=== PATIENT | male | born 1965 | race Caucasian/White ===

== ENCOUNTER → 2020-10-17 10:32 | Outpatient (BNVA) | payer MEDICARE, MEDICAID, SELFPAY | PROVIDERS: PCP Nurse Practitioner Family; Visit Provider Nurse Practitioner Family | DX: Z01.810 Encounter for preprocedural cardiovascular examination (principal); I45.10 Unspecified right bundle-branch block; G47.33 Obstructive sleep apnea (adult) (pediatric); E66.01 Morbid (severe) obesity due to excess calories; M48.061 Spinal stenosis, lumbar region without neurogenic claudication; Z86.79 Personal history of other diseases of the circulatory system; Z86.711 Personal history of pulmonary embolism; Z86.718 Personal history of other venous thrombosis and embolism; Z79.01 Long term (current) use of anticoagulants | CPT/HCPCS: 93005; 99212 ==

== ENCOUNTER → 2020-10-30 10:05 | Outpatient (BNVA) | payer MEDICARE, MEDICAID, SELFPAY | PROVIDERS: Visit Provider Urology | DX: E29.1 Testicular hypofunction (principal); N52.01 Erectile dysfunction due to arterial insufficiency; C61 Malignant neoplasm of prostate | CPT/HCPCS: Q3014 ==

== ENCOUNTER 2021-01-11 12:54 | Outpatient (REF) | payer MEDICARE, MEDICAID, SELFPAY ==
--- NOTE | ~2021-01-11 | US_ITS ---
EXAMINATION: US VENOUS ULTRASOUND WITH DOPPLER LOWER EXTREMITY, LEFT CLINICAL INFORMATION: Left lower extremity edema. Assess for occult DVT. COMPARISON: Bilateral leg venous ultrasound with Doppler 05/29/2019. TECHNIQUE: Ultrasound of the deep veins is performed from the hip to the calf with compression sonography and color and pulse Doppler assessment. Spectral analysis with color-flow imaging is performed. FINDINGS: There is noncompressibility and absent color flow involving the femoral vein at the thigh from just above the popliteal vein at the knee to just proximal to the common femoral vein at the hip. Findings are consistent with deep venous thrombosis. The common femoral vein, greater saphenous vein, popliteal vein, and posterior tibial vein show normal compressibility and color flow and augmentation of flow. The left peroneal veins are not seen with certainty which may be technical or related to the swelling. There is no visible DVT in this area although this cannot be completely excluded. Results are called and discussed with Dr. Liang at 1359 hours. US/US venous duplex LE IMPRESSION: Positive for deep venous thrombosis proximal, mid, and distal left femoral vein, from just above the popliteal vein to just below the common femoral vein.
== END 2021-01-11 12:55 | disposition home or self-care (01) ==
LOC: HO.HMGCX 12:54
PROVIDERS: PCP Nurse Practitioner Family; Visit Provider Hospitalist
DX: R60.0 Localized edema (principal)
CPT/HCPCS: 93971

== ENCOUNTER 2021-01-11 15:15 | Emergency (ER) | payer MEDICARE, MEDICAID, SELFPAY ==
[2021-01-11 15:19] VITALS: BP 145/92; PULSE 110; RESP 20; TEMP 37; O2SAT 96; BMI 45.9
[2021-01-11 16:42] LABS: MANUAL DIFF FLAG NO
--- NOTE | 2021-01-11 16:49 | ED_ITS ---
HPI - Extremity Problem General Chief complaint: Recheck/Abnormal Lab/Rx Stated complaint: ?DVT Time Seen by Provider: 01/11/21 16:04 Source: patient Mode of arrival: ambulatory Limitations: no limitations History of Present Illness HPI Narrative: 55-year-old male with a past medical history of atrial fibrillation currently on Eliquis, prostate cancer, right bundle-branch block, GERD, constipation, elevated alkaline phosphate, morbid obesity, anemia, asthma, and HARITHA presenting to the ED after being seen by Dr. Liang for left lower extremity wound/swelling with water blisters was placed on antibiotics and Lasix and had an outpatient ultrasound which revealed a DVT today which revealed DVT proximal mid and distal left femoral vein just above the popliteal vein therefore was sent here for further evaluation treatment. Patient did stop his Eliquis for only 1 day for upcoming stimulant placement by Dr. Mesa. Although was taking his Eliquis as prescribed prior to that. Denies any dizziness, headaches, changes in vision, jaw pain, nausea/vomiting, chest pain, shortness of breath, dyspnea on exertion, orthopnea, palpitations, any symptoms or any other symptom complaints or concerns at this time. MD Complaint: extremity pain and extremity swelling Onset (ago): day(s) (Few days worse today) Pain Consistency: constant Location: left Quality: aching Radiation: none Relieving factors: nothing Exacerbating factors: nothing Associated symptoms: denies other symptoms Related Data Home Medications Medication Instructions Recorded Confirmed finasteride 5 mg tablet 5 mg PO DAILY 09/25/20 01/11/21 diltiazem HCl 120 mg 120 mg PO BID 10/17/20 01/11/21 capsule,extended release 12 hr Previous Rx's Medication Instructions Recorded apixaban 5 mg tablet 5 mg PO BID 90 Days #180 tab 10/17/20 tadalafil 5 mg tablet 5 mg PO DAILY 90 Days #90 tab 10/30/20 pramipexole 0.25 mg tablet 0.25 mg PO BEDTIME #30 tab 11/09/20 gabapentin 800 mg tablet 800 mg PO TID 30 Days #90 tab 12/26/20 aripiprazole 5 mg tablet 5 mg PO DAILY #30 tab 01/07/21 tizanidine 4 mg tablet 4 mg PO BID PRN #60 tab 01/07/21 doxycycline hyclate 100 mg tablet 100 mg PO BID #14 tab 01/11/21 enoxaparin [Lovenox] 150 mg SUBCUT Q12H #10 ml 01/11/21 furosemide 20 mg tablet 20 mg PO DAILY #30 tab 01/11/21 Allergies Allergy/AdvReac Type Severity Reaction Status Date / Time Sulfa (Sulfonamide Allergy Mild RASH, hives Verified 01/11/21 09:19 Antibiotics) [SULFA (SULFONAMIDE ANTIBIOTICS)] Review of Systems Review of Systems: Constitutional : No Fever, No Chills, No Night Sweats, No Fatigue, No Malaise ENT/Mouth : No Hearing loss, No Ear Pain, No Nasal Congestion, No Sinus Pain, No Hoarseness, No sore throat, No Rhinorrhea, No Swallowing Difficulty Eyes: No Eye Pain, No Swelling, No Redness, No Foreign Body, No Discharge, No Vision Changes Cardiovascular : No Chest Pain, No SOB, No Dyspnea on Exertion, No Orthopnea, No Edema, No Palpitations Respiratory : No Cough, No Sputum, No Wheezing, No Smoke Exposure, No Dyspnea Gastrointestinal : No Nausea, No Vomiting, No Diarrhea, No Constipation, No abdominal Pain, No Hematochezia, No Melena Genitourinary : no irregular bleeding, No Dysuria, No Urinary Frequency, No Hematuria, No Urinary Incontinence, No Urgency, No Flank Pain, No Urinary Flow Changes, No Hesitancy Musculoskeletal : + Joint swelling, No joint pain, No Myalgias Skin : + Skin Lesions, No rash Neuro : No Weakness, No Numbness, No Paresthesias, No Loss of Consciousness, No Dizziness, No Headache Psych : No Anxiety/Panic, No Depression, No SI/HI/AH/VH, No Social Issues, Heme/Lymph: No Bruising, No Bleeding,No Lymphadenopathy Endocrine : No Polyuria, No Polydipsia, No Temperature Intolerance Yes all other systems are reviewed and are negative [facility] Past Medical History Attestation statement: The following information was validated with the patient. Medical History Anemia Arthritis Asthma Atrial fibrillation Carpal tunnel syndrome Constipation Depression Elevated alkaline phosphatase level Erectile dysfunction GERD (gastroesophageal reflux disease) Lumbar spinal stenosis Morbid obesity HARITHA (obstructive sleep apnea) Prostate CA RBBB Stenosis of cervical spine Surgical History H/O cardiac radiofrequency ablation (~04/2017) No pertinent past surgical history Family History Family History Father No problems noted. Mother No problems noted. Social History Social History Alcohol intake: never Smoking Status: Former smoker Advance Directives: No Advance Directives Information Provided: Yes Physical Exam Vital Signs: Vital Signs: Last Vital Signs Temp 98.6 F 01/11/21 15:19 Pulse 110 H 01/11/21 15:19 Resp 20 01/11/21 15:19 BP 145/92 H 01/11/21 15:19 Pulse Ox 96 01/11/21 15:19 Body Mass Index 45.9 vital signs have been reviewed as normal and appeared to be correct. Blood pressure normal. Heart rate normal. Respiration rate normal. Temperature normal. Oxygen saturation normal. Appearance: Alert. Oriented X3. No acute distress. Head: Normal external exam. Normocephalic. Atraumatic. Eyes: PERRLA. EOMI. Conjunctiva and sclera normal. Eyelids normal. ENT: Pharynx normal. Uvula midline. Moist mucous membranes. No trismus noted. No drooling noted. No muffled voice noted. Neck: Normal inspection. Neck supple. FROM. No adenopathy. Thyroid Normal. Trachea midline. No meningeal signs. No neck mass noted. CVS: Normal heart rate and rhythm. Heart sound normal. No murmurs noted. Pulses normal throughout. Respiratory: No respiratory distress. Painless inspiration. Breath sounds normal. No wheezes/rales/rhonchi noted. Chest nontender. No accessory muscle usage noted or decreased air movement noted. Back: Full range of motion noted. Skin: Skin warm and dry. Normal skin color. Normal skin turgor. No rashes/lesions/lacerations noted. Extremities: Patient with wound noted to left lower extremity with mild surrounding erythema with a water blister noted above. No fluctuance noted. Patient has bilateral pitting edema. Does have good distal pedal pulses. No streaking noted. See below for imaging. Extremities exhibit normal range of motion. Extremities nontender. Neuro: Oriented X 3. No motor deficit. No sensory deficit. Reflexes normal. Course Course Course Narrative: 55-year-old male with a past medical history of atrial fibrillation currently on Eliquis, prostate cancer, right bundle-branch block, GERD, constipation, elevated alkaline phosphate, morbid obesity, anemia, asthma, and HARITHA presenting to the ED after being seen by Dr. Liang for left lower extremity wound/swelling with water blisters was placed on antibiotics and Lasix and had an outpatient ultrasound which revealed a DVT today which revealed DVT proximal mid and distal left femoral vein just above the popliteal vein therefore was sent here for further evaluation treatment. - I consulted with Dr. Palacios who recommended getting basic blood work and if the patient's kidney function was within normal limits patient can be placed on p.o. Lovenox and can follow-up as an outpatient basis. - labs all within normal limits therefore will place on Lovenox and instruct patient to continue taking the antibiotics he was placed on for cellulitis/wound and to return if any new or worsening symptoms to follow up with primary care provider. Patient understands agrees the plan. MDM - Extremity (Nontraumatic) Medical Records Attestation: I reviewed the patient's medical records. Lab Data Attestation: I reviewed the patient's lab results. Result diagrams: 01/11/21 16:29 01/11/21 16:29 Labs: Lab Results 01/11/21 01/11/21 01/11/21 Range/Units 16:29 16:29 16:29 WBC 8.6 (4.8-10.8) X10*3/uL RBC 5.25 (4.60-5.80) X10*6/uL Hgb 14.2 (14.0-18.0) g/dl Hct 45.8 (42-52) % MCV 87.2 (80-98) fL MCH 27.0 (27.0-33.0) pg MCHC 31.0 (31.0-36.0) g/dl RDW 13.7 (11.0-16.0) % Plt Count 226 (160-400) X10*3/uL MPV 11.0 (9.4-12.4) fL Immature Gran % (Auto) 0.7 H (0.0-0.4) % Neut % (Auto) 73.4 H (45-73) % Lymph % (Auto) 13.8 L (20-40) % Ware % (Auto) 9.5 (2-11) % Eos % (Auto) 2.1 (0-4) % Baso % (Auto) 0.5 (0-2) % Lymph # (Auto) 1.2 (1.2-4.9) X10*3/uL Ware # (Auto) 0.8 (0.1-1.2) X10*3/uL Eos # (Auto) 0.2 (0.0-0.4) X10*3/uL Baso # (Auto) 0.0 (0.0-0.2) X10*3/uL Abs Immat Gran (auto) 0.06 H (0.00-0.03) X10*3/uL Absolute Neuts (auto) 6.3 (2.0-8.3) X10*3/uL Absolute Nucleated RBC 0.000 (0.0-0.012) X10*3/uL Nucleated RBC % (auto) 0.0 (0.0-0.2) /100WBC PT 12.3 (10.8-13.0) SEC INR 1.0 (0.9-1.1) APTT 36.1 (24.1-38.0) SEC Hold Blue Top SEE NOTE Sodium 143 (135-145) mmol/L Potassium 4.1 (3.3-5.1) mmol/L Chloride 107 (96-108) mmol/L Carbon Dioxide 30 H (22-29) mmol/L Anion Gap 10 L (12-20) BUN 17 H (9-16) mg/dL Creatinine 1.11 (0.5-1.4) mg/dL Estim Creat Clear Calc 126.3 Estimated GFR > 60 Random Glucose 99 (60-115) mg/dL Calcium 8.2 L (8.4-10.2) mg/dL Magnesium 2.1 (1.6-2.6) mg/dL Total Bilirubin 0.3 (0.0-1.0) mg/dL Direct Bilirubin 0.2 (0.0-0.5) mg/dL AST 20 (5-37) U/L ALT 18 (0-40) U/L Alkaline Phosphatase 130 H (39-117) U/L Total Protein 7.0 (6.5-8.0) g/dL Albumin 3.6 (3.5-5.0) g/dL COVID-19 (MARIANA) (Negative) COVID-19 Clin Com 01/11/21 Range/Units 16:29 WBC (4.8-10.8) X10*3/uL RBC (4.60-5.80) X10*6/uL Hgb (14.0-18.0) g/dl Hct (42-52) % MCV (80-98) fL MCH (27.0-33.0) pg MCHC (31.0-36.0) g/dl RDW (11.0-16.0) % Plt Count (160-400) X10*3/uL MPV (9.4-12.4) fL Immature Gran % (Auto) (0.0-0.4) % Neut % (Auto) (45-73) % Lymph % (Auto) (20-40) % Ware % (Auto) (2-11) % Eos % (Auto) (0-4) % Baso % (Auto) (0-2) % Lymph # (Auto) (1.2-4.9) X10*3/uL Ware # (Auto) (0.1-1.2) X10*3/uL Eos # (Auto) (0.0-0.4) X10*3/uL Baso # (Auto) (0.0-0.2) X10*3/uL Abs Immat Gran (auto) (0.00-0.03) X10*3/uL Absolute Neuts (auto) (2.0-8.3) X10*3/uL Absolute Nucleated RBC (0.0-0.012) X10*3/uL Nucleated RBC % (auto) (0.0-0.2) /100WBC PT (10.8-13.0) SEC INR (0.9-1.1) APTT (24.1-38.0) SEC Hold Blue Top Sodium (135-145) mmol/L Potassium (3.3-5.1) mmol/L Chloride (96-108) mmol/L Carbon Dioxide (22-29) mmol/L Anion Gap (12-20) BUN (9-16) mg/dL Creatinine (0.5-1.4) mg/dL Estim Creat Clear Calc Estimated GFR Random Glucose (60-115) mg/dL Calcium (8.4-10.2) mg/dL Magnesium (1.6-2.6) mg/dL Total Bilirubin (0.0-1.0) mg/dL Direct Bilirubin (0.0-0.5) mg/dL AST (5-37) U/L ALT (0-40) U/L Alkaline Phosphatase (39-117) U/L Total Protein (6.5-8.0) g/dL Albumin (3.5-5.0) g/dL COVID-19 (MARIANA) Negative (Negative) COVID-19 Clin Com See Note Imaging Data Left lower extremity edema: Attestation: I personally reviewed and interpreted this imaging study as follows: Radiologist's impression: FINDINGS: There is noncompressibility and absent color flow involving the femoral vein at the thigh from just above the popliteal vein at the knee to just proximal to the common femoral vein at the hip. Findings are consistent with deep venous thrombosis. The common femoral vein, greater saphenous vein, popliteal vein, and posterior tibial vein show normal compressibility and color flow and augmentation of flow. The left peroneal veins are not seen with certainty which may be technical or related to the swelling. There is no visible DVT in this area although this cannot be completely excluded. Results are called and discussed with Dr. Liang at 1359 hours. US/US venous duplex LE LT IMPRESSION: Positive for deep venous thrombosis proximal, mid, and distal left femoral vein, from just above the popliteal vein to just below the common femoral vein. Discharge Plan Discharge Clinical Impression: Deep vein thrombosis (DVT) of femoral vein, Cellulitis of left leg Patient Disposition: Home, Self-Care Instructions: Cellulitis (ED), Deep Vein Thrombosis (ED) Additional Instructions: Please discontinue the Eliquis as you feel treatment. Start the Lovenox we gave you your 1st dose today. You should take the Lovenox twice a day by injection. Follow-up with your primary care provider. Continue taking the antibiotics as previously prescribed. Continue taking all your previously prescribed medicatio ns as previously prescribed. Return if any new or worsening symptoms especially worsening swelling/redness or streaking up the leg along with chest pain or shortness of breath. Prescriptions: New enoxaparin [Lovenox] 150 mg/mL syringe 150 mg subcut Q12H Qty: 10 RF: 0 No Action pramipexole 0.25 mg tablet 0.25 mg PO BEDTIME Qty: 30 RF: 3 gabapentin 800 mg tablet 800 mg PO TID 30 Days Qty: 90 RF: 2 tizanidine 4 mg tablet 4 mg PO BID PRN (Reason: for muscle spasm) Qty: 60 RF: 2 aripiprazole 5 mg tablet 5 mg PO DAILY Qty: 30 RF: 2 finasteride 5 mg tablet 5 mg PO DAILY RF: 0 doxycycline hyclate 100 mg tablet 100 mg PO BID Qty: 14 RF: 0 furosemide [Lasix] 20 mg tablet 20 mg PO DAILY Qty: 30 RF: 0 tadalafil 5 mg tablet 5 mg PO DAILY 90 Days Qty: 90 RF: 0 diltiazem HCl 120 mg capsule,extended release 12 hr 120 mg PO BID RF: 0 apixaban 5 mg tablet 5 mg PO BID 90 Days Qty: 180 RF: 3 Referrals: Livia Palacios MD [Physician] - 2 days Prosper Ellis FNP-JENNIFER [Primary Care Provider] - 2 days Ezekiel Liang DO [Physician] - 2 days Print Language: Bengali
[2021-01-11 16:51] LABS: Basophils Percent Auto 0.5 % (0-2); Eosinophils Absolute Auto 0.2 X10*3/uL (0.0-0.4); Eosinophils Percent Auto 2.1 % (0-4); Hematocrit 45.8 % (42-52); Hemoglobin 14.2 g/dl (14.0-18.0); Imm Gran Abs Auto 0.06 X10*3/uL (0.00-0.03); Imm Gran Pct Auto 0.7 % (0.0-0.4); Lymphocytes Absolute Auto 1.2 X10*3/uL (1.2-4.9); Lymphocytes Percent Auto 13.8 % (20-40); Mean Corpuscular Volume 87.2 fL (80-98); Monocytes Absolute Auto 0.8 X10*3/uL (0.1-1.2); Monocytes Percent Auto 9.5 % (2-11); Neutrophils Absolute Auto 6.3 X10*3/uL (2.0-8.3); Neutrophils Percent Auto 73.4 % (45-73); Platelet Count 226 X10*3/uL (160-400); Red Blood Count 5.25 X10*6/uL (4.60-5.80); Red Cell Distribution Width 13.7 % (11.0-16.0); White Blood Count 8.6 X10*3/uL (4.8-10.8)
[2021-01-11 16:56] LABS: Prothrombin Time 12.3 SEC (10.8-13.0)
[2021-01-11 16:59] LABS: Partial Thromboplastin Time 36.1 SEC (24.1-38.0)
[2021-01-11 17:01] LABS: COVID-19 Test Negative (Negative); IDNOW Serial# 9DD0AD1C
[2021-01-11 17:08] LABS: Alanine Aminotransferase 18 U/L (0-40); Albumin Level 3.6 g/dL (3.5-5.0); Alkaline Phosphatase 130 U/L (39-117); Anion Gap 10 (12-20); Aspartate Amino Transferase 20 U/L (5-37); Bilirubin Direct 0.2 mg/dL (0.0-0.5); Bilirubin Total 0.3 mg/dL (0.0-1.0); Blood Urea Nitrogen 17 mg/dL (9-16); Calcium 8.2 mg/dL (8.4-10.2); Carbon Dioxide 30 mmol/L (22-29); Chloride 107 mmol/L (96-108); Creatinine Clr Calc Pharmacy 126.3; Estimated Glomerular Filt Rate > 60; Glucose Random 99 mg/dL (60-115); Magnesium 2.1 mg/dL (1.6-2.6); Potassium 4.1 mmol/L (3.3-5.1); Sodium 143 mmol/L (135-145)
[2021-01-11 18:02] VITALS: BP 104/51; PULSE 80; RESP 18; TEMP 37; O2SAT 96
--- NOTE | 2021-01-11 18:22 | PC.NURSE ---
pharmacy called for second time for lovenox dose
[2021-01-11] MEDS: Enoxaparin Sodium 150 MG/ML SYRINGE SUBCUT (18:36)
== END 2021-01-11 18:51 | disposition home or self-care (01) ==
PROVIDERS: Physician Assistant Medical; Emergency Provider Emergency Medicine Emergency Medical Services; PCP Nurse Practitioner Family
DX: I82.412 Acute embolism and thrombosis of left femoral vein (principal); L03.116 Cellulitis of left lower limb; S81.802A Unspecified open wound, left lower leg, initial encounter; X58.XXXA Exposure to other specified factors, initial encounter; I48.91 Unspecified atrial fibrillation; I45.10 Unspecified right bundle-branch block; Z20.822 Contact with and (suspected) exposure to COVID-19; Y93.9 Activity, unspecified; Y92.9 Unspecified place or not applicable; Y99.9 Unspecified external cause status; Z79.01 Long term (current) use of anticoagulants; Z85.46 Personal history of malignant neoplasm of prostate
CPT/HCPCS: 36415; 80048; 80076; 83735; 85025; 85610; 85730; 87635; 96372; 99284; J1650

== ENCOUNTER → 2021-01-30 08:53 | Outpatient (BNV) | payer MEDICARE, OTHER, MEDICAID, SELFPAY | PROVIDERS: PCP Nurse Practitioner Family; Visit Provider Internal Medicine | DX: I82.402 Acute embolism and thrombosis of unspecified deep veins of left lower extremity (principal) | CPT/HCPCS: 99204; 99214; G2211 ==

== ENCOUNTER → 2021-05-13 08:15 | Outpatient (BNVA) | payer OTHER, MEDICAID, SELFPAY | PROVIDERS: PCP Nurse Practitioner Family; Visit Provider Internal Medicine | DX: I82.401 Acute embolism and thrombosis of unspecified deep veins of right lower extremity (principal); Z51.81 Encounter for therapeutic drug level monitoring; Z79.01 Long term (current) use of anticoagulants | CPT/HCPCS: 85610; 99201; 99202 ==

== ENCOUNTER → 2021-05-21 09:01 | Outpatient (BNVA) | payer OTHER, MEDICAID, SELFPAY | PROVIDERS: PCP Nurse Practitioner Family; Visit Provider Internal Medicine | DX: I82.401 Acute embolism and thrombosis of unspecified deep veins of right lower extremity (principal); Z51.81 Encounter for therapeutic drug level monitoring; Z79.01 Long term (current) use of anticoagulants | CPT/HCPCS: 85610; 99211 ==

== ENCOUNTER 2021-05-24 08:41 | Outpatient (REF) | payer OTHER, MEDICAID, SELFPAY ==
[2021-05-24 09:37] LABS: Prothrombin Time 71.2 SEC (10.8-13.0)
[2021-05-24 09:47] LABS: INTERNATIONAL NORM RATIO 5.9 (0.9-1.1)
== END 2021-05-24 08:42 | disposition home or self-care (01) ==
LOC: HO.LAB 08:41
PROVIDERS: PCP Nurse Practitioner Family; Visit Provider Internal Medicine
DX: I48.91 Unspecified atrial fibrillation (principal); Z51.81 Encounter for therapeutic drug level monitoring; Z79.01 Long term (current) use of anticoagulants
CPT/HCPCS: 36415; 85610; 99212

== ENCOUNTER → 2021-05-28 08:10 | Outpatient (BNVA) | payer OTHER, MEDICAID, SELFPAY | PROVIDERS: PCP Nurse Practitioner Family; Visit Provider Internal Medicine | DX: I82.401 Acute embolism and thrombosis of unspecified deep veins of right lower extremity (principal); Z51.81 Encounter for therapeutic drug level monitoring; Z79.01 Long term (current) use of anticoagulants | CPT/HCPCS: 85610; 99211 ==

== ENCOUNTER → 2021-07-19 08:29 | Outpatient (BNVA) | payer OTHER, MEDICAID, SELFPAY | PROVIDERS: PCP Nurse Practitioner Family; Visit Provider Internal Medicine | DX: I82.401 Acute embolism and thrombosis of unspecified deep veins of right lower extremity (principal); Z51.81 Encounter for therapeutic drug level monitoring; Z79.01 Long term (current) use of anticoagulants | CPT/HCPCS: 85610; 99211 ==

== ENCOUNTER → 2021-07-26 10:14 | Outpatient (BNVA) | payer OTHER, MEDICAID, SELFPAY | PROVIDERS: PCP Nurse Practitioner Family; Visit Provider Internal Medicine | DX: I82.401 Acute embolism and thrombosis of unspecified deep veins of right lower extremity (principal); Z51.81 Encounter for therapeutic drug level monitoring; Z79.01 Long term (current) use of anticoagulants | CPT/HCPCS: 85610; 99211 ==

== ENCOUNTER 2021-08-16 09:00 | Outpatient (RCR) | payer OTHER, MEDICAID, SELFPAY ==
--- NOTE | 2021-08-08 10:47 | MHC.PT.EP ---
[facility] [place] Office [place] Office [place] Office [address] [place] [address] [phone] F: [phone] F: [phone] F: [phone] F: [phone] Physical Therapy Plan of Care Date of Evaluation: Date of Surgery: Diagnosis: bilateral knee instability Assessment: Patient is a 56 year old R handed male who presents with s/s consistent with bilateral LE instability. He does not work but desires to be able to attend more family activities and be out in the community more. He is fairly sedentary at this time. Patient past medical history includes several back surgeries and blood clots. Currently on blood thinners. Current impairments include pain, ROM, strength, safety, independence, activity tolerance and functional mobility. Functional limitations include decreased ability to walk, stand, transfer, negotiate stairs, and perform weight bearing activities.. Patient is motivated with good rehab potential. Skilled PT will address impairments and functional limitations in order to achieve goals. Frequency and Duration: The patient will be seen 2x/week for 4 weeks Short Term Goals: I with HEP - 2 weeks Able to tolerate 10 min of stepper with no rest breaks - 2 weeks L LE strength 4-/5 grossly - 2 weeks Social Service Technician Goals: LEFS 34/80 - 4 weeks LE strength 4/5 grossly - 4 weeks Able to walk > 5 minutes with cane or walker - 4 weeks Treatment Plan: Modalities to reduce pain, spasms and effusion. Manual therapy to restore motion and function. Therapeutic exercise to improve strength and flexibility. Neuromuscular re-education for posture and balance. Therapeutic activities to return to functional activities of daily living. Electronically signed by: Dhruv Leach, PT Please sign and return to therapist. Thank you for your referral.
--- NOTE | 2021-12-20 08:10 | MHC.PT.DC ---
[facility] [place] Office [place] Office [place] Office [address] [place] [address] [phone] F: [phone] F: [phone] F: [phone] F: [phone] Physical Therapy Discharge Report Diagnosis: bilateral knee instability Date of Surgery: Date of Evaluation: 08/08/21 Date of Discharge: 09/12/21 Treatments to Date: 2 Cancellations to Date: 0 No Shows to Date: 0 Discharge Status: Patient Elected to Stop Discharge Summary: 08/16/21: pt continues to re-iterate and focus on limitations. requires encouragement and re-direction at times. progressing with activity and strength as tolerated ---after this appointment he did not follow up with future appointments. Patient is a 56 year old R handed male who presents with s/s consistent with bilateral LE instability. He does not work but desires to be able to attend more family activities and be out in the community more. He is fairly sedentary at this time. Patient past medical history includes several back surgeries and blood clots. Currently on blood thinners. Current impairments include pain, ROM, strength, safety, independence, activity tolerance and functional mobility. Functional limitations include decreased ability to walk, stand, transfer, negotiate stairs, and perform weight bearing activities.. Patient is motivated with good rehab potential. Skilled PT will address impairments and functional limitations in order to achieve goals. Electronically signed by: Dhruv Leach, PT Please sign and return to therapist. Thank you for your referral.
== END 2021-09-12 08:00 | disposition home or self-care (01) ==
LOC: HO.PTCHIC 09:00
PROVIDERS: PCP Nurse Practitioner Family; Visit Provider Nurse Practitioner Family
DX: M25.361 Other instability, right knee (principal); M25.362 Other instability, left knee
CPT/HCPCS: 97110; 97162; 97163

== ENCOUNTER 2021-12-17 10:34 | Outpatient (REF) | payer OTHER, MEDICAID, SELFPAY ==
[2021-12-17 11:24] LABS: COVID-19 Test Negative (Negative)
== END 2021-12-17 10:35 | disposition home or self-care (01) ==
LOC: HO.LAB 10:34
PROVIDERS: Visit Provider Internal Medicine
DX: Z20.822 Contact with and (suspected) exposure to COVID-19 (principal)
CPT/HCPCS: 87635; C9803

== ENCOUNTER → 2021-12-18 10:34 | Outpatient (BNVA) | payer OTHER, MEDICAID, SELFPAY | PROVIDERS: PCP Nurse Practitioner Family; Visit Provider Internal Medicine | DX: I82.402 Acute embolism and thrombosis of unspecified deep veins of left lower extremity (principal); Z51.81 Encounter for therapeutic drug level monitoring; Z79.01 Long term (current) use of anticoagulants | CPT/HCPCS: 85610; 99211 ==

== ENCOUNTER → 2021-12-31 09:05 | Outpatient (BNVA) | payer OTHER, MEDICAID, SELFPAY | PROVIDERS: PCP Nurse Practitioner Family; Visit Provider Internal Medicine | DX: I82.402 Acute embolism and thrombosis of unspecified deep veins of left lower extremity (principal); Z51.81 Encounter for therapeutic drug level monitoring; Z79.01 Long term (current) use of anticoagulants | CPT/HCPCS: 85610; 99211 ==

== ENCOUNTER → 2022-01-03 09:25 | Outpatient (BNVA) | payer OTHER, MEDICAID, SELFPAY | PROVIDERS: PCP Nurse Practitioner Family; Visit Provider Nurse Practitioner Family ==

== ENCOUNTER → 2022-01-14 10:32 | Outpatient (BNVA) | payer OTHER, MEDICAID, SELFPAY | PROVIDERS: PCP Nurse Practitioner Family; Visit Provider Internal Medicine | DX: I82.402 Acute embolism and thrombosis of unspecified deep veins of left lower extremity (principal); Z51.81 Encounter for therapeutic drug level monitoring; Z79.01 Long term (current) use of anticoagulants | CPT/HCPCS: 85610; 99211 ==

== ENCOUNTER → 2022-01-28 15:14 | Outpatient (BNVA) | payer OTHER, MEDICAID, SELFPAY | PROVIDERS: PCP Nurse Practitioner Family; Visit Provider Internal Medicine | DX: I82.402 Acute embolism and thrombosis of unspecified deep veins of left lower extremity (principal); Z51.81 Encounter for therapeutic drug level monitoring; Z79.01 Long term (current) use of anticoagulants | CPT/HCPCS: 85610; 99211 ==

== ENCOUNTER 2022-02-10 15:02 | Outpatient (REF) | payer OTHER, MEDICAID, SELFPAY ==
[2022-02-10 16:51] LABS: Hematocrit 46.9 % (42.0-52.0); Hemoglobin 14.8 g/dl (14.0-18.0); Mean Corpuscular HGB Conc 31.6 g/dl (31.0-36.0); Mean Corpuscular Hemoglobin 27.8 pg (27.0-33.0); Mean Corpuscular Volume 88.2 fL (80.0-98.0); Mean Platelet Volume 11.5 fL (9.4-12.4); Platelet Count 241 X10*3/uL (160-400); Red Blood Count 5.32 X10*6/uL (4.60-5.80); Red Cell Distribution Width 13.7 % (11.0-16.0); White Blood Count 8.8 X10*3/uL (4.8-10.8)
[2022-02-10 17:20] LABS: Alanine Aminotransferase 21 U/L (0-40); Albumin Level 3.8 g/dL (3.5-5.0); Alkaline Phosphatase 110 U/L (39-117); Anion Gap 13 (12-20); Aspartate Amino Transferase 21 U/L (5-37); Bilirubin Total 0.3 mg/dL (0.0-1.0); Blood Urea Nitrogen 19 mg/dL (9-16); Calcium 8.4 mg/dL (8.4-10.2); Carbon Dioxide 27 mmol/L (22-29); Chloride 105 mmol/L (96-108); Estimated Glomerular Filt Rate > 60; Glucose Random 84 mg/dL (60-115); Sodium 141 mmol/L (135-145); Total Protein 7.6 g/dL (6.5-8.0)
== END 2022-02-10 15:03 | disposition home or self-care (01) ==
LOC: HO.HMGCLDS 15:02
PROVIDERS: Visit Provider Internal Medicine
DX: I82.409 Acute embolism and thrombosis of unspecified deep veins of unspecified lower extremity (principal)
CPT/HCPCS: 36415; 80053; 85027

== ENCOUNTER → 2022-02-25 13:55 | Outpatient (BNVA) | payer OTHER, MEDICAID, SELFPAY | PROVIDERS: PCP Nurse Practitioner Family; Visit Provider Internal Medicine | DX: I82.402 Acute embolism and thrombosis of unspecified deep veins of left lower extremity (principal); Z51.81 Encounter for therapeutic drug level monitoring; Z79.01 Long term (current) use of anticoagulants | CPT/HCPCS: 85610; 99211 ==

== ENCOUNTER 2022-07-03 10:24 | Outpatient (REF) | payer OTHER, MEDICAID, SELFPAY ==
--- NOTE | ~2022-07-03 | US_ITS ---
EXAMINATION: US VENOUS ULTRASOUND WITH DOPPLER LOWER EXTREMITY, LEFT CLINICAL INFORMATION: Leg swelling. Patient on warfarin therapy for DVT. COMPARISON: 01/11/2021 TECHNIQUE: Ultrasound of the deep veins is performed from the hip to the calf with compression sonography and color and pulse Doppler assessment. Spectral analysis with color-flow imaging is performed. FINDINGS: The common femoral vein is compressible and exhibits a normal phasic waveform; this suggests that the iliac veins are widely patent above. The visualized greater saphenous vein and saphenofemoral junction are normal. The visualized profunda femoris vein is patent. The prior ultrasound exam showed occlusive thrombus of the femoral vein. This current examination also shows extensive occlusive thrombosis of the femoral vein of the proximal, mid and distal thigh. There is chronic appearing, partially recanalized thrombus of the popliteal vein. Within the calf, the visualized posterior tibial and peroneal veins are grossly patent. No Ingram's cyst. US/US venous duplex LE LT IMPRESSION: No evidence of improvement compared to prior ultrasound of 01/11/2021. Again noted is extensive thrombosis of the femoral vein of the proximal, mid and lower thigh. Also, there appears to be some chronic recanalized thrombus in the popliteal vein. No overt acute thrombosis superimposed on the chronic severe disease.
== END 2022-07-03 10:25 | disposition home or self-care (01) ==
LOC: HO.US 10:24
PROVIDERS: PCP Nurse Practitioner Family; Visit Provider Internal Medicine
DX: R60.0 Localized edema (principal); I82.402 Acute embolism and thrombosis of unspecified deep veins of left lower extremity
CPT/HCPCS: 93971

== ENCOUNTER → 2022-09-30 13:00 | Outpatient (BNVA) | payer OTHER, MEDICAID, SELFPAY | PROVIDERS: PCP Nurse Practitioner Family; Visit Provider Orthopaedic Surgery | DX: M65.332 Trigger finger, left middle finger (principal); M65.342 Trigger finger, left ring finger; I48.91 Unspecified atrial fibrillation; Z79.01 Long term (current) use of anticoagulants | CPT/HCPCS: 20550; J1100 ==

== ENCOUNTER → 2022-10-29 09:23 | Outpatient (BNVA) | payer OTHER, MEDICAID, SELFPAY | PROVIDERS: PCP Nurse Practitioner Family; Referring Provider Nurse Practitioner Family; Visit Provider Internal Medicine Cardiovascular Disease | DX: I48.0 Paroxysmal atrial fibrillation (principal) | CPT/HCPCS: 93005 ==

== ENCOUNTER → 2022-11-03 10:13 | Outpatient (REF) | payer OTHER, MEDICAID, SELFPAY ==
--- NOTE | 2022-11-03 10:16 | HM_ITS ---
* Total monitoring time 30 days. Wear compliance 63%. * Indication-paroxysmal atrial fibrillation * Underlying rhythm is sinus. Baseline rate 70/Min. * Occasional supraventricular/ventricular ectopy but minimal burden. * No sustained arrhythmias. * Several symptoms mentioned in diary including chest pressure, tightness, dizziness at different times but no clear correlation with rhythm. MTDD
[2022-11-03 10:53] LABS: MANUAL DIFF FLAG NO
[2022-11-03 12:10] LABS: Basophils Absolute Auto 0.1 X10*3/uL (0.0-0.2); Basophils Percent Auto 0.6 % (0-2); Eosinophils Absolute Auto 0.2 X10*3/uL (0.0-0.4); Eosinophils Percent Auto 2.1 % (0-4); Hematocrit 48.3 % (42.0-52.0); Hemoglobin 15.3 g/dl (14.0-18.0); Imm Gran Abs Auto 0.08 X10*3/uL (0.00-0.03); Lymphocytes Absolute Auto 1.4 X10*3/uL (1.2-4.9); Lymphocytes Percent Auto 17.3 % (20-40); Mean Corpuscular HGB Conc 31.7 g/dl (31.0-36.0); Mean Corpuscular Hemoglobin 28.2 pg (27.0-33.0); Mean Platelet Volume 11.9 fL (9.4-12.4); Monocytes Absolute Auto 0.7 X10*3/uL (0.1-1.2); Neutrophils Absolute Auto 5.7 x10*3/uL (2.0-8.3); Platelet Count 221 X10*3/uL (160-400); Red Blood Count 5.43 X10*6/uL (4.60-5.80); Red Cell Distribution Width 13.7 % (11.0-16.0); White Blood Count 8.1 X10*3/uL (4.8-10.8)
[2022-11-03 12:14] LABS: Prothrombin Time 11.4 SEC (10.0-13.1)
[2022-11-03 13:03] LABS: Alanine Aminotransferase 24 U/L (0-40); Albumin Level 3.7 g/dL (3.5-5.0); Alkaline Phosphatase 111 U/L (39-117); Anion Gap 8 (12-20); Aspartate Amino Transferase 21 U/L (5-37); Bilirubin Total 0.6 mg/dL (0.0-1.0); Blood Urea Nitrogen 21 mg/dL (9-16); Calcium 8.6 mg/dL (8.4-10.2); Carbon Dioxide 29 mmol/L (22-29); Chloride 108 mmol/L (96-108); Cholesterol 119 mg/dL; Estimated Glomerular Filt Rate > 60; Glucose Fasting 100 mg/dL (60-99); HDL Cholesterol 29 mg/dL; LDL Cholesterol Calculated 64 mg/dl; Potassium 4.4 mmol/L (3.3-5.1); Prostate Specific Antigen Scr 0.36 ng/mL (<0.05-4.0); Sodium 141 mmol/L (135-145); Total Protein 6.9 g/dL (6.5-8.0); Triglycerides 131 mg/dL
== END ==
LOC: HO.CARD 10:13
PROVIDERS: PCP Nurse Practitioner Family; Visit Provider Internal Medicine Cardiovascular Disease
DX: Z12.5 Encounter for screening for malignant neoplasm of prostate (principal); I48.0 Paroxysmal atrial fibrillation; F41.8 Other specified anxiety disorders; Z92.29 Personal history of other drug therapy
CPT/HCPCS: 36415; 80053; 80061; 84153; 84443; 85025; 85610; 93270

== ENCOUNTER → 2022-11-25 12:10 | Outpatient (BNVA) | payer OTHER, MEDICAID, SELFPAY | PROVIDERS: PCP Nurse Practitioner Family; Visit Provider Orthopaedic Surgery | DX: I48.0 Paroxysmal atrial fibrillation (principal) ==

== ENCOUNTER → 2022-12-03 08:04 | Outpatient (REF) | payer MEDICARE, MEDICAID, SELFPAY ==
--- NOTE | 2022-12-03 08:08 | CA_ITS ---
Transthoracic Echocardiogram Patient (Last, First, Middle): Serafin Beckett, Gender: Male Date of : 1965 Age: 57 Procedure Date: 12/03/2022 Procedure Type: Transthoracic Echocardiogram Location: OP Height: 190.5 cm Weight: 165.56 kg BSA: 2.83 m2 Heart Rate: bpm BP: 130 / 78 mmHg Cheese Cutter: TO/VH Referring MD: Ramana Moseley MD Symptoms: I48.0 - Paroxysmal atrial fibrillation Study Quality: Technically Difficult/Contrast ECG Rhythm: Sinus Conclusions: - The left ventricular systolic function is normal. The calculated ejection fraction is 56% by biplane method. - No obvious valvular pathology seen on this study. Findings Procedure Information Contrast agent, definity, is being given per protocol without apparent complications. Left Ventricle Normal left ventricular cavity size. There is normal left ventricular wall thickness. The left ventricular systolic function is normal. The calculated ejection fraction is 56% by biplane method. There is no evidence of regional wall motion abnormalities. Diastolic function is normal for age. Right Ventricle The right ventricle was not well visualized. Atria Both atria are normal in size. Aortic Valve There is a normal trileaflet aortic valve. There is no aortic valve stenosis. There is no aortic valve regurgitation. Mitral Valve The mitral valve appears normal. There is no mitral valve regurgitation. There is no mitral valve stenosis. Pulmonic Valve The pulmonic valve is likely normal. Tricuspid Valve There is trace tricuspid valve regurgitation. There is no evidence of pulmonary hypertension. Great Vessels The aortic annulus, sinuses of valsalva, and asc aorta are normal in size. Venous The inferior vena cava is normal in size and collapses greater than 50% with inspiration. Pericardium/Pleural There is no evidence of pericardial effusion. Prior Study Comparison No change compared to prior study dated: 07/06/2019. Recommendations, Care & Conclusions No obvious valvular pathology seen on this study. Measurements 2D Linear Measurements IVSd: 0.99 0.6-0.9/0.6-1.0 cm LVIDd: 5.69 3.9-5.3/4.2-5.9 cm LVIDd Index: 2.01 2.4-3.2/2.2-3.1 cm/m2 LVIDs: 4.14 2.0-3.6 cm LVPWd: 0.91 0.7-1.1 cm LA Diam: 4.10 2.7-3.8/3.0-4.0 cm LAIDs Index: 1.45 1.5-2.3 cm/m2 LV Mass: 262.43 67-162/88-224 g LV Mass Index: 92.73 43-95/49-115 g/m2 LVOT Diam: 2.20 3.0+(-)1.3 cm 2D Systolic Function EF 4C: 58.80 >55% EF 2C: 56.50 >55% EF BiP: 55.60 >55% Mitral Valve MV VTI: 0.29 MV Pk Erik: 1.13 MV Mn Erik: 0.63 MV Pk Grad: 5.00 MV Mn Grad: 2.00 MV Pk E: 1.09 MV PK A: 0.52 MV Decel Time: 154.00 E/A: 2.10 E'Lateral: 6.74 E'Medial: 5.98 E/E' Med: 18.20 E/E' Lat: 16.20 PHT: 45.00 MVA PHT: 4.89 MVA Continuity: 3.25 Decel Marion: 7.07 Aortic Valve AoV Pk Erik: 1.56 AoV Mn Erik: 1.09 AoV VTI: 0.34 AoV Pk Grad: 10.00 Aov Mn Grad: 5.00 LORENA Cont.VTI: 2.74 LVOT LVOT Pk Erik: 1.04 LVOT Mn Erik: 0.70 LVOT VTI: 0.25 LVOT Pk Grad: 4.00 LVOT Mn Grad: 2.00 LVOT Diam: 2.20 LVOT Area: 3.80 Diastolic Function MV Pk E: 1.09 MV Pk A: 0.52 E/A: 2.10 E'Medial: 5.98 E/E' Med: 18.20 E' Laterial: 6.74 E/E' Lat: 16.20 Tricuspid Valve TR Pk Erik: 2.66 TR Pk Grad: 28.00 RA Press: 3.00 RVSP: 31.00 Great Vessels Aorta Sinus of Valsalva: 3.41 2.0-3.5 cm Ao Asc: 3.30 2.1-3.4 cm Updated in Other Vendor System with Status of Final Mark Li MD electronically signed on 12/05/2022 1:59:14 PM with status of Final
== END ==
LOC: HO.CARD 08:04
PROVIDERS: PCP Nurse Practitioner Family; Visit Provider Internal Medicine Cardiovascular Disease
DX: I48.0 Paroxysmal atrial fibrillation (principal)
CPT/HCPCS: 93306; Q9957

== ENCOUNTER 2023-01-01 09:52 | Day surgery (SDC) | payer MEDICARE, MEDICAID, SELFPAY ==
[2023-01-01 10:06] VITALS: BMI 45.6
--- NOTE | 2023-01-01 10:44 | P.OP_ITS ---
Operative Note Operative Note Date of Service: 01/01/23 Narrative: Operative Note Preop diagnosis: 1. left ring finger Trigger finger Postop diagnosis: 1. left ring finger Trigger finger Procedure: 1. left ring finger A1 kyara release Surgeon: Corrine Younger MD Anesthesia: local block using 1% lidocaine with epinephrine Findings: No locking or catching after A1 kyara release EBL: Less than 5 mL Tourniquet time: None Specimens: None Complications: None Disposition: Brought to recovery room in stable condition Plan: Follow-up for 10-14 days for wound check and suture removal Indications: The patient is 57 years old, with a left ring finger trigger finger that has been unresponsive to nonoperative management. The risks and benefits of operative treatment including but not limited to risk of damage to blood vessels, nerves, tendons, infection, persistent pain, persistent symptoms, recurrence or possible need for additional surgery were discussed with the patient and the patient wishes to proceed with surgery. Procedure: Once consent was obtained a local block was performed in the preop area using a combination of 1% lidocaine with epinephrine. The patient was then brought back to the operating suite and placed on the operative table in supine position. The left upper extremity was prepped and draped in a standard surgical fashion. Once assured that we had a good block, a 1.5 cm oblique incision was made center ed over the A1 kyara of the left ring finger . The incision was made through the skin to the subcutaneous tissues using a #15 blade. Careful dissection was made down to the level of the A1 kyara using tenotomy scissors, with care being taken to protect the nearby neurovascular structures. A longitudinal incision was made in the A1 kyara 1st using a #15 blade, then using tenotomy scissors un gal direct visualization. The A1 kyara was noted to be thickened. Following our A1 ykara release, we no longer saw any locking or catching of the digit with flexion and extension. Once satisfied with our A1 kyara release the wound was copiously irrigated with normal saline and hemostasis was obtained with a brief period of local pressure. The skin edges were reapproximated with some 5.0 nylon suture material and a sterile dressing was applied. The patient appears to have tolerated the procedure well and with no complications. All digits were well vascularized at the conclusion of the case.
--- NOTE | 2023-01-01 10:44 | MHC.SHP ---
Pre-Procedural Eval Section A Date of Service: 01/01/23 The patient is an INPATIENT: No Changes since office visit: No Cold of Flu in the past 2 weeks, No New Medical Problems, No Changes in Medication and No Patient answered all questions The History & Physical has been completed within 30 days and I have reviewed it.: Yes Section B Chief Complaint: Trigger finger, left ring finger Allergies: Allergies Allergy/AdvReac Type Severity Reaction Status Date / Time Sulfa (Sulfonamide Allergy Mild RASH, hives Verified 10/07/22 09:17 Antibiotics) [SULFA (SULFONAMIDE ANTIBIOTICS)] Plan I have reviewed the history and physical and performed a pertinent physical examination on my patient. No changes have occurred unless specified. Time Spent With Patient Time: Total time managing care of this patient today ____ minutes.
[2023-01-01 11:35] VITALS: BP 112/57; PULSE 61; RESP 18; O2SAT 96
== END 2023-01-01 11:42 | disposition home or self-care (01) ==
PROVIDERS: PCP Nurse Practitioner Family; Visit Provider Orthopaedic Surgery
PROC: (CPT 26055; principal; 2023-01-01 12:40)
DX: M65.342 Trigger finger, left ring finger (principal)
CPT/HCPCS: 26055; J0171

== ENCOUNTER → 2023-01-14 14:31 | Outpatient (BNVA) | payer MEDICARE, MEDICAID, SELFPAY | PROVIDERS: PCP Nurse Practitioner Family; Visit Provider Physician Assistant | DX: Z13.89 Encounter for screening for other disorder (principal) ==

== ENCOUNTER → 2023-03-26 10:01 | Outpatient (BNVA) | payer MEDICARE, MEDICAID, SELFPAY | PROVIDERS: PCP Nurse Practitioner Family; Visit Provider Surgery Vascular Surgery | DX: I83.12 Varicose veins of left lower extremity with inflammation (principal) | CPT/HCPCS: 99202 ==

== ENCOUNTER 2023-04-06 08:07 | Outpatient (REF) | payer OTHER, MEDICAID, SELFPAY ==
--- NOTE | ~2023-04-06 | US_ITS ---
EXAMINATION: US LOWER EXTREMITY VENOUS (REFLUX EXAM), BILATERAL CLINICAL INDICATION: Left lower extremity venous duplex on 07/03/2022 COMPARISON: None. TECHNIQUE: Color flow triplex imaging and compression Doppler was performed to evaluate both the deep and the superficial systems bilaterally. To evaluate the superficial system, the examination was performed in the upright position. Color-flow Doppler ultrasound and compression ultrasound were utilized. In addition, maneuvers were utilized to demonstrate reflux. FINDINGS: 1. DEEP VENOUS ULTRASOUND OF THE RIGHT LOWER EXTREMITY: Common Femoral Vein: Compressible, normal respiratory variation and augmented flow. Femoral Vein: Compressible, normal color flow and augmentation. Popliteal Vein: Compressible, normal augmentation. Deep Reflux: There is no evidence of reflux in the deep system in either the common femoral vein or the popliteal vein. There is no evidence of a Ingram's cyst. 2. SUPERFICIAL ULTRASOUND WITH DOPPLER OF RIGHT LOWER EXTREMITY: GREAT SAPHENOUS VEIN: Saphenofemoral Junction: 1.3 cm; Reflux: 0 ms Proximal Thigh: 0.6 cm; Reflux: 0 ms Mid Thigh: 0.8 cm; Reflux: 0 ms Above Knee: 0.6 cm; Reflux: 0 ms At Knee: 0.7 cm; Reflux: 0 ms Below Knee: 0.6 cm; Reflux: 0 ms Mid Calf: 0.5 cm; Reflux: 0 ms Ankle: 0.5 cm; Reflux: 0 ms DUPLICATED MEDIAL GREAT SAPHENOUS VEIN: Diameter: None Imaged Reflux: NA DUPLICATED LATERAL GREAT SAPHENOUS VEIN: Proximal: 0.5 cm; Reflux: 0 ms Distal: 0.4 cm; Reflux: 0 ms SMALL SAPHENOUS VEIN: Proximal: 0.4 cm; Reflux: 0 ms Distal: 0.4 cm; Reflux: 0 ms VEIN OF GIACOMINI: None Imaged. PERFORATORS: Location: Thigh and calf Size: 0.3-0.4 cm Reflux: NA VARICOSITIES: Location: Distal calf Size: 0.3 cm Reflux: 1628ms 3. DEEP VENOUS ULTRASOUND OF THE LEFT LOWER EXTREMITY: Common Femoral Vein: Compressible, normal respiratory variation and augmented flow. Femoral Vein: Compressible, normal color flow and augmentation. Popliteal Vein: Compressible, normal augmentation. Deep Reflux: There is no evidence of reflux in the deep system in either the common femoral vein or the popliteal vein. There is no evidence of a Ingram's cyst. 4. SUPERFICIAL ULTRASOUND WITH DOPPLER OF LEFT LOWER EXTREMITY: GREAT SAPHENOUS VEIN: Saphenofemoral Junction: 1.1 cm; Reflux: 0 ms Proximal Thigh: 1.1 cm; Reflux: 0 ms Mid Thigh: 0.9 cm; Reflux: 0 ms Above Knee: 0.7 cm; Reflux: 0 ms At Knee: 0.6 cm; Reflux: 0 ms Below Knee: 0.5 cm; Reflux: 0 ms Mid Calf: 0.7 cm; Reflux: 0 ms Ankle: 0.3 cm; Reflux: 0 ms DUPLICATED MEDIAL GREAT SAPHENOUS VEIN: Diameter: None Imaged Reflux: NA DUPLICATED LATERAL GREAT SAPHENOUS VEIN: Proximal: 0.5 cm; Reflux: 0 ms Distal: 0.6 cm; Reflux: 0 ms SMALL SAPHENOUS VEIN: Proximal: 0.4 cm; Reflux: 0 ms Distal: 0.4 cm; Reflux: 0 ms VEIN OF GIACOMINI: None Imaged. PERFORATORS: Location: Calf and thigh Size: 0.2 to 0.6 cm Reflux: Reflux within the proximal calf service department manager at 2340 ms VARICOSITIES: Location: Multiple calf varicosities Size: 0.3-0.9 Reflux: 1796-2404ms US/US venous duplex LE BI IMPRESSION: 1. No evidence of DVT. 2. No venous reflux in the great saphenous veins or small saphenous veins bilaterally. 3. Bilateral refluxing varicosities.
== END 2023-04-06 08:08 | disposition home or self-care (01) ==
LOC: HO.US 08:07
PROVIDERS: PCP Nurse Practitioner Family; Visit Provider Surgery Vascular Surgery
DX: I83.12 Varicose veins of left lower extremity with inflammation (principal)
CPT/HCPCS: 93970

== ENCOUNTER → 2023-04-07 08:48 | Outpatient (BNVA) | payer OTHER, MEDICAID, SELFPAY | PROVIDERS: PCP Nurse Practitioner Family; Visit Provider Nurse Practitioner Family | DX: G47.33 Obstructive sleep apnea (adult) (pediatric) (principal); G25.81 Restless legs syndrome; E66.01 Morbid (severe) obesity due to excess calories; Z99.89 Dependence on other enabling machines and devices; Z68.42 Body mass index [BMI] 45.0-49.9, adult | CPT/HCPCS: 99212 ==

== ENCOUNTER → 2023-05-14 09:02 | Outpatient (BNVA) | payer OTHER, MEDICAID, SELFPAY | PROVIDERS: PCP Nurse Practitioner Family; Visit Provider Surgery Vascular Surgery | DX: I83.12 Varicose veins of left lower extremity with inflammation (principal) | CPT/HCPCS: 99212 ==

== ENCOUNTER → 2023-06-01 10:53 | Outpatient (BNVA) | payer OTHER, MEDICAID, SELFPAY | PROVIDERS: PCP Nurse Practitioner Family; Visit Provider Surgery Vascular Surgery | DX: I83.12 Varicose veins of left lower extremity with inflammation (principal) | CPT/HCPCS: 37765 ==

== ENCOUNTER 2023-06-16 11:07 | Outpatient (AMB) | payer OTHER, MEDICAID, SELFPAY ==
[2023-06-16 11:05] VITALS: BMI 48.4
--- NOTE | 2023-06-16 11:05 | MHC.OFFVIS ---
Intake Vital Signs 06/16/23 11:05 Height 6 ft 3 in Weight 387 lb BMI 48.4 Intake Visit Reasons: 2 week follow up Left Micro 06/01/23 Intake Note: 2 week follow up Left LE Micro 06/01/23. 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 Has had no interval issues. He reports a significant improvement in swelling and discomfort. He is now for follow-up. [facility] Medical History Anemia Arthritis Asthma Atrial fibrillation Carpal tunnel syndrome Constipation Depression Elevated alkaline phosphatase level Erectile dysfunction GERD (gastroesophageal reflux disease) Lumbar spinal stenosis Morbid obesity HARITHA (obstructive sleep apnea) Prostate CA RBBB Stenosis of cervical spine Surgical History H/O cardiac radiofrequency ablation (~04/2017) History of back surgery Hx of neck surgery No pertinent past surgical history Family History Father Heart attack DVT (deep venous thrombosis) Mother Diabetes COPD (chronic obstructive pulmonary disease) Social History Household Members: Spouse and Family Housing: House Alcohol intake: never Patient Tobacco Use Status: Former Tobacco user Quit Date: 1979 Tobacco use type: Cigarette e-Cigarette/Vaping Use: Never Used Second Hand Smoke Exposure: No service: No 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al status: retired 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 Cognitive needs: No Hearing needs: No Vision needs: No Review of Systems Const All systems reviewed & are unremarkable except as noted in HPI and below Reports no additional complaints ENT Reports Normal hearing present Card Denies chest pain, Denies chest pain at rest, Denies chest pain with activity and Denies pedal edema Resp Denies cough GI Denies abdominal pain Musc Denies abnormal gait, Denies muscle cramps and Denies radiating pain into limb Skin/Breast Denies skin ulcer and Denies wounds Neuro Reports Normal hearing present and Denies abnormal gait Psych Reports no additional complaints Physical Exam Vital Signs: BMI result Body Mass Index 48.4 Const General: cooperative, healthy appearing and comfortable Orientation/consciousness: oriented to person, oriented to place and oriented to time HEENT Head: Yes normal to inspection Neck Neck: Yes normal visual inspection Carotids: no bruits Chest Chest palpation & inspection: normal inspection of the chest Resp Effort & Inspection: normal respiratory effort and able to speak in complete sentences Auscultation: clear to auscultation bilaterally, no crackles, no rales, no rhonchi and no wheezes Cardio Rate: regular rate Rhythm: regular rhythm Heart sounds: S1 normal heart sound present and S2 normal heart sound present Bruits: no carotid bruits Peripheral pulses: Peripheral pulses 2+ throughout GI Inspection: Yes normal to inspection Skin Wounds: no wounds Hair: normal Neuro General: oriented to person, oriented to place and oriented to time Cranial nerves: Yes CN's II-XII intact bilaterally and Yes Normal hearing present Cognition (Neuro): normal cognition Motor exam (neuro): 5/5 motor strength present throughout Extrem Other: venous exam: +2 edema, left leg incisions well healed General: No clubbing, No cyanosis and Yes edema Psych Appearance: grossly normal Mental Status: mental status grossly normal Speech and movement: Normal speech and movement present Assessment & Plan Assessment & Plan (1) Varicose veins of left lower extremity with inflammation: Comment: 06/01/2023 - left leg microphlebectomy Code(s): I83.12 - Varicose veins of left lower extremity with inflammation Plan: The patient has done extremely well with all venous treatments. Patient's may often experience postprocedure phlebitic episodes and I have discussed with the patient use of warm compresses and NSAIDS if tolerated for pain discomfort. In addition, I have discussed continued conservative measures including use of compression, leg elevation, and exercise. The patient was also given an information sheet regarding appropriate use of compression stockings and future purchases. Thank you for allowing us to care for your patient with venous disease. Coding Level of Care Code Est Pt Level 3 (50132) Diagnoses Varicose veins of left lower extremity with inflammation I83.12
== END 2023-06-16 11:27 | disposition home or self-care (01) ==
PROVIDERS: PCP Nurse Practitioner Family; Visit Provider Surgery Vascular Surgery
DX: I83.12 Varicose veins of left lower extremity with inflammation (principal)
CPT/HCPCS: 99213

== ENCOUNTER → 2023-06-16 11:07 | Outpatient (BNVA) | payer OTHER, MEDICAID, SELFPAY | PROVIDERS: PCP Nurse Practitioner Family; Visit Provider Surgery Vascular Surgery | DX: I83.12 Varicose veins of left lower extremity with inflammation (principal) | CPT/HCPCS: 99212 ==

== ENCOUNTER 2023-06-23 06:33 | Outpatient (REF) | payer OTHER, MEDICAID, SELFPAY ==
[2023-06-23 11:12] LABS: MANUAL DIFF FLAG NO
[2023-06-23 11:58] LABS: Basophils Percent Auto 0.5 % (0-2); Eosinophils Absolute Auto 0.2 X10*3/uL (0.0-0.4); Hematocrit 45.4 % (42.0-52.0); Hemoglobin 14.1 g/dl (14.0-18.0); Imm Gran Abs Auto 0.09 X10*3/uL (0.00-0.03); Imm Gran Pct Auto 1.1 % (0.0-0.4); Lymphocytes Absolute Auto 1.9 X10*3/uL (1.2-4.9); Lymphocytes Percent Auto 24.5 % (20-40); Mean Corpuscular HGB Conc 31.1 g/dl (31.0-36.0); Mean Corpuscular Hemoglobin 28.9 pg (27.0-33.0); Mean Platelet Volume 12.1 fL (9.4-12.4); Monocytes Absolute Auto 0.9 X10*3/uL (0.1-1.2); Neutrophils Absolute Auto 4.8 x10*3/uL (2.0-8.3); Neutrophils Percent Auto 59.9 % (45-73); Platelet Count 205 X10*3/uL (160-400); Red Blood Count 4.88 X10*6/uL (4.60-5.80); Red Cell Distribution Width 13.7 % (11.0-16.0); White Blood Count 7.9 X10*3/uL (4.8-10.8)
[2023-06-23 13:00] LABS: Alanine Aminotransferase 23 U/L (0-40); Albumin Level 3.3 g/dL (3.5-5.0); Alkaline Phosphatase 106 U/L (39-117); Anion Gap 9 (12-20); Aspartate Amino Transferase 19 U/L (5-37); Bilirubin Total 0.5 mg/dL (0.0-1.0); Blood Urea Nitrogen 17 mg/dL (9-16); Calcium 8.4 mg/dL (8.4-10.2); Carbon Dioxide 27 mmol/L (22-29); Chloride 108 mmol/L (96-108); Cholesterol 129 mg/dL; Estimated Glomerular Filt Rate > 60; Glucose Fasting 124 mg/dL (60-99); HDL Cholesterol 31 mg/dL; LDL Cholesterol Calculated 72 mg/dl; Potassium 3.9 mmol/L (3.3-5.1); Sodium 140 mmol/L (135-145); Total Protein 6.8 g/dL (6.5-8.0); Triglycerides 130 mg/dL
[2023-06-23 13:01] LABS: TSH reflex Free T4 3.33 uIU/mL (0.32-4.0)
[2023-06-23 13:15] LABS: Prostate Specific Antigen Scr 0.24 ng/mL (<0.05-4.0)
== END 2023-06-23 06:34 | disposition home or self-care (01) ==
LOC: HO.HMGCLDS 06:33
PROVIDERS: PCP Nurse Practitioner Family; Visit Provider Nurse Practitioner Family
DX: F41.8 Other specified anxiety disorders (principal); Z20.2 Contact with and (suspected) exposure to infections with a predominantly sexual mode of transmission; Z12.5 Encounter for screening for malignant neoplasm of prostate; E78.5 Hyperlipidemia, unspecified
CPT/HCPCS: 36415; 80053; 80061; 84153; 84443; 85025

== ENCOUNTER 2023-06-30 07:19 | Outpatient (REF) | payer OTHER, MEDICAID, SELFPAY ==
[2023-06-30 13:56] LABS: Appearance Urine Clear; Color Urine Yellow; Glucose Urine UA Negative (Negative); Leukocyte Esterase Urine Negative (Negative); Nitrite Urine Negative (Negative); PH 5.5 (5.0-9.0); Specific Gravity - Urine 1.025 (1.005-1.025); Urine Blood Negative (Negative); Urine Ketones Negative (Negative); Urine Protein Negative (Neg-Trace)
== END 2023-06-30 07:20 | disposition home or self-care (01) ==
LOC: HO.HMGCLNP 07:19
PROVIDERS: PCP Nurse Practitioner Family; Visit Provider Nurse Practitioner Family
DX: F41.8 Other specified anxiety disorders (principal); Z12.5 Encounter for screening for malignant neoplasm of prostate
CPT/HCPCS: 81003

== ENCOUNTER 2023-08-11 13:03 | Outpatient (AMB) | payer OTHER, MEDICAID, SELFPAY ==
--- NOTE | 2023-08-11 13:34 | A.OFFPC_ITS ---
Vital Signs 08/11/23 13:35 Height 6 ft 3 in Weight 388 lb 6 oz BMI 48.5 BP 128/80 Blood Pressure Location Lt brachial Position Sitting Pulse 67 Pulse Source Pulse Oximeter Pulse Oximetry (%) 97 Oxygen Delivery Method Room Air Intake Visit Reasons: 4 month follow up Allergies Sulfa (Sulfonamide Antibiotics) [SULFA (SULFONAMIDE ANTIBIOTICS)] Allergy (Mild, Verified 08/11/23 13:38) RASH, hives Medication List - Last Reconciled 08/11/23 by SD [place] albuterol sulfate 90 mcg/actuation (Ventolin HFA) 1 inh inhalation QID PRN Alcohol Pads (alcohol swabs) 1 pad topically; NS aripiprazole mg PO FreeStyle Lancets (lancets) TID testing NS FreeStyle Lite Meter (blood-glucose meter) TID testing NS FreeStyle Lite Strips (blood sugar diagnostic) TID testing NS gabapentin 800 mg PO TID 90 days gabapentin 800 mg PO TID levocetirizine (Xyzal) 5 mg PO DAILY magnesium oxide 400 mg PO DAILY 30 days metoprolol succinate ER (Toprol XL) 100 mg PO DAILY pramipexole 0.25 mg PO BID 30 days [Rollator walker with seat daily use] tizanidine 4 mg PO BID PRN walker with wheels warfarin 7.5 mg See Protocol PO DAILY Tobacco use date assessed: 08/11/23 Dental Screening Dental Screen Date: 08/11/23 Did you have a dental visit in the last 12 months?: No Did you have a dental problem in the last 6 months where you did not have access to dental care?: No Was dental information given to patient?: No HPI 4 month follow up HPI0 Details Depression/bipolar disorder: Pt is seeing a psychiatrist. He reports doing well. Denies any SI and HI. Pt's last fasting blood sugar was elevated. Will order labs including A1C. Denies polyuria, polydipsia, and neuropathy. Pt follows up with vascular, ortho, neurology/sleep medicine, cardiology, and rheumatology. [facility] Medical History HARITHA (obstructive sleep apnea) Carpal tunnel syndrome Morbid obesity Prostate CA Constipation Elevated alkaline phosphatase level Stenosis of cervical spine Anemia Depression RBBB Erectile dysfunction Lumbar spinal stenosis Atrial fibrillation GERD (gastroesophageal reflux disease) Asthma Arthritis Surgical History Hx of neck surgery History of back surgery H/O cardiac radiofrequency ablation (~04/2017) No pertinent past surgical history Family History Father Heart attack DVT (deep venous thrombosis) Mother Diabetes COPD (chronic obstructive pulmonary disease) Social History Household Members: Spouse and Family Housing: House Alcohol intake: never Patient Tobacco Use Status: Former Tobacco user Quit Date: 1979 Tobacco use type: Cigarette e-Cigarette/Vaping Use: Never Used Second Hand Smoke Exposure: No service: No 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al status: retired 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 Jacobo Lewis, Clarissa Whitaker, Arcenio Del Valle and colleagues, with an educational gregorio from [employer]. Review of Systems Const Reports as per HPI Physical exam (Primary Care) Vital Signs: Last Vital Signs Pulse 67 08/11/23 13:35 BP 128/80 08/11/23 13:35 Pulse Ox 97 08/11/23 13:35 Oxygen Delivery Method Room Air 08/11/23 13:35 BMI result Body Mass Index 48.5 Tobacco/Smoking Status: Tobacco use Status Tobacco use date assessed 08/11/23 08/11/23 13:42 Patient Tobacco Use Status Former Tobacco user 08/11/23 13:42 Tobacco use type Cigarette 08/11/23 13:42 e-Cigarette/Vaping Use Never Used 08/11/23 13:42 Thrive Assessment: Date of Thrive Assessment Date Thrive assessed 08/19/22 08/11/23 13:42 Const General: cooperative Nutritional Appearance: obese morbidly obese Orientation/consciousness: patient oriented x3 Limitations: ambulation with cane Resp Effort & Inspection: normal respiratory effort Auscultation: clear to auscultation bilaterally Cardio Rate: regular rate Rhythm: regular rhythm Heart sounds: S1 normal heart sound present and S2 normal heart sound present Neuro General: patient oriented x3 Extrem Other: +1 edema to bilat feet Psych Appearance: grossly normal Mental Status: mental status grossly normal Speech and movement: Normal speech and movement present Affect: normal affect Attitude: cooperative Thought process: Normal thought process present Thought content: Normal thought content present Insight: Good insight present (Psych) Judgement: Good judgement present (Psych) Assessment and Plan Assessment & Plan (1) Depression: Code(s): F32.9 - Major depressive disorder, single episode, unspecified Plan: Continue seeing psych (2) Bipolar 1 disorder: Code(s): F31.9 - Bipolar disorder, unspecified Plan: Continue seeing psych (3) Morbid obesity: Code(s): E66.01 - Morbid (severe) obesity due to excess calories Plan: Labs ordered (4) Screening PSA (prostate specific antigen): Code(s): Z12.5 - Encounter for screening for malignant neoplasm of prostate Plan: PSA ordered Plan The patient agreed to the use of a medical office receptionist for this encounter. Scribed for DAVID Corrales-BC by Saba Davis medical office receptionist, on 08/11/2023 at 13:45 EST. Orders: Orders Comprehensive [place]. Panel Fast Today E66.01 - Morbid (severe) obesity due to excess calories TSH reflex Free T4 Today E66.01 - Morbid (severe) obesity due to excess calories Hemoglobin A1c Today E66.01 - Morbid (severe) obesity due to excess calories, R73.03 - Prediabetes Complete Blood Count Auto Diff Today E66.01 - Morbid (severe) obesity due to excess calories UA CC w/rflx Micro + Cult Today E66.01 - Morbid (severe) obesity due to excess calories Lipid Panel Today E66.01 - Morbid (severe) obesity due to excess calories Prostate Specific Antigen Scr Today Z12.5 - Encounter for screening for malignant neoplasm of prostate Coding Level of Care Code Est Pt Level 3 (72959) Diagnoses Depression F32.9 Bipolar 1 disorder F31.9 Morbid obesity E66.01 Screening PSA (prostate specific antigen) Z12.5
[2023-08-11 13:35] VITALS: BP 128/80; PULSE 67; O2SAT 97; BMI 48.5
== END 2023-08-11 14:03 | disposition home or self-care (01) ==
PROVIDERS: Visit Provider Nurse Practitioner Family
DX: F31.9 Bipolar disorder, unspecified (principal); E66.01 Morbid (severe) obesity due to excess calories; Z12.5 Encounter for screening for malignant neoplasm of prostate; Z68.42 Body mass index [BMI] 45.0-49.9, adult
CPT/HCPCS: 99213

== ENCOUNTER 2023-08-19 08:07 | Outpatient (REF) | payer OTHER, SELFPAY ==
[2023-08-19 11:58] LABS: MANUAL DIFF FLAG NO
[2023-08-19 12:03] LABS: Basophils Percent Auto 0.6 % (0-2); Eosinophils Absolute Auto 0.2 X10*3/uL (0.0-0.4); Eosinophils Percent Auto 2.7 % (0-4); Hematocrit 47.2 % (42.0-52.0); Hemoglobin 14.8 g/dl (14.0-18.0); Imm Gran Abs Auto 0.07 X10*3/uL (0.00-0.03); Lymphocytes Absolute Auto 1.7 X10*3/uL (1.2-4.9); Lymphocytes Percent Auto 23.7 % (20-40); Mean Corpuscular HGB Conc 31.4 g/dl (31.0-36.0); Mean Corpuscular Hemoglobin 28.4 pg (27.0-33.0); Mean Corpuscular Volume 90.6 fL (80.0-98.0); Mean Platelet Volume 11.4 fL (9.4-12.4); Monocytes Absolute Auto 0.8 X10*3/uL (0.1-1.2); Monocytes Percent Auto 11.2 % (2-11); Neutrophils Absolute Auto 4.2 x10*3/uL (2.0-8.3); Neutrophils Percent Auto 60.8 % (45-73); Platelet Count 201 X10*3/uL (160-400); Red Blood Count 5.21 X10*6/uL (4.60-5.80); Red Cell Distribution Width 13.4 % (11.0-16.0)
[2023-08-19 12:23] LABS: Estimated Average Glucose 126 mg/dL
[2023-08-19 12:37] LABS: Alanine Aminotransferase 25 U/L (0-40); Albumin Level 3.5 g/dL (3.5-5.0); Alkaline Phosphatase 128 U/L (39-117); Anion Gap 10 (12-20); Aspartate Amino Transferase 23 U/L (5-37); Bilirubin Total 0.6 mg/dL (0.0-1.0); Blood Urea Nitrogen 16 mg/dL (9-16); Calcium 8.8 mg/dL (8.4-10.2); Carbon Dioxide 30 mmol/L (22-29); Chloride 106 mmol/L (96-108); Cholesterol 125 mg/dL (<200); Estimated Glomerular Filt Rate > 60; Glucose Fasting 120 mg/dL (60-99); HDL Cholesterol 35 mg/dL (>40); LDL Cholesterol Calculated 67 mg/dL (<100); Potassium 4.3 mmol/L (3.3-5.1); Sodium 142 mmol/L (135-145); Total Protein 7.1 g/dL (6.5-8.0); Triglycerides 116 mg/dL (<150)
[2023-08-19 12:39] LABS: Prostate Specific Antigen Scr 0.31 ng/mL (<0.05-4.0)
[2023-08-19 12:45] LABS: TSH reflex Free T4 3.56 uIU/mL (0.32-4.0)
== END 2023-08-19 08:08 | disposition home or self-care (01) ==
LOC: HO.HMGCLDS 08:07
PROVIDERS: PCP Nurse Practitioner Family; Visit Provider Nurse Practitioner Family
DX: Z12.5 Encounter for screening for malignant neoplasm of prostate (principal); E66.01 Morbid (severe) obesity due to excess calories; R73.03 Prediabetes
CPT/HCPCS: 36415; 80053; 80061; 83036; 84153; 84443; 85025

== ENCOUNTER 2023-08-21 07:20 | Outpatient (REF) | payer OTHER, SELFPAY ==
[2023-08-21 11:28] LABS: Appearance Urine Clear; Color Urine Yellow; Glucose Urine UA Negative (Negative); Leukocyte Esterase Urine Small (1+) (Negative); Nitrite Urine Negative (Negative); Specific Gravity - Urine 1.025 (1.005-1.025); UMIC TRIGGER UACC YES; Urine Blood Negative (Negative); Urine Ketones Negative (Negative); Urine Protein Negative (Neg-Trace)
[2023-08-21 11:45] LABS: Bacteria Urine 3+ (None Seen); Hyaline Casts Urine 0-2 /LPF (0-2); RBC Urine 0-2 /HPF (0-2); UACC Culture Trigger YES; WBC Urine 21-50 /HPF (0-5)
== END 2023-08-21 07:21 | disposition home or self-care (01) ==
LOC: HO.HMGCLNP 07:20
PROVIDERS: PCP Nurse Practitioner Family; Visit Provider Nurse Practitioner Family
DX: E66.01 Morbid (severe) obesity due to excess calories (principal); R82.90 Unspecified abnormal findings in urine
CPT/HCPCS: 81001; 87086

== ENCOUNTER 2023-09-04 09:19 | Outpatient (AMB) | payer OTHER, MEDICAID, SELFPAY ==
--- NOTE | 2023-09-04 10:11 | MHC.OFFVIS ---
Intake Vital Signs 09/04/23 10:16 Height 6 ft 3 in Weight 388 lb BMI 48.5 BP 112/70 Blood Pressure Location Rt brachial Position Sitting Pulse 74 Pulse Source Pulse Oximeter Pulse Oximetry (%) 94 Oxygen Delivery Method Room Air Intake Visit Reasons: New patient hands get very painful Intake Note: New patient presenting today for hand pain. 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 He reports his hands hurts mainly in the morning and later in the evening explaining that they feel stiff and it is hard to make a fist. He denies swelling, redness and warmth to his joints. He uses tylenol and volatern gel for other joint discomfort such as knee pain. Patient denies morning stiffness lasting more than 20 mins. He denies muscle pain; denies Raynaud's phenomenon, butterfly rash on face or other rashes; denies photosensitivity - getting sick or developing a rash from being out in the sun; denies blood or froth in urine; patient denies hx of SOB, chest pain. Patient denies hx of Carditis or Pleuritis. Patient denies any history of DVT/PE. Denies fevers, excessive fatigue, unexplained weight-loss or weight-gain, Denies: thinning hair or hair loss; Denies: dry, itchy eyes, red burning eyes needing steroids to treat; dry mouth, mouth sores or ulcers; nose bleed other than through dry heat during the winter months; denies ringing in the ear, Denies abdominal pain, blood or mucous in stool; nausea, vomitting and diarrhea, difficulty swallowing, heartburn. Malignancy: Endorses prostate cancer hx. Colonoscopy : Y PFS Medical History (Updated 09/04/23 @ 10:16 by LEESA Johnson) Vitamin D deficiency Joint pain in both hands HARITHA (obstructive sleep apnea) Carpal tunnel syndrome Morbid obesity Prostate CA Constipation Elevated alkaline phosphatase level Stenosis of cervical spine Anemia Depression RBBB Erectile dysfunction Lumbar spinal stenosis Atrial fibrillation GERD (gastroesophageal reflux disease) Asthma Arthritis Surgical History (Updated 09/04/23 @ 10:22 by AFIA Marie) History of surgery Hx of neck surgery History of back surgery H/O cardiac radiofrequency ablation (~04/2017) No pertinent past surgical history Family History (Updated 09/04/23 @ 10:14 by AFIA Marie) Father Heart attack DVT (deep venous thrombosis) Mother Diabetes COPD (chronic obstructive pulmonary disease) Social History Household Members: Spouse and Family Housing: House Alcohol intake: never Patient Tobacco Use Status: Former Tobacco user Quit Date: 1979 Tobacco use type: Cigarette e-Cigarette/Vaping Use: Never Used Second Hand Smoke Exposure: No service: No 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al status: retired 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 Endo Details: T2DM Ra/Lymph Details: Vascular surgeries to left leg Physical Exam Vital Signs: Last Vital Signs Pulse 74 09/04/23 10:16 BP 112/70 09/04/23 10:16 Pulse Ox 94 09/04/23 10:16 Oxygen Delivery Method Room Air 09/04/23 10:16 BMI result Body Mass Index 48.5 Const General: cooperative, healthy appearing and comfortable Orientation/consciousness: oriented to person, oriented to place and oriented to time HEENT Head: Yes normal to inspection Neck Neck: Yes normal visual inspection Carotids: no bruits Chest Chest palpation & inspection: normal inspection of the chest Resp Effort & Inspection: normal respiratory effort and able to speak in complete sentences Auscultation: clear to auscultation bilaterally, no crackles, no rales, no rhonchi and no wheezes Cardio Rate: regular rate Rhythm: regular rhythm Heart sounds: S1 normal heart sound present and S2 normal heart sound present Bruits: no carotid bruits GI Inspection: Yes normal to inspection and Yes obesity Skin Other: BLE skin discoloration reddish-brown; dry scaly cracking - characteristic of venous stasis dermatitis General skin exam: dry skin Wounds: no wounds Hair: normal Neuro General: oriented to person, oriented to place and oriented to time Cranial nerves: Yes CN's II-XII intact bilaterally Cognition (Neuro): normal cognition Motor exam (neuro): 5/5 motor strength present throughout Extrem Other: Walks with a cane; unsteady gait. mild tenderness across right PIPs, mild tenderness passive ROM right ulnar deviation. Small [place] nodes to bilateral DIPs BLE:+2 edema; skin discoloration reddish-brown; dry scaly cracking - characteristics of venous stasis dermatitis Limited ROM to right arm-unable to reach hand to middle of back; normal pain ROM to left arm, right leg; Mild discomfort with rotation on left hip. Psych Appearance: grossly normal Mental Status: mental status grossly normal Speech and movement: Normal speech and movement present Results Reviewed Results Reviewed: Laboratory Tests 08/19/23 08:15 Immature Gran % (Auto) 1.0 H [place] % (Auto) 11.2 H Abs Immat Gran (auto) 0.07 H Carbon Dioxide 30 H Anion Gap 10 L Fasting Glucose 120 H Alkaline Phosphatase 128 H HDL Cholesterol 35 L Assessment & Plan Assessment & Plan (1) Joint pain in both hands: Code(s): M25.541 - Pain in joints of right hand; M25.542 - Pain in joints of left hand Plan 58 yo male here for evaluation of Joint pain to the hands. After initial review of labs, history and PE, I suspect patient has OA of the hands. On PE, there is osteophytes to DIP joints, mild tenderness to the right PIP joints with palpation and to ulnar side/wrist abduction with passive ROM. Given that this is on the right hand, I suspect this is due to him gripping the cane and bearing more weight on that hand. Discussed this with patient and he agrees. At this time I do not suspect that there is an autoimmune or inflammatory component to this. However, will order labs and hand xrays for further evaluation. Patient can continue to use Tylenol as needed and apply voltaren gel. Encouraged hand exercises with a stress ball to strengthen interoseous muscles. Follow-up PRN. Will call patient if any adverse results of labs and Xray Orders: Orders LUIS Reflex Titer and Pattern Today M25.541 - Pain in joints of right hand, M25.542 - Pain in joints of left hand Anti Extractable Nuclear Ag Today M25.541 - Pain in joints of right hand, M25.542 - Pain in joints of left hand Anti DNA DS Antibody Today M25.541 - Pain in joints of right hand, M25.542 - Pain in joints of left hand C Reactive Protein Today M25.541 - Pain in joints of right hand, M25.542 - Pain in joints of left hand Creatine Kinase Total Today M25.541 - Pain in joints of right hand, M25.542 - Pain in joints of left hand Uric Acid Today M25.541 - Pain in joints of right hand, M25.542 - Pain in joints of left hand Vitamin D 25-OH (D2 and D3) Today E55.9 - Vitamin D deficiency, unspecified Hepatitis A,B,C Profile Today Z11.59 - Encounter for screening for other viral diseases T Spot TB Today Z11.59 - Encounter for screening for other viral diseases Immunoglobulins,IgG IgA IgM Today M25.541 - Pain in joints of right hand, M25.542 - Pain in joints of left hand XR hand LT min 3V Today M25.541 - Pain in joints of right hand, M25.542 - Pain in joints of left hand XR hand RT min 3V Today M25.541 - Pain in joints of right hand, M25.542 - Pain in joints of left hand Erythrocyte Sedimentation Rate Today M25.541 - Pain in joints of right hand, M25.542 - Pain in joints of left hand Protein Electrophoresis, Serum Today M25.541 - Pain in joints of right hand, M25.542 - Pain in joints of left hand Folate Today M25.541 - Pain in joints of right hand, M25.542 - Pain in joints of left hand Coding Level of Care Code Est Pt Level 4 (09262) Diagnoses Joint pain in both hands M25.541; M25.542
[2023-09-04 10:16] VITALS: BP 112/70; PULSE 74; O2SAT 94; BMI 48.5
== END 2023-09-04 10:47 | disposition home or self-care (01) ==
PROVIDERS: PCP Nurse Practitioner Family; Visit Provider Student in an Organized Health Care Education/Training Program
DX: M25.541 Pain in joints of right hand (principal); M25.542 Pain in joints of left hand
CPT/HCPCS: 99214

== ENCOUNTER → 2023-09-04 09:19 | Outpatient (BNVA) | payer OTHER, MEDICAID, SELFPAY | PROVIDERS: PCP Nurse Practitioner Family; Visit Provider Student in an Organized Health Care Education/Training Program ==

== ENCOUNTER 2023-10-28 12:39 | Outpatient (AMB) | payer OTHER, MEDICAID, SELFPAY ==
--- NOTE | 2023-10-28 13:15 | MHC.OFFVIS ---
Intake Vital Signs 10/28/23 13:20 Height 6 ft 3 in Weight 390 lb 4 oz BMI 48.8 BP 118/72 Blood Pressure Location Lt brachial Position Sitting Respiration 17 Pulse 64 Pulse Source Pulse Oximeter Pulse Oximetry (%) 96 Oxygen Delivery Method Room Air Intake Visit Reasons: 6 mnts f/u for Sleep-Confirmed Intake Note: Pt presents for 6 month follow up sleep disturbance. Supplier Manager Required: No Allergies Sulfa (Sulfonamide Antibiotics) [SULFA (SULFONAMIDE ANTIBIOTICS)] Allergy (Mild, Verified 10/28/23 13:23) RASH, hives HPI HPI Comments History of Present Illness Details 57-yr-old male presents for follow-up visit for HARITHA and RLS. Pt reports that he had new SD card for CPAP. His home care company is [employer]. Pt states he is sleeping better with CPAP and has more daytime energy. He reports the Magnesium 400 mg, pramipexole 0.25mg q 8:30pm helps the RLS some, but he is still twitchy while sleeping. Usual bedtime is 10pm. takes gabapentin 800 mg TID CPAP compliance report (09/30/23-10/29/23) reveals CPAP- 11 cmH2O; overall usage of 100% with usage hours 7 hrs, and the residual AHI was 0.3/hr. [facility] Medical History (Updated 10/07/23 @ 11:30 by Prosper Ellis [facility]) Retinal hemorrhage Vitamin D deficiency Joint pain in both hands HARITHA (obstructive sleep apnea) Carpal tunnel syndrome Morbid obesity Prostate CA Constipation Elevated alkaline phosphatase level Stenosis of cervical spine Anemia Depression RBBB Erectile dysfunction Lumbar spinal stenosis Atrial fibrillation GERD (gastroesophageal reflux disease) Asthma Arthritis Surgical History History of surgery Hx of neck surgery History of back surgery H/O cardiac radiofrequency ablation (~04/2017) No pertinent past surgical history Family History Father Heart attack DVT (deep venous thrombosis) Mother Diabetes COPD (chronic obstructive pulmonary disease) Social History Household Members: Spouse and Family Housing: House Alcohol intake: never Patient Tobacco Use Status: Former Tobacco user Quit Date: 1979 Tobacco use type: Cigarette e-Cigarette/Vaping Use: Never Used Second Hand Smoke Exposure: No service: No 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al status: retired 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 Code(s): G47.33 - Obstructive sleep apnea (adult) (pediatric) (2) Restless leg syndrome: Comment: PSG (2018)- PLMS Code(s): G25.81 - Restless legs syndrome Plan Continue CPAP 11 cmH2O nightly > 4 hours, as pt is having good clinical effect and good reduction in residual AHI from use. Clean CPAP machine and supplies routinely. Change CPAP supplies routinely. Pt to contact us or respiratory company with any questions or concerns. Continue Pramipexole to 0.25mg q 8:30pm and qHS. Will check ferritin level for RLS Orders: Orders Ferritin 10/28/23 G25.81 - Restless legs syndrome Coding Level of Care Code Est Pt Level 3 (53024) Diagnoses HARITHA (obstructive sleep apnea) G47.33 Restless leg syndrome G25.81
[2023-10-28 13:20] VITALS: BP 118/72; PULSE 64; RESP 17; O2SAT 96; BMI 48.8
== END 2023-10-28 13:50 | disposition home or self-care (01) ==
PROVIDERS: PCP Nurse Practitioner Family; Visit Provider Nurse Practitioner Family
DX: G47.33 Obstructive sleep apnea (adult) (pediatric) (principal); G25.81 Restless legs syndrome
CPT/HCPCS: 99213

== ENCOUNTER → 2023-10-28 12:39 | Outpatient (BNVA) | payer OTHER, MEDICAID, SELFPAY | PROVIDERS: PCP Nurse Practitioner Family; Visit Provider Nurse Practitioner Family ==

== ENCOUNTER 2023-11-03 08:19 | Outpatient (AMB) | payer OTHER, MEDICAID, SELFPAY ==
[2023-11-03 08:25] VITALS: BP 120/74; PULSE 68; BMI 48.2
--- NOTE | 2023-11-03 08:25 | MHC.OFFVIS ---
Intake Vital Signs 11/03/23 08:25 Height 6 ft 3 in Weight 385 lb 12.943 oz BMI 48.2 BP 120/74 Blood Pressure Location Lt brachial Position Sitting Pulse 68 Intake Visit Reasons: 1 year f/u Intake Note: 1 year follow-up with ekg c/o having fluttering sometimes nervous it could be afib Forensic Artist Required: No Commercial Housekeeper: Commercial Housekeeper Present Accompanied by: Son Allergies Sulfa (Sulfonamide Antibiotics) [SULFA (SULFONAMIDE ANTIBIOTICS)] Allergy (Mild, Verified 10/28/23 13:23) RASH, hives Medication List - Last Reconciled 11/03/23 by Ramana Moseley MD albuterol sulfate 90 mcg/actuation (Ventolin HFA) 1 inh inhalation QID PRN Alcohol Pads (alcohol swabs) 1 pad topically; NS aripiprazole mg PO FreeStyle Lancets (lancets) TID testing NS FreeStyle Lite Meter (blood-glucose meter) TID testing NS FreeStyle Lite Strips (blood sugar diagnostic) TID testing NS gabapentin 800 mg PO TID levocetirizine (Xyzal) 5 mg PO DAILY magnesium oxide 400 mg PO DAILY 90 days metoprolol succinate ER 100 mg PO DAILY pramipexole 0.25 mg PO BID 30 days [Rollator walker with seat daily use] tizanidine 4 mg PO BID PRN walker with wheels warfarin 7.5 mg See Protocol PO DAILY HPI HPI Comments History of Present Illness Details Serafin comes for follow-up, accompanied by his lane attendant. Patient has not had any prolonged irregular heartbeat or palpitations. He said occasionally very sporadically does feel skipped heartbeats and strong heartbeat. He has not had any exertional chest pain or shortness of breath. No lightheadedness, syncope. His main concern is currently that despite being on omeprazole he continues to have heartburn. He has not seen a GI physician for the same. Denies any heart failure symptoms. [facility] Medical History Retinal hemorrhage Vitamin D deficiency Joint pain in both hands HARITHA (obstructive sleep apnea) Carpal tunnel syndrome Morbid obesity Prostate CA Constipation Elevated alkaline phosphatase level Stenosis of cervical spine Anemia Depression RBBB Erectile dysfunction Lumbar spinal stenosis Atrial fibrillation GERD (gastroesophageal reflux disease) Asthma Arthritis Surgical History History of surgery Hx of neck surgery History of back surgery H/O cardiac radiofrequency ablation (~04/2017) No pertinent past surgical history Family History Father Heart attack DVT (deep venous thrombosis) Mother Diabetes COPD (chronic obstructive pulmonary disease) Social History Household Members: Spouse and Family Housing: House Alcohol intake: never Patient Tobacco Use Status: Former Tobacco user Quit Date: 1979 Tobacco use type: Cigarette e-Cigarette/Vaping Use: Never Used Second Hand Smoke Exposure: No service: No 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al status: retired 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 Cognitive needs: No Hearing needs: No Vision needs: No Review of Systems Const Denies chills, Denies fatigue, Denies fever(s), Denies frequent falls, Denies weakness, Denies weight gain and Denies weight loss ENT Denies dizziness Card Denies chest pain, Denies leg edema, Denies lightheadedness, Denies palpitations, Denies dyspnea, Denies dyspnea on exertion, Denies orthopnea and Denies other (loss of consciousness) Resp Denies cough, Denies dyspnea and Denies dyspnea on exertion GI Denies hematochezia and Denies change in stool character Musc Denies abnormal gait, Denies muscle weakness, Denies numbness, Denies radiating pain into limb and Denies tingling Neuro Denies abnormal gait, Denies dizziness, Denies frequent falls, Denies numbness, Denies tingling and Denies weakness Endo Denies fatigue and Denies palpitations Physical Exam Vital Signs: Last Vital Signs Pulse 68 11/03/23 08:25 BP 120/74 11/03/23 08:25 BMI result Body Mass Index 48.2 Const General: cooperative, comfortable (at rest, facial grimaces with walking) and no acute distress Orientation/consciousness: patient oriented x3 HEENT Head: Yes normal to inspection Neck Neck: Yes normal visual inspection and Yes no JVD Carotids: normal carotid upstroke Resp Effort & Inspection: normal respiratory effort Auscultation: clear to auscultation bilaterally, no crackles, no rales, no rhonchi and no wheezes Cardio Rate: regular rate Rhythm: regular rhythm Heart sounds: S1 normal heart sound present, S2 normal heart sound present, no gallops, no murmurs and no rubs GI Other: obese, rounded, nontender Skin General skin exam: no rashes or lesions noted Neuro General: patient oriented x3 Extrem Other: soft, nonpitting ankle edema General: Yes normal to inspection and No calf tenderness Office Procedures EKG Details: EKG shows normal sinus rhythm with right bundle-branch block, unchanged from before [id number], Complete Assessment & Plan Assessment & Plan (1) Paroxysmal atrial fibrillation: Code(s): I48.0 - Paroxysmal atrial fibrillation Plan: Patient with prior history of paroxysmal atrial fibrillation status post ablation in the past. Has remained stable. He has palpitations related to most likely ectopic beat suggest PACs or PVCs. Currently no recurrent atrial fibrillation symptoms. Continue metoprolol therapy. I do not see metoprolol as contributing to his acid reflux disorder but likely. Will refer him to GI physician for the same. Continue participate in weight loss program risk factor modification including controlling blood pressure which is well optimized. Continue CPAP therapy. He is currently on warfarin therapy due to hypercoagulable state and continue the same with target INR between 2 and 3 being followed by [facility]. (2) RBBB: Code(s): I45.10 - Unspecified right bundle-branch block Plan: Chronic right bundle-branch block without any symptoms. No interventions required per se for the same. Will continue monitor clinically. Will follow up in the clinic in 1 year's time, sooner p.r.n.. Thank you for allowing me to partake in his care Coding Level of Care Code Est Pt Level 4 (90134) Diagnoses Paroxysmal atrial fibrillation I48.0 RBBB I45.10 CPT Codes EKG - CPT: 05627-[id number], Complete ([id number])
== END 2023-11-03 09:25 | disposition home or self-care (01) ==
PROVIDERS: PCP Nurse Practitioner Family; Visit Provider Internal Medicine Cardiovascular Disease
DX: I48.0 Paroxysmal atrial fibrillation (principal); I45.10 Unspecified right bundle-branch block
CPT/HCPCS: 93010; 99214

== ENCOUNTER → 2023-11-03 08:19 | Outpatient (BNVA) | payer OTHER, MEDICAID, SELFPAY | PROVIDERS: PCP Nurse Practitioner Family; Visit Provider Internal Medicine Cardiovascular Disease | DX: I48.0 Paroxysmal atrial fibrillation (principal); I45.10 Unspecified right bundle-branch block | CPT/HCPCS: 93005 ==

== ENCOUNTER 2023-11-09 08:45 | Outpatient (REF) | payer OTHER, MEDICAID, SELFPAY ==
[2023-11-09 12:26] LABS: Ferritin 128 ng/mL (20-250)
== END 2023-11-09 08:46 | disposition home or self-care (01) ==
LOC: HO.HMGCLDS 08:45
PROVIDERS: PCP Nurse Practitioner Family; Visit Provider Nurse Practitioner Family
DX: G25.81 Restless legs syndrome (principal)
CPT/HCPCS: 36415; 82728

== ENCOUNTER 2023-12-16 10:31 | Outpatient (AMB) | payer OTHER, MEDICAID, SELFPAY ==
--- NOTE | 2023-12-16 10:49 | MHC.OFFVIS ---
Intake Vital Signs 12/16/23 10:58 Height 6 ft 3 in Weight 390 lb 3.491 oz BMI 48.8 BP 130/80 Blood Pressure Location Lt brachial Position Sitting Intake Visit Reasons: Constipation Intake Note: Patient is seen in office for evaluation and treatment of constipation. Pt c/o: admits to constipation for the past 15 yrs after been paralyzed and multiple back surgeries, is taking Magnesium with some relief, had a colonoscopy done 2 yrs ago Line Technician Required: No Accompanied by: Self / Same As Patient Allergies Sulfa (Sulfonamide Antibiotics) [SULFA (SULFONAMIDE ANTIBIOTICS)] Allergy (Mild, Verified 12/16/23 10:56) RASH, hives Medication List - Last Reconciled 12/16/23 by Cristal Mcknight PA-C albuterol sulfate 90 mcg/actuation (Ventolin HFA) 1 inh inhalation QID PRN Alcohol Pads (alcohol swabs) 1 pad topically; NS aripiprazole mg PO FreeStyle Lancets (lancets) TID testing NS FreeStyle Lite Meter (blood-glucose meter) TID testing NS FreeStyle Lite Strips (blood sugar diagnostic) TID testing NS gabapentin 800 mg PO TID levocetirizine (Xyzal) 5 mg PO DAILY magnesium oxide 400 mg PO DAILY 90 days metoprolol succinate ER 100 mg PO DAILY pramipexole 0.25 mg PO BID 30 days [Rollator walker with seat daily use] tizanidine 4 mg PO BID PRN walker with wheels warfarin 7.5 mg See Protocol PO DAILY HPI HPI Comments History of Present Illness Details A 58 y/o male with years of constipation- currently taking 1 colace daily -no other regimen He does not eat high fiber-admits to junk food eating- due to stress- Does not get much activity uses a roller walker at home Does not have abdominal pain and rectal bleeding. He does abdominal bloating he has not had any fever or chills Appetite is very good-too good He says he takes a lot of medications He had a colonoscopy [address] Landa He has no nausea, vomiting, abdominal pain, hematemesis, hematochezia fever or chills [facility] Medical History Retinal hemorrhage Vitamin D deficiency Joint pain in both hands HARITHA (obstructive sleep apnea) Carpal tunnel syndrome Morbid obesity Prostate CA Constipation Elevated alkaline phosphatase level Stenosis of cervical spine Anemia Depression RBBB Erectile dysfunction Lumbar spinal stenosis Atrial fibrillation GERD (gastroesophageal reflux disease) Asthma Arthritis Surgical History History of surgery Hx of neck surgery History of back surgery H/O cardiac radiofrequency ablation (~04/2017) No pertinent past surgical history Family History Father Heart attack DVT (deep venous thrombosis) Mother Diabetes COPD (chronic obstructive pulmonary disease) Social History Household Members: Spouse and Family Housing: House Alcohol intake: never Patient Tobacco Use Status: Former Tobacco user Quit Date: 1979 Tobacco use type: Cigarette e-Cigarette/Vaping Use: Never Used Second Hand Smoke Exposure: No service: No 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al status: retired 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 Cognitive needs: No Hearing needs: No Vision needs: No Review of Systems Const All systems reviewed & are unremarkable except as noted in HPI and below Card Denies chest pain, Reports irregular heart rhythm (rare occ.) and Denies dyspnea Resp Denies dyspnea GI Denies hematochezia and Reports constipation Physical Exam Vital Signs: Last Vital Signs BP 130/80 12/16/23 10:58 BMI result Body Mass Index 48.8 Const General: cooperative, comfortable and no acute distress Orientation/consciousness: patient oriented x3 Limitations: ambulation with cane Eyes Sclerae: sclerae normal Resp Effort & Inspection: normal respiratory effort and able to speak in complete sentences Auscultation: clear to auscultation bilaterally, no rales, no rhonchi and no wheezes Cardio Rate: regular rate Rhythm: regular rhythm Heart sounds: S1 normal heart sound present and S2 normal heart sound present GI Palpation (GI): Soft to palpation and nontender Auscultation: normal bowel sounds Skin Other: Facial skin dryness scaly General skin exam: atrophy, dry skin and erythema Neuro General: patient oriented x3 Psych Mental Status: mental status grossly normal Speech and movement: Clear speech present Affect: normal affect Attitude: cooperative Thought process: Normal thought process present Thought content: Normal thought content present Insight: Good insight present (Psych) Judgement: Good judgement present (Psych) Assessment & Plan Assessment & Plan (1) Chronic constipation: Comment: [place], sedentary, Needs fiber, bowel regimen Code(s): K59.09 - Other constipation Plan: Consistent bowel regimen High-fiber diet (2) Current use of anticoagulant therapy: Comment: No rectal bleeding Code(s): Z79.01 - director long term care (current) use of anticoagulants Plan: Continue usual medication (3) GERD (gastroesophageal reflux disease): Comment: Well controlled Code(s): K21.9 - Gastro-esophageal reflux disease without esophagitis Plan: Continue to avoid culprits Medications: New bisacodyl (Dulcolax (bisacodyl)) 10 mg NM DAILY PRN 20 ea 0RF constipation polyethylene glycol 3350 (Miralax) 17 grams PO DAILY 510 grams 6RF docusate sodium (Colace) 200 mg (2 x 100 mg) PO BEDTIME 60 caps 5RF calcium polycarbophil (Fiber Laxative (calcium polycarbophil)) 1,250 mg (2 x 625 mg) PO DAILY 30 days 60 tabs 5RF Patient Instructions: 58-year-old male chronic constipation likely diet, medications, sedentary lifestyle plays a role All discussed dietary changes-maintain high-fiber diet literature given reviewed Consistent bowel regimen Colace 200 mg as well as MiraLax q.h.s. Fiber supplements, however he may use suppository if he does not have adequate BM Maintain good hydration Encouraged to call with questions or concerns We have seen back in 8 weeks for progress Coding Level of Care Code New Pt Level 3 (41870) Diagnoses Chronic constipation K59.09 Current use of anticoagulant therapy Z79.01 GERD (gastroesophageal reflux disease) K21.9 Time Spent (min) 30
[2023-12-16 10:58] VITALS: BP 130/80; BMI 48.8
== END 2023-12-16 11:44 | disposition home or self-care (01) ==
PROVIDERS: PCP Nurse Practitioner Family; Visit Provider Physician Assistant
DX: K59.09 Other constipation (principal); Z79.01 Long term (current) use of anticoagulants; K21.9 Gastro-esophageal reflux disease without esophagitis
CPT/HCPCS: 99203

== ENCOUNTER → 2023-12-16 10:31 | Outpatient (BNVA) | payer OTHER, MEDICAID, SELFPAY | PROVIDERS: PCP Nurse Practitioner Family; Visit Provider Physician Assistant ==

== ENCOUNTER 2024-02-02 09:45 | Outpatient (AMB) | payer OTHER, MEDICAID, SELFPAY ==
--- NOTE | 2024-02-02 09:52 | A.OFFPC_ITS ---
Vital Signs 02/02/24 09:53 Height 6 ft 3 in Weight 388 lb 8 oz BMI 48.6 BP 140/72 H Blood Pressure Location Rt brachial Position Sitting Pulse 73 Pulse Source Pulse Oximeter Pulse Oximetry (%) 97 Oxygen Delivery Method Room Air Intake Visit Reasons: Follow up BP1 Intake Note: Pt is here to follow up for his Bipolar 1 Allergies Sulfa (Sulfonamide Antibiotics) [SULFA (SULFONAMIDE ANTIBIOTICS)] Allergy (Mild, Verified 02/02/24 12:04) RASH, hives Medication List - Last Reconciled 02/02/24 by Prosper Ellis, [facility]- albuterol sulfate 90 mcg/actuation (Ventolin HFA) 1 inh inhalation QID PRN Alcohol Pads (alcohol swabs) 1 pad topically; NS aripiprazole mg PO bisacodyl (Dulcolax (bisacodyl)) 10 mg MT DAILY PRN calcium polycarbophil (Fiber Laxative (calcium polycarbophil)) 1,250 mg (2 x 625 mg) PO DAILY 30 days docusate sodium (Colace) 200 mg (2 x 100 mg) PO BEDTIME FreeStyle Lancets (lancets) TID testing NS FreeStyle Lite Meter (blood-glucose meter) TID testing NS FreeStyle Lite Strips (blood sugar diagnostic) TID testing NS gabapentin 800 mg PO TID levocetirizine (Xyzal) 5 mg PO DAILY losartan 25 mg PO DAILY magnesium oxide 400 mg PO DAILY 90 days metoprolol succinate ER 100 mg PO DAILY polyethylene glycol 3350 (Miralax) 17 grams PO DAILY pramipexole 0.25 mg PO BID 30 days [Rollator walker with seat daily use] tizanidine 4 mg PO BID PRN walker with wheels warfarin 7.5 mg See Protocol PO DAILY Tobacco use date assessed: 02/02/24 Dental Screening Dental Screen Date: 02/02/24 Did you have a dental visit in the last 12 months?: No Did you have a dental problem in the last 6 months where you did not have access to dental care?: No Was dental information given to patient?: No HPI Follow up BP1 HPI Details Pt c/o lower back pain. He reports severe radiculopathy of his lower extremities. He is using a walker due to weakness of his lower extremities. Pt has had 7 surgeries on his lower back. Pt is unable to have an MRI due to hardware. Will order CT. Denies any signs of cauda equina. HTN: Blood pressure is managed with metoprolol 100mg. BP is elevated today. Will start losartan 25mg. Pt does not monitor his blood pressure at home. Denies chest pain, shortness of breath, headache, dizziness, and blurred vision. Pt will have labs drawn approximately 2 weeks after starting losartan. [facility] Medical History Retinal hemorrhage Vitamin D deficiency Joint pain in both hands HARITHA (obstructive sleep apnea) Carpal tunnel syndrome Morbid obesity Prostate CA Constipation Elevated alkaline phosphatase level Stenosis of cervical spine Anemia Depression RBBB Erectile dysfunction Lumbar spinal stenosis Atrial fibrillation GERD (gastroesophageal reflux disease) Asthma Arthritis Surgical History History of surgery Hx of neck surgery History of back surgery H/O cardiac radiofrequency ablation (~04/2017) No pertinent past surgical history Family History Father Heart attack DVT (deep venous thrombosis) Mother Diabetes COPD (chronic obstructive pulmonary disease) Social History Household Members: Spouse and Family Housing: House Alcohol intake: never Patient Tobacco Use Status: Former Tobacco user Quit Date: 1979 Tobacco use type: Cigarette e-Cigarette/Vaping Use: Never Used Second Hand Smoke Exposure: No service: No 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al status: retired 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 How often do you have a drink containing alcohol?: Never 2. How many drinks containing alcohol do you have on a typical day when you are drinking?: 1 or 2 3. How often do you have six or more drinks on one occasion?: Never Total Score: 0 CLAU-7 AMB Questionnaire CLAU-7 Date CLAU - 7 assessed: 08/19/22 Feeling nervous, anxious, or on edge: 3 = Nearly every day Not being able to stop or control worryin = More than half the days Worrying too much about different things: 2 = More than half the days Trouble relaxin = Nearly every day Being so restless that it is hard to sit still: 3 = Nearly every day Becoming easily annoyed or irritable: 3 = Nearly every day Feeling afraid as if something awful might happen: 2 = More than half the days Total CLAU-7 score (0-4 normal; 5-9 mild; 10-14 moderate; 15-21 severe): 18 Source: Developed by Drs. Jacobo Lewis, Clarissa Whitaker, Arcenio Del Valle and colleagues, with an educational gregorio from [employer] Review of Systems Const Reports as per HPI Physical exam (Primary Care) Vital Signs: Last Vital Signs Pulse 73 02/02/24 09:53 BP 140/72 H 02/02/24 09:53 Pulse Ox 97 02/02/24 09:53 Oxygen Delivery Method Room Air 02/02/24 09:53 BMI result Body Mass Index 48.6 Tobacco/Smoking Status: Tobacco use Status Tobacco use date assessed 02/02/24 02/02/24 10:01 Patient Tobacco Use Status Former Tobacco user 02/02/24 09:56 Tobacco use type Cigarette 02/02/24 09:56 e-Cigarette/Vaping Use Never Used 02/02/24 09:56 Thrive Assessment: Date of Thrive Assessment Date Thrive assessed 08/19/22 02/02/24 09:56 Const General: cooperative Nutritional Appearance: obese morbidly obese Orientation/consciousness: patient oriented x3 Resp Effort & Inspection: normal respiratory effort Auscultation: clear to auscultation bilaterally Cardio Rate: regular rate Rhythm: abnormal rhythm irregularly irregular Back/Spine/Pelvis Other: unable to perform lower back exam due to pain Neuro General: patient oriented x3 Psych Appearance: grossly normal Mental Status: mental status grossly normal Speech and movement: Normal speech and movement present Affect: normal affect Attitude: cooperative Thought process: Normal thought process present Thought content: Normal thought content present Insight: Good insight present (Psych) Judgement: Good judgement present (Psych) Assessment and Plan Assessment & Plan (1) Lumbar spinal stenosis: Code(s): M48.061 - Spinal stenosis, lumbar region without neurogenic claudication Plan: ct scan (2) HTN (hypertension): Code(s): I10 - Essential (primary) hypertension Plan: added losartan recommended use of cuff at home, writing down values. Plan The patient agreed to the use of a medical office supervisor for this encounter. Scribed for DAVID Corrales-JENNIFER by Saba Davis medical office supervisor, on 02/02/2024 at 10:15 EST. Orders: Orders Complete Blood Count Auto Diff Today I10 - Essential (primary) hypertension Comprehensive [place]. Panel Fast Today I10 - Essential (primary) hypertension TSH reflex Free T4 Today I10 - Essential (primary) hypertension Lipid Panel Today I10 - Essential (primary) hypertension CT lumbar spine wo IV con Today M48.061 - Spinal stenosis, lumbar region without neurogenic claudication UA CC w/rflx Micro + Cult Today I10 - Essential (primary) hypertension Medications: New losartan 25 mg PO DAILY 90 tabs 0RF Coding Level of Care Code Est Pt Level 3 (45878) Diagnoses Lumbar spinal stenosis M48.061 HTN (hypertension) I10
[2024-02-02 09:53] VITALS: BP 140/72; PULSE 73; O2SAT 97; BMI 48.6
== END 2024-02-02 11:16 | disposition home or self-care (01) ==
PROVIDERS: PCP Nurse Practitioner Family; Visit Provider Nurse Practitioner Family
DX: M48.061 Spinal stenosis, lumbar region without neurogenic claudication (principal); I10 Essential (primary) hypertension
CPT/HCPCS: 99213

== ENCOUNTER 2024-02-11 08:53 | Outpatient (AMB) | payer OTHER, MEDICAID, SELFPAY ==
--- NOTE | 2024-02-11 08:56 | AM.OFFVISNUR ---
Intake Intake Visit Reasons: ekg ? afib Allergies Sulfa (Sulfonamide Antibiotics) [SULFA (SULFONAMIDE ANTIBIOTICS)] Allergy (Mild, Verified 02/02/24 12:04) RASH, hives Nursing Note PT had EKG for AFIB indications PT feels fine PT EKG results were left on Dr Moseley's Desk for reviewing Office Procedures EKG [id number], Complete Coding CPT Codes EKG - CPT: [id number], Complete ([id number])
== END 2024-02-11 09:19 | disposition home or self-care (01) ==
PROVIDERS: PCP Nurse Practitioner Family; Visit Provider Internal Medicine Cardiovascular Disease
DX: I48.91 Unspecified atrial fibrillation (principal); R00.0 Tachycardia, unspecified; I45.10 Unspecified right bundle-branch block
CPT/HCPCS: 93010

== ENCOUNTER → 2024-02-11 08:53 | Outpatient (BNVA) | payer OTHER, MEDICAID, SELFPAY | PROVIDERS: PCP Nurse Practitioner Family; Visit Provider Internal Medicine Cardiovascular Disease | DX: R94.31 Abnormal electrocardiogram [ECG] [EKG] (principal) | CPT/HCPCS: 93005 ==

== ENCOUNTER 2024-02-13 14:28 | Emergency (ER) | payer OTHER, MEDICAID, SELFPAY ==
--- NOTE | ~2024-02-13 | XR_ITS ---
EXAMINATION: XR CHEST CLINICAL INFORMATION: Reason for Exam palpitations COMPARISON: Chest radiograph 08/24/2019 TECHNIQUE: 2 views of the chest FINDINGS: Lines and tubes: Anterior cervical fusion hardware. Clear lungs. No pleural effusion. No pneumothorax. Unchanged cardiomediastinal silhouette. XR/XR chest 2V IMPRESSION: * Clear lungs.
--- NOTE | 2024-02-13 14:29 | ECG_ITS ---
Test Reason : AFIB Blood Pressure : / mmHG Vent. Rate : 109 BPM Atrial Rate : 109 BPM P-R Int : 142 ms QRS Dur : 134 ms QT Int : 368 ms P-R-T Axes : 045 050 -06 degrees QTc Int : 495 ms Sinus tachycardia Right bundle branch block T wave abnormality, consider inferior ischemia Abnormal ECG When compared with ECG of 15-NOV-2019 11:46, T wave inversion now evident in Anterior leads Referred By: Generic ED Physician Electronically Signed By:PIETRO PARDO MD
[2024-02-13 14:42] VITALS: BP 169/87; PULSE 111; RESP 20; TEMP 37.2; O2SAT 97; BMI 48.6
--- NOTE | 2024-02-13 14:43 | ED.GENADULT ---
HPI - General Adult General Chief complaint: Arrhythmia/Palpitations Stated complaint: afib Time Seen by Provider: 02/13/24 16:38 Source: patient Mode of arrival: ambulatory Limitations: no limitations History of Present Illness HPI narrative: Patient history of paroxysmal AFib hypertension increased stress lately just prior to arrival noticed heart was beating fast lasted only for few seconds checked his blood pressure was 173/68 on arrival blood pressure was 169/87 heart rate 111 sinus tachycardia no headache no chest patient does have chronic neck pain not taking any pain medication also complaining of pain with history of spinal stenosis and surgery Related Data Home Medications Medication Instructions Recorded Confirmed tizanidine 4 mg tablet 4 mg PO BID PRN for muscle spasm 10/29/22 02/02/24 aripiprazole 15 mg tablet mg PO 08/11/23 02/02/24 Previous Rx's Medication Instructions Recorded levocetirizine 5 mg tablet (Xyzal) 5 mg PO DAILY #30 tabs 08/26/21 warfarin 5 mg tablet 7.5 mg PO DAILY #100 tabs 10/22/22 albuterol sulfate 90 mcg/actuation 1 inh inhalation QID PRN shortness 02/23/23 aerosol inhaler (Ventolin HFA) of breath or wheezing #8.5 grams walker #1 ea 04/01/23 Rollator walker with seat #1 ea 05/25/23 Alcohol Pads (alcohol swabs) See Rx Instructions topical 06/29/23 .COMPLEX #100 ea FreeStyle Lancets 28 gauge #100 ea 06/29/23 (lancets) FreeStyle Lite Meter #1 ea 06/29/23 (blood-glucose meter) FreeStyle Lite Strips (blood sugar #100 ea 06/29/23 diagnostic) magnesium oxide 400 mg (241.3 mg 400 mg PO DAILY 90 days #90 tabs 11/02/23 magnesium) tablet metoprolol succinate 100 mg 100 mg PO DAILY #90 tabs 11/06/23 tablet,extended release 24 hr pramipexole 0.25 mg tablet 0.25 mg PO BID 30 days #60 tabs 11/10/23 gabapentin 800 mg tablet 800 mg PO TID #270 tabs 12/13/23 calcium polycarbophil 625 mg 1,250 mg (2 x 625 mg) PO DAILY 30 12/16/23 tablet (Fiber Laxative (calcium days #60 tabs polycarbophil)) docusate sodium 100 mg capsule 200 mg (2 x 100 mg) PO BEDTIME #60 12/16/23 (Colace) caps polyethylene glycol 3350 17 17 g PO DAILY #510 grams 12/16/23 gram/dose oral powder (Miralax) losartan 25 mg tablet 25 mg PO DAILY #90 tabs 02/02/24 oxycodone-acetaminophen 5 mg-325 1 tab PO Q6H PRN pain #20 tabs 02/13/24 mg tablet (Percocet) Allergies Allergy/AdvReac Type Severity Reaction Status Date / Time Sulfa (Sulfonamide Allergy Mild RASH, hives Verified 02/13/24 14:45 Antibiotics) [SULFA (SULFONAMIDE ANTIBIOTICS)] Review of Systems Review of Systems: Yes all other systems are reviewed and are negative [facility] Past Medical History Medical History Retinal hemorrhage Vitamin D deficiency Joint pain in both hands HARITHA (obstructive sleep apnea) Carpal tunnel syndrome Morbid obesity Prostate CA Constipation Elevated alkaline phosphatase level Stenosis of cervical spine Anemia Depression RBBB Erectile dysfunction Lumbar spinal stenosis Atrial fibrillation GERD (gastroesophageal reflux disease) Asthma Arthritis Surgical History History of surgery Hx of neck surgery History of back surgery H/O cardiac radiofrequency ablation (~04/2017) No pertinent past surgical history Family History Family History Father Heart attack DVT (deep venous thrombosis) Mother Diabetes COPD (chronic obstructive pulmonary disease) Social History Social History Household Members: Spouse and Family Housing: House Alcohol intake: never Patient Tobacco Use Status: Former Tobacco user Quit Date: 1979 Tobacco use type: Cigarette e-Cigarette/Vaping Use: Never Used Second Hand Smoke Exposure: No Advance Directives: No Advance Directives Information Provided: No service: No 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al status: retired 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 Oriented X3. No acute distress. Eyes: PERRLA, No Nystagmus ENT: Pharynx normal. Oral Mucosa moist Neck: Normal inspection. Neck supple. CVS: Normal heart rate and rhythm. Pulses normal. Respiratory: No respiratory distress. Equal air entry bilateral, no wheezing/rales/rhonchi Abdomen: Soft and nontender. Bowel sounds are present, no mass palpable, no CVA tenderness Skin: Skin warm and dry. Normal skin color. Normal skin turgor. Extremities: Chronic nonpitting lower extremity edema. No calf tenderness Neuro: Oriented X 3. No motor deficit. No sensory deficit.No cerebellar signs , cranial nerves II-XII intact Course Course Course Narrative: This is a rapid medical exam: Additional HPI, ROS, PE not included below will be deferred to primary provider. Patient is a 58-year-old male with history of afib on coumadin s/p unsuccessful ablation, RBBB, HTN, lumbar spinal stenosis, multiple neck and back surgeries, asthma, GERD, prostate CA, recurrent DVT presenting to the ED with complaint of palpitations for the past week. Also complains of midline posterior neck pain. Denies fall or other trauma. Plan: EKG, labs, CXR Medical Decision Making Differential Diagnosis Differential Diagnoses: The differential diagnosis associated with the presentation includes Paroxysmal AFib/tachycardic Lab Data MDM Lab Attestation statement: I reviewed the patient's lab results. 02/13/24 15:04 02/13/24 15:04 Labs: Lab Results 02/13/24 Range/Units 15:04 WBC 9.0 (4.8-10.8) X10*3/uL RBC 5.29 (4.60-5.80) X10*6/uL Hgb 15.0 (14.0-18.0) g/dl Hct 46.5 (42.0-52.0) % MCV 87.9 (80.0-98.0) fL MCH 28.4 (27.0-33.0) pg MCHC 32.3 (31.0-36.0) g/dl RDW 13.3 (11.0-16.0) % Plt Count 201 (160-400) X10*3/uL MPV 10.6 (9.4-12.4) fL Immature Gran % (Auto) 0.7 H (0.0-0.4) % Neut % (Auto) 77.7 H (45-73) % Lymph % (Auto) 11.6 L (20-40) % [place] % (Auto) 7.9 (2-11) % Eos % (Auto) 1.7 (0-4) % Baso % (Auto) 0.4 (0-2) % Lymph # (Auto) 1.1 L (1.2-4.9) X10*3/uL [place] # (Auto) 0.7 (0.1-1.2) X10*3/uL Eos # (Auto) 0.2 (0.0-0.4) X10*3/uL Baso # (Auto) 0.0 (0.0-0.2) X10*3/uL Abs Immat Gran (auto) 0.06 H (0.00-0.03) X10*3/uL Absolute Neuts (auto) 7.0 (2.0-8.3) x10*3/uL Absolute Nucleated RBC 0.000 (0.0-0.012) X10*3/uL Nucleated RBC % (auto) 0.0 (0.0-0.2) /100WBC PT 11.3 (11.1-13.3) SEC INR 0.9 (0.9-1.1) APTT 34.0 (26.0-36.8) SEC Sodium 142 (135-145) mmol/L Potassium 4.0 (3.3-5.1) mmol/L Chloride 110 H (96-108) mmol/L Carbon Dioxide 25 (22-29) mmol/L Anion Gap 11 L (12-20) BUN 18 H (9-16) mg/dL Creatinine 1.19 (0.5-1.4) mg/dL Estim Creat Clear Calc 117.4 Estimated GFR > 60 Random Glucose 156 H (60-115) mg/dL Calcium 9.2 (8.4-10.2) mg/dL Total Bilirubin 0.4 (0.0-1.0) mg/dL AST 21 (5-37) U/L ALT 24 (0-40) U/L Alkaline Phosphatase 132 H (39-117) U/L Troponin I High Sens < 2.7 (<3.5-35.0) ng/L Total Protein 7.4 (6.5-8.0) g/dL Albumin 3.5 (3.5-5.0) g/dL Independent Interpretation I performed an independent interpretation of an: EKG Interpretation: Sinus tachycardia heart rate 109 beats per minute right bundle-branch block no acute ST T wave changes no acute ischemia Discharge Plan Discharge Clinical Impression: Paroxysmal atrial fibrillation, Chronic neck pain Patient Disposition: Home, Self-Care Instructions: A-fib (Atrial Fibrillation) (ED), Neck Pain (ED) Additional Instructions: Continue medication as prescribed for pain Follow with biomed tech Report to the ER if persistent palpitation/dizziness/syncope Prescriptions: New oxycodone-acetaminophen [Percocet] 5-325 mg tablet 1 tab PO Q6H PRN (Reason: pain) Qty: 20 0RF Rx Instructions: Partial Fill upon patient request. No Action warfarin 5 mg Tablet 7.5 mg PO DAILY Qty: 100 3RF Protocol: Dose Management Condition: Thursday (Week One) Dose/Route: 7.5 mg Instruction: 1.5 x 5 mg tablets Condition: Thursday Dose/Route: 7.5 mg Instruction: 1.5 x 5 mg tablets Condition: Thursday Dose/Route: 10 mg Instruction: 2 x 5 mg tablets Condition: Thursday Dose/Route: 7.5 mg Instruction: 1.5 x 5 mg tablets Condition: Dose/Route: 7.5 mg Instruction: 1.5 x 5 mg tablets Condition: Thursday Dose/Route: 7.5 mg Instruction: 1.5 x 5 mg tablets Condition: Thursday Dose/Route: 7.5 mg Instruction: 1.5 x 5 mg tablets Condition: Thursday (Week Two) Dose/Route: 7.5 mg Instruction: 1.5 x 5 mg tablets Condition: Thursday Dose/Route: 7.5 mg Instruction: 1.5 x 5 mg tablets Condition: Thursday Dose/Route: 7.5 mg Instruction: 1.5 x 5 mg tablets Condition: Thursday Dose/Route: 7.5 mg Instruction: 1.5 x 5 mg tablets Condition: Dose/Route: 7.5 mg Instruction: 1.5 x 5 mg tablets Condition: Thursday Dose/Route: 7.5 mg Instruction: 1.5 x 5 mg tablets Condition: Thursday Dose/Route: 7.5 mg Instruction: 1.5 x 5 mg tablets Protocol Text: Adjustment Start Date: Thursday02/25/22 INR Value: 1.8 INR Date: 02/25/22 Additional Instructions: AVOID GREENS X 3 DAYS // EAT ORANGE OR REDS TO HELP RAISE albuterol sulfate [Ventolin HFA] 90 mcg/actuation HFA aerosol inhaler 1 inh inhalation QID PRN (Reason: shortness of breath or wheezing) Qty: 8.5 2RF (DME) Rollator walker with seat See Rx Instructions .Route .MEDSUPPLY Qty: 1 0RF Rx Instructions: daily use alcohol swabs [Alcohol Pads] Pads, Medicated See Rx Instructions topical .COMPLEX Qty: 100 0RF Rx Instructions: 1 pad topically; (DME) lancets [FreeStyle Lancets] 28 gauge misc See Rx Instructions .Route Qty: 100 0RF Rx Instructions: TID testing (DME) blood-glucose meter [FreeStyle Lite Meter] Kit See Rx Instructions .Route Qty: 1 0RF Rx Instructions: TID testing (DME) FreeStyle Lite Strips Strip See Rx Instructions .Route Qty: 100 0RF Rx Instructions: TID testing magnesium oxide 400 mg (241.3 mg magnesium) tablet 400 mg PO DAILY 90 Days Qty: 90 1RF metoprolol succinate 100 mg tablet extended release 24 hr 100 mg PO DAILY Qty: 90 3RF pramipexole 0.25 mg tablet 0.25 mg PO BID 30 Days Qty: 60 5RF Rx Instructions: at 8:30pm and 10pm gabapentin 800 mg tablet 800 mg PO TID Qty: 270 0RF levocetirizine [Xyzal] 5 mg tablet 5 mg PO DAILY Qty: 30 0RF (DME) walker Misc See Rx Instructions .ROUTE .MEDSUPPLY Qty: 1 0RF Rx Instructions: with wheels aripiprazole 15 mg tablet PO losartan 25 mg tablet 25 mg PO DAILY Qty: 90 0RF tizanidine 4 mg tablet 4 mg PO BID PRN (Reason: for muscle spasm) docusate sodium [Colace] 100 mg capsule 200 mg PO BEDTIME Qty: 60 5RF polyethylene glycol 3350 [Miralax] 17 gram/dose powder 17 g PO DAILY Qty: 510 6RF calcium polycarbophil [Fiber Laxative (ca polycarbo)] 625 mg tablet 1,250 mg PO DAILY 30 Days Qty: 60 5RF
[2024-02-13 15:09] LABS: MANUAL DIFF FLAG NO
[2024-02-13 15:11] LABS: Basophils Percent Auto 0.4 % (0-2); Eosinophils Absolute Auto 0.2 X10*3/uL (0.0-0.4); Eosinophils Percent Auto 1.7 % (0-4); Hematocrit 46.5 % (42.0-52.0); Imm Gran Abs Auto 0.06 X10*3/uL (0.00-0.03); Imm Gran Pct Auto 0.7 % (0.0-0.4); Lymphocytes Absolute Auto 1.1 X10*3/uL (1.2-4.9); Lymphocytes Percent Auto 11.6 % (20-40); Mean Corpuscular HGB Conc 32.3 g/dl (31.0-36.0); Mean Corpuscular Hemoglobin 28.4 pg (27.0-33.0); Mean Corpuscular Volume 87.9 fL (80.0-98.0); Mean Platelet Volume 10.6 fL (9.4-12.4); Monocytes Absolute Auto 0.7 X10*3/uL (0.1-1.2); Monocytes Percent Auto 7.9 % (2-11); Neutrophils Percent Auto 77.7 % (45-73); Platelet Count 201 X10*3/uL (160-400); Red Blood Count 5.29 X10*6/uL (4.60-5.80); Red Cell Distribution Width 13.3 % (11.0-16.0)
[2024-02-13 15:17] LABS: INTERNATIONAL NORM RATIO 0.9 (0.9-1.1); Prothrombin Time 11.3 SEC (11.1-13.3)
[2024-02-13 15:25] LABS: Alanine Aminotransferase 24 U/L (0-40); Albumin Level 3.5 g/dL (3.5-5.0); Alkaline Phosphatase 132 U/L (39-117); Anion Gap 11 (12-20); Aspartate Amino Transferase 21 U/L (5-37); Bilirubin Total 0.4 mg/dL (0.0-1.0); Blood Urea Nitrogen 18 mg/dL (9-16); Calcium 9.2 mg/dL (8.4-10.2); Carbon Dioxide 25 mmol/L (22-29); Chloride 110 mmol/L (96-108); Creatinine Clr Calc Pharmacy 117.4; Estimated Glomerular Filt Rate > 60; Glucose Random 156 mg/dL (60-115); Sodium 142 mmol/L (135-145); Total Protein 7.4 g/dL (6.5-8.0)
[2024-02-13 15:33] LABS: Troponin-I High Sensitivity < 2.7 ng/L (<3.5-35.0)
[2024-02-13 18:00] VITALS: BP 130/74; PULSE 91; RESP 16; TEMP 36.8; O2SAT 96
[2024-02-13] MEDS: oxyCODONE HCl Immed Release 5 MG TABLET PO (18:03)
[2024-02-13 18:07] VITALS: BP 130/74; PULSE 88; RESP 16; TEMP 36.9; O2SAT 98
== END 2024-02-13 18:11 | disposition home or self-care (01) ==
PROVIDERS: Registered Nurse Emergency; Emergency Provider Internal Medicine; PCP Nurse Practitioner Family
DX: I48.0 Paroxysmal atrial fibrillation (principal); M54.2 Cervicalgia; R00.2 Palpitations; I10 Essential (primary) hypertension; Z79.01 Long term (current) use of anticoagulants
CPT/HCPCS: 36415; 71046; 80053; 84484; 85025; 85610; 85730; 93005; 99283; 99284

== ENCOUNTER → 2024-02-13 14:29 | Outpatient (BNV) | payer OTHER, MEDICAID, SELFPAY | PROVIDERS: Emergency Provider Internal Medicine; PCP Nurse Practitioner Family; Visit Provider Internal Medicine Cardiovascular Disease | DX: I48.91 Unspecified atrial fibrillation (principal) | CPT/HCPCS: 93010 ==

== ENCOUNTER 2024-03-01 07:59 | Outpatient (AMB) | payer OTHER, MEDICAID, SELFPAY ==
--- NOTE | 2024-03-01 08:16 | MHC.OFFVIS ---
Intake Vital Signs 03/01/24 08:25 Height 6 ft 3 in Weight 378 lb BMI 47.2 BP 128/66 Blood Pressure Location Lt brachial Position Sitting Pulse 79 Intake Visit Reasons: 8 Weeks Follow up Intake Note: Patient follow up constipation Patient cc: constipation and acid reflex. Denies any other GI issues. 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 Accompanied by: Self / Same As Patient Allergies Sulfa (Sulfonamide Antibiotics) [SULFA (SULFONAMIDE ANTIBIOTICS)] Allergy (Mild, Verified 03/01/24 08:15) RASH, hives Medication List - Last Reconciled 03/01/24 by Cristal Mcknight PA-C albuterol sulfate 90 mcg/actuation (Ventolin HFA) 1 inh inhalation QID PRN Alcohol Pads (alcohol swabs) 1 pad topically; NS aripiprazole mg PO calcium polycarbophil (Fiber Laxative (calcium polycarbophil)) 1,250 mg (2 x 625 mg) PO DAILY 30 days docusate sodium (Colace) 200 mg (2 x 100 mg) PO BEDTIME FreeStyle Lancets (lancets) TID testing NS FreeStyle Lite Meter (blood-glucose meter) TID testing NS FreeStyle Lite Strips (blood sugar diagnostic) TID testing NS gabapentin 800 mg PO TID levocetirizine (Xyzal) 5 mg PO DAILY losartan 25 mg PO DAILY magnesium oxide 400 mg PO DAILY 90 days metoprolol succinate ER 100 mg PO DAILY polyethylene glycol 3350 (Miralax) 17 grams PO DAILY pramipexole 0.25 mg PO BID 30 days [Rollator walker with seat daily use] tizanidine 4 mg PO BID PRN walker with wheels warfarin 7.5 mg See Protocol PO DAILY HPI HPI Comments History of Present Illness Details A 58 y/o obese male f/u with chronic constipation - taking colace hs-- never received miralxax or fiber from pharmacy He has bowel movement once or twice a week He is sedentary-uses a rolling walker Admits he does not even leave the house except for appointment He is here with his son-also says they [id number] they do all the shopping by [employer] Omeprazole 20 QD for reflux-fairly good response No nausea, vomiting abdominal pain, hematemesis, hematochezia fever or chills [facility] Medical History Retinal hemorrhage Vitamin D deficiency Joint pain in both hands HARITHA (obstructive sleep apnea) Carpal tunnel syndrome Morbid obesity Prostate CA Constipation Elevated alkaline phosphatase level Stenosis of cervical spine Anemia Depression RBBB Erectile dysfunction Lumbar spinal stenosis Atrial fibrillation GERD (gastroesophageal reflux disease) Asthma Arthritis Surgical History History of surgery Hx of neck surgery History of back surgery H/O cardiac radiofrequency ablation (~04/2017) No pertinent past surgical history Family History Father Heart attack DVT (deep venous thrombosis) Mother Diabetes COPD (chronic obstructive pulmonary disease) Social History Household Members: Spouse and Family Housing: House Alcohol intake: never Patient Tobacco Use Status: Former Tobacco user Quit Date: 1979 Tobacco use type: Cigarette e-Cigarette/Vaping Use: Never Used Second Hand Smoke Exposure: No service: No 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al status: retired 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 Cognitive needs: No Hearing needs: No Vision needs: No Review of Systems Card Denies chest pain and Denies dyspnea Resp Denies dyspnea GI Denies abdominal pain, Denies hematochezia, Reports constipation and Reports heartburn Musc Reports abnormal gait and Reports back pain Neuro Reports abnormal gait Psych Reports depression, Denies homicidal ideation and Denies suicidal ideation Physical Exam Vital Signs: Last Vital Signs Pulse 79 03/01/24 08:25 BP 128/66 03/01/24 08:25 BMI result Body Mass Index 47.2 Const General: cooperative, comfortable and no acute distress Nutritional Appearance: obese Orientation/consciousness: patient oriented x3 Limitations: ambulation with walker Eyes Sclerae: sclerae normal Resp Other: Distant lung sounds Effort & Inspection: normal respiratory effort and able to speak in complete sentences Auscultation: no rales, no rhonchi and no wheezes Cardio Rate: regular rate Rhythm: regular rhythm Heart sounds: S1 normal heart sound present and S2 normal heart sound present GI Inspection: Yes Abdominal panniculus present Palpation (GI): Soft to palpation and nontender Auscultation: normal bowel sounds Neuro General: patient oriented x3 Psych Speech and movement: Clear speech present Affect: Labile affect present Attitude: cooperative Thought process: Normal thought process present Thought content: Normal thought content present Assessment & Plan Assessment & Plan (1) Constipation: Code(s): K59.00 - Constipation, unspecified Plan: Consistent bowel regimen reinforced (2) GERD (gastroesophageal reflux disease): Comment: Well controlled Code(s): K21.9 - Gastro-esophageal reflux disease without esophagitis Plan: Reflux precautions Continue PPI Remain upright 2-3 hours after eating especially evening Plan Consistent bowel regimen Medications: New sennosides (senna) 8.6 mg PO DAILY 30 days PRN 30 caps 1RF constipation polyethylene glycol 3350 (Miralax) 17 grams PO DAILY 510 grams 6RF Patient Instructions: Consistent bowel Will add senna, as well continue with Colace and re entered for MiraLax Maintain a high-fiber diet, literature given discussed menu choices Stay well hydrated Reflux precautions Avoid culprits Remain upright 2-3 hours after eating especially evening Continue PPI Encouraged to call with questions or concerns follow back in 8 weeks for progress He preferred office visit as to phone message Coding Level of Care Code Est Pt Level 3 (45213) Diagnoses Constipation K59.00 GERD (gastroesophageal reflux disease) K21.9 Time Spent (min) 30
[2024-03-01 08:25] VITALS: BP 128/66; PULSE 79; BMI 47.2
== END 2024-03-01 08:47 | disposition home or self-care (01) ==
PROVIDERS: PCP Nurse Practitioner Family; Visit Provider Physician Assistant
DX: K59.00 Constipation, unspecified (principal); K21.9 Gastro-esophageal reflux disease without esophagitis
CPT/HCPCS: 99213

== ENCOUNTER → 2024-03-01 07:59 | Outpatient (BNVA) | payer OTHER, MEDICAID, SELFPAY | PROVIDERS: PCP Nurse Practitioner Family; Visit Provider Physician Assistant ==

== ENCOUNTER 2024-03-15 11:01 | Outpatient (AMB) | payer OTHER, MEDICAID, SELFPAY ==
--- NOTE | 2024-03-15 11:15 | MHC.OFFVIS ---
Intake Vital Signs 03/15/24 11:16 Height 6 ft 3 in Weight 378 lb BMI 47.2 Intake Visit Reasons: Concern with circulation left leg Intake Note: follow up for history of Left LE micro 06/01/23 and states he still has Left LE swelling and redness near the incisions. Pt states it is painful w/ or w/o touch. Pt states that this started over a month ago. Pt states his pretibial area gets very discolored, wears compression daily, still has swelling. Accompanied by: Son Allergies Sulfa (Sulfonamide Antibiotics) [SULFA (SULFONAMIDE ANTIBIOTICS)] Allergy (Mild, Verified 03/15/24 11:21) RASH, hives HPI Concern with circulation left leg HPI Details Very pleasant 58-year-old gentleman well known to me for prior treatment of venous disease. He would actually seen us nearly a year ago and at that time had undergone left leg microphlebectomy. He did report that his leg did improve for period of time and has become swollen again. Has pain and discomfort of that left lower extremity. It has swollen to the point where he actually had an ulcer 1 point and has gone on to heal. He notes the discomfort more on the pretibial and lateral surfaces. He now presents to us for follow-up. [facility] Medical History Retinal hemorrhage Vitamin D deficiency Joint pain in both hands HARITHA (obstructive sleep apnea) Carpal tunnel syndrome Morbid obesity Prostate CA Constipation Elevated alkaline phosphatase level Stenosis of cervical spine Anemia Depression RBBB Erectile dysfunction Lumbar spinal stenosis Atrial fibrillation GERD (gastroesophageal reflux disease) Asthma Arthritis Surgical History History of surgery Hx of neck surgery History of back surgery H/O cardiac radiofrequency ablation (~04/2017) No pertinent past surgical history Family History Father Heart attack DVT (deep venous thrombosis) Mother Diabetes COPD (chronic obstructive pulmonary disease) Social History Household Members: Spouse and Family Housing: House Alcohol intake: never Patient Tobacco Use Status: Former Tobacco user Quit Date: 1979 Tobacco use type: Cigarette e-Cigarette/Vaping Use: Never Used Second Hand Smoke Exposure: No service: No 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al status: retired 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 Cognitive needs: No Hearing needs: No Vision needs: No Review of Systems Const Reports as per HPI ENT Reports no additional complaints Card Denies chest pain, Denies chest pain at rest and Denies chest pain with activity Resp Denies chest congestion and Denies cough GI Reports no additional complaints Musc Details: pain over varicosities, aching of lower extremities, swelling, cramping, heaviness and tiredness, itching Denies abnormal gait Skin/Breast Reports pruritus and Denies wounds Neuro Reports no additional complaints and Denies abnormal gait Psych Denies no additional complaints Physical Exam Vital Signs: BMI result Body Mass Index 47.2 Const General: cooperative, healthy appearing and comfortable Orientation/consciousness: oriented to person, oriented to place and oriented to time Neck Carotids: no bruits Chest Chest palpation & inspection: normal inspection of the chest and normal palpation of entire chest wall Resp Effort & Inspection: normal respiratory effort and able to speak in complete sentences Cardio Rate: regular rate Heart sounds: S1 normal heart sound present and S2 normal heart sound present Peripheral pulses: Peripheral pulses 2+ throughout GI Inspection: Yes normal to inspection Skin Other: +2 edema, CEAP Classification C5 - healed ulcer Ep - Etiology Primary As - superficial veins P - reflux General skin exam: dry skin Neuro General: oriented to person, oriented to place and oriented to time Extrem Right lower extremity: full ROM, normal capillary refill and edema Left lower extremity: full ROM, normal capillary refill and edema Psych Mental Status: mental status grossly normal Assessment & Plan Assessment & Plan (1) Varicose veins of left lower extremity with inflammation: Comment: 06/01/2023 - left leg microphlebectomy Code(s): I83.12 - Varicose veins of left lower extremity with inflammation Plan: In short patient has recurrent left lower extremity venous disease. He does have swelling and it actually had gone on to ulceration which is now healed. I have taken the liberty of ordering repeat venous insufficiency testing. We did discuss routine conservative measures including compression, elevation, exercise. He will follow up with us after testing. Thank you for allowing us to assist in his care. If there are any questions or concerns please do not hesitate to contact us. (2) Lymphedema: Code(s): I89.0 - Lymphedema, not elsewhere classified Plan: Should venous testing prove to be negative will treat for lymphedema. Orders: Orders US venous duplex LE LT 1 Week I83.12 - Varicose veins of left lower extremity with inflammation Coding Level of Care Code Est Pt Level 4 (47249) Diagnoses Varicose veins of left lower extremity with inflammation I83.12 Lymphedema I89.0
[2024-03-15 11:16] VITALS: BMI 47.2
== END 2024-03-15 11:45 | disposition home or self-care (01) ==
PROVIDERS: PCP Nurse Practitioner Family; Visit Provider Surgery Vascular Surgery
DX: I83.12 Varicose veins of left lower extremity with inflammation (principal); I89.0 Lymphedema, not elsewhere classified
CPT/HCPCS: 99213

== ENCOUNTER → 2024-03-15 11:01 | Outpatient (BNVA) | payer OTHER, MEDICAID, SELFPAY | PROVIDERS: PCP Nurse Practitioner Family; Visit Provider Surgery Vascular Surgery ==

== ENCOUNTER 2024-03-16 09:01 | Outpatient (REF) | payer OTHER, MEDICAID, SELFPAY ==
--- NOTE | ~2024-03-16 | CT_ITS ---
EXAMINATION: CT LUMBAR SPINE WITHOUT CONTRAST CLINICAL INFORMATION: Back pain, spinal stenosis COMPARISON: None available TECHNIQUE: A multidetector CT acquisition of the lumbar spine is obtained without contrast. This CT examination was performed using dose optimization techniques as appropriate, variously including the following: *Automated exposure control *Adjustment of mA and/or kV according to patient size (this includes techniques or standardized protocols for targeted exams where dose is matched to indication/reason for exam; i.e. extremities or head) *Use of iterative reconstruction technique DLP: 1858 mGy-cm FINDINGS: The normal lumbar lordosis is preserved. Trace retrolisthesis of L1-L2 and L2-L3. Lumbar vertebral body heights are maintained. Multilevel degenerative endplate changes are noted. Prominent anterior osteophytes at L3 and L4. Vacuum disc phenomenon at L4-L5 and L5-S1. Please note that canal patency is not well assessed on this examination due to inherent limitations of CT without intrathecal contrast. Within these limitations, multilevel degenerative changes with level by level detail are as follows: T12-L1: Left subarticular disc protrusion/osteophyte formation with mild indentation of the left thecal sac. Facet arthropathy. The central canal is otherwise patent. Left neural foramen is patent. Mild to moderate narrowing of the right neural foramen. L1-L2: Disc bulge and osteophytic ridging with facet arthropathy. Mild narrowing of the thecal sac. Mild narrowing of the neural foramen. L2-L3: Disc bulge and osteophytic ridging. Advanced facet arthropathy with ligamentum flavum redundancy. Likely severe spinal canal stenosis. There is severe bilateral neural foraminal stenosis with exiting nerve root impingement secondary to advanced facet arthropathy. L3-L4: Disc bulge and osteophytic ridging with severe facet arthropathy. There is hyperdensity along the midline dorsal thecal sac which is indeterminate and may be postoperative. Finding appears unchanged compared to 2019. Severe spinal canal stenosis with probable mass effect on the cauda equina nerve roots. Severe left greater than right neural foraminal stenosis with exiting nerve root impingement. L4-L5: Disc bulge and osteophytic ridging with severe facet arthropathy. Prior posterior decompression. The thecal sac is suboptimally assessed, but there is likely at least persistent mild to moderate canal stenosis. Severe left neural foraminal stenosis with exiting nerve root impingement. Moderate to severe right neural foraminal stenosis with impingement of the exiting nerve root. L5-S1: Posterior decompression. Disc bulge and osteophytic ridging indents the ventral thecal sac and narrows the lateral recesses. The central canal is otherwise patent. Severe bilateral neural foraminal stenosis with exiting nerve root compression. Limited intra-abdominal evaluation is within normal limits. CT/CT lumbar spine wo IV con IMPRESSION: There is severe spinal canal stenosis at L3-L4 with probable mass effect on the cauda equina nerve roots that is suboptimally evaluated. Hyperdensity along the dorsal aspect of the thecal sac at L3-L4 is indeterminate but remains stable compared to 2019. Severe spinal canal stenosis at L2-L3. Multilevel severe bilateral neural foraminal stenosis with exiting nerve root compression as described above.
== END 2024-03-16 09:02 | disposition home or self-care (01) ==
LOC: HO.CT 09:01
PROVIDERS: PCP Nurse Practitioner Family; Visit Provider Nurse Practitioner Family
DX: M48.061 Spinal stenosis, lumbar region without neurogenic claudication (principal)
CPT/HCPCS: 72132

== ENCOUNTER 2024-03-25 08:01 | Outpatient (AMB) | payer OTHER, MEDICAID, SELFPAY ==
--- NOTE | 2024-03-25 08:02 | AM.OFFWIN_ITS ---
Intake Vital Signs 03/25/24 08:03 Height 6 ft 3 in Weight 390 lb BMI 48.7 BP 130/82 Blood Pressure Location Rt brachial Position Sitting Pulse 85 Pulse Source Pulse Oximeter Temp 98.0 F Temp Source Oral Pulse Oximetry (%) 97 Oxygen Delivery Method Room Air Intake Visit Reasons: EP LT leg pain and redness Intake Note: Pt presents to the office today for left leg pain and redness. Pt states this started a few days ago. He states his leg has been giving out. Patient Tobacco Use Status: Former Tobacco user Quit Date: 1979 Allergies Sulfa (Sulfonamide Antibiotics) [SULFA (SULFONAMIDE ANTIBIOTICS)] Allergy (Mild, Verified 03/25/24 08:05) RASH, hives HPI HPI Comments History of Present Illness Details 58 y/o male patient who presents to walk in clinic with c/o Left leg pain. H/o Varicose veins left lower leg with inflammation. He is currently being managed by Vascular. Pt here today requesting Hydrocodone for pain relief. Reports nothing else works for him. [facility] Medical History Retinal hemorrhage Vitamin D deficiency Joint pain in both hands HARITHA (obstructive sleep apnea) Carpal tunnel syndrome Morbid obesity Prostate CA Constipation Elevated alkaline phosphatase level Stenosis of cervical spine Anemia Depression RBBB Erectile dysfunction Lumbar spinal stenosis Atrial fibrillation GERD (gastroesophageal reflux disease) Asthma Arthritis Surgical History History of surgery Hx of neck surgery History of back surgery H/O cardiac radiofrequency ablation (~04/2017) No pertinent past surgical history Family History Father Heart attack DVT (deep venous thrombosis) Mother Diabetes COPD (chronic obstructive pulmonary disease) Social History Household Members: Spouse and Family Housing: House Alcohol intake: never Patient Tobacco Use Status: Former Tobacco user Quit Date: 1979 Tobacco use type: Cigarette e-Cigarette/Vaping Use: Never Used Second Hand Smoke Exposure: No service: No 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al status: retired 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 Cognitive needs: No Hearing needs: No Vision needs: No Review of Systems Const All systems reviewed & are unremarkable except as noted in HPI and below Physical Exam Vital Signs: Last Vital Signs Temp 98.0 F 03/25/24 08:03 Pulse 85 03/25/24 08:03 BP 130/82 03/25/24 08:03 Pulse Ox 97 03/25/24 08:03 Oxygen Delivery Method Room Air 03/25/24 08:03 BMI result Body Mass Index 48.7 Const General: no acute distress; No comfortable Nutritional Appearance: obese morbidly obese Orientation/consciousness: patient oriented x3 Neuro General: patient oriented x3 and gait normal (walks with a walker) Extrem Right lower extremity: lower leg Details: erythema, tenderness and pitting edema Left lower extremity: lower leg Details: erythema, tenderness and pitting edema Psych Speech and movement: Normal speech and movement present Assessment & Plan Assessment & Plan (1) Lower leg pain: Code(s): M79.669 - Pain in unspecified lower leg Qualifiers: Laterality: left Qualified Code(s): M79.662 - Pain in left lower leg Plan: - Advised Pt that I will not be prescribing Narcotics in [facility] clinic. He may contact his PCP or if pain is severe to go to ED - Continue f/u with Vascular services as scheduled. Coding Level of Care Code Est Pt Level 3 (00358) Diagnoses Pain of left lower leg M79.662 Laterality: left Time Spent (min) 15
[2024-03-25 08:03] VITALS: BP 130/82; PULSE 85; TEMP 36.7; O2SAT 97; BMI 48.7
== END 2024-03-25 08:25 | disposition home or self-care (01) ==
PROVIDERS: PCP Nurse Practitioner Family; Visit Provider Nurse Practitioner Family
DX: M79.662 Pain in left lower leg (principal)
CPT/HCPCS: 99213

== ENCOUNTER 2024-03-31 10:23 | Outpatient (REF) | payer OTHER, MEDICAID, SELFPAY ==
--- NOTE | ~2024-03-31 | US_ITS ---
EXAMINATION: US LOWER EXTREMITY (REFLUX EXAM), LEFT CLINICAL INDICATION: Left lower extremity varicose veins, pain and inflammation COMPARISON: None. TECHNIQUE: Color flow triplex imaging and compression Doppler was performed to evaluate both the deep and the superficial systems of the left lower extremity. To evaluate the superficial system, the examination was performed in the upright position. Color-flow Doppler ultrasound and compression ultrasound were utilized. In addition, maneuvers were utilized to demonstrate reflux. FINDINGS: 1. DEEP VENOUS DOPPLER ULTRASOUND: Common Femoral Vein: Compressible, normal respiratory variation and augmented flow. Femoral Vein: Not visualized. Popliteal Vein: Compressible, normal augmentation. Deep Reflux: Deep venous reflux seen in the popliteal vein measuring 2976 ms There is no evidence of a Ingram's cyst. 2. SUPERFICIAL VENOUS DOPPLER ULTRASOUND: GREAT SAPHENOUS VEIN: Saphenofemoral Junction: 1.1 cm; Reflux: 0 ms Proximal Thigh: 0.9 cm; Reflux: 0 ms Mid Thigh: 1.0 cm; Reflux: 0 ms Above Knee: 0.7 cm; Reflux: 0 ms At Knee: 0.8 cm; Reflux: 0 ms Below Knee: 0.4 cm; Reflux: 2104 ms Mid Calf: 0.6 cm; Reflux: 0 ms Ankle: 0.5 cm; Reflux: 0 ms DUPLICATED MEDIAL GREAT SAPHENOUS VEIN: Diameter: None imaged Reflux: NA DUPLICATED LATERAL GREAT SAPHENOUS VEIN: Diameter: None imaged Reflux: NA SMALL SAPHENOUS VEIN: Saphenopopliteal Junction: 0.3 cm; Reflux: 0 ms Proximal: 0.4 cm; Reflux: 0 ms Distal: 0.4 cm; Reflux: 0 ms VEIN OF GIACOMINI: Size: NA Reflux: NA PERFORATORS: Location: Mid calf Size: 0.4 to 0.6 cm Reflux: 2196 ms VARICOSITIES: Location: Proximal, mid and distal thigh. The proximal, mid and distal calf Size: Ranging from 0.3 to 0.9 cm Reflux: Ranging from 1116 ms to 2728 ms US/US venous duplex LE LT IMPRESSION: Diffusely dilated great saphenous vein with only one focal segmental area of reflux in the proximal calf. There are multiple branching varicose veins throughout the thigh and calf which are also dilated and demonstrate reflux as described above.
== END 2024-03-31 10:24 | disposition home or self-care (01) ==
LOC: HO.US 10:23
PROVIDERS: PCP Nurse Practitioner Family; Visit Provider Surgery Vascular Surgery
DX: I83.12 Varicose veins of left lower extremity with inflammation (principal)
CPT/HCPCS: 93971

== ENCOUNTER 2024-04-08 09:27 | Outpatient (AMB) | payer OTHER, MEDICAID, SELFPAY ==
--- NOTE | 2024-04-08 09:47 | HO.SPINEOV ---
Intake Visit Reasons: spinal stenosis, lumbar region Intake Note: Mr. Beckett is here today c/o Low back pain. Sales Associate Required: No Allergies Sulfa (Sulfonamide Antibiotics) [SULFA (SULFONAMIDE ANTIBIOTICS)] Allergy (Mild, Verified 04/08/24 09:47) RASH, hives Assessment & Plan Assessment & Plan (1) Spinal stenosis of lumbosacral region with radiculopathy: Code(s): M48.07 - Spinal stenosis, lumbosacral region; M54.17 - Radiculopathy, lumbosacral region Category: Medical Plan Dear Prosper Thank you for referring MR Beckett to our office today. He is a very nice 58-year-old gentleman who presents today for evaluation of low back pain going down to his left hamstring. He has a history of 6 previous back surgeries, the last 1 being in 2009 in [place] at [facility] where it sounds like he had some kind of cauda equina syndrome presentation and underwent an extensive lumbar decompression at that time. The patient was told that it took 7 hours and he spent 3 days in an ICU afterwards. He spent a month or so in the hospital afterwards as well. He did not recover fully from that surgery in the sense that he still had leg weakness and some numbness on his anterior thigh. He comes in today because since that time he has steadily continued to have progressively worsening back pain radiating down his left hamstring. It is aggravated with standing and walking. He has to use a walker now because of the feeling of discomfort and weakness in the leg. He reports that his bladder works okay with no incontinence. He does not have any pain down the right leg. He tried some physical therapy along the way at some point in the last few years but it only seemed to aggravate things. He has gained a significant amount of weight over that time as well. He is tried things like Tylenol, Motrin, tramadol, tizanidine without any relief. He tried acupuncture with no relief. He did cortisone injections in the past and never had any success so really has no interest in trying them again. He comes in today with a CT scan showing extensive degenerative changes. PMH: He is morbidly obese, he weighs 390 lb stands 6 ft 3 putting his BMI at 50. He has a history of an VT about 10 years ago that was from excessive caffeine intake. Tells me that he is followed here at [place] for the heart issues and gives routine examinations. He was diagnosed with prostate cancer and has undergone XRT with good success any tells me his PSA is down significantly. Previous history of an anterior cervical diskectomy and fusion at C2-3. History of asthma, restless legs, DVTs. He always gets DVTs when he has procedures. He used to take Coumadin but no longer takes it because he has had an ultrasound showing no clots. He is prediabetic, history of varicose veins, bipolar 1, conjunctivitis, cellulitis, GERD, constipation, sleep apnea, right bundle-branch block Social hx: He does not smoke, drink use any recreational drugs Medications: Albuterol, aripiprazole, calcium, Colace, gabapentin, Xyzal, losartan, magnesium, metoprolol, MiraLax, senna, tramadol, tizanidine. Allergies: Sulfa Physical exam: Morbidly obese, BMI 50, he has a lot of difficulty just lifting his legs in hip flexion but I am not sure if this is secondary to his pannus or just secondary to pain. Distal lower extremity strength is full. Reflexes absent. Imaging review: He has a lumbar CT done at [facility] showing extensive postsurgical changes from L3-S1. It looks like a central decompression. At L2-3 he has what looks like moderate to severe stenosis. At L3-4 there is calcifications in the central canal causing what looks like severe stenosis. He also has bilateral neural foraminal narrowing at L4 and L5. He has severe bony overgrowth of the facets of most of the lumbar spine. Within the limitations of CT I am not able to look any further or make any diagnostic interpretation of the nerve structures. Impression: 58-year-old male with a history of 6 previous back surgeries, the last 1 in 2009 at [facility] in [place], for what sounds like cauda equina type symptoms with diffuse leg weakness and possibly some bladder symptoms. At that time the surgery was 6-7 hours and he was in the ICU for 4 days afterwards and was in the hospital for month and a half. He is presenting today with back pain and pain going down his left leg which has become crippling and debilitating. He is tried medications and some physical therapy. There many challenges with his current situation that are going to make this difficult to treat. Not the least of which is that his BMI is 50 and he is almost 400 lb which is pushing the limits of what we can do with the operating table as he carries most of his weight in his abdomen. We will need an MRI just to be clear as to what the status of the nerve structures are. I will order a lumbar MRI with and without gadolinium. I would do this at an open MRI at his request. Thirdly, his CT is showing calcifications and overgrowth in the central canal and this represents a technical challenge at the time of surgery because it will likely give him high risk for durotomy and complications. This is on top of the fact that he has extensive scar tissue in there already from the previous operations. It sounds like that is what happened during his last surgery in 2009, so I would like to get the operative note so we can understand better what they complications that resulted in the surgery taking 6-7 hours and resulting in a month long hospital stay. Once we have the MRI and the records, I will review this all with Dr. Crowder and see if this is something we can treat or if this is best served with something like a spinal cord stimulator. Thank you for allowing us to care for your patient. The total time spent with this visit with this patient was 45 minutes reviewing history, physical exam, lumbar imaging review, and implementation of treatment plan or further diagnostic testing Yvon Crowder MD,PhD [facility] Orders: Orders MR lumbar spine wo/w con Today M48.07 - Spinal stenosis, lumbosacral region, M54.17 - Radiculopathy, lumbosacral region Coding Level of Care Code New Pt Level 4 (86164) Diagnoses Spinal stenosis of lumbosacral region with radiculopathy M48.07; M54.17
== END 2024-04-08 10:58 | disposition home or self-care (01) ==
PROVIDERS: PCP Nurse Practitioner Family; Referring Provider Nurse Practitioner Family; Visit Provider Physician Assistant
DX: M48.07 Spinal stenosis, lumbosacral region (principal); M54.17 Radiculopathy, lumbosacral region
CPT/HCPCS: 99204

== ENCOUNTER → 2024-04-08 09:27 | Outpatient (BNVA) | payer OTHER, MEDICAID, SELFPAY | PROVIDERS: PCP Nurse Practitioner Family; Visit Provider Physician Assistant ==

== ENCOUNTER 2024-05-03 09:59 | Outpatient (AMB) | payer OTHER, MEDICAID, SELFPAY ==
--- NOTE | 2024-05-03 10:28 | A.OFFVIS_ITS ---
Vital Signs 05/03/24 10:32 Height 6 ft 3 in Intake Visit Reasons: Results of the ultrasound and check the left leg Intake Note: Patient presents for follow up US performed on 03/31/24. Patient states his left leg is swollen but that it is the usual for him. Accompanied by: Self / Same As Patient Allergies Sulfa (Sulfonamide Antibiotics) [SULFA (SULFONAMIDE ANTIBIOTICS)] Allergy (Mild, Verified 05/06/24 09:36) RASH, hives HPI HPI Results of the ultrasound and check the left leg: Details: Pleasant 58-year-old gentleman with significant swelling of the lower extremities presents for follow-up with venous insufficiency testing. Has used compression with minimal relief. He now presents for follow-up. [facility] Medical History Retinal hemorrhage Vitamin D deficiency Joint pain in both hands HARITHA (obstructive sleep apnea) Carpal tunnel syndrome Morbid obesity Prostate CA Constipation Elevated alkaline phosphatase level Stenosis of cervical spine Anemia Depression RBBB Erectile dysfunction Lumbar spinal stenosis Atrial fibrillation GERD (gastroesophageal reflux disease) Asthma Arthritis Surgical History History of surgery Hx of neck surgery History of back surgery H/O cardiac radiofrequency ablation (~04/2017) No pertinent past surgical history Family History Father Heart attack DVT (deep venous thrombosis) Mother Diabetes COPD (chronic obstructive pulmonary disease) Social History Household Members: Spouse and Family Housing: House Alcohol intake: never Patient Tobacco Use Status: Former Tobacco user Tobacco use type: Cigarette e-Cigarette/Vaping Use: Never Used Second Hand Smoke Exposure: No service: No 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al status: retired 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 Cognitive needs: No Hearing needs: No Vision needs: No Review of Systems Const Reports as per HPI ENT Reports no additional complaints Card Denies chest pain, Denies chest pain at rest and Denies chest pain with activity Resp Denies chest congestion and Denies cough GI Reports no additional complaints Musc Details: pain over varicosities, aching of lower extremities, swelling, cramping, heaviness and tiredness, itching Denies abnormal gait Skin/Breast Reports pruritus and Denies wounds Neuro Reports no additional complaints and Denies abnormal gait Psych Denies no additional complaints Physical Exam Const General: cooperative, healthy appearing and comfortable Orientation/consciousness: oriented to person, oriented to place and oriented to time Neck Carotids: no bruits Chest Chest palpation & inspection: normal inspection of the chest and normal palpation of entire chest wall Resp Effort & Inspection: normal respiratory effort and able to speak in complete sentences Cardio Rate: regular rate Heart sounds: S1 normal heart sound present and S2 normal heart sound present Peripheral pulses: Peripheral pulses 2+ throughout GI Inspection: Yes normal to inspection Skin Other: +2 edema, left greater than right CEAP Classification C4 - skin color changes Ep - Etiology Primary As - superficial veins P - reflux General skin exam: dry skin Neuro General: oriented to person, oriented to place and oriented to time Extrem Other: Right in cm: Thigh 76.5 Knee 55 Calf 51.5 Ankle 39.2 Left in cm: Thigh 84 Knee 61 Calf 58 Ankle 36.5 Hip/waist 160 Right lower extremity: full ROM, normal capillary refill and edema Left lower extremity: full ROM, normal capillary refill and edema Psych Mental Status: mental status grossly normal Results Reviewed Results Reviewed: Brief summary of venous insufficiency testing is as follows: left great saphenous vein: Focally positive below-knee left small saphenous vein: negative left anterior vein: Present and positive Please note there is no evidence of any venous aneurysms or significant tortuosity Assessment & Plan Assessment & Plan (1) Varicose veins of left lower extremity with inflammation: Comment: 06/01/2023 - left leg microphlebectomy Code(s): I83.12 - Varicose veins of left lower extremity with inflammation Category: Medical Plan: This patient has varicose veins with inflammation. They continue to be a source of discomfort for the patient. The patient has tried conservative treatment with compression, leg elevation and exercise program for over 3 months time. They have been compliant with all treatment. This has provided minimal relief for the patient. I do not anticipate this course of treatment will alter the underlying etiology. The patient has been scheduled for lower extremity venous treatment inclusive of --- left anterior saphenous vein Cyanoacralate ablation. Risks, benefits, and complications of this procedure has been discussed in detail with the patient including but not limited to bleeding, infection, and the development of a DVT. The patient has demonstrated a clear understanding and has consented. We will schedule the patient as soon as possible. Thank you for allowing us to participate in this patient's care. If there are any questions or concerns please do not hesitate to contact us. (2) Lymphedema: Code(s): I89.0 - Lymphedema, not elsewhere classified Category: Medical Plan: We will treat his venous disease 1st. Subsequent to that he will require lymphedema pumps as he does have a significant edema. He will continue with conservative measures and follow-up after left anterior saphenous vein treatment. Thank you for allowing us to assist in his care Coding Level of Care Code Est Pt Level 4 (05201) Diagnoses Varicose veins of left lower extremity with inflammation I83.12 Lymphedema I89.0
== END 2024-05-03 11:10 | disposition home or self-care (01) ==
PROVIDERS: PCP Nurse Practitioner Family; Visit Provider Surgery Vascular Surgery
DX: I83.12 Varicose veins of left lower extremity with inflammation (principal); I89.0 Lymphedema, not elsewhere classified
CPT/HCPCS: 99214

== ENCOUNTER → 2024-05-03 09:59 | Outpatient (BNVA) | payer OTHER, MEDICAID, SELFPAY | PROVIDERS: PCP Nurse Practitioner Family; Visit Provider Surgery Vascular Surgery ==

== ENCOUNTER → 2024-05-06 08:48 | Outpatient (BNVA) | payer OTHER, MEDICAID, SELFPAY | PROVIDERS: PCP Nurse Practitioner Family; Visit Provider Physician Assistant Surgical ==

== ENCOUNTER 2024-05-24 12:01 | Outpatient (AMB) | payer OTHER, MEDICAID, SELFPAY ==
--- NOTE | 2024-05-24 12:33 | A.OFFVIS_ITS ---
Vital Signs 05/24/24 12:34 Height 6 ft 1 in Weight 377 lb BMI 49.7 Intake Visit Reasons: New Problem - Left 2nd digit trigger finger Intake Note: Serafin is a 58 year old hand dominant male who presents today for a new problem visit with complaints of Left 2nd digit stiffness. He reports that he has been unable to bend the finger for over a month now. The finger is painful all the time with no relief, numbness at the base of finger but intact sensation at the tip. 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 Hx of Left ring finger A1 kyara release 01/01/23. Allergies Sulfa (Sulfonamide Antibiotics) [SULFA (SULFONAMIDE ANTIBIOTICS)] Allergy (Mild, Verified 05/24/24 12:34) RASH, hives HPI HPI New Problem - Left 2nd digit trigger finger: Details: Serafin is a 58 year old right hand dominant Diabetic man who presents with complaints of left index finger stiffness. He complains of stiffness & pain in left index finger for ~1 month. He says for the last month he has not been able to bend his index finger. He says initially he was having painful locking of the index finger prior to his stiffness & inability to bend. He describes his pain as constant. 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 He reports numbness at the base of his index finger, but normal sensation to the tip of the finger. He denies any numbness in other digits. He has a Hx of a left ring finger trigger release, DOS: 01/01/23. He says this went well and he has no complaints of locking. He has a hx of Bipolar disorder, Afib, RLS, & recurrent DVT. 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 [facility] Medical History Retinal hemorrhage Vitamin D deficiency Joint pain in both hands HARITHA (obstructive sleep apnea) Carpal tunnel syndrome Morbid obesity Prostate CA Constipation Elevated alkaline phosphatase level Stenosis of cervical spine Anemia Depression RBBB Erectile dysfunction Lumbar spinal stenosis Atrial fibrillation GERD (gastroesophageal reflux disease) Asthma Arthritis Surgical History History of surgery Hx of neck surgery History of back surgery H/O cardiac radiofrequency ablation (~04/2017) No pertinent past surgical history Family History Father Heart attack DVT (deep venous thrombosis) Mother Diabetes COPD (chronic obstructive pulmonary disease) Social History Household Members: Spouse and Family Housing: House Alcohol intake: never Patient Tobacco Use Status: Former Tobacco user Tobacco use type: Cigarette e-Cigarette/Vaping Use: Never Used Second Hand Smoke Exposure: No service: No 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al status: retired 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 Cognitive needs: No Hearing needs: No Vision needs: No Review of Systems Const All systems reviewed & are unremarkable except as noted in HPI and below Physical Exam Vital Signs: BMI result Body Mass Index 49.7 Const General: cooperative, healthy appearing and no acute distress Orientation/consciousness: patient oriented x3 HEENT Head: Yes normocephalic and Yes atraumatic Eyes EOM: EOMs intact bilaterally Resp Effort & Inspection: normal respiratory effort and able to speak in complete sentences Cardio Jugular venous distension: no JVD Skin General skin exam: turgor normal Rashes: no rashes Neuro General: patient oriented x3 Extrem Other: Evaluation of Left Upper Extremity: The patient is alert, oriented, and in no acute distress Neuro: Median, Ulnar, Radial nerves motor and sensory intact and sensation is normal to the tips of all digits Vascular: Cap refill brisk ROM: He can bring his thumb, middle, ring, and small fingers closed to a fist and back into extension We worked on ROM exercises in clinic, and before leaving he was able to bring his index finger closed to a fist Visible locking of the index finger when he made a fist Tender over the a1 kyara of the index finger Skin: No lacerations or abrasions. General: No Ecchymosis. No Erythema or evidence of infection. Psych Appearance: grossly normal Affect: normal affect Attitude: cooperative Assessment & Plan Assessment & Plan (1) Trigger finger, left index finger: Code(s): M65.322 - Trigger finger, left index finger Category: Medical (2) Stiffness of finger joint of left hand: Code(s): M25.642 - Stiffness of left hand, not elsewhere classified Category: Medical (3) Paroxysmal atrial fibrillation: Code(s): I48.0 - Paroxysmal atrial fibrillation Category: Medical Plan Assessment & Plan: 1. Left index finger trigger finger 2. Left index finger stiffness I educated him about these conditions I discussed operative and non-operative treatment options The patient would like to proceed with surgery Prior to surgery he will work on ROM exercises at home to improve his ROM The risks and benefits of operative treatment were discussed with the patient and the patient wishes to proceed with surgery. These risks include, but are not limited to risk of damage to blood vessels, nerves, tendons, infection, recurrence, incomplete relief of preoperative symptoms, persistent pain, possible need for further surgery and the risks associated with regional blocks and anesthesia. The plan is to take the patient to the operating room sometime in the next few weeks for the following procedures: 1. Left index finger trigger release, under local All of the preoperative paperwork including the consent was reviewed today. All the patient's questions were answered. The patient understands that they will be contacted by our electric blanket packer soon to schedule this procedure. He would like to be placed on the cancellation list for a sooner procedure if possible He denies Diabetes, blood thinners, asthma, lung, kidney issues He has a Hx of Afib & DVT, he is not on blood thinners 2. Left ring finger trigger finger, S/P release DOS: 01/01/23 Doing well, resolved, no complaints Scribed for Corrine Younger MD by Jah Buck, medical leader, on 05/24/24 at 1:15 PM, EST. Coding Level of Care Code Est Pt Level 4 (30013) Diagnoses Trigger finger, left index finger M65.322 Stiffness of finger joint of left hand M25.642 Paroxysmal atrial fibrillation I48.0
[2024-05-24 12:34] VITALS: BMI 49.7
== END 2024-05-24 13:52 | disposition home or self-care (01) ==
PROVIDERS: PCP Nurse Practitioner Family; Visit Provider Orthopaedic Surgery
DX: M65.322 Trigger finger, left index finger (principal); M25.642 Stiffness of left hand, not elsewhere classified; I48.0 Paroxysmal atrial fibrillation
CPT/HCPCS: 99214

== ENCOUNTER → 2024-05-24 12:01 | Outpatient (BNVA) | payer OTHER, MEDICAID, SELFPAY | PROVIDERS: PCP Nurse Practitioner Family; Visit Provider Orthopaedic Surgery ==

== ENCOUNTER 2024-05-31 10:59 | Outpatient (AMB) | payer MEDICARE, MEDICAID, SELFPAY ==
--- NOTE | 2024-05-31 11:22 | A.OFFVIS_ITS ---
Intake Visit Reasons: Erectile Dys(Last Seen 2019) Intake Note: Patient is present for Erectile Dys Urology Medication:none Antibiotic Allergy:sulfa Blood Thinner:none Laser Engraver Required: No Allergies Sulfa (Sulfonamide Antibiotics) [SULFA (SULFONAMIDE ANTIBIOTICS)] Allergy (Mild, Verified 07/19/24 09:43) RASH, hives HPI Comments Details: Serafin is a pleasant male. He is a patient of Dr. Guerra. He is seen for the following urologic conditions - prostate cancer - low libido - erectile dysfunction Had been unable to follow-up in past year secondary to COVID Discussed recent results. Testosterone and PSA had been low He would like to go on testosterone replacement. Given prior prostate cancer would recommend trial of clomiphene to try and stimulate his own testosterone. Also discussed erections. These have been problem. Would like to try tadalafil daily. Prescription provided PSA - 08/22 0.3 Prostate cancer: PSA well controlled. Continues with finasteride. Testosterone low and libido low. Also with erectile dysfunction as above Prostate cancer was diagnosed Dr Haile 06/16. Diagnosis was reached by 06/16 , needle biopsy, for elevated PSA, PSA at diagnosis 12, size at TRUS 40-50 gm. The [place] grade is May 201803/11 cores positive RAL 3+4 40% RML 3+4 60% KIMO 4+3 20% BENNY 4+4 10%. TNM Classification of Malignant Tumours (TNM) T1c. The D'Martin (NCCN) risk category is 06/16 , High Risk (PSA > 20, Gl 8+, T3), group 4 [place] 4 + 4 Initial therapy included Primary treatment 09/16 External beam radiation with short term hormonal ablation - Dr John Cohen - completed 11/16, 07/14/18 GnRH 6m Recent labs included 02/15 PSA < 0.05 06/17 T 240 PSA < 0.05 - 10/28 PSA 0.07, T 260 Associated conditions erectile dysfunction Yes PFSH Medical History Retinal hemorrhage Vitamin D deficiency Joint pain in both hands HARITHA (obstructive sleep apnea) Carpal tunnel syndrome Morbid obesity Prostate CA Constipation Elevated alkaline phosphatase level Stenosis of cervical spine Anemia Depression RBBB Erectile dysfunction Lumbar spinal stenosis Atrial fibrillation GERD (gastroesophageal reflux disease) Asthma Arthritis Surgical History History of surgery Hx of neck surgery History of back surgery H/O cardiac radiofrequency ablation (~04/2017) Family History Father Heart attack DVT (deep venous thrombosis) Mother Diabetes COPD (chronic obstructive pulmonary disease) Social History Household Members: Spouse and Family Housing: House Alcohol intake: never Patient Tobacco Use Status: Former Tobacco user Tobacco use type: Cigarette e-Cigarette/Vaping Use: Never Used Second Hand Smoke Exposure: No service: No 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al status: retired 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 Cognitive needs: No Hearing needs: No Vision needs: No Review of Systems Const Denies chills and Denies fever(s) Card Reports no additional complaints and Denies syncope Resp Denies cough GI Denies abdominal pain and Denies heartburn Reports as per HPI and Denies change in libido Neuro Denies syncope Psych Denies change in libido Endo Denies change in libido Physical Exam Const General: cooperative, healthy appearing, comfortable and no acute distress Orientation/consciousness: patient oriented x3 HEENT Face and sinus: Yes normal facial exam Mouth: moist mucous membranes Neck Neck: Yes normal visual inspection, Yes full ROM and Yes trachea midline Chest Chest palpation & inspection: normal inspection of the chest Resp Effort & Inspection: normal respiratory effort, able to speak in complete sentences and no respiratory distress GI Inspection: Yes normal to inspection Back/Spine/Pelvis Cervical Spine: normal cervical lordosis Thoracic/Lumbar Spine: thoracic and lumbar spine normal to inspection Skin General skin exam: no rashes or lesions noted Neuro General: patient oriented x3, gait normal, tone normal and moves all extremities Extrem General: Yes normal to inspection and Yes capillary refill normal Assessment & Plan Assessment & Plan (1) Erectile dysfunction due to and not concurrent with radiation therapy: Code(s): N52.35 - Erectile dysfunction following radiation therapy Category: Medical Plan Trial daily with on demand medication Medications: New tadalafil On demand medication take 60 minutes before intended activity 20 mg PO ONCE PRN 30 tabs 0RF sexual activity 30 days N52.35 - Erectile dysfunction following radiation therapy tadalafil Daily 5 mg PO DAILY 90 tabs 0RF sexual activity 90 days N52.35 - Erectile dysfunction following radiation therapy Patient Instructions: Imaging studies, laboratory and physical exam results were discussed and reviewed in detail. No major barriers to patient understanding were identified. An opportunity to ask questions regarding the treatment plan was provided. All questions were answered. The patient expressed understanding and agreement with the above treatment plan. The patient is aware they should contact our office by phone for worsening of their current condition or the appearance of new urologic symptoms. Compliance is encouraged with any medications and followup testing that is ordered. It is a privilege to participate in the urologic care of your patient. If you have any questions or concerns regarding treatment for the above conditions, or other urologic issues, please do not hesitate to contact me. The office telephone contact is [phone]. This note is constructed using voice recognition software. While every effort has been made to ensure accuracy sheeter operator errors may have been included. Yours sincerely, Dr Raul Haile MD, [place] [facility] - Urology Providers of Expert, Compassionate Care for the Genitourinary System Coding Level of Care Code New Pt Level 4 (03419) Diagnoses Erectile dysfunction due to and not concurrent with radiation therapy N52.35
== END 2024-05-31 12:25 | disposition home or self-care (01) ==
LOC: HO.HUSH 10:59
PROVIDERS: PCP Nurse Practitioner Family; Visit Provider Urology
DX: N52.35 Erectile dysfunction following radiation therapy (principal)
CPT/HCPCS: 99204

== ENCOUNTER → 2024-05-31 10:59 | Outpatient (BNVA) | payer MEDICARE, MEDICAID, SELFPAY | PROVIDERS: PCP Nurse Practitioner Family; Visit Provider Urology | DX: C61 Malignant neoplasm of prostate (principal); N52.35 Erectile dysfunction following radiation therapy; R68.82 Decreased libido | CPT/HCPCS: 99202 ==

== ENCOUNTER 2024-07-01 07:59 | Outpatient (AMB) | payer MEDICARE, MEDICAID, SELFPAY ==
--- NOTE | 2024-07-01 08:00 | MHC.OFFVIS ---
Intake Visit Reasons: Left Venaseal Allergies Sulfa (Sulfonamide Antibiotics) [SULFA (SULFONAMIDE ANTIBIOTICS)] Allergy (Mild, Verified 07/01/24 08:01) RASH, hives PFSH Medical History Retinal hemorrhage Vitamin D deficiency Joint pain in both hands HARITHA (obstructive sleep apnea) Carpal tunnel syndrome Morbid obesity Prostate CA Constipation Elevated alkaline phosphatase level Stenosis of cervical spine Anemia Depression RBBB Erectile dysfunction Lumbar spinal stenosis Atrial fibrillation GERD (gastroesophageal reflux disease) Asthma Arthritis Surgical History History of surgery Hx of neck surgery History of back surgery H/O cardiac radiofrequency ablation (~04/2017) Family History Father Heart attack DVT (deep venous thrombosis) Mother Diabetes COPD (chronic obstructive pulmonary disease) Social History Household Members: Spouse and Family Housing: House Alcohol intake: never Patient Tobacco Use Status: Former Tobacco user Tobacco use type: Cigarette e-Cigarette/Vaping Use: Never Used Second Hand Smoke Exposure: No service: No 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al status: retired 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 The depth and diameter of the vein(s) to be treated was documented. The patient was placed supine on the procedure table and the leg was prepped and draped using sterile technique. Ultasound guidance was again used to localize the access site. 1% lidocaine was injected as a local anesthetic in the subcutaneous tissues at the target location in the GSV in the lower leg. Using ultrasound guidance, access was gained at this location with the 19 gauge thin walled access needle and followed by introduction of a short guidewire, location confirmed with ultrasound. A small, 3 mm incision was made at the access site to allow for introduction and placement of the 7 Fr x7cm introducer/dilator. The dilator and guidewire were removed. The 0.035 guidewire from the VenaSeal kit was then introduced and positioned at the saphenofemoral junction using ultrasound guidance. The 80 cm 7 Fr introducer sheath/dilator was positioned 5cm from the saphenofemoral junction. The guidewire and dilator were removed, and the remaining sheath was flushed with sterile saline, with the syringe remaining in place prior to the next steps. The cyanoacrylate adhesive was precisely primed into the 5 F delivery catheter and this catheter/syringe combination was attached within the dispenser gun. This assembly was introduced through the 7F sheath and positioned 5 cm caudal of the saphenofemoral junction under ultrasound guidance. The steps from the IFU were followed for dispensing amounts, locations and compression times, 2 aliquots proximally with 3 minutes of compression, and 1 aliquot every 3 cm distally with 30 sec of compression along the course of the vessel. Following the last injection and compression sequence, the catheter and introducer sheath were pulled out from the access site. Hemostasis was achieved with manual compression and an adhesive bandage was applied to the incision. Ultrasound confirmed complete coaptation and closure of the treated segments of the GSV, and the absence of any DVT at the saphenofemoral junction. Treatment time was approximately 6 minutes and the vein length treated was 30 cm. The drapes were removed and the patient cleaned and prepared for discharge. Post op ultrasound check is scheduled for 48-72 hours and the patient was given written post-op instructions. 23962 - Endoven Ther Chem Adhes 1st All charges added?: Procedure code (CPT) selection complete Assessment & Plan Assessment & Plan (1) Varicose veins of left lower extremity with inflammation: Comment: 06/01/2023 - left leg microphlebectomy 07/02/2024 - left great saphenous vein Cyanoacralate ablation Code(s): I83.12 - Varicose veins of left lower extremity with inflammation Category: Medical Plan: See op note Coding Level of Care Code Procedure Only Diagnoses Varicose veins of left lower extremity with inflammation I83.12 CPT Codes Details - Vascular 3: 46270 - Endoven Ther Chem Adhes 1st ([id number])
== END 2024-07-01 09:12 | disposition home or self-care (01) ==
PROVIDERS: PCP Nurse Practitioner Family; Visit Provider Surgery Vascular Surgery
DX: I83.12 Varicose veins of left lower extremity with inflammation (principal)
CPT/HCPCS: 36482

== ENCOUNTER → 2024-07-01 07:59 | Outpatient (BNVA) | payer MEDICARE, MEDICAID, SELFPAY | PROVIDERS: PCP Nurse Practitioner Family; Visit Provider Surgery Vascular Surgery | DX: I83.12 Varicose veins of left lower extremity with inflammation (principal) | CPT/HCPCS: 36482 ==

== ENCOUNTER 2024-07-04 12:59 | Outpatient (REF) | payer MEDICARE, MEDICAID, SELFPAY ==
--- NOTE | ~2024-07-04 | US_ITS ---
EXAMINATION: TRIPLEX SCANNING OF LEFT LOWER EXTREMITY; SUPERFICIAL ULTRASOUND WITH DOPPLER OF LEFT LOWER EXTREMITY CLINICAL INFORMATION: Status post VenaSeal ablation of the left great saphenous vein originally performed on 07/01/2024. COMPARISON: 04/06/2023. TECHNIQUE: Color flow triplex imaging and compression Doppler were performed as well as superficial ultrasound with Doppler. FINDINGS: TRIPLEX SCANNING OF LEFT LOWER EXTREMITY: Thrombus is present in the mid and proximal left femoral vein. Respiratory variation, normal compression and augmented flow are noted throughout the remainder of the lower extremity. The visualized common femoral vein, profunda femoral vein, popliteal vein and the calf veins show no evidence of deep venous thrombosis. It should be noted that on a study from 07/03/2022, DVT was present in the femoral vein however on the 04/06/2023 study, this appeared to have resolved although visualization was suboptimal. There is no evidence of Ingram's cyst. SUPERFICIAL ULTRASOUND WITH DOPPLER OF LEFT LOWER EXTREMITY: The left great saphenous vein is occluded from the access site to 2.2 cm before the saphenofemoral junction. There is no extension of thrombus into the deep system. US/US venous duplex LE LT IMPRESSION: 1. Deep venous thrombosis in the left femoral vein. It is possible that some of this may be chronic. 2. Excellent appearance status post ablation of the left great saphenous vein.
== END 2024-07-04 13:00 | disposition home or self-care (01) ==
LOC: HO.HMGCX 12:59
PROVIDERS: PCP Nurse Practitioner Family; Visit Provider Surgery Vascular Surgery
DX: M79.605 Pain in left leg (principal)
CPT/HCPCS: 93971

== ENCOUNTER 2024-07-19 09:38 | Outpatient (AMB) | payer MEDICARE, MEDICAID, SELFPAY ==
--- NOTE | 2024-07-19 09:39 | MHC.OFFVIS ---
Vital Signs 07/19/24 09:43 Height 6 ft 3 in Weight 384 lb BMI 48.0 BP 130/82 Blood Pressure Location Rt brachial Position Sitting Intake Visit Reasons: 2 week follow up post Left Venaseal Intake Note: Pt presents to the office today for a 2 week follow up post venaseal. Pt states his leg is in a lot of pain and states he feels a hard bump where the last procedure was done. Allergies Sulfa (Sulfonamide Antibiotics) [SULFA (SULFONAMIDE ANTIBIOTICS)] Allergy (Mild, Verified 07/19/24 09:43) RASH, hives HPI HPI 2 week follow up post Left Venaseal: Details: Very pleasant 59-year-old gentleman presents for follow-up regarding swollen lower extremities. Is status post left great saphenous vein ablation. Reports his leg is doing jet better in general. In addition has received lymphedema pumps yesterday. He is scheduled for a fitting for the lymphedema pumps tomorrow. In general appears to be doing relatively well. Of note postprocedure ultrasound was positive for DVT but it appears that it was more chronic in nature from his prior history of DVT. In addition he has seen Hematology-Oncology and has been transitioned over to Eliquis as well. Now presents for routine postprocedure follow-up [facility] Medical History Retinal hemorrhage Vitamin D deficiency Joint pain in both hands HARITHA (obstructive sleep apnea) Carpal tunnel syndrome Morbid obesity Prostate CA Constipation Elevated alkaline phosphatase level Stenosis of cervical spine Anemia Depression RBBB Erectile dysfunction Lumbar spinal stenosis Atrial fibrillation GERD (gastroesophageal reflux disease) Asthma Arthritis Surgical History History of surgery Hx of neck surgery History of back surgery H/O cardiac radiofrequency ablation (~04/2017) Family History Father Heart attack DVT (deep venous thrombosis) Mother Diabetes COPD (chronic obstructive pulmonary disease) Social History Household Members: Spouse and Family Housing: House Alcohol intake: never Patient Tobacco Use Status: Former Tobacco user Tobacco use type: Cigarette e-Cigarette/Vaping Use: Never Used Second Hand Smoke Exposure: No service: No 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al status: retired 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 Cognitive needs: No Hearing needs: No Vision needs: No Review of Systems Const All systems reviewed & are unremarkable except as noted in HPI and below Reports no additional complaints ENT Reports Normal hearing present Card Denies chest pain, Denies chest pain at rest, Denies chest pain with activity and Denies pedal edema Resp Denies cough GI Denies abdominal pain Musc Denies abnormal gait, Denies muscle cramps and Denies radiating pain into limb Skin/Breast Denies skin ulcer and Denies wounds Neuro Reports Normal hearing present and Denies abnormal gait Psych Reports no additional complaints Physical Exam Vital Signs: Last Vital Signs BP 130/82 07/19/24 09:43 BMI result Body Mass Index 48.0 Const General: cooperative, healthy appearing and comfortable Orientation/consciousness: oriented to person, oriented to place and oriented to time HEENT Head: Yes normal to inspection Neck Neck: Yes normal visual inspection Carotids: no bruits Chest Chest palpation & inspection: normal inspection of the chest Resp Effort & Inspection: normal respiratory effort and able to speak in complete sentences Auscultation: clear to auscultation bilaterally, no crackles, no rales, no rhonchi and no wheezes Cardio Rate: regular rate Rhythm: regular rhythm Heart sounds: S1 normal heart sound present and S2 normal heart sound present Bruits: no carotid bruits Peripheral pulses: Peripheral pulses 2+ throughout GI Inspection: Yes normal to inspection Skin Wounds: no wounds Hair: normal Neuro General: oriented to person, oriented to place and oriented to time Cranial nerves: Yes CN's II-XII intact bilaterally and Yes Normal hearing present Cognition (Neuro): normal cognition Motor exam (neuro): 5/5 motor strength present throughout Extrem Other: venous exam: No significant superficial varicosities or spider telangiectasias, minimal edema General: No clubbing, No cyanosis and No edema Psych Appearance: grossly normal Mental Status: mental status grossly normal Speech and movement: Normal speech and movement present Results Reviewed Results Reviewed: Postprocedure ultrasound was positive for DVT. Written report and images were reviewed. This does appear more chronic in nature. Assessment & Plan Assessment & Plan (1) Varicose veins of left lower extremity with inflammation: Comment: 06/01/2023 - left leg microphlebectomy 07/02/2024 - left great saphenous vein Cyanoacralate ablation Code(s): I83.12 - Varicose veins of left lower extremity with inflammation Category: Medical Plan: The patient has done extremely well with all venous treatments. Patient's may often experience postprocedure phlebitic episodes and I have discussed with the patient use of warm compresses and NSAIDS if tolerated for pain discomfort. In addition, I have discussed continued conservative measures including use of compression, leg elevation, and exercise. The patient was also given an information sheet regarding appropriate use of compression stockings and future purchases. Thank you for allowing us to care for your patient with venous disease. (2) Lymphedema: Code(s): I89.0 - Lymphedema, not elsewhere classified Category: Medical Plan: Scheduled to start use of lymphedema pumps tomorrow. We did discuss compliance and daily use to help reduce overall swelling of the legs. Should there be issues with this in the future happy to see him back. Thank you for allowing us to participate in his care (3) Morbid (severe) obesity due to excess calories: Code(s): E66.01 - Morbid (severe) obesity due to excess calories Category: Medical Plan I had a very orestes discussion with the gentleman about his overall weight. He has a BMI of 48. I discussed the importance of exercise and even losing a few lb will help his overall status and his legs. He did demonstrated a clear understanding of this and will try to exercise more. Once again we will see him on an as-needed basis. Thank you for allowing us to assist in his care. Coding Level of Care Code Est Pt Level 4 (66543) Diagnoses Varicose veins of left lower extremity with inflammation I83.12 Lymphedema I89.0 Morbid (severe) obesity due to excess calories E66.01
[2024-07-19 09:43] VITALS: BP 130/82; BMI 48.0
== END 2024-07-19 10:04 | disposition home or self-care (01) ==
PROVIDERS: PCP Nurse Practitioner Family; Visit Provider Surgery Vascular Surgery
DX: I83.12 Varicose veins of left lower extremity with inflammation (principal); I89.0 Lymphedema, not elsewhere classified; E66.01 Morbid (severe) obesity due to excess calories
CPT/HCPCS: 99214

== ENCOUNTER → 2024-07-19 09:38 | Outpatient (BNVA) | payer MEDICARE, MEDICAID, SELFPAY | PROVIDERS: PCP Nurse Practitioner Family; Visit Provider Surgery Vascular Surgery | DX: I83.12 Varicose veins of left lower extremity with inflammation (principal); I89.0 Lymphedema, not elsewhere classified; E66.01 Morbid (severe) obesity due to excess calories; Z68.42 Body mass index [BMI] 45.0-49.9, adult; Z86.718 Personal history of other venous thrombosis and embolism | CPT/HCPCS: 99212 ==

== ENCOUNTER 2024-07-28 08:17 | Day surgery (SDC) | payer MEDICARE, MEDICAID, SELFPAY ==
[2024-07-28 08:52] VITALS: BMI 47.0
[2024-07-28 09:02] VITALS: BP 132/78; PULSE 72; RESP 16; TEMP 36.3; O2SAT 95
--- NOTE | 2024-07-28 10:28 | MHC.SHP ---
Pre-Procedural Eval Section A - 24 Hr Update-Section A only Date of Service: 07/28/24 The patient is an INPATIENT: No Changes since office visit: No Cold of Flu in the past 2 weeks, No New Medical Problems, No Changes in Medication and No Patient answered all questions The patient has been examined within 24 hours of the surgical procedure. The History & Physical has been completed within 30 days and I have reviewed it.: Yes Section B - Complete if H&P > 30 days Chief Complaint: Trigger finger, left index finger Allergies: Allergies Allergy/AdvReac Type Severity Reaction Status Date / Time Sulfa (Sulfonamide Allergy Mild RASH, hives Verified 07/19/24 09:43 Antibiotics) [SULFA (SULFONAMIDE ANTIBIOTICS)] Exam Exam Comment: Left Index finger trigger finger Plan Diagnosis/Plan: Unchanged I have reviewed the history and physical and performed a pertinent physical examination on my patient. No changes have occurred unless specified. Time Spent With Patient Time: Total time managing care of this patient today ____ minutes.
--- NOTE | 2024-07-28 10:30 | P.OP_ITS ---
Operative Note Operative Note Date of Service: 07/28/24 Narrative: Operative Note Preop diagnosis: 1. Left index finger Trigger finger Postop diagnosis: 1. Left index finger Trigger finger Procedure: 1. Left index finger A1 kyara release Surgeon: Corrine Younger MD Air Conditioning Coil Assembler: Juventino PENNY Anesthesia: local block using 1% lidocaine with epinephrine Findings: No locking or catching after A1 kyara release EBL: Less than 5 mL Tourniquet time: None Specimens: None Complications: None Disposition: Brought to recovery room in stable condition Plan: Follow-up for 10-14 days for wound check and suture removal Indications: The patient is 59 years old, with a left index finger trigger finger that has been unresponsive to nonoperative management. The risks and benefits of operative treatment including but not limited to risk of damage to blood vessels, nerves, tendons, infection, persistent pain, persistent symptoms, recurrence or possible need for additional surgery were discussed with the patient and the patient wishes to proceed with surgery. Procedure: Once consent was obtained a local block was performed in the preop area using a combination of 1% lidocaine with epinephrine. The patient was then brought back to the operating suite and placed on the operative table in supine position. The left upper extremity was prepped and draped in a standard surgical fashion. Once assured that we had a good block, a 1.5 cm oblique incision was made centered over the A1 kyara of the left index finger . The incision was made through the skin to the subcutaneous tissues using a #15 blade. Careful dissection was made down to the level of the A1 kyara using tenotomy scissors, with care being taken to protect the nearby neurovascular structures. A longitudinal incision was made in the A1 kyara 1st using a #15 blade, then using tenotomy scissors under direct visualization. The A1 kyara was noted to be thickened. Following our A1 kyara release, we no longer saw any locking or catching of the digit with flexion and extension. Once satisfied with our A1 kyara release the wound was copiously irrigated with normal saline and hemostasis was obtained with a brief period of local pressure. The skin edges were reapproximated with some 5.0 nylon suture material and a sterile dressing was applied. The patient appears to have tolerated the procedure well and with no complications. All digits were well vascularized at the conclusion of the case.
[2024-07-28 11:24] VITALS: BP 127/69; PULSE 76; RESP 18; O2SAT 96
== END 2024-07-28 11:28 | disposition home or self-care (01) ==
PROVIDERS: PCP Nurse Practitioner Family; Visit Provider Orthopaedic Surgery
PROC: (CPT 26055; principal; 2024-07-28 10:10)
DX: M65.322 Trigger finger, left index finger (principal); M25.642 Stiffness of left hand, not elsewhere classified; R20.0 Anesthesia of skin; G47.33 Obstructive sleep apnea (adult) (pediatric); J45.909 Unspecified asthma, uncomplicated; I48.0 Paroxysmal atrial fibrillation; E66.01 Morbid (severe) obesity due to excess calories; Z68.42 Body mass index [BMI] 45.0-49.9, adult; Z79.01 Long term (current) use of anticoagulants; Z99.89 Dependence on other enabling machines and devices; Z88.2 Allergy status to sulfonamides; Z98.890 Other specified postprocedural states; Z87.891 Personal history of nicotine dependence
CPT/HCPCS: 26055; J0171

== ENCOUNTER → 2024-07-28 08:17 | Outpatient (BNV) | payer MEDICARE, MEDICAID, SELFPAY | PROVIDERS: PCP Nurse Practitioner Family; Visit Provider Orthopaedic Surgery | DX: M65.322 Trigger finger, left index finger (principal) | CPT/HCPCS: 26055 ==

== ENCOUNTER 2024-08-10 12:36 | Outpatient (AMB) | payer MEDICARE, MEDICAID, SELFPAY ==
--- NOTE | 2024-08-10 13:29 | A.OFFVIS_ITS ---
Intake Visit Reasons: PO LT IF trigger 07/28/24 AR Intake Note: Serafin is a 59 year old right hand dominant male who presents today post operatively s/p lerf index trigger finger release done 07/28/[address] Younger. Patient reports pain soreness around incision site. Denies numbness, tingling, or locking on finger. Patient reports he has been working on his range of motion but is unable to make a closed fist. Sutures removed in office today and steri strips applied. Allergies Sulfa (Sulfonamide Antibiotics) [SULFA (SULFONAMIDE ANTIBIOTICS)] Allergy (Mild, Verified 08/10/24 13:34) RASH, hives HPI HPI PO LT IF trigger 07/28/24 AR: Details: The patient is a 59-year-old man who is status post a left index finger trigger release with pa on 07/28/2024. Says he is doing well but he has still got some stiffness in his index finger. He has also got some tenderness over the incision site. [facility] Medical History Retinal hemorrhage Vitamin D deficiency Joint pain in both hands HARITHA (obstructive sleep apnea) Carpal tunnel syndrome Morbid obesity Prostate CA Constipation Elevated alkaline phosphatase level Stenosis of cervical spine Anemia Depression RBBB Erectile dysfunction Lumbar spinal stenosis Atrial fibrillation GERD (gastroesophageal reflux disease) Asthma Arthritis Surgical History History of surgery Hx of neck surgery History of back surgery H/O cardiac radiofrequency ablation (~04/2017) Family History Father Heart attack DVT (deep venous thrombosis) Mother Diabetes COPD (chronic obstructive pulmonary disease) Social History Household Members: Spouse and Family Housing: House Alcohol intake: never Patient Tobacco Use Status: Former Tobacco user Tobacco use type: Cigarette e-Cigarette/Vaping Use: Never Used Second Hand Smoke Exposure: No service: No 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al status: retired 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 His incision site is clean and dry. It does have some mild erythema and swelling that is perhaps just a little bit more than I would like. He had a small amount of purulence from 1 of the suture sites. He can flex his fingers towards a fist but can only get the index finger to about 2-3 cm from his palm. Can bring all of the digits into full extension. Sensation intact Cap refill brisk Assessment & Plan Assessment & Plan (1) Trigger finger, left index finger: Code(s): M65.322 - Trigger finger, left index finger Category: Medical (2) Stiffness of finger joint of left hand: Code(s): M25.642 - Stiffness of left hand, not elsewhere classified Category: Medical Plan Assessment & Plan: 1. Left index finger trigger finger 2. Left index finger stiffness He appears to be doing well postoperatively. I educated him about the postoperative course. I am a little concerned about the stitch abscess it looks like he has. I am therefore placing him on a 7 day course of Augmentin. He will follow up next week for a wound check with Juventino. I also encouraged him to work on range of motion and bring all of his fingers down to a fist and back into extension. He denies Diabetes, blood thinners, asthma, lung, kidney issues He has a Hx of Afib & DVT, he is not on blood thinners 2. Left ring finger trigger finger, S/P release DOS: 01/01/23 Doing well, resolved, no complaints Medications: New amoxicillin-pot clavulanate 875-125 mg 1 tab PO Q12H 14 tabs 0RF Coding Level of Care Code Global (33111) Diagnoses Trigger finger, left index finger M65.322 Stiffness of finger joint of left hand M25.642
== END 2024-08-10 13:47 | disposition home or self-care (01) ==
PROVIDERS: PCP Nurse Practitioner Family; Visit Provider Orthopaedic Surgery
DX: M65.322 Trigger finger, left index finger (principal); M25.642 Stiffness of left hand, not elsewhere classified
CPT/HCPCS: 99024

== ENCOUNTER → 2024-08-10 12:36 | Outpatient (BNVA) | payer MEDICARE, MEDICAID, SELFPAY | PROVIDERS: PCP Nurse Practitioner Family; Visit Provider Orthopaedic Surgery | DX: Z48.02 Encounter for removal of sutures (principal); M25.642 Stiffness of left hand, not elsewhere classified; Z98.890 Other specified postprocedural states | CPT/HCPCS: 99212 ==

== ENCOUNTER 2024-08-18 10:45 | Outpatient (AMB) | payer MEDICARE, MEDICAID, SELFPAY ==
--- NOTE | 2024-08-18 10:49 | A.OFFVIS_ITS ---
Intake Visit Reasons: PO- LT IF trigger 07/28/24 AR-one week follow up Intake Note: Serafin is a 59 year old male who presents today post operatively S/P left index finger trigger release DOS: 07/28/2024 w/ Dr Younger. Pt states his is a nurse and states she drained the fluid out of it and he states yellow discharge came out of it on Thursday but states there has been no more fluid coming out after that. Pt states he has minimal pain and denies any other concerns. Allergies Sulfa (Sulfonamide Antibiotics) [SULFA (SULFONAMIDE ANTIBIOTICS)] Allergy (Mild, Verified 08/18/24 10:50) RASH, hives HPI HPI PO- LT IF trigger 07/28/24 AR-one week follow up: Details: Patient is a 59-year-old male who presents for follow-up evaluation of left index finger trigger finger status post trigger release, DOS 07/28/[address] Younger. At last visit, the patient did have a small amount of purulence, as well as some erythema, so he was prescribed antibiotics. The patient reports t hat last week, his who is a nurse was able to get more purulence from the incision site, and since then he has had no complaints or concerns. Patient denies any drainage at this time, patient does report minimal tenderness to palpation about the incision site. Patient denies any numbness or tingling in the left upper extremity. No other acute complaints or concerns at this time. [facility] Medical History Retinal hemorrhage Vitamin D deficiency Joint pain in both hands HARITHA (obstructive sleep apnea) Carpal tunnel syndrome Morbid obesity Prostate CA Constipation Elevated alkaline phosphatase level Stenosis of cervical spine Anemia Depression RBBB Erectile dysfunction Lumbar spinal stenosis Atrial fibrillation GERD (gastroesophageal reflux disease) Asthma Arthritis Surgical History History of surgery Hx of neck surgery History of back surgery H/O cardiac radiofrequency ablation (~04/2017) Family History Father Heart attack DVT (deep venous thrombosis) Mother Diabetes COPD (chronic obstructive pulmonary disease) Social History Household Members: Spouse and Family Housing: House Alcohol intake: never Patient Tobacco Use Status: Former Tobacco user Tobacco use type: Cigarette e-Cigarette/Vaping Use: Never Used Second Hand Smoke Exposure: No service: No 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al status: retired 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 Neuro: Normal sensation of the tips of all digits of the left hand at this time Vascular: Cap refill brisk Pain: Very mild tenderness to palpation about the most proximal aspect of the incision site over the A1 kyara of the left index finger No other tenderness to palpation noted ROM: With encouragement, patient is able to get approximately 0.5 cm from a closed fist, but is unable to get to a full closed fist in the left index finger. Skin: No lacerations or abrasions. General: No ecchymosis, erythema, or evidence of infection. Psych: Appears grossly normal Affect normal Attitude cooperative Assessment & Plan Assessment & Plan (1) Stiffness of finger joint of left hand: Code(s): M25.642 - Stiffness of left hand, not elsewhere classified Category: Medical (2) Trigger finger, left index finger: Code(s): M65.322 - Trigger finger, left index finger Category: Medical Plan 1. Trigger finger, left index finger, status post trigger release DOS 07/28/2024 Patient appears to be recovering well postoperatively Patient is educated about the typical recovery course At this time, there is no evidence of any active infection about the surgery site over the A1 kyara of the left index finger Therefore, no continuation of antibiotics as necessary at this time Patient is referred to OT hand therapy to help with strengthening, and range of motion of the left hand, namely the index finger Patient is amenable to this plan Patient will follow-up as needed with any acute concerns Orders: Orders OT Evaluation and Treatment Today M25.642 - Stiffness of left hand, not elsewhere classified Coding Level of Care Code Global (43744) Diagnoses Stiffness of finger joint of left hand M25.642 Trigger finger, left index finger M65.322
== END 2024-08-18 11:18 | disposition home or self-care (01) ==
PROVIDERS: PCP Nurse Practitioner Family
DX: M25.642 Stiffness of left hand, not elsewhere classified (principal); M65.322 Trigger finger, left index finger
CPT/HCPCS: 99024

== ENCOUNTER → 2024-08-18 10:45 | Outpatient (BNVA) | payer MEDICARE, MEDICAID, SELFPAY | PROVIDERS: PCP Nurse Practitioner Family | DX: Z47.89 Encounter for other orthopedic aftercare (principal); M25.642 Stiffness of left hand, not elsewhere classified; M65.322 Trigger finger, left index finger; Z98.890 Other specified postprocedural states | CPT/HCPCS: 99212 ==

== ENCOUNTER 2024-08-31 07:47 | Outpatient (REF) | payer MEDICARE, MEDICAID, SELFPAY ==
[2024-08-31 09:59] LABS: MANUAL DIFF FLAG NO
[2024-08-31 10:08] LABS: Basophils Absolute Auto 0.1 X10*3/uL (0.0-0.2); Basophils Percent Auto 0.7 % (0-2); Eosinophils Absolute Auto 0.3 X10*3/uL (0.0-0.4); Eosinophils Percent Auto 4.3 % (0-4); Hematocrit 43.9 % (42.0-52.0); Hemoglobin 14.1 g/dl (14.0-18.0); Imm Gran Abs Auto 0.08 X10*3/uL (0.00-0.03); Lymphocytes Absolute Auto 1.1 X10*3/uL (1.2-4.9); Lymphocytes Percent Auto 14.5 % (20-40); Mean Corpuscular HGB Conc 32.1 g/dl (31.0-36.0); Mean Corpuscular Volume 87.3 fL (80.0-98.0); Mean Platelet Volume 11.4 fL (9.4-12.4); Monocytes Absolute Auto 0.8 X10*3/uL (0.1-1.2); Monocytes Percent Auto 10.1 % (2-11); Neutrophils Absolute Auto 5.3 x10*3/uL (2.0-8.3); Neutrophils Percent Auto 69.4 % (45-73); Platelet Count 223 X10*3/uL (160-400); Red Blood Count 5.03 X10*6/uL (4.60-5.80); Red Cell Distribution Width 14.1 % (11.0-16.0); White Blood Count 7.6 X10*3/uL (4.8-10.8)
[2024-08-31 10:45] LABS: Alanine Aminotransferase 17 U/L (0-40); Albumin Level 3.5 g/dL (3.5-5.0); Alkaline Phosphatase 119 U/L (39-117); Anion Gap 13 (12-20); Aspartate Amino Transferase 19 U/L (5-37); Bilirubin Total 0.5 mg/dL (0.0-1.0); Blood Urea Nitrogen 16 mg/dL (9-16); Calcium 8.8 mg/dL (8.4-10.2); Carbon Dioxide 27 mmol/L (22-29); Chloride 107 mmol/L (96-108); Cholesterol 114 mg/dL (<200); Estimated Glomerular Filt Rate > 60; Glucose Fasting 117 mg/dL (60-99); HDL Cholesterol 31 mg/dL (>40); LDL Cholesterol Calculated 63 mg/dL (<100); Potassium 3.7 mmol/L (3.3-5.1); Sodium 143 mmol/L (135-145); TSH reflex Free T4 1.71 uIU/mL (0.32-4.0); Total Protein 7.7 g/dL (6.5-8.0); Triglycerides 101 mg/dL (<150)
== END 2024-08-31 07:48 | disposition home or self-care (01) ==
LOC: HO.HMGCLDS 07:47
PROVIDERS: PCP Nurse Practitioner Family; Visit Provider Nurse Practitioner Family
DX: I10 Essential (primary) hypertension (principal)
CPT/HCPCS: 36415; 80053; 80061; 84443; 85025

== ENCOUNTER 2024-09-02 09:03 | Outpatient (AMB) | payer MEDICARE, MEDICAID, SELFPAY ==
--- NOTE | 2024-09-02 09:29 | A.OFFVIS_ITS ---
Intake Visit Reasons: 3M Follow Up-Med Review(Tadalafil) Intake Note: Patient is Present for Follow Up Med Review Urology Medication: Tadalafil Antibiotic Allergies:Sulfa antibiotics Blood Thinners: Apixaban(Eliquis) Recent PSA: 08/19/23 0.31 Recent Hemoglobin A1C: 08/19/23 6.0 Patient states he is here for his follow up and has no concerns for Dr, states that Tadalafil has been effective for him Urban Renewal Manager Required: No Accompanied by: Self / Same As Patient Allergies Sulfa (Sulfonamide Antibiotics) [SULFA (SULFONAMIDE ANTIBIOTICS)] Allergy (Mild, Verified 08/18/24 10:50) RASH, hives HPI Comments Details: Serafin is a pleasant male. He is a patient of Dr. Guerra. He is seen for the following urologic conditions - prostate cancer - low libido - erectile dysfunction Follow-up for trial of daily tadalafil Good response to medications. Able to obtain erection. Increase in well-being. Six-month follow-up PSA Had borderline low testosterone PSA - 08/22 0.3 Prostate cancer: PSA well controlled. Prostate cancer was diagnosed Dr Haile 06/16. Diagnosis was reached by 06/16 , needle biopsy, for elevated PSA, PSA at diagnosis 12, size at TRUS 40-50 gm. The Erin grade is May 201803/11 cores positive RAL 3+4 40% RML 3+4 60% KIMO 4+3 20% BENNY 4+4 10%. TNM Classification of Malignant Tumours (TNM) T1c. The D'Martin (NCCN) risk category is 06/16 , High Risk (PSA > 20, Gl 8+, T3), group 4 Erin 4 + 4 Initial therapy included Primary treatment 09/16 External beam radiation with short term hormonal ablation - Dr John Cohen - completed 11/16, 07/14/18 GnRH 6m Recent labs included 02/15 PSA < 0.05 06/17 T 240 PSA < 0.05 - 10/22 PSA 0.07, T 260 Associated conditions erectile dysfunction Yes PFSH Medical History Retinal hemorrhage Vitamin D deficiency Joint pain in both hands HARITHA (obstructive sleep apnea) Carpal tunnel syndrome Morbid obesity Prostate CA Constipation Elevated alkaline phosphatase level Stenosis of cervical spine Anemia Depression RBBB Erectile dysfunction Lumbar spinal stenosis Atrial fibrillation GERD (gastroesophageal reflux disease) Asthma Arthritis Surgical History History of surgery Hx of neck surgery History of back surgery H/O cardiac radiofrequency ablation (~04/2017) Family History Father Heart attack DVT (deep venous thrombosis) Mother Diabetes COPD (chronic obstructive pulmonary disease) Social History Household Members: Spouse and Family Housing: House Alcohol intake: never Patient Tobacco Use Status: Former Tobacco user Tobacco use type: Cigarette e-Cigarette/Vaping Use: Never Used Second Hand Smoke Exposure: No service: No 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al status: retired 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 Cognitive needs: No Hearing needs: No Vision needs: No Review of Systems Const Denies chills and Denies fever(s) Card Reports no additional complaints and Denies syncope Resp Denies cough GI Denies abdominal pain and Denies heartburn Reports as per HPI and Denies change in libido Neuro Denies syncope Psych Denies change in libido Endo Denies change in libido Physical Exam Const General: cooperative, healthy appearing, comfortable and no acute distress Orientation/consciousness: patient oriented x3 HEENT Face and sinus: Yes normal facial exam Mouth: moist mucous membranes Neck Neck: Yes normal visual inspection, Yes full ROM and Yes trachea midline Chest Chest palpation & inspection: normal inspection of the chest Resp Effort & Inspection: normal respiratory effort, able to speak in complete sentences and no respiratory distress GI Inspection: Yes normal to inspection Back/Spine/Pelvis Cervical Spine: normal cervical lordosis Thoracic/Lumbar Spine: thoracic and lumbar spine normal to inspection Skin General skin exam: no rashes or lesions noted Neuro General: patient oriented x3, gait normal, tone normal and moves all extremities Extrem General: Yes normal to inspection and Yes capillary refill normal Assessment & Plan Assessment & Plan (1) Erectile dysfunction due to and not concurrent with radiation therapy: Code(s): N52.35 - Erectile dysfunction following radiation therapy Category: Medical (2) Hypogonadism in male: Code(s): E29.1 - Testicular hypofunction Category: Medical (3) Prostate CA: Code(s): C61 - Malignant neoplasm of prostate Category: Medical Plan Six-month follow-up Orders: Orders Prostate Specific Antigen 6 Months C61 - Malignant neoplasm of prostate Patient Instructions: Imaging studies, laboratory and physical exam results were discussed and reviewed in detail. No major barriers to patient understanding were identified. An opportunity to ask questions regarding the treatment plan was provided. All questions were answered. The patient expressed understanding and agreement with the above treatment plan. The patient is aware they should contact our office by phone for worsening of their current condition or the appearance of new urologic symptoms. Compliance is encouraged with any medications and followup testing that is ordered. It is a privilege to participate in the urologic care of your patient. If you have any questions or concerns regarding treatment for the above conditions, or other urologic issues, please do not hesitate to contact me. The office telephone contact is [phone]. This note is constructed using voice recognition software. While every effort has been made to ensure accuracy mainstreaming facilitator errors may have been included. Yours sincerely, Dr Raul Haile MD, EN [facility] - Urology Providers of Expert, Compassionate Care for the Genitourinary System Coding Level of Care Code Est Pt Level 3 (05791) Diagnoses Erectile dysfunction due to and not concurrent with radiation therapy N52.35 Hypogonadism in male E29.1 Prostate CA C61
== END 2024-09-02 10:12 | disposition home or self-care (01) ==
PROVIDERS: PCP Nurse Practitioner Family; Visit Provider Urology
DX: N52.35 Erectile dysfunction following radiation therapy (principal); E29.1 Testicular hypofunction; C61 Malignant neoplasm of prostate
CPT/HCPCS: 99213

== ENCOUNTER → 2024-09-02 09:03 | Outpatient (BNVA) | payer MEDICARE, MEDICAID, SELFPAY | PROVIDERS: PCP Nurse Practitioner Family; Visit Provider Urology | DX: C61 Malignant neoplasm of prostate (principal); N52.35 Erectile dysfunction following radiation therapy; E29.1 Testicular hypofunction; Z79.899 Other long term (current) drug therapy | CPT/HCPCS: 99212 ==

== ENCOUNTER 2024-09-06 15:15 | Outpatient (AMB) | payer MEDICARE, MEDICAID, SELFPAY ==
[2024-09-06 15:19] VITALS: BP 126/74; PULSE 82; O2SAT 97; BMI 46.3
--- NOTE | 2024-09-06 15:19 | A.OFFVIS_ITS ---
Vital Signs 09/06/24 15:19 Height 6 ft 3 in Weight 370 lb 6.025 oz BMI 46.3 BP 126/74 Blood Pressure Location Lt brachial Position Sitting Pulse 82 Pulse Source Pulse Oximeter Pulse Oximetry (%) 97 Oxygen Delivery Method Room Air Intake Visit Reasons: OA/CM Intake Note: Patient today for follow up on bilateral joint pain in the hands and lab review, he was last seen on 09/04/[address] Ruffin. Allergies Sulfa (Sulfonamide Antibiotics) [SULFA (SULFONAMIDE ANTIBIOTICS)] Allergy (Mild, Verified 09/06/24 15:22) RASH, hives HPI Comments Details: Patient is a 59-year-old male with hypertension who presents for follow-up for polyarticular osteoarthritis. Interval History: Patient seen 09/04/[address] Ruffin. At that time he was being evaluated for joint pain in both hands. History and exam was consistent with osteoarthritis. Though he did have some evidence of 2nd MCP tenderness this was attributed to his frequent use of his cane and abnormal loading from that. Since then patient states that he has not been able to do physical therapy because of issues with his transport. Continues to endorse pain bilateral hands. Morning stiffness about 20 minutes worse at the end of the day. Continues to deny photosensitivity, dry eyes/dry mouth, new rashes, eye inflammation. [facility] Medical History (Updated 09/06/24 @ 15:46 by Nette Sawant MD) Polyarticular osteoarthritis Venous insufficiency Retinal hemorrhage Vitamin D deficiency Joint pain in both hands HARITHA (obstructive sleep apnea) Carpal tunnel syndrome Morbid obesity Prostate CA Constipation Elevated alkaline phosphatase level Stenosis of cervical spine Anemia Depression RBBB Erectile dysfunction Lumbar spinal stenosis Atrial fibrillation GERD (gastroesophageal reflux disease) Asthma Arthritis Surgical History History of surgery Hx of neck surgery History of back surgery H/O cardiac radiofrequency ablation (~04/2017) Family History Father Heart attack DVT (deep venous thrombosis) Mother Diabetes COPD (chronic obstructive pulmonary disease) Social History Household Members: Spouse and Family Housing: House Alcohol intake: never Patient Tobacco Use Status: Former Tobacco user Tobacco use type: Cigarette e-Cigarette/Vaping Use: Never Used Second Hand Smoke Exposure: No service: No 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al status: retired 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 Denies joint swelling, muscle weakness, bone pain All other systems reviewed and are unremarkable except noted above Physical Exam Vital Signs: Last Vital Signs Pulse 82 09/06/24 15:19 BP 126/74 09/06/24 15:19 Pulse Ox 97 09/06/24 15:19 Oxygen Delivery Method Room Air 09/06/24 15:19 BMI result Body Mass Index 46.3 Const Other: Physical Examination Patient well appearing and in no apparent painful distress. Morbidly obese Not able to rise from chair without support. Requires his cane. Constitutional: ?Mucous membranes pink and moist patient alert and cooperative HEENT: ?Conjunctiva and sclera clear. ?Pupils equal round and reactive to light. ?No lymphadenopathy. ?Normal dentition. Resp: ?Normal respiratory effort and able to speak in complete sentences. ?Clear to auscultation bilaterally. ?No crackles, rales, rhonchi, wheezes heard. Cards: ?Regular rate and rhythm. ?S1 and S2 heard no murmurs. ?Radial pulses intact bilaterally MSK: ?No deformity, swelling, abnormalities noted to bilateral hands. ?Able to move all joints with full range of motion, without limitation. Tenderness to palpation of the right 2nd MCP. Does note that he recently got injection for trigger finger. Otherwise no evidence of synovitis Results Reviewed Results Reviewed: Laboratory Tests 07/13/24 08/31/24 08/31/24 13:55 07:52 08:52 WBC 7.6 7.6 RBC 4.92 5.03 Hgb 14.0 14.1 Hct 42.8 43.9 Plt Count 223 223 Sodium 139 143 Assessment & Plan Assessment & Plan (1) Osteoarthritis of hands, bilateral: Code(s): M19.041 - Primary osteoarthritis, right hand; M19.042 - Primary osteoarthritis, left hand Qualifiers: Osteoarthritis type: primary Qualified Code(s): M19.041 - Primary osteoarthritis, right hand; M19.042 - Primary osteoarthritis, left hand Plan: Patient with primary osteoarthritis of hands. Low suspicion for autoimmune disease at this time. Recommended him follow-up to get his hand x-rays. He requests this to be done at the center in [place]. He will have that Center fax over the results. Recommended occupational therapy for his hands. He also requested an outside referral. Same was given. Discussed other lifestyle changes including weight loss and continued activity to help with his joints. Continue Tylenol as needed. Plan I spent 20 minutes reviewing the record and labs, seeing the patient, discussing the treatment plan and documenting in the medical record Orders: Orders XR hand RT 2V Today M15.9 - Polyosteoarthritis, unspecified, M25.642 - Stiffness of left hand, not elsewhere classified XR hand LT 2V Today M15.9 - Polyosteoarthritis, unspecified, M25.642 - Stiffness of left hand, not elsewhere classified OT Evaluation and Treatment Today M15.9 - Polyosteoarthritis, unspecified Coding Level of Care Code Est Pt Level 3 (13281) Diagnoses Primary osteoarthritis of both hands M19.041; M19.042 Osteoarthritis type: primary
== END 2024-09-06 16:06 | disposition home or self-care (01) ==
PROVIDERS: PCP Nurse Practitioner Family; Visit Provider Student in an Organized Health Care Education/Training Program
DX: M19.041 Primary osteoarthritis, right hand (principal); M19.042 Primary osteoarthritis, left hand
CPT/HCPCS: 99213

== ENCOUNTER → 2024-09-06 15:15 | Outpatient (BNVA) | payer MEDICARE, MEDICAID, SELFPAY | PROVIDERS: PCP Nurse Practitioner Family; Visit Provider Student in an Organized Health Care Education/Training Program | DX: M19.041 Primary osteoarthritis, right hand (principal); M19.042 Primary osteoarthritis, left hand | CPT/HCPCS: 99212 ==

== ENCOUNTER 2024-09-09 08:06 | Outpatient (AMB) | payer MEDICARE, MEDICAID, SELFPAY ==
--- NOTE | 2024-09-09 09:10 | A.OFFVIS_ITS ---
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 Allergies Sulfa (Sulfonamide Antibiotics) [SULFA (SULFONAMIDE ANTIBIOTICS)] Allergy (Mild, Verified 09/09/24 09:10) RASH, hives Medication List - Last Reconciled 09/09/24 by Alden Multani MD apixaban 5 mg PO Q12H aripiprazole (Abilify) 5 mg PO DAILY FreeStyle Lancets (lancets) TID testing NS FreeStyle Lite Meter (blood-glucose meter) TID testing NS FreeStyle Lite Strips (blood sugar diagnostic) TID testing NS gabapentin 800 mg PO TID losartan 25 mg PO DAILY omeprazole 20 mg PO DAILY pramipexole 0.25 mg PO BID 90 days [Rollator walker with seat daily use] tadalafil 5 mg PO DAILY 90 days tadalafil 20 mg PO ONCE PRN 30 days walker with wheels HPI 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: Details: Start time: 9.00am, End time: 9.42am ?I spent 37 minutes speaking with the patient on the phone plus an additional 5 minutes reviewing and updating records for a total of 42 minutes HPI Comments Details: Previous weight loss efforts: [facility] program Wakes up: 7am, Sleeps: 12am Breakfast: skips Lunch: skips Dinner: 6-8pm (potatoes, chicken, pork chops) Snacks: 2-3 times before dinner (chips, nuts, cookies), 10pm (same as before) Exercise: none Fluids: Coffee: 1 cup/day, tea: none, soda: regular Pepsi daily, juice: several cups per day, ETOH: none PFSH Medical History (Updated 09/06/24 @ 15:46 by Nette Sawant MD) Polyarticular osteoarthritis Venous insufficiency Retinal hemorrhage Vitamin D deficiency Joint pain in both hands HARITHA (obstructive sleep apnea) Carpal tunnel syndrome Morbid obesity Prostate CA Constipation Elevated alkaline phosphatase level Stenosis of cervical spine Anemia Depression RBBB Erectile dysfunction Lumbar spinal stenosis Atrial fibrillation GERD (gastroesophageal reflux disease) Asthma Arthritis Surgical History History of surgery Hx of neck surgery History of back surgery H/O cardiac radiofrequency ablation (~04/2017) Family History Father Heart attack DVT (deep venous thrombosis) Mother Diabetes COPD (chronic obstructive pulmonary disease) Social History Household Members: Spouse and Family Housing: House Alcohol intake: never Patient Tobacco Use Status: Former Tobacco user Tobacco use type: Cigarette e-Cigarette/Vaping Use: Never Used Second Hand Smoke Exposure: No service: No 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al status: retired 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 Cognitive needs: No Hearing needs: No Vision needs: No Telehealth Telehealth Telehealth Platform: Telephone Location of provider rendering services: practice address Location of patient: address on file Patient Identification confirmed using: Name, : Yes Telehealth method: voice only Patient verbally consented to treatment: Yes Patient verbally consented to billing insurance company: Yes Patient informed of any privacy concerns related to visit: Yes Minutes spent on Phone/Video with Pt.: 42 Assessment & Plan Assessment & Plan (1) Morbid obesity: Code(s): E66.01 - Morbid (severe) obesity due to excess calories Category: Medical Plan: 1.? Plan for lap sleeve gastrectomy. If diaphragmatic or ventral hernias are present at time of surgery, these will be repaired laparoscopically as well. Risks and complications include possible conversion to an open procedure, anastomotic leak, bleeding requiring transfusion, small bowel obstruction, , DVT and pulmonary embolism, cardiac, or pulmonary complications, as med spec complications such as anastomotic ulcer, insufficient weight loss and vitamin deficiencies. I emphasized the importance of close follow-up, adherence to instructions and good communication. 2. Nutritional counseling. Start with 2 CELEBRATE REBUILD protein (buy at [email or web address]) shakes (TWO scoops EACH in 8oz low fat unsweetened almond milk each) at 8am-10am and 11am-1pm, 1 protein bar (CELEBRATE protein bars, [email or web address] [facility]) at 2pm-4pm, dinner at 5pm (12 forks of protein and 12 forks of salad/vegetables) AND TWO more protein bars after dinner at 7pm-9pm and 10pm-12am. So you do 2 protein shakes, 3 protein bars and one meal per day. Meal to include lean meat (beef, fish, pork, turkey, chicken), or persian yogurt, or egg whites, or beans with a salad with olive oil and fruits (berries, pears, apples, kiwi). Avoid salt, breads, potatoes, rice, pasta, desserts. 3. Each shake would be drunk slowly, like coffee in a period of 2 hours. 4. Cut each bar in 4 pieces and eat each piece in 30min ?to make each bar last 2 hours. 5. I emphasized the importance of measuring accurately the food portion and measure it when serving the food in plate 6. The meal portions include 12 full-size forks of meat and 12 full-size forks of salad. You always eat the meat portion but you can replace up to 6 forks for salad/vegetables with rice, potatoes or pasta, or a fruit ?if you like. The less you do it the better weight loss will be. 7. One full-size fork is what it can be scooped on the fork without falling aside and not what can be bit with the fork. Use regular forks like those you find in a typical restaurant. 8.? Please send me weight measurements as soon as possible and then once a week. Always include your diet and exercise plan. 9. The best choice would be to purchase a stationary bike, elliptical or treadmill at home that can track calories. Let me know if you do so I can give you an exercise plan. 10. Goal is to lose at least 1.5-2lbs per week 11. Goal to lose 10% of your weight before surgery, which is about 37lbs. Ultimate weight goal: 340lbs before surgery 12. Please follow the diet plan exactly without any change. If you don't like something about the plan or you feel hungry you need to communicate with me so I can help you revise the plan. You should not change the plan yourself. 13. To be scheduled for EGD due to history of GERD. The possibility of biopsies was discussed. Patient needs to avoid use of NSAIDs and aspirin for 1 week prior to EGD. Risks of perforation and bleeding was discussed with the patient. This will be an outpatient procedure with IV sedation. Orders: Orders Hemoglobin A1c Today E66.01 - Morbid (severe) obesity due to excess calories, G47.33 - Obstructive sleep apnea (adult) (pediatric), I10 - Essential (primary) hypertension, I45.10 - Unspecified right bundle-branch block, K21.9 - Gastro- esophageal reflux disease without esophagitis, R73.03 - Prediabetes H Pylori Breath Test Today E66.01 - Morbid (severe) obesity due to excess calories, G47.33 - Obstructive sleep apnea (adult) (pediatric), I10 - Essential (primary) hypertension, I45.10 - Unspecified right bundle-branch block, K21.9 - Gastro-esophageal reflux disease without esophagitis, R73.03 - Prediabetes Complete Blood Count Auto Diff Today E66.01 - Morbid (severe) obesity due to excess calories, G47.33 - Obstructive sleep apnea (adult) (pediatric), I10 - Essential (primary) hypertension, I45.10 - Unspecified right bundle-branch block, K21.9 - Gastro-esophageal reflux disease without esophagitis, R73.03 - Prediabetes Lipid Panel Today E66.01 - Morbid (severe) obesity due to excess calories, G47.33 - Obstructive sleep apnea (adult) (pediatric), I10 - Essential (primary) hypertension, I45.10 - Unspecified right bundle-branch block, K21.9 - Gastro- esophageal reflux disease without esophagitis, R73.03 - Prediabetes IRON PROFILE Today E66.01 - Morbid (severe) obesity due to excess calories, G47.33 - Obstructive sleep apnea (adult) (pediatric), I10 - Essential (primary) hypertension, I45.10 - Unspecified right bundle-branch block, K21.9 - Gastro- esophageal reflux disease without esophagitis, R73.03 - Prediabetes Vitamin B12 and Folate Today E66.01 - Morbid (severe) obesity due to excess calories, G47.33 - Obstructive sleep apnea (adult) (pediatric), I10 - Essential (primary) hypertension, I45.10 - Unspecified right bundle-branch block, K21.9 - Gastro-esophageal reflux disease without esophagitis, R73.03 - Prediabetes Zinc Today E66.01 - Morbid (severe) obesity due to excess calories, G47.33 - Obstructive sleep apnea (adult) (pediatric), I10 - Essential (primary) hypertension, I45.10 - Unspecified right bundle-branch block, K21.9 - Gastro- esophageal reflux disease without esophagitis, R73.03 - Prediabetes C Reactive Protein Today E66.01 - Morbid (severe) obesity due to excess calories, G47.33 - Obstructive sleep apnea (adult) (pediatric), I10 - Essential (primary) hypertension, I45.10 - Unspecified right bundle-branch block, K21.9 - Gastro-esophageal reflux disease without esophagitis, R73.03 - Prediabetes TSH reflex Free T4 Today E66.01 - Morbid (severe) obesity due to excess calories, G47.33 - Obstructive sleep apnea (adult) (pediatric), I10 - Essential (primary) hypertension, I45.10 - Unspecified right bundle-branch block, K21.9 - Gastro-esophageal reflux disease without esophagitis, R73.03 - Prediabetes Vitamin D 25-OH Total Today E66.01 - Morbid (severe) obesity due to excess calories, G47.33 - Obstructive sleep apnea (adult) (pediatric), I10 - Essential (primary) hypertension, I45.10 - Unspecified right bundle-branch block, K21.9 - Gastro-esophageal reflux disease without esophagitis, R73.03 - Prediabetes US abdomen comp w elastography Today E66.01 - Morbid (severe) obesity due to excess calories, G47.33 - Obstructive sleep apnea (adult) (pediatric), I10 - Essential (primary) hypertension, I45.10 - Unspecified right bundle-branch block, K21.9 - Gastro-esophageal reflux disease without esophagitis, R73.03 - Prediabetes ECG 12 lead EKG Today E66.01 - Morbid (severe) obesity due to excess calories, G47.33 - Obstructive sleep apnea (adult) (pediatric), I10 - Essential (primary) hypertension, I45.10 - Unspecified right bundle-branch block, K21.9 - Gastro- esophageal reflux disease without esophagitis, R73.03 - Prediabetes FL upper GI w air Today E66.01 - Morbid (severe) obesity due to excess calories, G47.33 - Obstructive sleep apnea (adult) (pediatric), I10 - Essential (primary) hypertension, I45.10 - Unspecified right bundle-branch block, K21.9 - Gastro-esophageal reflux disease without esophagitis, R73.03 - Prediabetes Insulin Today E66.01 - Morbid (severe) obesity due to excess calories, G47.33 - Obstructive sleep apnea (adult) (pediatric), I10 - Essential (primary) hypertension, I45.10 - Unspecified right bundle-branch block, K21.9 - Gastro- esophageal reflux disease without esophagitis, R73.03 - Prediabetes Comprehensive Met. Panel Today E66.01 - Morbid (severe) obesity due to excess calories, G47.33 - Obstructive sleep apnea (adult) (pediatric), I10 - Essential (primary) hypertension, I45.10 - Unspecified right bundle-branch block, K21.9 - Gastro-esophageal reflux disease without esophagitis, R73.03 - Prediabetes Vitamin B1 Today E66.01 - Morbid (severe) obesity due to excess calories, G47.33 - Obstructive sleep apnea (adult) (pediatric), I10 - Essential (primary) hypertension, I45.10 - Unspecified right bundle-branch block, K21.9 - Gastro- esophageal reflux disease without esophagitis, R73.03 - Prediabetes Vitamin A Today E66.01 - Morbid (severe) obesity due to excess calories, G47.33 - Obstructive sleep apnea (adult) (pediatric), I10 - Essential (primary) hypertension, I45.10 - Unspecified right bundle-branch block, K21.9 - Gastro- esophageal reflux disease without esophagitis, R73.03 - Prediabetes Ferritin Today E66.01 - Morbid (severe) obesity due to excess calories, G47.33 - Obstructive sleep apnea (adult) (pediatric), I10 - Essential (primary) hypertension, I45.10 - Unspecified right bundle-branch block, K21.9 - Gastro- esophageal reflux disease without esophagitis, R73.03 - Prediabetes XR chest 2V Today E66.01 - Morbid (severe) obesity due to excess calories, G47.33 - Obstructive sleep apnea (adult) (pediatric), I10 - Essential (primary) hypertension, I45.10 - Unspecified right bundle-branch block, K21.9 - Gastro- esophageal reflux disease without esophagitis, R73.03 - Prediabetes Referrals Behavioral Health Referral E66.01 - Morbid (severe) obesity due to excess calories, G47.33 - Obstructive sleep apnea (adult) (pediatric), I10 - Essential (primary) hypertension, I45.10 - Unspecified right bundle-branch block, K21.9 - Gastro-esophageal reflux disease without esophagitis, R73.03 - Prediabetes Nutrition/Dietitian Referral E66.01 - Morbid (severe) obesity due to excess calories, G47.33 - Obstructive sleep apnea (adult) (pediatric), I10 - Essential (primary) hypertension, I45.10 - Unspecified right bundle-branch block, K21.9 - Gastro-esophageal reflux disease without esophagitis, R73.03 - Prediabetes
[2024-09-09 09:24] VITALS: BMI 47.1
== END 2024-09-09 09:43 | disposition home or self-care (01) ==
LOC: HO.HBS 08:06
PROVIDERS: PCP Nurse Practitioner Family; Visit Provider Surgery
DX: E66.813 Obesity, class 3 (principal); Z68.42 Body mass index [BMI] 45.0-49.9, adult
CPT/HCPCS: 99443

== ENCOUNTER → 2024-09-09 08:06 | Outpatient (BNVA) | payer MEDICARE, MEDICAID, SELFPAY | PROVIDERS: PCP Nurse Practitioner Family; Visit Provider Surgery ==

== ENCOUNTER 2024-09-15 08:33 | Outpatient (AMB) | payer MEDICARE, MEDICAID, SELFPAY ==
[2024-09-15 08:40] VITALS: BP 126/80; PULSE 76; O2SAT 98; BMI 33.5
--- NOTE | 2024-09-15 08:40 | MHC.PC.OV ---
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: No Accompanied by: Self / Same As Patient Allergies Sulfa (Sulfonamide Antibiotics) [SULFA (SULFONAMIDE ANTIBIOTICS)] Allergy (Mild, Verified 09/15/24 08:58) RASH, hives Medication List - Last Reconciled 09/15/24 by LEESA Winchester apixaban 5 mg PO Q12H aripiprazole (Abilify) 5 mg PO DAILY FreeStyle Lancets (lancets) TID testing NS FreeStyle Lite Meter (blood-glucose meter) TID testing NS FreeStyle Lite Strips (blood sugar diagnostic) TID testing NS gabapentin 800 mg PO TID losartan 25 mg PO DAILY omeprazole 20 mg PO DAILY pramipexole 0.25 mg PO BID 90 days [Rollator walker with seat daily use] tadalafil 5 mg PO DAILY 90 days tadalafil 20 mg PO ONCE PRN 30 days walker with wheels Tobacco use date assessed: 02/02/24 Dental Screening Dental Screen Date: 02/02/24 HPI PE HPI Details Pt is here for a PE. Will order labs. Pt has a cologuard kit at home. Due for PSA, pt follows up with urology. Denies dribbling with urination, weak stream, and frequent nocturia. Pt is pre diabetic. A1C in office today is 5.6. Denies polyuria and polydipsia, does report neuropathy. Pt denies any signs and symptoms of hypoglycemia and does know how to correct it. Pt will schedule his own eye exam. Pt also follows up with vascular, cardiology, and bariatrics. [facility] Medical History Polyarticular osteoarthritis Venous insufficiency Retinal hemorrhage Vitamin D deficiency Joint pain in both hands HARITHA (obstructive sleep apnea) Carpal tunnel syndrome Morbid obesity Prostate CA Constipation Elevated alkaline phosphatase level Stenosis of cervical spine Anemia Depression RBBB Erectile dysfunction Lumbar spinal stenosis Atrial fibrillation GERD (gastroesophageal reflux disease) Asthma Arthritis Surgical History History of surgery Hx of neck surgery History of back surgery H/O cardiac radiofrequency ablation (~04/2017) Family History Father Heart attack DVT (deep venous thrombosis) Mother Diabetes COPD (chronic obstructive pulmonary disease) Social History Household Members: Spouse and Family Housing: House Alcohol intake: never Patient Tobacco Use Status: Former Tobacco user Tobacco use type: Cigarette e-Cigarette/Vaping Use: Never Used Second Hand Smoke Exposure: No service: No 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al status: retired 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 1. Little interest or pleasure in doing things: more than half the days 2. Feeling down, depressed, or hopeless: more than half the days 3. Trouble falling or staying asleep, or sleeping too much: nearly every day 4. Feeling tired or having little energy: more than half the days 5. Poor appetite or overeating: nearly every day 6. Feeling bad about yourself - or that you are a failure or have let yourself or your family down: several days 7. Trouble concentrating on things, such as reading the newspaper or watching television: not at all 8. Moving or speaking so slowly that other people could have noticed. Or the opposite - being so fidgety or restless that you have been moving around a lot more than usual: not at all 9. Thoughts that you would be better off or of hurting yourself in some way: not at all Total score: 13 Depression Screening Interpretation: Positive (denies any si or hi) Depression Screening Follow-up: Existing condition and In treatment Depression Screening Done: Yes 29444 - PHQ-9 Billing: Yes Source: Developed by Drs. Jacobo Lewis, Clarissa Whitaker, Arcenio Del Valle and colleagues, with an educational gregorio from [employer]. Thrive Questionnaire Date Thrive assessed: 08/16/24 I am a: Patient What is your living situation today?: I have a steady place to live Within the past 12 months, did the food you bought not last and you didn't have the money to get more?: Sometimes True Within the past 12 months, did you worry whether your food would run out before you got money to buy more?: Sometimes True Do you have trouble paying for medicines?: No Do you have trouble getting transportation to medical appointments?: Yes Do you have trouble paying your heating and electricity bill?: Yes Do you have trouble taking care of your child, family member or friend?: No Do you have trouble with day-to-day activities such as bathing, preparing meals, shopping, managing finances, etc.?: Yes Are you currently unemployed and looking for a job?: No Are you interested in more education?: No Currently or been in a relationship where the following occur: No concerns reported THRIVE Score: 4 AUDIT C Alcohol Use Questionnaire (AUDIT-C) 1. How often do you have a drink containing alcohol?: Monthly or less 2. How many drinks containing alcohol do you have on a typical day when you are drinking?: 1 or 2 3. How often do you have six or more drinks on one occasion?: Never Total Score: 1 Score Reviewed/Action Taken: Yes CLAU-7 AMB Questionnaire CLAU-7 Date CLAU - 7 assessed: 09/15/24 Feeling nervous, anxious, or on edge: 3 = Nearly every day Not being able to stop or control worryin = More than half the days Worrying too much about different things: 2 = More than half the days Trouble relaxin = Nearly every day Being so restless that it is hard to sit still: 3 = Nearly every day Becoming easily annoyed or irritable: 3 = Nearly every day Feeling afraid as if something awful might happen: 2 = More than half the days Total CLAU-7 score (0-4 normal; 5-9 mild; 10-14 moderate; 15-21 severe): 18 Source: Developed by Drs. Jacobo Lewis, Clarissa Whitaker, Arcenio Del Valle and colleagues, with an educational gregorio from [employer]. CLAU-7 Assessment Billing CLAU-7 Assessment Tool: CLAU-7 Assessment 18753 (in treatment, denies and si or hi) Review of Systems Const Denies chills and Denies fever(s) Eyes Denies blurry vision ENT Denies vertigo, Denies dizziness and Denies sore throat Card Denies chest pain at rest, Denies chest pain with activity, Denies diaphoresis, Denies dyspnea and Denies dyspnea on exertion Resp Denies cough, Denies dyspnea, Denies dyspnea on exertion and Denies wheezing GI Denies abdominal pain, Denies melena, Denies hematochezia, Denies constipation, Denies diarrhea and Denies loose stools Denies hematuria Musc Denies numbness and Denies tingling Skin/Breast Denies lesions Neuro Denies vertigo, Denies dizziness, Denies numbness and Denies tingling Psych Denies anxiety, Denies depression, Denies homicidal ideation, Denies suicidal ideation and Denies other (substance abuse) Aller/Immun Denies wheezing Physical exam (Primary Care) Vital Signs: Last Vital Signs Pulse 76 09/15/24 08:40 BP 126/80 09/15/24 08:40 Pulse Ox 98 09/15/24 08:40 Oxygen Delivery Method Room Air 09/15/24 08:40 BMI result Body Mass Index 33.5 Tobacco/Smoking Status: Tobacco use Status Tobacco use date assessed 02/02/24 09/15/24 08:41 Patient Tobacco Use Status Former Tobacco user 09/15/24 08:41 Tobacco use type Cigarette 09/15/24 08:41 e-Cigarette/Vaping Use Never Used 09/15/24 08:41 PHQ-9: PHQ-9 Score PHQ-9: Total score 13 09/15/24 08:43 Depression Screening Interpretation: Positive (denies any si or hi) Depression Screening Follow-up: Existing condition and In treatment Thrive Assessment: Date of Thrive Assessment Date Thrive assessed 08/16/24 09/15/24 08:41 Currently or been in a relationship where the following occur: No concerns reported Const Other: using a cane General: cooperative Nutritional Appearance: obese morbidly obese Orientation/consciousness: patient oriented x3 Limitations: ambulation with cane HENMT Head: Yes normal to inspection, Yes normocephalic and Yes atraumatic Ears: TM's normal bilaterally Eyes General: appearance normal, both eyes and all related structures Alignment and Position: alignment normal and position normal Neck Neck: Yes normal visual inspection, Yes no lymphadenopathy and Yes supple Resp Effort & Inspection: normal respiratory effort Auscultation: clear to auscultation bilaterally Cardio Rate: regular rate Rhythm: regular rhythm Heart sounds: S1 normal heart sound present, S2 normal heart sound present and no murmurs GI Palpation (GI): Soft to palpation and nontender Auscultation: normal bowel sounds Male General Exam: Yes normal external exam Penis: normal penis Scrotum: scrotum normal, testes descended bilaterally and no inguinal hernias Testes: no testicular mass Skin Rashes: no rashes Neuro General: patient oriented x3, moves all extremities, no focal motor deficits and deep tendon reflexes 2+ bilaterally Romberg Test: Negative Extrem Other: bilat feet: no sensation with use of monofilament, very little sensation until proximal thighs, feet intact, right foot medial heel with extensive dry cracking/rough , left distal anterior rao with large healing scab, faint discoloration, dryness, varicose veins to medial proximal LLE, +1 edema to LLE Psych Appearance: grossly normal Mental Status: mental status grossly normal Speech and movement: Normal speech and movement present Affect: normal affect Attitude: cooperative Thought process: Normal thought process present Thought content: Normal thought content present Insight: Good insight present (Psych) Judgement: Good judgement present (Psych) Results AMB Hemoglobin A1c AMB Hemoglobin A1c 5.6 % Last Edit by Jeremy Gomez CMA on 09/15/24 08:55 Results Reviewed Results Reviewed: Laboratory Last Values Hgb A1c (Clinic) 5.6 % (4.0-6.0) 09/15/24 08:49 Coding Level of Care Code Est Pt Prev Care 40-64y(13797) Diagnoses Prediabetes R73.03 Encounter for routine adult physical exam with abnormal findings Z. Vitamin D deficiency E55.9 Additional Codes CLAU-7 Assessment Billing - CLAU-7 Assessment Tool: CLAU-7 Assessment 55190 ([id number]) Assessment & Plan Assessment & Plan (1) Prediabetes: Code(s): R73.03 - Prediabetes Category: Medical Plan: controlled currently (2) Encounter for routine adult physical exam with abnormal findings: Code(s): Z00.01 - Encounter for general adult medical examination with abnormal findings Category: Medical Plan: labs ordered (3) Vitamin D deficiency: Code(s): E55.9 - Vitamin D deficiency, unspecified Category: Medical Plan: lab Plan The patient agreed to the use of a diagnostic medical sonographer for this encounter. Scribed for [place] by Saba Davis diagnostic medical sonographer, on 09/15/2024 at 09:00 EST. Orders: Orders AMB Hemoglobin A1c Today Z13.9 - Encounter for screening, unspecified TSH reflex Free T4 Today R73.03 - Prediabetes, Z00.01 - Encounter for general adult medical examination with abnormal findings Microalbumin, Random (w Creat) Today R73.03 - Prediabetes, Z00.01 - Encounter for general adult medical examination with abnormal findings Complete Blood Count Auto Diff Today R73.03 - Prediabetes, Z00.01 - Encounter for general adult medical examination with abnormal findings Comprehensive [place]. Panel Fast Today R73.03 - Prediabetes, Z00.01 - Encounter for general adult medical examination with abnormal findings UA CC w/rflx Micro + Cult Today R73.03 - Prediabetes, Z00.01 - Encounter for general adult medical examination with abnormal findings Lipid Panel Today R73.03 - Prediabetes, Z00.01 - Encounter for general adult medical examination with abnormal findings Vitamin D 25-OH Total Today E55.9 - Vitamin D deficiency, unspecified
== END 2024-09-15 09:17 | disposition home or self-care (01) ==
PROVIDERS: PCP Nurse Practitioner Family; Visit Provider Nurse Practitioner Family
DX: R73.03 Prediabetes (principal); Z00.01 Encounter for general adult medical examination with abnormal findings; E55.9 Vitamin D deficiency, unspecified; Z13.9 Encounter for screening, unspecified

== ENCOUNTER → 2024-09-15 08:33 | Outpatient (BNVA) | payer MEDICARE, MEDICAID, SELFPAY | PROVIDERS: PCP Nurse Practitioner Family; Visit Provider Nurse Practitioner Family | DX: Z00.01 Encounter for general adult medical examination with abnormal findings (principal); R73.03 Prediabetes; E55.9 Vitamin D deficiency, unspecified | CPT/HCPCS: 83036; 96127; 99396 ==

== ENCOUNTER 2024-09-20 07:21 | Outpatient (REF) | payer MEDICARE, MEDICAID, SELFPAY ==
--- NOTE | ~2024-09-20 | XR_ITS ---
EXAMINATION: XR HAND RIGHT 3 VIEWS XR HAND LEFT 3 VIEWS CLINICAL INFORMATION: Poly osteoarthritis, unspecified M15.9. COMPARISON: XR Right hand 06/03/2018 XR Left hand 06/03/2018 TECHNIQUE: PA, lateral, and oblique views of the right hand. PA, lateral and oblique views of the left hand. FINDINGS: No displaced fracture. Alignment is anatomic. Mild joint space narrowing at the first CMC joint. No bony erosions or abnormal soft tissue calcifications. No focal radiographic soft tissue swelling. XR/XR hand RT 2V IMPRESSION: Mild osteoarthritis at the first CMC joints. Electronically signed by: Skip Ann MD 11/10/2024 02:11 PM [facility] [place]
--- NOTE | ~2024-09-20 | XR_ITS ---
EXAMINATION: XR HAND RIGHT 3 VIEWS XR HAND LEFT 3 VIEWS CLINICAL INFORMATION: Poly osteoarthritis, unspecified M15.9. COMPARISON: XR Right hand 06/03/2018 XR Left hand 06/03/2018 TECHNIQUE: PA, lateral, and oblique views of the right hand. PA, lateral and oblique views of the left hand. FINDINGS: No displaced fracture. Alignment is anatomic. Mild joint space narrowing at the first CMC joint. No bony erosions or abnormal soft tissue calcifications. No focal radiographic soft tissue swelling. XR/XR hand LT 2V IMPRESSION: Mild osteoarthritis at the first CMC joints. Electronically signed by: Skip Ann MD 11/10/2024 02:11 PM [facility] [place]
--- NOTE | 2024-09-20 07:26 | ECG_ITS ---
Test Reason : e66.01 Blood Pressure : / mmHG Vent. Rate : 080 BPM Atrial Rate : 080 BPM P-R Int : 134 ms QRS Dur : 136 ms QT Int : 410 ms P-R-T Axes : 076 047 009 degrees QTc Int : 472 ms Normal sinus rhythm Right bundle branch block Abnormal ECG When compared with ECG of 13-FEB-2024 14:32, T wave inversion no longer evident in Anterior leads Referred By: Alden Multani Electronically Signed By:Yifan Ho
[2024-09-20 07:49] LABS: MANUAL DIFF FLAG NO
[2024-09-20 08:25] LABS: Basophils Percent Auto 0.6 % (0-2); Eosinophils Absolute Auto 0.3 X10*3/uL (0.0-0.4); Eosinophils Percent Auto 4.7 % (0-4); Hematocrit 43.9 % (42.0-52.0); Hemoglobin 14.1 g/dl (14.0-18.0); Imm Gran Abs Auto 0.07 X10*3/uL (0.00-0.03); Lymphocytes Absolute Auto 1.3 X10*3/uL (1.2-4.9); Lymphocytes Percent Auto 18.9 % (20-40); Mean Corpuscular HGB Conc 32.1 g/dl (31.0-36.0); Mean Corpuscular Volume 87.3 fL (80.0-98.0); Mean Platelet Volume 10.9 fL (9.4-12.4); Monocytes Absolute Auto 0.7 X10*3/uL (0.1-1.2); Monocytes Percent Auto 10.4 % (2-11); Neutrophils Absolute Auto 4.4 x10*3/uL (2.0-8.3); Neutrophils Percent Auto 64.4 % (45-73); Platelet Count 209 X10*3/uL (160-400); Red Blood Count 5.03 X10*6/uL (4.60-5.80); Red Cell Distribution Width 14.1 % (11.0-16.0); White Blood Count 6.8 X10*3/uL (4.8-10.8)
[2024-09-20 08:42] LABS: Estimated Average Glucose 123 mg/dL; Hemoglobin A1C 136.0528 umol/L; Hemoglobin A1c % 5.9 % (<6.0); Total Hemoglobin (HGBA1C) 3344.8934 umol/L
[2024-09-20 09:16] LABS: Alanine Aminotransferase 22 U/L (0-40); Albumin Level 3.4 g/dL (3.5-5.0); Alkaline Phosphatase 114 U/L (39-117); Anion Gap 11 (12-20); Aspartate Amino Transferase 27 U/L (5-37); Bilirubin Total 0.4 mg/dL (0.0-1.0); Blood Urea Nitrogen 18 mg/dL (9-16); C Reactive Protein 1.29 mg/dL (< or = 0.50); Calcium 8.9 mg/dL (8.4-10.2); Carbon Dioxide 26 mmol/L (22-29); Chloride 108 mmol/L (96-108); Cholesterol 109 mg/dL (<200); Estimated Glomerular Filt Rate > 60; Glucose Fasting 116 mg/dL (60-99); Glucose Random 117 mg/dL (60-115); HDL Cholesterol 31 mg/dL (>40); Iron 58 mcg/dL (45-160); LDL Cholesterol Calculated 57 mg/dL (<100); Percent Iron Saturation 31 % (15-50); Potassium 3.8 mmol/L (3.3-5.1); Sodium 141 mmol/L (135-145); Total Iron Binding Capacity 186 mcg/dL (228-428); Total Protein 7.2 g/dL (6.5-8.0); Triglycerides 109 mg/dL (<150); Unsaturated Iron Binding 128 ug/dL
[2024-09-20 09:30] LABS: TSH reflex Free T4 1.75 uIU/mL (0.32-4.0); Vitamin D 25-OH Total 13.4 ng/mL (>30)
[2024-09-20 09:36] LABS: Folate 9.1 ng/mL (> or = 4.0); Vitamin B12 209 pg/mL (200-900)
[2024-09-20 09:50] LABS: Ferritin 130 ng/mL (20-250); Insulin 20 uU/mL (2-29)
[2024-09-23 18:54] LABS: Zinc 56 mcg/dL (60-130)
[2024-09-26 06:28] LABS: Vitamin B1 15 nmol/L (8-30)
[2024-09-28 04:57] LABS: Vitamin A 48 mcg/dL (38-98)
== END 2024-09-20 07:22 | disposition home or self-care (01) ==
LOC: HO.XRAY 07:21
PROVIDERS: PCP Nurse Practitioner Family; Visit Provider Surgery
DX: Z00.01 Encounter for general adult medical examination with abnormal findings (principal); E66.01 Morbid (severe) obesity due to excess calories; I45.10 Unspecified right bundle-branch block; G47.33 Obstructive sleep apnea (adult) (pediatric); K21.9 Gastro-esophageal reflux disease without esophagitis; R73.03 Prediabetes; I10 Essential (primary) hypertension; E55.9 Vitamin D deficiency, unspecified; M15.9 Polyosteoarthritis, unspecified; M25.642 Stiffness of left hand, not elsewhere classified
CPT/HCPCS: 36415; 71046; 73120; 80053; 80061; 82306; 82607; 82728; 82746; 83036; 83525; 83540; 84425; 84443; 84590; 84630; 85025; 86140; 93005

== ENCOUNTER → 2024-09-20 07:26 | Outpatient (BNV) | payer MEDICARE, MEDICAID, SELFPAY | PROVIDERS: PCP Nurse Practitioner Family; Visit Provider Internal Medicine Cardiovascular Disease | DX: I45.10 Unspecified right bundle-branch block (principal); R94.31 Abnormal electrocardiogram [ECG] [EKG] | CPT/HCPCS: 93010 ==

== ENCOUNTER → 2024-09-27 08:05 | Outpatient (BNVA) | payer MEDICARE, MEDICAID, SELFPAY | PROVIDERS: PCP Nurse Practitioner Family; Visit Provider Physician Assistant Surgical ==

== ENCOUNTER 2024-10-04 07:23 | Outpatient (REF) | payer MEDICARE, MEDICAID, SELFPAY | END 2024-10-04 07:24 | disposition home or self-care (01) | LOC: HO.US 07:23 | PROVIDERS: PCP Nurse Practitioner Family; Visit Provider Surgery | DX: E66.01 Morbid (severe) obesity due to excess calories (principal); I45.10 Unspecified right bundle-branch block; G47.33 Obstructive sleep apnea (adult) (pediatric); K21.9 Gastro-esophageal reflux disease without esophagitis; R73.03 Prediabetes; I10 Essential (primary) hypertension | CPT/HCPCS: 76700; 76981 ==

== ENCOUNTER → 2024-10-12 10:45 | Outpatient (AMB) | payer MEDICARE, MEDICAID, SELFPAY ==
--- NOTE | 2024-10-12 10:05 | MHC.WMTHER ---
Intake Intake Visit Reasons: VIDEO Intake Allergies Sulfa (Sulfonamide Antibiotics) [SULFA (SULFONAMIDE ANTIBIOTICS)] Allergy (Intermediate, Verified 09/26/24 14:50) RASH, hives PFSH Medical History (Updated 10/12/24 @ 11:05 by Samaria Staples [facility]) Walker as ambulation aid Polyarticular osteoarthritis Venous insufficiency Retinal hemorrhage Vitamin D deficiency Joint pain in both hands HARITHA (obstructive sleep apnea) Carpal tunnel syndrome Morbid obesity Prostate CA Constipation Elevated alkaline phosphatase level Stenosis of cervical spine Anemia Depression RBBB Erectile dysfunction Lumbar spinal stenosis Atrial fibrillation GERD (gastroesophageal reflux disease) Asthma Arthritis Surgical History (Updated 09/26/24 @ 15:49 by Jeimy Vance, RN) Hx of cervical spine surgery History of surgery Hx of neck surgery History of back surgery H/O cardiac radiofrequency ablation (~04/2017) Family History Father Heart attack DVT (deep venous thrombosis) Mother Diabetes COPD (chronic obstructive pulmonary disease) Social History (Updated 09/26/24 @ 15:49 by Jeimy Vance, RN) Household Members: Spouse and Family Housing: House Are you a primary technical healthcare consultant to a significant other at home: No Do you presently have visiting nurse or other home services: Yes ([employer] RECEPTIONIST 3 hours daily) Alcohol intake: never Patient Tobacco Use Status: Former Tobacco user Tobacco use type: Cigarette e-Cigarette/Vaping Use: Never Used Second Hand Smoke Exposure: No service: No 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al status: retired 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 Presenting Concerns Referral Source P-Provider. He had initial visit with Dr. Mart on 09/09/2024 Reason for referral Completion of behavioral health assessment as part of process for weight-loss surgery. Precipitating Event Obesity. Living Situation Current Living Situation Rent (Daughters own the home, he's in the second floor.) At risk of losing current housing? No Satisfied with current living situation? Yes Comments PT lives with his , 20 y/o grandson and the family pets (2 birds, 1 dog and the fishes) Food/Weight/Diet Expectations of change The initial goal to lose 10% of your weight before surgery, which is about 37lbs. Ultimate weight goal: 340lbs before surgery. Initial weight 377 lbs. Most recent weight: 366 lbs on 09/27 at a weight check [place]. PT reports he's interested in weight-loss surgery and being able to be more active and go out. PT is implementing the following: Current meal plan: 2 protein shakes, 3 protein bars and one meal per day. Exercise plan: None. Jut got a stationary bike. will start soon. History/Relationship with food The salad was not part of their meals in a regular basis. depressed after back surgeries and eating more. Example of meals before starting the program: Breakfast: Skip AM snack: coffee with sugar and cream with bread and/or crackers w/ butter. Lunch: Skip PM snack: chips. Dinner: @8pm - style. Rice, beans with fried pork/chicken. Night snacks: junk food - chips, honey buns, cupcakes. Drinks/Liquids: History/Relationship with weight PT reports he was around 200Lbs as an adult. after multiple back surgeries and being less active and out of work, his weight has been steadily increasing. In the last 10 years, the patient's Lowest weight was and highest History/Relationship with dieting Tried WMP more than 3 years. Social History Family history and relationship PT is 27 years ago. They have 4 adult daughters, 2 live in [place], 2 out of [facility]. And 9 grandchildren. Parents . He has 3 brothers and 4 sisters. He's close to 2 siblings, the others are spread out and don't have communication. 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 Developmental history and status None reported. currently WNL. Social support , daughter and son-in-law. Mostly family when in need. Community support MH therapist and PCP. Protestant/Spirituality Used to attend [employer]. None at this time. Cultural/Ethnic information Pt was born in [place], grew up in [place]. Moved [place] to the [place] in 2020. PT is bilingual. Legal Involvement and History Current or historical involvement with the legal system? None reported. Education Highest grade completed 2 years of college. Preferred learning style Verbal and Written Currently enrolled in educational program? No Interested in further educational program? 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 Employment Employment Status Other (Disabled. 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 No Meaningful activities watching sports. Family activities. Care for his pets. Financial Situation Describe current financial situation Comfortable and Occasional struggle Financial assistance? Food [place], Disability and SSDI Service Service? No Questionnaires PHQ-9 Over the last 2 weeks, how often have you been bothered by any of the following problems? 1. Little interest or pleasure in doing things: more than half the days 2. Feeling down, depressed, or hopeless: nearly every day 3. Trouble falling or staying asleep, or sleeping too much: more than half the days 4. Feeling tired or having little energy: nearly every day 5. Poor appetite or overeating: nearly every day 6. Feeling bad about yourself - or that you are a failure or have let yourself or your family down: more than half the days 7. Trouble concentrating on things, such as reading the newspaper or watching television: not at all 8. Moving or speaking so slowly that other people could have noticed. Or the opposite - being so fidgety or restless that you have been moving around a lot more than usual: not at all 9. Thoughts that you would be better off or of hurting yourself in some way: not at all Total score: 15 Depression Screening Interpretation: Positive (Scores from new PT pack scanned on 07/15/24.) Depression Screening Done: Yes Source: Developed by Drs. Jacobo Lewis, Clarissa Whitaker, Arcenio Del Valle and colleagues, with an educational gregorio from [employer]. Assessment & Plan Assessment & Plan (1) Depression: Code(s): F32.9 - Major depressive disorder, single episode, unspecified Qualifiers: Depression Type: unspecified Qualified Code(s): F32.A - Depression, unspecified Plan PT not cleared yet as assessment was not finished today, he will return on 11/02/24 to continue. PHQ-9 will be administered again and BES reviewed. Telehealth Telehealth Telehealth Platform: [employer] Location of provider rendering services: other Location of patient: address on file Patient Identification confirmed using: Name, : Yes Telehealth method: voice only Patient verbally consented to treatment: Yes Patient verbally consented to billing insurance company: Yes Patient informed of any privacy concerns related to visit: Yes Minutes spent on Phone/Video with Pt.: 55 Coding Level of Care Code New Pt Tele Psy Diag Eval (58243) Patient Type New Diagnoses Depression, unspecified depression type F32.A Depression Type: unspecified Time Spent (min) 55 Comment Start time: 10:05, End time:11am
== END ==
LOC: HO.HBST 10:45
PROVIDERS: PCP Nurse Practitioner Family; Visit Provider Counselor Mental Health
DX: F32.A Depression, unspecified (principal)
CPT/HCPCS: 90791

== ENCOUNTER → 2024-11-02 09:11 | Outpatient (AMB) | payer MEDICARE, MEDICAID, SELFPAY ==
--- NOTE | 2024-11-02 09:05 | MHC.WMTHER ---
Intake Intake Visit Reasons: TV BH F/U Allergies Sulfa (Sulfonamide Antibiotics) [SULFA (SULFONAMIDE ANTIBIOTICS)] Allergy (Intermediate, Verified 09/26/24 14:50) RASH, hives PFSH Medical History (Updated 11/02/24 @ 09:44 by Samaria Staples, [facility]) Walker as ambulation aid Polyarticular osteoarthritis Venous insufficiency Retinal hemorrhage Vitamin D deficiency Joint pain in both hands HARITHA (obstructive sleep apnea) Carpal tunnel syndrome Morbid obesity Prostate CA Constipation Elevated alkaline phosphatase level Stenosis of cervical spine Anemia Depression RBBB Erectile dysfunction Lumbar spinal stenosis Atrial fibrillation GERD (gastroesophageal reflux disease) Asthma Arthritis Surgical History (Updated 09/26/24 @ 15:49 by Jeimy Vance, RN) Hx of cervical spine surgery History of surgery Hx of neck surgery History of back surgery H/O cardiac radiofrequency ablation (~04/2017) Family History Father Heart attack DVT (deep venous thrombosis) Mother Diabetes COPD (chronic obstructive pulmonary disease) Social History (Updated 09/26/24 @ 15:49 by Jeimy Vance, RN) Household Members: Spouse and Family Housing: House Are you a primary field care coordinator to a significant other at home: No Do you presently have visiting nurse or other home services: Yes (ADMINISTR[employer] 3 hours daily) Alcohol intake: never Patient Tobacco Use Status: Former Tobacco user Tobacco use type: Cigarette e-Cigarette/Vaping Use: Never Used Second Hand Smoke Exposure: No service: No 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al status: retired 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 PT reports he had a depressive episode several years ago triggered bu medical issues impacting his physical functioning, at that time his provider prescribed him with Abilify and he has been on and off from it. Besides this PT denied currently been in counseling or past hospitalization/crisis for behavioral health. Also, denies any history or recent safety concerns around SI/SA and/or self-harm/other-harm, also there is no history of substance use reported. There is also no evidence for stress/emotional-eating, and scores from BES suggest low-mod risk for binge eating behavior. PHQ- scores also showed no active symptoms/concerns with depression. On the other hand, mental status exam is within normal limits, suggesting person's functioning is not impaired. At this time patient is cleared from the behavioral health standpoint. Presenting Concerns Referral Source WMP-Provider. He had initial visit with Dr. Mart on 09/09/2024 Reason for referral Completion of behavioral health assessment as part of process for weight-loss surgery. Precipitating Event Obesity. Living Situation Current Living Situation Rent (Daughters own the home, he's in the second floor.) At risk of losing current housing? No Satisfied with current living situation? Yes Comments PT lives with his , 20 y/o grandson and the family pets (2 birds, 1 dog and the fishes) Food/Weight/Diet Expectations of change The initial goal to lose 10% of your weight before surgery, which is about 37lbs. Ultimate weight goal: 340lbs before surgery. Initial weight 377 lbs. Most recent weight: 366Lbs on 09/27 at a weight check [place]. PT reports he's interested in weight-loss surgery and being able to be more active and go out. PT is implementing the following: Current meal plan: 2 protein shakes, 3 protein bars and one meal per day. Exercise plan: Walking. History/Relationship with food The salad was not part of their meals in a regular basis. depressed after back surgeries and eating more. Example of meals before starting the program: Breakfast: Skip AM snack: coffee with sugar and cream with bread and/or crackers w/ butter. Lunch: Skip PM snack: chips. Dinner: @8pm - style. Rice, beans with fried pork/chicken. Night snacks: junk food - chips, honey buns, cupcakes. Drinks/Liquids: History/Relationship with weight PT reports he was around 200Lbs as an adult. after multiple back surgeries and being less active and out of work, his weight has been steadily increasing. In the last 10 years, the patient's Lowest weight was and highest History/Relationship with dieting Tried WMP more than 3 years. Binge Eating Do you frequently eat large amounts of food in short periods of time, not feeling physically hungry? Yes Do you feel out of control when you eat a large amount of food in a short period of time? Yes Do you eat large amounts of food rapidly and typically alone? No Night Eating Do you wake up at least once during the night to eat? No If you wake up in the night, do you find that it is necessary to eat something in order to fall back asleep? No Do you have little or no appetite in the morning and feel very hungry in the evening, often overeating between dinner and when you go to bed? No Social History Family history and relationship PT is 27 years ago. They have 4 adult daughters, 2 live in [place], 2 out of state. And 9 grandchildren. Parents . He has 3 brothers and 4 sisters. He's close to 2 siblings, the others are spread out and don't have communication. Parental/Familial project admin obligations None. Developmental history and status None reported. currently WNL. Social support , daughter and son-in-law. Mostly family when in need. 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 Adventist/Spirituality Used to attend [employer]. None at this time. Cultural/Ethnic information Pt was born in [place], grew up in [place]. Moved back to the in 2020. PT is bilingual. Legal Involvement and History Current or historical involvement with the legal system? None reported. Education Highest grade completed 2 years of college. Preferred learning style Verbal and Written Currently enrolled in educational program? No Interested in further educational program? 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 Employment Employment Status Other (Disabled. 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 No Meaningful activities watching sports. Family activities. Care for his pets. Financial Situation Describe current financial situation Comfortable and Occasional struggle Financial assistance? Food [place], Disability and SSDI Service Service? No Mental Health and Addiction Treatment Current/Past substance abuse? No Comments Alcohol: None. Cigarettes/Tobacco: None. Cannabis/Edibles: None. Current/Past addictive behavior concerns? No Psychiatric history Not in counseling at this time. He got prescribed Ability 5mg 15 years ago for depression and around that time PT went to counseling, he suffered with depressive symptoms triggered by medical issues. PT reports he's not consistent at taking the Abilify and feels good in general. PT denies ever been in crisis or inpatient for mental health. There is no history and/or current concern about SI/SA and self-harm or other harm. Medical and Physical Health Summary Additional Medical History not covered in history None reported Sexual History concerns Erectile dysfunction. Physical exam in the last year? Yes Pain Screening Current pain? No Pain in the last few months? Yes Comments Back pain, after multiple surgeries. Medications Is the patient compliant with medications? Yes Does the patient have Mcgovern Guardian in place? Not applicable Does the patient use complimentary health approaches? No Trauma/Abuse History History of trauma? No Questionnaires PHQ-9 Over the last 2 weeks, how often have you been bothered by any of the following problems? 1. Little interest or pleasure in doing things: not at all 2. Feeling down, depressed, or hopeless: not at all 3. Trouble falling or staying asleep, or sleeping too much: more than half the days (Due to sleep pnea.) 4. Feeling tired or having little energy: several days 5. Poor appetite or overeating: not at all 6. Feeling bad about yourself - or that you are a failure or have let yourself or your family down: several days (due to medical issues and physical challenges) 7. Trouble concentrating on things, such as reading the newspaper or watching television: not at all 8. Moving or speaking so slowly that other people could have noticed. Or the opposite - being so fidgety or restless that you have been moving around a lot more than usual: not at all 9. Thoughts that you would be better off or of hurting yourself in some way: not at all Total score: 4 Depression Screening Interpretation: Negative Depression Screening Done: Yes 11385 - PHQ-9 Billing: Yes Source: Developed by Drs. Jacobo Lewis, Clarissa Whitaker, Arcenio Del Valle and colleagues, with an educational gregorio from [employer]. Binge Eating Scale Group 1 A. I don't feel self-conscious about my wt. or body size when I'm with others. B. I feel concerned about how I look to others, but it normally does not make me fell disappointed with myself C. I do get self-conscious about my appearance and wt. which makes me feel disappointed in myself. D. I feel very self-conscious about my wt. and frequently I feel intense shame and disgust for myself. I try to avoid social contacts because of my self-consciousness. Response Group 1: A Group 2 A. I don't have any difficulty eating slowly in the proper manner. B. Although I seem to gobble down foods, I don't end up feeling stuffed because of eating to much. C. At times, I tend to eat quickly and then, I feel uncomfortably full afterwards. D. I have the habit of bolting down my food, without really chewing it. When this happens I usually feel uncomfortably stuffed because I've eaten to much. Response Group 2: A Group 3 A. I feel capable to control my eating urges when I want to. B. I feel like I have failed to control my eating more than the average person. C. I feel utterly helpless when it comes to feeling in control of my eating urges. D. Because I feel so helpless about controlling my eating I have become very desperate about trying to get control. Response Group 3: B Group 4 A. I don't have the habit of eating when I'm bored. B. I sometimes eat when I'm bored, but often I'm able to get busy and get my mind off food. C. I have a regular habit of eating when I'm bored, but occasionally, I can use some other activity to get my mind off eating. D. I have a strong habit of eating when I'm bored. Nothing seems to help me breath the habit. Response Group 4: B Group 5 A. I'm usually physically hungry when I eat something. B. Occasionally, I eat something on impulse even though I really am not hungry. C. I have the regular habit of eating foods, that I might not really enjoy, to satisfy a hungry feeling even though physically, I don't need the food. D. Although I'm not physically hungry, I get a hungry feeling in my mouth that only seems to be satisfied when I eat a food, like sandwich, that fills my mouth. Sometimes, when I eat the food to satisfy my mouth hunger, I then spit the food out so I won't gain weight. Response Group 5: B Group 6 A. I don't feel any guilt or self-hate after I overeat. B. After I overeat, occasionally I feel guilt or self-hate. C. Almost all the time I experience strong guilt or self-hate after I overeat. Response Group 6: A Group 7 A. I don't lose total control of my eating when dieting even after periods when I overeat. B. Sometimes when I eat a forbidden food on a diet, I feel like I blew it and eat even more. C. Frequently, I have the habit of saying to myself, I've blown it now, why not go all the way, when I overeat on a diet. When that happens I eat more. D. I have a regular habit of starting a strict diets for myself but I break the diets by going on an eating binge. My life seems to be either a feast or famine. Response Group 7: C Group 8 A. I rarely eat so much food that I feel uncomfortably stuffed afterwards. B. Usually about once a month, I each such a quantity of food, I end up feeling very stuffed. C. I have regular periods during the month when I eat large amounts of food, either at mealtime or at snacks. D. I eat so much food that I regularly feel quite uncomfortable after eating and sometimes a bit nauseous. Response Group 8: C Group 9 A. My level of calorie intake does not go up very high or go down very low on a regular basis. B. Sometimes after I overeat, I will try to reduce my caloric intake to almost nothing to compensate for the excess calories I've eaten. C. I have a regular habit of overeating during the night. It seems that my routine is not to be hungry in the morning but overeat in the evening. D. In my adult years, I have had week-long periods where I practically starve myself. This follows periods when I overeat. It seems I live a life of either feast or famine. Response Group 9: B Group 10 A. I usually am able to stop eating when I want to. I know when enough is enough. B. Every so often, I experience a compulsion to eat which I can't seem to control. C. Frequently, I experience strong urges to eat which I seem unable to control, but at other times I can control my eating urges. D. I feel incapable of controlling urges to eat. I have a fear of not being able to stop eating voluntarily. Response Group 10: B Group 11 A. I don't have any problem stopping eating when I feel full. B. I usually can stop eating when I feel full but occasionally overeat leaving me feeling uncomfortably stuffed. C. I have a problem stopping eating once I start and usually I feel uncomfortably stuffed after I eat a meal. D. Because I have a problem not being able to stop eating when I want, I sometimes have to induce vomiting to relieve my stuffed feeling. Response Group 11: B Group 12 A. I seem to eat just as much when I'm with others, Family social gatherings as when I'm by myself. B. Sometimes, when I'm with other persons, I don't eat as much as I want to eat because I'm self-conscious about my eating. C. Frequently, I eat only a small amount of food when others are present, because I'm very embarrassed about my eating. D. I feel so ashamed about overeating that I pick times to overeat when I know no one will see me. I feel like a closet eater. Response Group 12: B Group 13 A. I eat three meals a day with only an occasional between meal snack. B. I eat 3 meals a day, but I also normally snack between meals. C. When I am snacking heavily, I get in the habit of skipping regular meals. D. There are regular periods when I seem to be continually eating, with no planned meals. Response Group 13: C Group 14 A. I don't think much about trying to control unwanted eating urges. B. At least some of the time, I feel my thoughts are pre-occupied with trying to control my eating urges. C. I feel that frequently I spend much time thinking about how much I ate or about trying not to eat anymore. D. It seems to me that most of my waking hours are pre-occupied by thoughts about eating or not eating. I feel like I'm constantly struggling not to eat. Response Group 14: C Group 15 A. I don't think about food a great deal. B. I have strong craving for food but they last only for brief periods of time. C. I have days when I can't seem to think about anything else but food. D. Most of my days seem to be pre-occupied with thoughts about food. I feel like I live to eat. Response Group 15: B Group 16 A. I usually know whether or not I'm physically hungry. I take the right portion of food to satisfy me. B. Occasionally, I feel uncertain about knowing whether or not I'm physically hungry. A these times it's hard to know how much food I should take to satisfy me. C. Even though I might know how many calories I should eat, I don't have any idea what is a normal amount of food for me. Response Group 16: C Binge Eating Score: 18 Score less than 17 Minimal Risk Score between 18-26 Moderate Risk Score between 27-46 High Risk Assessment & Plan Assessment & Plan (1) Depression: Code(s): F32.9 - Major depressive disorder, single episode, unspecified Qualifiers: Major depression recurrence: single episode Active/Remission status: in remission of unspecified degree (2) Problems related to inappropriate diet and eating habits: Code(s): Z72.4 - Inappropriate diet and eating habits Plan PT has been cleared from BH standpoint. Provider will communicate with Anusha to help client scheduling endoscopy and will also update SANDEEP Conrad, to check in with client as he missed last weight check. This provider also sent the client the information for the body composition scales we recommend and advised him to get one and ask for support setting it up to be able to keep weekly communication with provider. He will follow up with this provider 4-6 wks after surgery. Telehealth Telehealth Telehealth [facility]: [facility] Location of provider rendering services: other Location of patient: address on file Patient Identification confirmed using: Name, : Yes Telehealth method: voice only Patient verbally consented to treatment: Yes Patient verbally consented to billing insurance company: Yes Patient informed of any privacy concerns related to visit: Yes Minutes spent on Phone/Video with Pt.: 45 Coding Level of Care Code Established Pt Tele Psytx >53 mins ([id number]) Patient Type Established Diagnoses Depression F32.9 Major depression recurrence: single episode Active/Remission status: in remission of unspecified degree Problems related to inappropriate diet and eating habits Z72.4 Additional Codes PHQ-9 - 44132 - PHQ-9 Billing: Yes ([id number]) Time Spent (min) 55
== END ==
LOC: HO.HBST 09:11
PROVIDERS: PCP Nurse Practitioner Family; Visit Provider Counselor Mental Health
DX: F32.9 Major depressive disorder, single episode, unspecified (principal); Z72.4 Inappropriate diet and eating habits
CPT/HCPCS: 90837

== ENCOUNTER → 2024-11-02 09:11 | Outpatient (BNVA) | payer MEDICARE, MEDICAID, SELFPAY | PROVIDERS: PCP Nurse Practitioner Family; Visit Provider Counselor Mental Health ==

== ENCOUNTER 2024-11-24 09:15 | Outpatient (AMB) | payer MEDICARE, MEDICAID, SELFPAY ==
--- NOTE | 2024-11-24 09:05 | MHC.WMTHER ---
Intake Intake Visit Reasons: VIDEO BH F/U Allergies Sulfa (Sulfonamide Antibiotics) [SULFA (SULFONAMIDE ANTIBIOTICS)] Allergy (Intermediate, Verified 09/26/24 14:50) RASH, hives PFSH Medical History (Updated 11/02/24 @ 09:44 by Samaria Staples, [facility]) Walker as ambulation aid Polyarticular osteoarthritis Venous insufficiency Retinal hemorrhage Vitamin D deficiency Joint pain in both hands HARITHA (obstructive sleep apnea) Carpal tunnel syndrome Morbid obesity Prostate CA Constipation Elevated alkaline phosphatase level Stenosis of cervical spine Anemia Depression RBBB Erectile dysfunction Lumbar spinal stenosis Atrial fibrillation GERD (gastroesophageal reflux disease) Asthma Arthritis Surgical History (Updated 09/26/24 @ 15:49 by Jeimy Vance, RN) Hx of cervical spine surgery History of surgery Hx of neck surgery History of back surgery H/O cardiac radiofrequency ablation (~04/2017) Family History Father Heart attack DVT (deep venous thrombosis) Mother Diabetes COPD (chronic obstructive pulmonary disease) Social History (Updated 09/26/24 @ 15:49 by Jeimy Vance, RN) Household Members: Spouse and Family Housing: House Are you a primary vocational childcare teacher to a significant other at home: No Do you presently have visiting nurse or other home services: Yes (EXPLOSIVE ORDNANCE SPECIALIST 3 hours daily) Alcohol intake: never Patient Tobacco Use Status: Former Tobacco user Tobacco use type: Cigarette e-Cigarette/Vaping Use: Never Used Second Hand Smoke Exposure: No service: No 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al status: retired 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 He spoke with the program RN who referred him for support pre-op. PT was cleared on previous visit. Objective: PT presents for a follow up visit. . Supportive and reflective listening used to explore feelings, triggers and responses. USed CBT to work on patient's own role on his weight-loss journey, ways to become assertive and become self-aware of need to be his own cheerleader. Discussed and reflected on the things under v.s out of his control. Processed behaviors he needs to work during weight-loss journey. Validated feelings. Provided with stress management and communication strategies. Assessment/Response: Mental status: stressed and down. good functioning despite medical issues. Alert, oritented x3 and engaged Risk reported/identified: None PT responded well to interventions. Plan: follow up in 2 weeks Assessment & Plan Assessment & Plan (1) Depression: Code(s): F32.9 - Major depressive disorder, single episode, unspecified Qualifiers: Major depression recurrence: single episode Active/Remission status: in remission of unspecified degree (2) Problems related to inappropriate diet and eating habits: Code(s): Z72.4 - Inappropriate diet and eating habits Plan Pt is still cleared from standpoint but will receive -support pre-op. NExt holley: 12/05/2024 at 12, PV Telehealth Telehealth Telehealth Platform: [employer] Location of provider rendering services: other Location of patient: address on file Patient Identification confirmed using: Name, : Yes Telehealth method: voice only Patient verbally consented to treatment: Yes Patient verbally consented to billing insurance company: Yes Patient informed of any privacy concerns related to visit: Yes Minutes spent on Phone/Video with Pt.: 55 Coding Level of Care Code Established Pt Tele Psytx >53 mins ([id number]) Patient Type Established Diagnoses Depression F32.9 Major depression recurrence: single episode Active/Remission status: in remission of unspecified degree Problems related to inappropriate diet and eating habits Z72.4 Time Spent (min) 55
== END 2024-11-24 11:22 | disposition home or self-care (01) ==
LOC: HO.HBST 09:15
PROVIDERS: PCP Nurse Practitioner Family; Visit Provider Counselor Mental Health
DX: F32.9 Major depressive disorder, single episode, unspecified (principal); Z72.4 Inappropriate diet and eating habits
CPT/HCPCS: 90837

== ENCOUNTER 2024-12-05 12:15 | Outpatient (AMB) | payer MEDICARE, MEDICAID, SELFPAY ==
--- NOTE | 2024-12-05 12:16 | A.OFFWM_ITS ---
Intake Intake Visit Reasons: (TV) BH F/U Allergies Sulfa (Sulfonamide Antibiotics) [SULFA (SULFONAMIDE ANTIBIOTICS)] Allergy (Intermediate, Verified 09/26/24 14:50) RASH, hives PFSH Medical History (Updated 11/02/24 @ 09:44 by Samaria Staples [facility]) Walker as ambulation aid Polyarticular osteoarthritis Venous insufficiency Retinal hemorrhage Vitamin D deficiency Joint pain in both hands HARITHA (obstructive sleep apnea) Carpal tunnel syndrome Morbid obesity Prostate CA Constipation Elevated alkaline phosphatase level Stenosis of cervical spine Anemia Depression RBBB Erectile dysfunction Lumbar spinal stenosis Atrial fibrillation GERD (gastroesophageal reflux disease) Asthma Arthritis Surgical History (Updated 09/26/24 @ 15:49 by Jeimy Vacne, RN) Hx of cervical spine surgery History of surgery Hx of neck surgery History of back surgery H/O cardiac radiofrequency ablation (~04/2017) Family History Father Heart attack DVT (deep venous thrombosis) Mother Diabetes COPD (chronic obstructive pulmonary disease) Social History (Updated 09/26/24 @ 15:49 by Jeimy Vance, SANDEEP) Household Members: Spouse and Family Housing: House Are you a primary critical care registered nurse to a significant other at home: No Do you presently have visiting nurse or other home services: Yes (STAFF NUCLEAR MEDICINE TECHNOLOGIST 3 hours daily) Alcohol intake: never Patient Tobacco Use Status: Former Tobacco user Tobacco use type: Cigarette e-Cigarette/Vaping Use: Never Used Second Hand Smoke Exposure: No service: No 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al status: retired 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 He has resolved his transportation issues and is committed to consistently attending weight checks. The patient also purchased the [employer] scale. However, he shared that he has not been using the [employer] website as planned, but intends to start using it once he receives the scale on Thursday. Objective: The patient presents for a follow-up visit over the phone. I praised the patient for his efforts in taking ownership of his weight-loss process and making progress toward his goals. We utilized CBT and CPT-based interventions to address mindset and commitment to the weight-loss journey. A plan was developed to help the patient remain consistent with program expectations, and we discussed coping strategies for managing triggers and scenarios that may arise during his journey. Assessment/Response: * Mental status: WNL * Risk reported/identified: None. PT is actively engaged in his weight-loss journey and demonstrates motivation to improve his mindset and consistency. PT patient responded well to interventions and was open to implementing coping strategies to handle challenges. Food/Weight/Diet Expectations of change The initial goal to lose 10% of your weight before surgery, which is about 37lbs. Ultimate weight goal: 340lbs before surgery. Initial weight 377 lbs. 09/27/2024 weight: 366Lbs PT is implementing the following: Current meal plan: 2 protein shakes, 3 protein bars, and one meal per day. (provided by , PT doesn't use [employer] site) Exercise plan: 2-3 days a week, using treadmill. Questionnaires PHQ-9 Over the last 2 weeks, how often have you been bothered by any of the following problems? 1. Little interest or pleasure in doing things: several days 2. Feeling down, depressed, or hopeless: several days 3. Trouble falling or staying asleep, or sleeping too much: more than half the days (napping during the day) 4. Feeling tired or having little energy: several days 5. Poor appetite or overeating: not at all 6. Feeling bad about yourself - or that you are a failure or have let yourself or your family down: more than half the days 7. Trouble concentrating on things, such as reading the newspaper or watching television: not at all 8. Moving or speaking so slowly that other people could have noticed. Or the opposite - being so fidgety or restless that you have been moving around a lot more than usual: not at all 9. Thoughts that you would be better off or of hurting yourself in some way: not at all Total score: 7 Depression Screening Interpretation: Positive Depression Screening Done: Yes 81810 - PHQ-9 Billing: Yes Source: Developed by Clarissa Peralta B.W. Sherman, Arcenio Del Valle and colleagues, with an educational gregorio from [employer]. Assessment & Plan Assessment & Plan (1) Depression: Code(s): F32.9 - Major depressive disorder, single episode, unspecified Qualifiers: Active/Remission status: in remission of unspecified degree Major depression recurrence: single episode (2) Problems related to inappropriate diet and eating habits: Code(s): Z72.4 - Inappropriate diet and eating habits Plan -Continue supporting the patient in developing a consistent routine with the program, utilizing coping strategies for triggers, and maintaining commitment to his weight-loss goals. - The patient will call the office once he receives the scale to set up a weight check visit and receive assistance with setting up the scale. Follow-up in 2 weeks Next holley 12/19/2024 Telehealth Telehealth Telehealth Platform: [employer] Location of provider rendering services: other Location of patient: address on file Patient Identification confirmed using: Name, : Yes Telehealth method: voice only Patient verbally consented to treatment: Yes Patient verbally consented to billing insurance company: Yes Patient informed of any privacy concerns related to visit: Yes Minutes spent on Phone/Video with Pt.: 45 Coding Level of Care Code Established Pt Tele Psytx 45 mins (90743) Patient Type Established Diagnoses Depression F32.9 Active/Remission status: in remission of unspecified degree Major depression recurrence: single episode Problems related to inappropriate diet and eating habits Z72.4 Additional Codes PHQ-9 - 70488 - PHQ-9 Billing: Yes ([id number]) Time Spent (min) 45
== END 2024-12-05 13:59 | disposition home or self-care (01) ==
LOC: HO.HBST 12:15
PROVIDERS: PCP Nurse Practitioner Family; Visit Provider Counselor Mental Health
DX: F32.1 Major depressive disorder, single episode, moderate (principal); Z72.4 Inappropriate diet and eating habits
CPT/HCPCS: 90834

== ENCOUNTER → 2024-12-28 15:01 | Outpatient (BNVA) | payer MEDICARE, MEDICAID, SELFPAY | PROVIDERS: PCP Nurse Practitioner Family ==

== ENCOUNTER → 2025-01-05 10:11 | Outpatient (BNVA) | payer MEDICARE, MEDICAID, SELFPAY | PROVIDERS: PCP Nurse Practitioner Family; Referring Provider Nurse Practitioner Family; Visit Provider Anesthesiology | DX: M96.1 Postlaminectomy syndrome, not elsewhere classified (principal); G89.4 Chronic pain syndrome; Z79.01 Long term (current) use of anticoagulants | CPT/HCPCS: 99202 ==

== ENCOUNTER 2025-01-31 07:35 | Outpatient (REF) | payer MEDICARE, SELFPAY ==
--- NOTE | ~2025-01-31 | CT_ITS ---
EXAMINATION: CT CERVICAL SPINE WITHOUT AND WITH CONTRAST CLINICAL INFORMATION: Postlaminectomy syndrome. COMPARISON: None available. TECHNIQUE: Axial 2 mm thin and reformatted 2 mm thin sagittal and coronal images of cervical spine were obtained following IV 85 mL Omnipaque 350. This CT examination was performed using dose optimization techniques as appropriate, variously including the following: *Automated exposure control *Adjustment of mA and/or kV according to patient size (this includes techniques or standardized protocols for targeted exams where dose is matched to indication/reason for exam; i.e. extremities or head) *Use of iterative reconstruction technique DLP: 1310 mGy/cm. FINDINGS: On sagittal rate concerning images there is mild straightening of cervical lordosis. There is ventral plate and screws at C5-C6 and C6-C7 disc fusion. Intervening bone grafts are integrated at this time. There are large bridging osteophytes at C2-C3, C3-4 and C4-5 disc levels. The craniovertebral junction and C1-C2 alignment is normal. The C2-3 disc level appears unremarkable. At C3-4 disc level there is bilateral narrowing of neural foramina from uncovertebral hypertrophic changes left greater than right is noted. There is mild posterior cervical spondylosis with mild AP canal narrowing. At C4-5 disc level there is a broad-based posterior spondylosis/bulge complex with mild AP canal stenosis. There is bilateral mild narrowing of neural foramina. At C5-6 disc level there is disc fusion from anterior hardware. There is moderate AP canal stenosis and bilateral moderate neural from narrowing from uncovertebral hypertrophic changes. There is mild posterior spondylosis. At C6-7 disc level there is posterior spondylosis with moderate to severe spinal canal stenosis from posterior spondylosis. There is bilateral moderate neural foraminal narrowing from uncovertebral hypertrophic changes. At C7-T1 disc level there is disc fusion and integration of bone graft. There is mild posterior spondylosis with mild concentric canal stenosis. Bilateral moderate neural foramina narrowing slightly worse on the left from uncovertebral hypertrophic changes are noted. Postcontrast there is no abnormal enhancement seen in the spinal canal or the paravertebral soft tissues to suspect any inflammatory process or infection. No abscess seen the prevertebral soft tissues are normal. The airway is widely patent. No visible hardware abnormality seen. The lung apices are clear. Subtle finding of mucosal thickening bilateral ethmoid sinuses right greater than left. CT/CT cervical spine wo/w IV con IMPRESSION: Right subclavian sclerosis and bone graft the C5-6 and C6 testis 7 disc levels for fusion. There is good integration of the graft. The hardware is intact without any malfunction. There are large ventral bridging osteophytes C2-3 , C3-4 and C4-5 disc levels. No acute fractures seen. Disc osteophyte bulge complex as described above without spinal canal stenosis and narrowing of neural foramina from C3-4 through C7-T1 disc levels. Postcontrast there is no abnormal enhancement seen to suspect any inflammatory changes, abscess or bone enhancement to suspect osteomyelitis. Fleischner guidelines were followed. Electronically signed by: Cedric Ceron MD 01/31/2025 09:51 AM DOT
--- OUTSIDE RECORDS SUMMARY | 2025-01-31 07:38 | XMS_ITS ---
Author Organization [facility] Address [address] [place] [address] Care Team Providers Care Foxing Cutting Machine Operator Name Role Phone Prosper Winkler Primary Care Provider Unav ailable Gamaliel Connor Unavailable [phone] Medications Medication SIG (Take, Route, Fr equency, Duration) Notes Start Date End Date Status Ammonium Lactate 12 % 1 application to a ffected area Externally Twice a day to dry areas of skin on feet for 30 days Active Encounters Encounter Location Date Provider Diagnosis [address] [address] 05/09/2024 Gamaliel Connor Type 2 diabetes mellitus [...] day to dry areas of skin on feet for 30 days Next Appt Details Follow Up: [...] as necessary. Patient chooses, no pharmaceutical tx (61127) Keratoma Treatment Parring or Cutting o f Benign Hyperkeratotic Lesion(s) 04464 ( 2-4 Lesions ) - The Benign hyperkeratotic lesions, as described above were pared, and/or cut utilizing a sterile 15 blade, tissue nippers, and/or dremel Progress Notes * Serafin BECKETTDOB:1964 (59 yo M)Acc No.[id number]:05/09/2024 Progress Note Patient:?Serafin BECKETT Provider:?Gamaliel Connor DPM :1965???Age:58 Y???Sex:Male René e:05/09/2024 Address:[address] [place] [address], [address], [place] [address] Pcp:FRANCIS Corrales Subjective: * Chief Complaints: * ??? * HPI: ???Foot Pain:?Nature:?numbness , burning.?Location?B/L , L>R.?Duration:?several years.?Onset/Cause:?lbp--5 back sx's and dpn; pt is disabled due to spinal stenosis.?Treatments:?sx tx.?Quality/Severity?moderate.?At Risk footcare:?Pt States Last PCP Visit:?Date?08/02/2023 ???Painful Nails:?Misc:?son-in-law is present today.?Skin problems:?Nature:?dryness , tender, cracked skin.?Location:?Heel/Rearfoot , B/L--rt is worse.?Duration:?several years.?Treatments:?otc cream hasn't helped.? * ROS:?General/Constitutional:?Nausea?denies, denies.?Vomiting?denies, denies.?Hunger Thirst?denies, denies.?Loss appetite?denies, denies.?Chills?denies, denies.?Fatigue?denies, denies.?Fever?denies, denies.?Night Sweats denies, denies.?Unexplained weight loss?denies, denies.?Unexplained weight gain?denies.?Ophthalmologic:?Blurred vision?denies.?Red eye?denies.?HEENTM:?Dentures?denies, denies.?Dizziness?denies, denies.?Glasses/contacts?admits, denies.?Retinopathy?denies, denies.?Blurred/double vision?denies, denies.?TMJ?denies, denies.?Discharge/drainage?denies, denies.?Implants?denies, denies.?Sore throat?denies.?Dental implants?denies.?Hard of hearing ?denies, denies.?Difficulty chewing/swallowing/speaking?denies, denies.?Nose bleeds?denies, denies.?Sore mouth?denies, denies.?Swollen glands?denies.?Respiratory:?On Oxygen?denies, denies.?Pneumonia/pleurisy?denies, denies.?Bronchitis?denies, denies.?Emphysema?denies, denies.?Coughing?denies, denies.?Cough blood?denies, denies.?Shortness of breath?denies, denies.?Wheezing?denies, denies.?Cardiovascular:?Pacemaker?denies, denies.?MVP?denies, denies.?WPW?denies, denies.?CHF?denies, denies.?Heart attack?admits, denies.?Septal defect?denies, denies.?Rapid beat?denies, denies.?Chest pain ?denies, denies.?Atrial Fib.?denies, denies.?Murmur/Palpitations?denies, denies.?Gastrointestinal:?Hemorrhoids?denies, denies.?Stomach/Abdominal pain?denies, denies.?Dark blood stool?denies, denies.?Irritable bowel ?denies, denies.?Constipation?denies, denies.?Diarrhea?denies, denies.?Vomiting?denies.?Hematology:?Swelling?denies, denies.?Clots?Admits.?Varicose Veins?denies.?Bruising?denies, denies.?Bleeding problem?denies, denies.?Genitourinary:?Blood urine?denies, denies.?Frequent/Painfu/urination/bladder control?denies, denies.?Kidney stones?denies, denies.?Infection (UTI)?denies, denies.?Nephropathy?denies, denies.?sex trans dis (STD)?denies.?Prostate?denies.?Musculoskeletal:?Hammertoes?denies, denies.?Bunions?denies, denies.?Scoliosis/kyphosis?denies.?Back Pain?admits.?Muscle Cramps/ Resting?denies.?Muscle cramps / walking?denies, denies.?Generalized aches and pains?denies, denies.?Weakness?admits, denies.?Integ.:?Salgado?denies, denies.?Scars?admits, denies.?Corns/calluses?denies, denies.?Ingrown nails?denies, denies.?Painful nails?denies, denies.?Open Sores?denies.?Rashes?denies, denies.?Neurologic:?Difficulty sleeping?denies, denies.?Bipolar?denies.?Brain disorder?denies, denies.?Numbness?denies.?Balance trouble?admits, denies.?Confusion?denies, denies.?Fainting/blackouts?denies, denies.?Headache?denies.?Tingling?admits.?Tremors?denies, denies.? * Medical History:? Objective: * Vitals:? * Examination: ???Ophthalmology Referral: ?DIABETES EYE EXAM?Diabetic Retinopathy Screening:?No ?Findings of Diabetic Eye Exam:?no retinopathy?General Examination: ?GENERAL APPEARANCE:?pleasant, alert, well nourished, well developed, well hydrated, with good attention to hygene/body habitus, and in no acute distress.?ORIENTED:?person,place, and time.?Neurological: ?SENSORY:?Neurological exam demonstrates , reduced vibration sensation , 5.07 monofilament test performed at plantar aspects of 5 varied sites per foot shows sensation , B/L , Neurological exam demonstrates , reduced sharp/dull pin prick discrimination , reduced proprioception sensation , B/L.?TINEL'S COMPRESSION:?Negative tarsal tunnel, amaya pedis, and medial calcaneal nerves B/L.?BABINSKI REFLEX:?absent.?Vascular: ?DP PULSES (B):?2/4, B/L.?PT PULSES (B):?0/4, B/L.?CAPILLARY FILL TIME:?3 secs. per digit, B/L.?TROPHIC CONDITION-TEXTURE/ELASTICITY/TURGOR/HAIR GROWTH (B):?normal, B/L.?TEMPERTURE GRADIENT (C):?warm to cool, proximal to distal, B/L.?PIGMENTATION:?normal, B/L.?EDEMA (C):?2/4 , Left , 1/4 , Right.?TELANGECTASIA:?absent.?VARICOSITIES:?absent.?Dermatologic: ?SKIN FINDINGS:?Skin exam reveals Keratotic lesion(s) located at , Plantar , Heel(s) , B/L with cracked fissures right heel noted without infection.?Orthopedic: ?MUSCLE STRENGTH:?5/5 all groups in a symmetrical fashion , B/L.?GAIT ABNORMALITY:?pronated, abducted, B/L.?Nails: ?NAILS are:?Elongated, overgrown, dystrophic, lytic, greater than 3mm thick, discolored and friable with crumbly malodorous subungual debris , with dull to no pain on palpation due to neuropathy , 1-5 B/L.? Assessment: * Assessment: 1.?Type 2 diabetes mellitus with diabetic polyneuropathy - E11.42 (Primary)???2.?Tinea unguium - B35.1???3.?Pain in right toe(s) - M79.674???4.?Pain in left toe(s) - M79.675???5.?Xerosis cutis - L85.3??? Plan: * Treatment: * Procedures:?Debride Nail 6-10:?Nail debridement?Nail debridement performed extensively to reduce/remove overall nail length and girth, subungual debris, and necrotic tissue, by manual and electrical means with use of a nail nipper and/or dremel, to more viable healthy nail plate or bed tissue 6-10. Silver nitrate used for any petechial bleeding as necessary. Patient chooses, no pharmaceutical tx (78757).?Keratoma Treatment:?Parring or Cutting of Benign Hyperkeratotic Lesion(s)?87105 ( 2-4 Lesions ) - The Benign hyperkeratotic lesions, as described above were pared, and/or cut utilizing a sterile 15 blade, tissue nippers, and/or dremel.? * Follow Up:?3 Months * Images: * The named appointment provid er may or may not be the originator of this progress note, and it is not deemed complete until electronically signed by the appointment provider. Sign off status: Pending * Provider:?Gamaliel Connor DPM Date:? 024 Generated for Eric dyer/Evelyn/Boris on:?01/31/2025 07:38 AM EST History and Physical Notes * HPI (History [...]
--- OUTSIDE RECORDS SUMMARY | 2025-01-31 07:38 | XMS_ITS ---
Author Organization [facility] Address [address] [place] [address] Care Team Providers Care Ekg Technician Name Role Phone Prosper Winkler Primary Care Provider Unav ailable Gamaliel Connor Unavailable [phone] REASON FOR VISIT No Show Encounters Encounter Location Date Provider Diagnosis [address] [address] 05/09/2024 Gamaliel Connor Plan Of Treatment No Information Progress Notes * Serafin BECKETTDOB:1964 (58 yo M)Acc No.[id number]:05/09/2024 Patient:?Serafin Beckett :1965???Age:58 Y???Sex:Male Address:[address] [place] [address], [address] [facility], [place], [address] * true * Date:? Generated for Eric dyer/Evelyn/eTransmitting on:?01/31/2025 07:38 AM EST
--- OUTSIDE RECORDS SUMMARY | 2025-01-31 07:38 | XMS_ITS ---
Author Organization [facility] Address [address] [place] [address] Care Team Providers Care Barrel Scraper Name Role Phone Prosper Winkler Primary Care Provider Unav ailable Gamaliel Connor Unavailable [phone] REASON FOR VISIT NS Encounters Encounter Location Date Provider Diagnosis [address] [address] 05/09/2024 Gamaliel Connor Plan Of Treatment No Information Progress Notes * Serafin BECKETTDOB:1964 (58 yo M)Acc No.[id number]:05/09/2024 Patient:?Serafin Beckett :1965???Age:58 Y???Sex:Male Address:[address] [place] [address], [address] [facility], [place], [address] * true * Date:? Generated for Bandari manisha/Evelyn/eTransmitting on:?01/31/2025 07:38 AM EST
--- OUTSIDE RECORDS SUMMARY | 2025-01-31 07:39 | XMS_ITS | Patient Health Record ---
[facility] Address [address] [place] [address] Care Team Providers Care Steam Shovel Runner Name Role Phone Prosper Winkler Primary Care Provider Gamaliel Cohen Unavailable [phone] Allergies Allergen (clinical drug ingredient) Drug/Non Drug Allergy documented on EMR Reaction Allergy Type Onset Date Status sulfamethoxazole / trimethoprim Bactrim Rash Drug Allergy Active Reason For Referral No Information Medications Medication SIG (Take, Route, Fr equency, Duration) Notes Start Date End Date Status Gabapentin 800 MG 1 tablet Orally Once a day Active Abilify 20 MG 1 tablet Orally Once a day Active Ammonium Lactate 12 % APPLY 1 APPLICATIO N TO AFFECTED AREA EXTERNALLY TWICE A DAY TO DRY AREAS OF SKIN ON FEET 30 DAYS for 30 Active Metoprolol Succinate Active Social History Alcohol Screen Question Answer Notes Did you have a drink containing alcohol in the p ast year? No Points 0 Interpretation Negative Problems Problem Type SNOMED Code ICD Code Onset Dates Problem Status W/U Status Risk Notes Problem Polyneuropathy due to type 2 diabetes mellitus (110145021) Type 2 diabetes mellitus with diabetic polyneuropathy (E11.42) Active confirmed Encounters Encounter Location Date Provider Diagnosis [facility] [address] [place] [address] 04/11/2024 [facility] [address] [place] [address] 05/09/[address] [address] 05/09/2024 Gamaliel Connor Plan Of Treatment Pending Test Test Name Order Date 93290-QUHI SKIN LESIONS, 2 TO 4 10/08/20 23 Insurance Providers Payer Name Payer Address Payer Phone Subscriber Number Group Number Insured Name Patient Relationship to Insured Coverage Start Date Coverage End Date [employer] Claims [address] [address] [place] [address] [id number] Serafni Granger Self - patient is the insured Medical (General) History Medical History History ICD Code Arthritis asthma Cancer Depression diabetic Measles Chicken pox Joint implants/screws Surgical History Surgery Date(Month/Year) Back surgery 1 neck
[2025-01-31] MEDS: iohexoL 350 MG/ML 100 ML INFUS..BTL IV (08:51)
[2025-01-31 12:50] LABS: Creatinine POC 1.1 mg/dL (0.5-1.4); GFR POC > 60
== END 2025-01-31 07:36 | disposition home or self-care (01) ==
LOC: HO.CT 07:35
PROVIDERS: PCP Nurse Practitioner Family; Visit Provider Anesthesiology
DX: M96.1 Postlaminectomy syndrome, not elsewhere classified (principal)
CPT/HCPCS: 72127; 82565; Q9967

== ENCOUNTER → 2025-01-31 07:37 | Outpatient (BNV) | payer MEDICARE, SELFPAY | PROVIDERS: PCP Nurse Practitioner Family; Visit Provider Radiology Diagnostic Radiology | DX: M96.1 Postlaminectomy syndrome, not elsewhere classified (principal) | CPT/HCPCS: 72127 ==

== ENCOUNTER 2025-02-24 06:58 | Outpatient (REF) | payer MEDICARE, SELFPAY ==
[2025-02-24 10:38] LABS: Estimated Average Glucose 126 mg/dL; Total Hemoglobin (HGBA1C) 3908.8964 umol/L
[2025-02-24 11:04] LABS: Prostate Specific Antigen 0.53 ng/mL (<0.05-4.0)
== END 2025-02-24 06:59 | disposition home or self-care (01) ==
LOC: HO.HMGCLDS 06:58
PROVIDERS: PCP Nurse Practitioner Family; Referring Provider Urology; Visit Provider Nurse Practitioner Family
DX: R73.03 Prediabetes (principal); C61 Malignant neoplasm of prostate; Z12.5 Encounter for screening for malignant neoplasm of prostate
CPT/HCPCS: 36415; 83036; 84153

== ENCOUNTER 2025-03-02 07:58 | Outpatient (AMB) | payer MEDICARE, MEDICAID, SELFPAY ==
--- OUTSIDE RECORDS SUMMARY | 2025-03-02 08:03 | XMS_ITS ---
Author Organization [facility] Address [address] [place] [address] Care Team Providers Care Contract Specialist Name Role Phone Prosper Winkler Primary Care Provider Unav ailable Gamaliel Connor Unavailable [phone] REASON FOR VISIT No Show Encounters Encounter Location Date Provider Diagnosis [address] [address] 05/09/2024 Gamaliel Connor Plan Of Treatment No Information Progress Notes * Serafin BECKETTDOB:1964 (58 yo M)Acc No.[id number]:05/09/2024 Patient:?Serafin Beckett :1965???Age:58 Y???Sex:Male Address:[address] [place] [address], [address] [facility], [place], [address] * true * Date:? Generated for Bandari manisha/Evelyn/eTransmitting on:?03/02/2025 08:03 AM EDT
--- OUTSIDE RECORDS SUMMARY | 2025-03-02 08:03 | XMS_ITS ---
Author Organization [facility] Address [address] [place] [address] Care Team Providers Care Community Dietitian Name Role Phone Prosper Winkler Primary Care Provider Unav ailable Gamaliel Connor Unavailable [phone] Medications Medication SIG (Take, Route, Fr equency, Duration) Notes Start Date End Date Status Ammonium Lactate 12 % 1 application to a ffected area Externally Twice a day to dry areas of skin on feet for 30 days Active Encounters Encounter Location Date Provider Diagnosis [address] [address] 05/09/2024 Gamaliel Connor Type 2 diabetes mellitus [...] as necessary. Patient chooses, no pharmaceutical tx (91165) Keratoma Treatment Parring or Cutting o f Benign Hyperkeratotic Lesion(s) 24617 ( 2-4 Lesions ) - The Benign hyperkeratotic lesions, as described above were pared, and/or cut utilizing a sterile 15 blade, tissue nippers, and/or dremel Progress Notes * Serafin BECKETTDOB:1964 (59 yo M)Acc No.[id number]:05/09/2024 Progress Note Patient:?Serafin BECKETT Provider:?Gamaliel Connor DPM :1965???Age:58 Y???Sex:Male René e:05/09/2024 Address:[address] [place] [address], [address], [place] [address] Pcp:FRANCIS Corrales Subjective: * Chief Complaints: * [...] as necessary. Patient chooses, no pharmaceutical tx (82930).?Keratoma Treatment:?Parring or Cutting of Benign Hyperkeratotic Lesion(s)?55687 ( 2-4 Lesions ) - The Benign [...] DPM Date:? 024 Generated for Eric dyer/Evelyn/Boris on:?03/02/2025 08:03 AM EDT History and Physical Notes * [...] no acute distress ORIENTED: person,place, and ti vt Ophthalmology Referral DIABETES EYE EXAM Diabetic Retinopa [...]
--- OUTSIDE RECORDS SUMMARY | 2025-03-02 08:03 | XMS_ITS ---
Author Organization [facility] Address [address] [place] [address] Care Team Providers Care Fleet Dispatch Manager Name Role Phone Prosper Winkler Primary Care Provider Unav ailable Gamaliel Connor Unavailable [phone] REASON FOR VISIT NS Encounters Encounter Location Date Provider Diagnosis [address] [address] 05/09/2024 Gamaliel Connor Plan Of Treatment No Information Progress Notes * Serafin BECKETTDOB:1964 (58 yo M)Acc No.[id number]:05/09/2024 Patient:?Serafin Beckett :1965???Age:58 Y???Sex:Male Address:[address] [place] [address], [address] [facility], [place], [address] * true * Date:? Generated for Bandari manisha/Evelyn/eTransmitting on:?03/02/2025 08:03 AM EDT
--- OUTSIDE RECORDS SUMMARY | 2025-03-02 08:04 | XMS_ITS | Patient Health Record ---
[facility] Organization [facility] Address [address] [place] [address] Care Team Providers Care Proposal Rep Name Role Phone Prosper Winkler Primary Care Provider Gamaliel Cohen Unavailable [phone] Allergies Allergen (clinical drug ingredient) Drug/Non Drug [...] Polyneuropathy due to type 2 diabetes mellitus (700368203) Type 2 diabetes mellitus with diabetic polyneuropathy (E11.42) Active confirmed Encounters Encounter Location Date Provider Diagnosis [facility] [address] [place] [address] 04/11/2024 [facility] [address] [place] [address] 05/09/[address] [address] 05/09/2024 Gamaliel Connor Plan Of Treatment Pending Test Test Name Order Date 24115-ALZO SKIN LESIONS, 2 TO 4 10/08/20 23 Insurance Providers Payer Name Payer Address Payer Phone Subscriber Number Group Number Insured Name Patient Relationship to Insured Coverage Start Date Coverage End Date [employer] Claims [address] [address] [place] [address] [id number] Serafin Granger Self - patient is the insured Medical (General) History Medical History History ICD Code Arthritis asthma Cancer Depression diabetic Measles Chicken pox Joint implants/screws Surgical History Surgery Date(Month/Year) Back surgery 1 neck
--- NOTE | 2025-03-02 08:25 | MHC.OFFVIS ---
Intake Visit Reasons: 6m/PSA(psa?) Intake Note: Patient is present for 6M/PSA Urology Medication:TADALAFIL Antibiotic Allergy:SULFA Blood Thinner:APIXABAN Spa Attendant Required: No Allergies Sulfa (Sulfonamide Antibiotics) [SULFA (SULFONAMIDE ANTIBIOTICS)] Allergy (Intermediate, Verified 03/27/25 10:42) RASH, hives HPI Comments Details: Serafin is a pleasant male. He is a patient of Dr. Guerra. He is seen for the following urologic conditions - prostate cancer - low libido - erectile dysfunction Continue good response to medications PSA - 08/22 0.3, 03/24 0.5 Six-month follow-up lab work Prostate cancer: PSA well controlled. Prostate cancer was diagnosed Dr Haile 06/16. Diagnosis was reached by 06/16 , needle biopsy, for elevated PSA, PSA at diagnosis 12, size at TRUS 40-50 gm. The Cable grade is May 201803/11 cores positive RAL 3+4 40% RML 3+4 60% KIMO 4+3 20% BENNY 4+4 10%. TNM Classification of Malignant Tumours (TNM) T1c. The D'Martin (NCCN) risk category is 06/16 , High Risk (PSA > 20, Gl 8+, T3), group 4 Erin 4 + 4 Initial therapy included Primary treatment 09/16 External beam radiation with short term hormonal ablation - Dr John Cohen - completed 11/16, 07/14/18 GnRH 6m Recent labs included 02/15 PSA < 0.05 06/17 T 240 PSA < 0.05 - 10/22 PSA 0.07, T 260 Associated conditions erectile dysfunction Yes PFSH Medical History (Updated 05/04/25 @ 12:48 by Prosper Ellis, FINANCIAL ACCOUNTING MANAGER-) Walker as ambulation aid Polyarticular osteoarthritis Venous insufficiency Retinal hemorrhage Vitamin D deficiency Joint pain in both hands HARITHA (obstructive sleep apnea) Carpal tunnel syndrome Morbid obesity Prostate CA Constipation Elevated alkaline phosphatase level Stenosis of cervical spine Anemia Depression RBBB Erectile dysfunction Lumbar spinal stenosis Atrial fibrillation GERD (gastroesophageal reflux disease) Asthma Arthritis Surgical History Hx of cervical spine surgery History of surgery Hx of neck surgery History of back surgery H/O cardiac radiofrequency ablation (~04/2017) Family History Father Heart attack DVT (deep venous thrombosis) Mother Diabetes COPD (chronic obstructive pulmonary disease) Social History Household Members: Spouse and Family Housing: House Are you a primary direct support professional caregiver to a significant other at home: No Do you presently have visiting nurse or other home services: Yes (MEASUREMENT SPECIALIST 3 hours daily) Alcohol intake: never Patient Tobacco Use Status: Former Tobacco user Tobacco use type: Cigarette e-Cigarette/Vaping Use: Never Used Second Hand Smoke Exposure: No service: No 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al status: retired 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 Cognitive needs: No Hearing needs: No Vision needs: No Review of Systems Const Denies chills and Denies fever(s) Card Reports no additional complaints and Denies syncope Resp Denies cough GI Denies abdominal pain and Denies heartburn Reports as per HPI and Denies change in libido Neuro Denies syncope Psych Denies change in libido Endo Denies change in libido Physical Exam Const General: cooperative, healthy appearing, comfortable and no acute distress Orientation/consciousness: patient oriented x3 HEENT Face and sinus: Yes normal facial exam Mouth: moist mucous membranes Neck Neck: Yes normal visual inspection, Yes full ROM and Yes trachea midline Chest Chest palpation & inspection: normal inspection of the chest Resp Effort & Inspection: normal respiratory effort, able to speak in complete sentences and no respiratory distress GI Inspection: Yes normal to inspection Back/Spine/Pelvis Cervical Spine: normal cervical lordosis Thoracic/Lumbar Spine: thoracic and lumbar spine normal to inspection Skin General skin exam: no rashes or lesions noted Neuro General: patient oriented x3, gait normal, tone normal and moves all extremities Extrem General: Yes normal to inspection and Yes capillary refill normal Assessment & Plan Assessment & Plan (1) Prostate CA: Code(s): C61 - Malignant neoplasm of prostate Category: Medical (2) Erectile dysfunction: Code(s): N52.9 - Male erectile dysfunction, unspecified Category: Medical Plan Six-month follow-up Daily tadalafil Patient Instructions: This note is constructed using voice recognition software. While every effort has been made to ensure accuracy coverstitch elastic attacher errors may have been included. Imaging studies, laboratory and physical exam results were discussed and reviewed in detail. No major barriers to patient understanding were identified. An opportunity to ask questions regarding the treatment plan was provided. All questions were answered. The patient expressed understanding and agreement with the above treatment plan. The patient is aware they should contact our office by phone for worsening of their current condition or the appearance of new urologic symptoms. Compliance is encouraged with any medications and followup testing that is ordered. It is a privilege to participate in the urologic care of your patient. If you have any questions or concerns regarding treatment for the above conditions, or other urologic issues, please do not hesitate to contact me. The office telephone contact is [phone]. Sincerely, Dr Raul Haile MD, [facility] - Urology Compassionate Specialist Care for the Genitourinary System Coding Level of Care Code Est Pt Level 3 (72760) Complex EM visit Add On G2211 Diagnoses Prostate CA C61 Erectile dysfunction N52.9
== END 2025-03-02 09:06 | disposition home or self-care (01) ==
PROVIDERS: PCP Nurse Practitioner Family; Visit Provider Urology
DX: C61 Malignant neoplasm of prostate (principal); N52.9 Male erectile dysfunction, unspecified
CPT/HCPCS: 99213; G2211

== ENCOUNTER → 2025-03-02 07:58 | Outpatient (BNVA) | payer MEDICARE, MEDICAID, SELFPAY | PROVIDERS: PCP Nurse Practitioner Family; Visit Provider Urology | DX: C61 Malignant neoplasm of prostate (principal); N52.9 Male erectile dysfunction, unspecified; R73.03 Prediabetes; Z71.3 Dietary counseling and surveillance | CPT/HCPCS: 99212 ==

== ENCOUNTER 2025-03-09 06:50 | Outpatient (AMB) | payer MEDICARE, MEDICAID, SELFPAY ==
--- OUTSIDE RECORDS SUMMARY | 2025-03-09 06:52 | XMS_ITS ---
Author Organization [facility] Address [address] [place] [address] Care Team Providers Care Angiography Technologist Name Role Phone Prosper Winkler Primary Care Provider Unav ailable Gamaliel Connor Unavailable [phone] REASON FOR VISIT No Show Encounters Encounter Location Date Provider Diagnosis [address] [address] 05/09/2024 Gamaliel Connor Plan Of Treatment No Information Progress Notes * Serafin BECKETTDOB:1964 (58 yo M)Acc No.[id number]:05/09/2024 Patient:?Serafin Beckett :1965???Age:58 Y???Sex:Male Address:[address] [place] [address], [address] [facility], [place], [address] * true * Date:? Generated for Bandari manisha/Evelyn/eTransmitting on:?03/09/2025 06:51 AM EDT
--- OUTSIDE RECORDS SUMMARY | 2025-03-09 06:52 | XMS_ITS | Patient Health Record ---
[facility] Address [address] [place] [address] Care Team Providers Care Principal Ios Developer Name Role Phone Prosper Winkler Primary Care Provider Gamaliel Cohen Unavailable [phone] Allergies Allergen (clinical drug ingredient) Drug/Non Drug [...] Polyneuropathy due to type 2 diabetes mellitus (370918220) Type 2 diabetes mellitus with diabetic polyneuropathy (E11.42) Active confirmed Encounters Encounter Location Date Provider Diagnosis [facility] [address] [place] [address] 04/11/2024 [facility] [address] [place] [address] 05/09/[address] [address] 05/09/2024 Gamaliel Connor Plan Of Treatment Pending Test Test Name Order Date 08501-TCHG SKIN LESIONS, 2 TO 4 10/08/20 23 Insurance Providers Payer Name Payer Address Payer Phone Subscriber Number Group Number Insured Name Patient Relationship to Insured Coverage Start Date Coverage End Date [employer] Claims [address] [address] [place] [address] [id number] Serafin Granger Self - patient is the insured Medical (General) History Medical History History ICD Code Arthritis asthma Cancer Depression diabetic Measles Chicken pox Joint implants/screws Surgical History Surgery Date(Month/Year) Back surgery 1 neck
--- OUTSIDE RECORDS SUMMARY | 2025-03-09 06:52 | XMS_ITS ---
Author Organization [facility] Address [address] [place] [address] Care Team Providers Care Machine Ii Trimmer Name Role Phone Prosper Winkler Primary Care Provider Unav ailable Gamaliel Connor Unavailable [phone] Medications Medication SIG (Take, Route, Fr equency, Duration) Notes Start Date End Date Status Ammonium Lactate 12 % 1 application to a ffected area Externally Twice a day to dry areas of skin on feet for 30 days Active Encounters Encounter Location Date Provider Diagnosis [address] [address] 05/09/2024 Gamaliel Connor Type 2 diabetes mellitus [...] as necessary. Patient chooses, no pharmaceutical tx (51160) Keratoma Treatment Parring or Cutting o f Benign Hyperkeratotic Lesion(s) 69936 ( 2-4 Lesions ) - The Benign hyperkeratotic lesions, as described above were pared, and/or cut utilizing a sterile 15 blade, tissue nippers, and/or dremel Progress Notes * Serafin BECKETTDOB:1964 (59 yo M)Acc No.[id number]:05/09/2024 Progress Note Patient:?Serafin BECKETT Provider:?Gamaliel Connor DPM :1965???Age:58 Y???Sex:Male René e:05/09/2024 Address:[address] [place] [address], [address], [place] [address] Pcp:FRANCIS Corrales Subjective: * Chief Complaints: * [...] as necessary. Patient chooses, no pharmaceutical tx (07799).?Keratoma Treatment:?Parring or Cutting of Benign Hyperkeratotic Lesion(s)?16242 ( 2-4 Lesions ) - The Benign [...] DPM Date:? 024 Generated for Eric dyer/Evelyn/Boris on:?03/09/2025 06:52 AM EDT History and Physical Notes * [...] no acute distress ORIENTED: person,place, and ti ar Ophthalmology Referral DIABETES EYE EXAM Diabetic Retinopa [...]
--- OUTSIDE RECORDS SUMMARY | 2025-03-09 06:52 | XMS_ITS ---
Author Organization [facility] Address [address] [place] [address] Care Team Providers Care Digital Media Associate Name Role Phone Prosper Winkler Primary Care Provider Unav ailable Gamaliel Connor Unavailable [phone] REASON FOR VISIT NS Encounters Encounter Location Date Provider Diagnosis [address] [address] 05/09/2024 Gamaliel Connor Plan Of Treatment No Information Progress Notes * Serafin BECKETTDOB:1964 (58 yo M)Acc No.[id number]:05/09/2024 Patient:?Serafin Beckett :1965???Age:58 Y???Sex:Male Address:[address] [place] [address], [address] [facility], [place], [address] * true * Date:? Generated for Printi manisha/Evelyn/eTransmitting on:?03/09/2025 06:52 AM EDT
--- NOTE | 2025-03-09 07:50 | A.OFFPC_ITS ---
Intake Visit Reasons: Discuss [email or web address] [phone] Allergies Sulfa (Sulfonamide Antibiotics) [SULFA (SULFONAMIDE ANTIBIOTICS)] Allergy (Intermediate, Verified 03/09/25 07:53) RASH, hives Medication List - Last Reconciled 03/09/25 by Prosper Ellis, [facility] apixaban 5 mg PO Q12H aripiprazole (Abilify) 5 mg PO DAILY blood sugar diagnostic (OneTouch Verio test strips) test blood sugar once a day blood-glucose meter (Carrier MobileTouch Verio Flex Meter) As directed gabapentin 800 mg PO TID lancets (Carrier MobileTouch Delica Plus Lancet) test blood sugar once a day losartan 25 mg PO DAILY omeprazole 20 mg PO DAILY oxycodone-acetaminophen 5-325 mg 1 tab PO Q8H PRN 4 days pramipexole 0.5 mg PO BID 90 days prazosin 1 mg PO BEDTIME [Rollator walker with seat daily use] tadalafil 5 mg PO DAILY 90 days walker with wheels Tobacco use date assessed: 02/02/24 Dental Screening Dental Screen Date: 02/02/24 HPI Discuss [email or web address] [phone] HPI Details Chief Complaint The patient presents with increased severity of Restless Leg Syndrome and hypoglycemic episodes. History of Present Illness The patient is a 59-year-old male presenting for follow-up of Restless Leg Syndrome, which has worsened over time despite ongoing Pramipexole therapy. He was originally prescribed Pramipexole at 0.25 mg twice daily by sleep medicine (years ago), but symptoms have exacerbated recently. The patient also presents with symptoms of hypoglycemia, confirmed by glucose readings in the low 80s, as part of his Type 2 Diabetes Mellitus management, indicating a need for closer monitoring. The patient further has diabetic neuropathy. Social History Health Maintenance Review of Systems - Neurological: Reports severe Restless Leg Syndrome symptoms. - Endocrine: Reports symptoms consistent with hypoglycemia, including dizziness and hunger. - Cardiovascular: Denies chest pain or s hortness of breath. - Gastrointestinal: Denies nausea or vom iting. - General: Denies fevers or chills. - Psychiatric: Denies suicidal ideation or homicidal ideation. Physical Exam appears in no acute distress Results Plan 1. 5 mg twice daily to address the inten sified symptoms of Restless Leg Syndrome. To monitor iron levels, I will order a ferritin test. For better hypoglycemia management, I will arrange a continuous glucose monitor. Follow-up will occur in two weeks to evaluate treatment effectiveness and review laboratory results.: Discussion Notes During the visit, I discussed the escalation in Restless Leg Syndrome symptoms and the plan to increase the Pramipexole dosage. I explained the potential for symptomatic relief with this change and detailed the rationale for ordering ferritin levels. For the hypoglycemic events, I emphasized the importance of effective monitoring through a continuous glucose monitor and its benefits for managing diabetes. We reviewed the potential complications of hypoglycemia and the importance of consistent monitoring and dietary adjustments. I scheduled a follow-up in two weeks to ensure treatment objectives are being met and to revisit any further management strategies that may be necessary. Patient Instructions - Increase Pramipexole to 0.5 mg twice d aily for Restless Leg Syndrome. - Arrange to use a continuous glucose mo nitor for better diabetes management. - Continue regular blood glucose monitor ing and document any hypoglycemic episodes (pt understands how to treat hypoglycemia) - Follow up in two weeks to discuss prog ress and lab results. [facility] Medical History Walker as ambulation aid Polyarticular osteoarthritis Venous insufficiency Retinal hemorrhage Vitamin D deficiency Joint pain in both hands HARITHA (obstructive sleep apnea) Carpal tunnel syndrome Morbid obesity Prostate CA Constipation Elevated alkaline phosphatase level Stenosis of cervical spine Anemia Depression RBBB Erectile dysfunction Lumbar spinal stenosis Atrial fibrillation GERD (gastroesophageal reflux disease) Asthma Arthritis Surgical History Hx of cervical spine surgery History of surgery Hx of neck surgery History of back surgery H/O cardiac radiofrequency ablation (~04/2017) Family History Father Heart attack DVT (deep venous thrombosis) Mother Diabetes COPD (chronic obstructive pulmonary disease) Social History Household Members: Spouse and Family Housing: House Are you a primary direct care worker to a significant other at home: No Do you presently have visiting nurse or other home services: Yes (UPHOLSTERY AUTO TRIMMER 3 hours daily) Alcohol intake: never Patient Tobacco Use Status: Former Tobacco user Tobacco use type: Cigarette e-Cigarette/Vaping Use: Never Used Second Hand Smoke Exposure: No service: No 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al status: retired 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 Cognitive needs: No Hearing needs: No Vision needs: No Questionnaire Thrive Questionnaire Date Thrive assessed: 08/16/24 I am a: Patient What is your living situation today?: I have a steady place to live Within the past 12 months, did the food you bought not last and you didn't have the money to get more?: Sometimes True Within the past 12 months, did you worry whether your food would run out before you got money to buy more?: Sometimes True Do you have trouble paying for medicines?: No Do you have trouble getting transportation to medical appointments?: Yes Do you have trouble paying your heating and electricity bill?: Yes Do you have trouble taking care of your child, family member or friend?: No Do you have trouble with day-to-day activities such as bathing, preparing meals, shopping, managing finances, etc.?: Yes Are you currently unemployed and looking for a job?: No Are you interested in more education?: No Currently or been in a relationship where the following occur: No concerns reported THRIVE Score: 4 CLAU-7 AMB Questionnaire CLAU-7 Date CLAU - 7 assessed: 09/15/24 Source: Developed by Drs. Jacobo Lewis, Clarissa Whitaker, Arcenio Del Valle and colleagues, with an educational gregorio from [employer]. Physical exam (Primary Care) Tobacco/Smoking Status: Tobacco use Status Tobacco use date assessed 02/02/24 03/09/25 07:52 Patient Tobacco Use Status Former Tobacco user 03/09/25 07:52 Tobacco use type Cigarette 03/09/25 07:52 e-Cigarette/Vaping Use Never Used 03/09/25 07:52 Thrive Assessment: Date of Thrive Assessment Date Thrive assessed 08/16/24 03/09/25 07:52 Currently or been in a relationship where the following occur: No concerns reported Coding Level of Care Code Tele Est Pt Level 3 (03172) Diagnoses Diabetes E11.9 Hypoglycemia E16.2 Restless leg syndrome G25.81 Assessment & Plan Assessment & Plan (1) Diabetes: Code(s): E11.9 - Type 2 diabetes mellitus without complications Category: Medical (2) Hypoglycemia: Code(s): E16.2 - Hypoglycemia, unspecified Category: Medical (3) Restless leg syndrome: Comment: PSG (2018)- PLMS Code(s): G25.81 - Restless legs syndrome Category: Medical Plan . Orders: Orders Comprehensive [place]. Panel Fast Today E11.9 - Type 2 diabetes mellitus without complications, E16.2 - Hypoglycemia, unspecified UA CC w/rflx Micro + Cult Today E11.9 - Type 2 diabetes mellitus without complications, E16.2 - Hypoglycemia, unspecified Lipid Panel Today E11.9 - Type 2 diabetes mellitus without complications, E16.2 - Hypoglycemia, unspecified Microalbumin, Random (w Creat) Today E11.9 - Type 2 diabetes mellitus without complications, E16.2 - Hypoglycemia, unspecified Complete Blood Count Auto Diff Today E11.9 - Type 2 diabetes mellitus without complications, E16.2 - Hypoglycemia, unspecified TSH reflex Free T4 Today E11.9 - Type 2 diabetes mellitus without complications, E16.2 - Hypoglycemia, unspecified IRON PROFILE Today E11.9 - Type 2 diabetes mellitus without complications, E16.2 - Hypoglycemia, unspecified Ferritin Today E11.9 - Type 2 diabetes mellitus without complications, E16.2 - Hypoglycemia, unspecified Medications: Changed From pramipexole at 8:30pm and 10pm 0.25 mg PO BID 90 days 180 tabs 2RF To pramipexole at 8:30pm and 10pm 0.5 mg PO BID 90 days 180 tabs 2RF
== END 2025-03-09 08:00 | disposition home or self-care (01) ==
LOC: HO.HMCC 06:50
PROVIDERS: PCP Nurse Practitioner Family; Visit Provider Nurse Practitioner Family
DX: E11.9 Type 2 diabetes mellitus without complications (principal); E16.2 Hypoglycemia, unspecified; G25.81 Restless legs syndrome

== ENCOUNTER → 2025-03-09 06:50 | Outpatient (BNVA) | payer MEDICARE, MEDICAID, SELFPAY | PROVIDERS: PCP Nurse Practitioner Family; Visit Provider Nurse Practitioner Family | DX: Z13.89 Encounter for screening for other disorder (principal) ==

== ENCOUNTER 2025-03-13 11:51 | Outpatient (REF) | payer MEDICARE, MEDICAID, SELFPAY ==
--- OUTSIDE RECORDS SUMMARY | 2025-03-13 13:56 | XMS_ITS ---
Author Organization [facility] Address [address] [place] [address] Care Team Providers Care Presentation Designer Name Role Phone Prosper Winkler Primary Care Provider Unav ailable Gamaliel Connor Unavailable [phone] Medications Medication SIG (Take, Route, Fr equency, Duration) Notes Start Date End Date Status Ammonium Lactate 12 % 1 application to a ffected area Externally Twice a day to dry areas of skin on feet for 30 days Active Encounters Encounter Location Date Provider Diagnosis [address] [address] 05/09/2024 Gamaliel Connor Type 2 diabetes mellitus [...] as necessary. Patient chooses, no pharmaceutical tx (14340) Keratoma Treatment Parring or Cutting o f Benign Hyperkeratotic Lesion(s) 97148 ( 2-4 Lesions ) - The Benign hyperkeratotic lesions, as described above were pared, and/or cut utilizing a sterile 15 blade, tissue nippers, and/or dremel Progress Notes * Serafin BECKETTDOB:1964 (59 yo M)Acc No.[id number]:05/09/2024 Progress Note Patient:?Serafin BECKETT Provider:?Gamaliel Connor DPM :1965???Age:58 Y???Sex:Male René e:05/09/2024 Address:[address] [place] [address], [address], [place] [address] Pcp:FRANCIS Corrales Subjective: * Chief Complaints: * [...] as necessary. Patient chooses, no pharmaceutical tx (44606).?Keratoma Treatment:?Parring or Cutting of Benign Hyperkeratotic Lesion(s)?18604 ( 2-4 Lesions ) - The Benign [...] DPM Date:? 024 Generated for Eric dyer/Evelyn/Boris on:?03/13/2025 01:55 PM EDT History and Physical Notes * [...] no acute distress ORIENTED: person,place, and ti id Ophthalmology Referral DIABETES EYE EXAM Diabetic Retinopa [...]
--- OUTSIDE RECORDS SUMMARY | 2025-03-13 13:56 | XMS_ITS ---
Author Organization [facility] Address [address] [place] [address] Care Team Providers Care Spray Painter Helper Name Role Phone Prosper Winkler Primary Care Provider Unav ailable Gamaliel Connor Unavailable [phone] REASON FOR VISIT NS Encounters Encounter Location Date Provider Diagnosis [address] [address] 05/09/2024 Gamaliel Connor Plan Of Treatment No Information Progress Notes * Serafin BECKETTDOB:1964 (58 yo M)Acc No.[id number]:05/09/2024 Patient:?Serafin Beckett :1965???Age:58 Y???Sex:Male Address:[address] [place] [address], [address] [facility], [place], [address] * true * Date:? Generated for Bandari manisha/Evelyn/eTransmitting on:?03/13/2025 01:55 PM EDT
--- OUTSIDE RECORDS SUMMARY | 2025-03-13 13:56 | XMS_ITS | Patient Health Record ---
Author [facility] Address [address] [place] [address] Care Team Providers Care Shop Teacher Name Role Phone Prosper Winkler Primary Care Provider Gamaliel Cohen Unavailable [phone] Allergies Allergen (clinical drug ingredient) Drug/Non Drug [...] Polyneuropathy due to type 2 diabetes mellitus ([id number]) Type 2 diabetes mellitus with diabetic polyneuropathy (E11.42) Active confirmed Encounters Encounter Location Date Provider Diagnosis [facility] [address] [place] [address] 04/11/2024 [facility] [address] [place] [address] 05/09/[address] [address] 05/09/2024 Gamaliel Connor Plan Of Treatment Pending Test Test Name Order Date 12462-ZETM SKIN LESIONS, 2 TO 4 10/08/20 23 Insurance Providers Payer Name Payer Address Payer Phone Subscriber Number Group Number Insured Name Patient Relationship to Insured Coverage Start Date Coverage End Date [email or web address] Claims [address] [address] [place] [address] [id number] Serafin Granger Self - patient is the insured Medical (General) History Medical History History ICD Code Arthritis asthma Cancer Depression diabetic Measles Chicken pox Joint implants/screws Surgical History Surgery Date(Month/Year) Back surgery 1 neck
--- OUTSIDE RECORDS SUMMARY | 2025-03-13 13:56 | XMS_ITS ---
Author Organization [facility] Address [address] [place] [address] Care Team Providers Care Livestock Commission Agent Name Role Phone Prosper Winkler Primary Care Provider Unav ailable Gamaliel Connor Unavailable [phone] REASON FOR VISIT No Show Encounters Encounter Location Date Provider Diagnosis [address] [address] 05/09/2024 Gamaliel Connor Plan Of Treatment No Information Progress Notes * Serafin BECKETTDOB:1964 (58 yo M)Acc No.[id number]:05/09/2024 Patient:?Serafin Beckett :1965???Age:58 Y???Sex:Male Address:[address] [place] [address], [address] [facility], [place], [address] * true * Date:? Generated for Bandari manisha/Evelyn/eTransmitting on:?03/13/2025 01:55 PM EDT
== END 2025-03-13 11:52 | disposition home or self-care (01) ==
LOC: HO.LAB 11:51
PROVIDERS: PCP Nurse Practitioner Family; Visit Provider Nurse Practitioner Family
DX: Z13.89 Encounter for screening for other disorder (principal)

== ENCOUNTER 2025-03-20 08:06 | Outpatient (REF) | payer MEDICARE, MEDICAID, SELFPAY ==
--- OUTSIDE RECORDS SUMMARY | 2025-03-20 08:08 | XMS_ITS ---
Author Organization [facility] Address [address] [place] [address] Care Team Providers Care Event Set Up Specialist Name Role Phone Prosper Winkler Primary Care Provider Unav ailable Gamaliel Connor Unavailable [phone] REASON FOR VISIT No Show Encounters Encounter Location Date Provider Diagnosis [address] [address] 05/09/2024 Gamaliel Connor Plan Of Treatment No Information Progress Notes * Serafin BECKETTDOB:1964 (58 yo M)Acc No.[id number]:05/09/2024 Patient:?Serafin Beckett :1965???Age:58 Y???Sex:Male Address:[address] [place] [address], [address] [facility], [place], [address] * true * Date:? Generated for Bandari manisha/Evelyn/eTransmitting on:?03/20/2025 08:08 AM EDT
--- OUTSIDE RECORDS SUMMARY | 2025-03-20 08:09 | XMS_ITS ---
Author Organization [facility] Address [address] [place] [address] Care Team Providers Care Adjunct Teacher Name Role Phone Prosper Winkler Primary Care Provider Unav ailable Gamaliel Connor Unavailable [phone] REASON FOR VISIT NS Encounters Encounter Location Date Provider Diagnosis [address] [address] 05/09/2024 Gamaliel Connor Plan Of Treatment No Information Progress Notes * Serafin BECKETTDOB:1964 (58 yo M)Acc No.[id number]:05/09/2024 Patient:?Serafin Beckett :1965???Age:58 Y???Sex:Male Address:[address] [place] [address], [address] [facility], [place], [address] * true * Date:? Generated for Printi manisha/Evelyn/eTransmitting on:?03/20/2025 08:08 AM EDT
--- OUTSIDE RECORDS SUMMARY | 2025-03-20 08:09 | XMS_ITS ---
Author Organization [facility] Address [address] [place] [address] Care Team Providers Care Plug Maker Name Role Phone Prosper Winkler Primary Care Provider Unav ailable Gamaliel Connor Unavailable [phone] Medications Medication SIG (Take, Route, Fr equency, Duration) Notes Start Date End Date Status Ammonium Lactate 12 % 1 application to a ffected area Externally Twice a day to dry areas of skin on feet for 30 days Active Encounters Encounter Location Date Provider Diagnosis [address] [address] 05/09/2024 Gamaliel Connor Type 2 diabetes mellitus [...] as necessary. Patient chooses, no pharmaceutical tx (31202) Keratoma Treatment Parring or Cutting o f Benign Hyperkeratotic Lesion(s) 95408 ( 2-4 Lesions ) - The Benign hyperkeratotic lesions, as described above were pared, and/or cut utilizing a sterile 15 blade, tissue nippers, and/or dremel Progress Notes * Serafin BECKETTDOB:1964 (59 yo M)Acc No.[id number]:05/09/2024 Progress Note Patient:?Serafin BECKETT Provider:?Gamaliel Connor DPM :1965???Age:58 Y???Sex:Male René e:05/09/2024 Address:[address] [place] [address], [address], [place] [address] Pcp:FRANCIS Corrales Subjective: * Chief Complaints: * [...] as necessary. Patient chooses, no pharmaceutical tx (76651).?Keratoma Treatment:?Parring or Cutting of Benign Hyperkeratotic Lesion(s)?09094 ( 2-4 Lesions ) - The Benign [...] DPM Date:? 024 Generated for Eric dyer/Evelyn/Boris on:?03/20/2025 08:08 AM EDT History and Physical Notes * [...] no acute distress ORIENTED: person,place, and ti [place] Ophthalmology Referral DIABETES EYE EXAM Diabetic Retinopa [...]
--- OUTSIDE RECORDS SUMMARY | 2025-03-20 08:09 | XMS_ITS | Patient Health Record ---
[facility] Address [address] [place] [address] Care Team Providers Care Road Consultant Name Role Phone Prosper Winkler Primary Care Provider Gamaliel Cohen Unavailable [phone] Allergies Allergen (clinical drug ingredient) Drug/Non Drug [...] Polyneuropathy due to type 2 diabetes mellitus (647646966) Type 2 diabetes mellitus with diabetic polyneuropathy (E11.42) Active confirmed Encounters Encounter Location Date Provider Diagnosis [facility] [address] [place] [address] 04/11/2024 [facility] [address] [place] [address] 05/09/[address] [address] 05/09/2024 Gamalile Connor Plan Of Treatment Pending Test Test Name Order Date 99986-FAEY SKIN LESIONS, 2 TO 4 10/08/20 23 Insurance Providers Payer Name Payer Address Payer Phone Subscriber Number Group Number Insured Name Patient Relationship to Insured Coverage Start Date Coverage End Date [employer] Claims [address] [address] [place] [address] [phone] [id number] Serafin Granger Self - patient is the insured Medical (General) History Medical History History ICD Code Arthritis asthma Cancer Depression diabetic Measles Chicken pox Joint implants/screws Surgical History Surgery Date(Month/Year) Back surgery 1 neck
[2025-03-20 10:18] LABS: Gamma Glutamyl Transpeptidase 43 U/L (11-51)
[2025-03-23 21:39] LABS: Alk.Phos Iso. Macrohepatic 0 % (<=0); Alk.Phos Isoenzymes Bone 36 % (28-66); Alk.Phos Isoenzymes Intest 0 % (1-24); Alk.Phos Isoenzymes Liver 64 % (25-69); Alk.Phos Isoenzymes Placental 0 % (<=0); Alk.Phos Isoenzymes Total 110 U/L (35-144)
== END 2025-03-20 08:07 | disposition home or self-care (01) ==
LOC: HO.HMGCLDS 08:06
PROVIDERS: PCP Nurse Practitioner Family; Visit Provider Nurse Practitioner Family
DX: R74.8 Abnormal levels of other serum enzymes (principal)
CPT/HCPCS: 36415; 82977; 84080

== ENCOUNTER 2025-03-23 09:43 | Outpatient (AMB) | payer MEDICARE, MEDICAID, SELFPAY ==
--- NOTE | 2025-03-23 09:50 | MHC.PC.OV ---
Vital Signs 03/23/25 09:51 Height 6 ft 3 in Weight 366 lb 8 oz BMI 45.8 BP 148/86 H Blood Pressure Location Lt brachial Position Sitting Respiration 16 Pulse 74 Pulse Source Pulse Oximeter Pulse Oximetry (%) 95 Intake Visit Reasons: 6 months f/up Allergies Sulfa (Sulfonamide Antibiotics) [SULFA (SULFONAMIDE ANTIBIOTICS)] Allergy (Intermediate, Verified 03/23/25 09:54) RASH, hives Medication List - Last Reconciled 03/23/25 by Prosper Ellis SUPERVISOR PROCESS TESTING- apixaban 5 mg PO Q12H aripiprazole (Abilify) 5 mg PO DAILY blood sugar diagnostic ([employer] Verio test strips) test blood sugar once a day blood-glucose meter ([employer] Verio Flex Meter) As directed gabapentin 800 mg PO TID lancets ([employer] Delica Plus Lancet) test blood sugar once a day losartan 25 mg PO DAILY omeprazole 20 mg PO DAILY oxycodone-acetaminophen 5-325 mg 1 tab PO Q8H PRN 4 days pramipexole 0.5 mg PO BID 90 days prazosin 1 mg PO BEDTIME [Rollator walker with seat daily use] semaglutide (Ozempic) 0.25 mg (0.368 mL) subcut QWEEK tadalafil 5 mg PO DAILY 90 days walker with wheels Tobacco use date assessed: 03/23/25 Dental Screening Dental Screen Date: 03/23/25 Did you have a dental visit in the last 12 months?: No Did you have a dental problem in the last 6 months where you did not have access to dental care?: No Was dental information given to patient?: Patient declined HPI 6 months f/up HPI Details Chief Complaint The patient reports increased depression and seeks management for weight-related health issues. History of Present Illness The patient is a 59 year old male presenting with increased depression. He reports that his mood has been getting worse and has chosen to increase therapy sessions from monthly to weekly. He finds therapy beneficial in managing his depression. He denies any suicidal or homicidal thoughts. Additionally, the patient notes a tendency to overeat for comfort, contributing to his diabetes and obesity challenges. He is classified as morbidly obese with diabetes, and it has been suggested that weight loss could improve his back pain and overall health. His current condition has necessitated the use of a cane for mobility. Social History - Nutrition: The patient reports overeating as a source of comfort. - Functional Status: Utilizes a cane for mobility. - Diabetes: Has type 2 diabetes mellitus, indicating potential dietary and lifestyle adjustments needed for management. Health Maintenance - Discussed potential pharmacotherapy with GLP-1 agonist for weight management. Review of Systems - Psychiatric: Reports increased depression; Denies suicidal or homicidal thoughts. -denies any sob or cp Physical Exam General: Cooperative, comfortable, no acute distress and well developed, morbidly obese Orientation: Patient oriented x3 Limitations: Uses a cane Head: Normal to inspection Ears: Hearing grossly normal bilaterally Nose: Normal external nose present Face and sinus: Normal facial exam Eyes: Appearance normal, both eyes and all related structures Neck: Normal visual inspection and Yes full ROM Respiratory: Fairly clear to auscultation bilaterally Cardiovascular: Regular rate and rhythm. Normal S1 and S2 GI: Normal to inspection. Soft to palpation and nontender Skin: No rashes or lesions noted Neuro: Patient oriented x3 Extremities: Normal to inspection, uses a cane Results Plan I discussed with the patient the importance of addressing both his mental health and his physical health conditions, including diabetes and obesity. We have increased his psychotherapy sessions, and I have prescribed a GLP-1 agonist to assist with weight management. The risks, benefits, and potential side effects of this medication were explained, with the intention to alleviate both his diabetic condition and back pain. Follow-up will be required to monitor his response to treatment. Discussion Notes I explained to the patient the recommended management plan for his depression, which includes continued therapy with increased frequency, likely providing further support and improvement. We also discussed the use of a GLP-1 agonist to support weight reduction efforts. I elaborated on the associated benefits, such as improving diabetes management and relieving back pain, as well as potential side effects of the medication. I assured the patient that a prescription would be sent, and we opted for ongoing monitoring for potential adjustments. He was advised on the importance of engaging in this therapy to achieve his health goals and improve overall quality of life. Patient Instructions - Continue attending therapy sessions weekly as discussed. - Begin GLP-1 agonist therapy as prescribed. - Monitor for any side effects of the medication and report them. - Follow up with me or seek care if you experience any new symptoms or if your symptoms worsen. - Maintain regular diabetes management and follow any previously established dietary guidelines. [facility] Medical History Walker as ambulation aid Polyarticular osteoarthritis Venous insufficiency Retinal hemorrhage Vitamin D deficiency Joint pain in both hands HARITHA (obstructive sleep apnea) Carpal tunnel syndrome Morbid obesity Prostate CA Constipation Elevated alkaline phosphatase level Stenosis of cervical spine Anemia Depression RBBB Erectile dysfunction Lumbar spinal stenosis Atrial fibrillation GERD (gastroesophageal reflux disease) Asthma Arthritis Surgical History Hx of cervical spine surgery History of surgery Hx of neck surgery History of back surgery H/O cardiac radiofrequency ablation (~04/2017) Family History Father Heart attack DVT (deep venous thrombosis) Mother Diabetes COPD (chronic obstructive pulmonary disease) Social History Household Members: Spouse and Family Housing: House Are you a primary landcare officer to a significant other at home: No Do you presently have visiting nurse or other home services: Yes ([employer] FORMER SUPERVISOR 3 hours daily) Alcohol intake: never Patient Tobacco Use Status: Former Tobacco user Tobacco use type: Cigarette e-Cigarette/Vaping Use: Never Used Second Hand Smoke Exposure: No service: No 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al status: retired 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 1. Little interest or pleasure in doing things: more than half the days 2. Feeling down, depressed, or hopeless: several days 3. Trouble falling or staying asleep, or sleeping too much: several days 4. Feeling tired or having little energy: nearly every day 5. Poor appetite or overeating: nearly every day 6. Feeling bad about yourself - or that you are a failure or have let yourself or your family down: several days 7. Trouble concentrating on things, such as reading the newspaper or watching television: not at all 8. Moving or speaking so slowly that other people could have noticed. Or the opposite - being so fidgety or restless that you have been moving around a lot more than usual: nearly every day 9. Thoughts that you would be better off or of hurting yourself in some way: not at all Total score: 14 Depression Screening Interpretation: Positive Depression Screening Done: Yes 01158 - PHQ-9 Billing: Yes Source: Developed by Drs. Jacobo Lewis, Clarissa Whitaker, Arcenio Del Valle and colleagues, with an educational gregorio from [employer]. Thrive Questionnaire Date Thrive assessed: 03/23/25 I am a: Patient What is your living situation today?: I have a steady place to live Within the past 12 months, did the food you bought not last and you didn't have the money to get more?: Often true Within the past 12 months, did you worry whether your food would run out before you got money to buy more?: Never true Do you have trouble paying for medicines?: No Do you have trouble getting transportation to medical appointments?: Yes Do you have trouble paying your heating and electricity bill?: Yes Do you have trouble taking care of your child, family member or friend?: No Do you have trouble with day-to-day activities such as bathing, preparing meals, shopping, managing finances, etc.?: Yes Are you currently unemployed and looking for a job?: No Are you interested in more education?: No Please select the resources that you would like help with: None Currently or been in a relationship where the following occur: No concerns reported THRIVE Score: 3 AUDIT C Alcohol Use Questionnaire (AUDIT-C) 1. How often do you have a drink containing alcohol?: Never 3. How often do you have six or more drinks on one occasion?: Never Total Score: 0 Score Reviewed/Action Taken: Yes CLAU-7 AMB Questionnaire CLAU-7 Date CLAU - 7 assessed: 03/23/25 Feeling nervous, anxious, or on edge: 1 = Several days Not being able to stop or control worryin = Several days Worrying too much about different things: 1 = Several days Trouble relaxin = More than half the days Being so restless that it is hard to sit still: 2 = More than half the days Becoming easily annoyed or irritable: 2 = More than half the days Feeling afraid as if something awful might happen: 1 = Several days Total CLAU-7 score (0-4 normal; 5-9 mild; 10-14 moderate; 15-21 severe): 10 Source: Developed by Drs. Jacobo Lewis, Clarissa Whitaker, Arcenio Del Valle and colleagues, with an educational gregorio from [employer]. CLAU-7 Assessment Billing CLAU-7 Assessment Tool: CLAU-7 Assessment 06959 Physical exam (Primary Care) Vital Signs: Last Vital Signs Pulse 74 03/23/25 09:51 Resp 16 03/23/25 09:51 BP 148/86 H 03/23/25 09:51 Pulse Ox 95 03/23/25 09:51 BMI result Body Mass Index 45.8 Tobacco/Smoking Status: Tobacco use Status Tobacco use date assessed 03/23/25 03/23/25 09:54 Patient Tobacco Use Status Former Tobacco user 03/23/25 09:53 Tobacco use type Cigarette 03/23/25 09:53 e-Cigarette/Vaping Use Never Used 03/23/25 09:53 PHQ-9: PHQ-9 Score PHQ-9: Total score 14 03/23/25 09:54 Depression Screening Interpretation: Positive Thrive Assessment: Date of Thrive Assessment Date Thrive assessed 03/23/25 03/23/25 09:54 Currently or been in a relationship where the following occur: No concerns reported Coding Level of Care Code Est Pt Level 3 (48233) Diagnoses Diabetes E11.9 Chronic pain syndrome G89.4 Morbid obesity E66.01 Depression with anxiety F41.8 Additional Codes CLAU-7 Assessment Billing - CLAU-7 Assessment Tool: CLAU-7 Assessment 39698 ([id number]) PHQ-9 - 41472 - PHQ-9 Billing: Yes ([id number]) Assessment & Plan Assessment & Plan (1) Diabetes: Code(s): E11.9 - Type 2 diabetes mellitus without complications Category: Medical (2) Chronic pain syndrome: Code(s): G89.4 - Chronic pain syndrome Category: Medical (3) Morbid obesity: Code(s): E66.01 - Morbid (severe) obesity due to excess calories Category: Medical (4) Depression with anxiety: Code(s): F41.8 - Other specified anxiety disorders Category: Medical Plan . Medications: New semaglutide (Ozempic) for 4 weeks 0.25 mg (0.368 mL) subcut QWEEK 3 mL 0RF
[2025-03-23 09:51] VITALS: BP 148/86; PULSE 74; RESP 16; O2SAT 95; BMI 45.8
--- OUTSIDE RECORDS SUMMARY | 2025-03-23 10:49 | XMS_ITS | Patient Health Record ---
[facility] Address [address] [place] [address] Care Team Providers Care Amusement Ride Operator Name Role Phone Prosper Winkler Primary Care Provider Gamaliel Cohen Unavailable [phone] Allergies Allergen (clinical drug ingredient) Drug/Non Drug [...] Polyneuropathy due to type 2 diabetes mellitus ([id number]) Type 2 diabetes mellitus with diabetic polyneuropathy (E11.42) Active confirmed Encounters Encounter Location Date Provider Diagnosis [facility] [address] [place] [address] 04/11/2024 [facility] [address] [place] [address] 05/09/[address] [address] 05/09/2024 Gamaliel Connor Plan Of Treatment Pending Test Test Name Order Date 40620-SSHC SKIN LESIONS, 2 TO 4 10/08/20 23 Insurance Providers Payer Name Payer Address Payer Phone Subscriber Number Group Number Insured Name Patient Relationship to Insured Coverage Start Date Coverage End Date [employer] Claims [address] [address] [place] [address] [id number] Serafin Granger Self - patient is the insured Medical (General) History Medical History History ICD Code Arthritis asthma Cancer Depression diabetic Measles Chicken pox Joint implants/screws Surgical History Surgery Date(Month/Year) Back surgery 1 neck
--- OUTSIDE RECORDS SUMMARY | 2025-03-23 10:49 | XMS_ITS ---
Author Organization [facility] Address [address] [place] [address] Care Team Providers Care Agricultural Research Director Name Role Phone Prosper Winkler Primary Care Provider Unav ailable Gamaliel Connor Unavailable [phone] REASON FOR VISIT No Show Encounters Encounter Location Date Provider Diagnosis [address] [address] 05/09/2024 Gamaliel Connor Plan Of Treatment No Information Progress Notes * Serafin BECKETTDOB:1964 (58 yo M)Acc No.[id number]:05/09/2024 Patient:?Serafin Beckett :1965???Age:58 Y???Sex:Male Address:[address] [place] [address], [address] [facility], [place], [address] * true * Date:? Generated for Printi manisha/Evelyn/eTransmitting on:?03/23/2025 10:49 AM EDT
--- OUTSIDE RECORDS SUMMARY | 2025-03-23 10:49 | XMS_ITS ---
Author Organization [facility] Address [address] [place] [address] Care Team Providers Care Sales Department Manager Name Role Phone Prosper Winkler Primary Care Provider Unav ailable Gamaliel Connor Unavailable [phone] Medications Medication SIG (Take, Route, Fr equency, Duration) Notes Start Date End Date Status Ammonium Lactate 12 % 1 application to a ffected area Externally Twice a day to dry areas of skin on feet for 30 days Active Encounters Encounter Location Date Provider Diagnosis [address] [address] 05/09/2024 Gamaliel Connor Type 2 diabetes mellitus [...] as necessary. Patient chooses, no pharmaceutical tx (69836) Keratoma Treatment Parring or Cutting o f Benign Hyperkeratotic Lesion(s) 08032 ( 2-4 Lesions ) - The Benign hyperkeratotic lesions, as described above were pared, and/or cut utilizing a sterile 15 blade, tissue nippers, and/or dremel Progress Notes * Serafin BECKETTDOB:1964 (59 yo M)Acc No.[id number]:05/09/2024 Progress Note Patient:?Serafin BECKETT Provider:?Gamaliel Connor DPM :1965???Age:58 Y???Sex:Male René e:05/09/2024 Address:[address] [place] [address], [address], [place] [address] Pcp:FRANCIS Corrales Subjective: * Chief Complaints: * [...] as necessary. Patient chooses, no pharmaceutical tx (95959).?Keratoma Treatment:?Parring or Cutting of Benign Hyperkeratotic Lesion(s)?85417 ( 2-4 Lesions ) - The Benign [...] DPM Date:? 024 Generated for Eric dyer/Evelyn/Boris on:?03/23/2025 10:49 AM EDT History and Physical Notes * [...] no acute distress ORIENTED: person,place, and ti [place] Ophthalmology Referral DIABETES EYE EXAM Diabetic Retinopa [...]
--- OUTSIDE RECORDS SUMMARY | 2025-03-23 10:49 | XMS_ITS ---
Author Organization [facility] Address [address] [place] [address] Care Team Providers Care Vocational Rehabilitation Technician Name Role Phone Prosper Winkler Primary Care Provider Unav ailable Gamaliel Connor Unavailable [phone] REASON FOR VISIT NS Encounters Encounter Location Date Provider Diagnosis [address] [address] 05/09/2024 Gamaliel Connor Plan Of Treatment No Information Progress Notes * Serafin BECKETTDOB:1964 (58 yo M)Acc No.[id number]:05/09/2024 Patient:?Serafin Beckett :1965???Age:58 Y???Sex:Male Address:[address] [place] [address], [address] [facility], [place], [address] * true * Date:? Generated for Printi manisha/Evelyn/eTransmitting on:?03/23/2025 10:49 AM EDT
== END 2025-03-23 10:50 | disposition home or self-care (01) ==
LOC: HO.HMCC 09:44
PROVIDERS: PCP Nurse Practitioner Family; Visit Provider Nurse Practitioner Family
DX: E11.9 Type 2 diabetes mellitus without complications (principal); E66.01 Morbid (severe) obesity due to excess calories; Z68.42 Body mass index [BMI] 45.0-49.9, adult; G89.4 Chronic pain syndrome; F41.8 Other specified anxiety disorders

== ENCOUNTER → 2025-03-23 09:43 | Outpatient (BNVA) | payer MEDICARE, MEDICAID, SELFPAY | PROVIDERS: PCP Nurse Practitioner Family; Visit Provider Nurse Practitioner Family | DX: F32.A Depression, unspecified (principal); E11.9 Type 2 diabetes mellitus without complications; G89.4 Chronic pain syndrome; E66.01 Morbid (severe) obesity due to excess calories; F41.8 Other specified anxiety disorders; Z87.891 Personal history of nicotine dependence; Z68.42 Body mass index [BMI] 45.0-49.9, adult | CPT/HCPCS: 96127; 99212 ==

== ENCOUNTER 2025-03-27 10:29 | Outpatient (AMB) | payer MEDICARE, MEDICAID, SELFPAY ==
[2025-03-27 10:41] VITALS: BP 137/74; PULSE 108; O2SAT 96; BMI 45.9
--- NOTE | 2025-03-27 10:41 | A.OFFVIS_ITS ---
Vital Signs 03/27/25 10:41 Height 6 ft 3 in Weight 367 lb BMI 45.9 BP 137/74 Blood Pressure Location Rt brachial Position Sitting Pulse 108 H Pulse Source Pulse Oximeter Pulse Oximetry (%) 96 Oxygen Delivery Method Room Air Intake Visit Reasons: Follow up Wharf Hand Required: No Allergies Sulfa (Sulfonamide Antibiotics) [SULFA (SULFONAMIDE ANTIBIOTICS)] Allergy (Intermediate, Verified 03/27/25 10:42) RASH, hives Medication List - Last Reconciled 03/27/25 by Anastacia Philip, RESTAURANT BUSSER apixaban 5 mg PO Q12H aripiprazole (Abilify) 5 mg PO DAILY blood sugar diagnostic (INDOMTouch Verio test strips) test blood sugar once a day blood-glucose meter (Lumetauch Verio Flex Meter) As directed gabapentin 800 mg PO TID lancets (INDOMTouch Delica Plus Lancet) test blood sugar once a day losartan 25 mg PO DAILY omeprazole 20 mg PO DAILY oxycodone-acetaminophen 5-325 mg 1 tab PO Q8H PRN 4 days pramipexole 0.5 mg PO BID 90 days prazosin 1 mg PO BEDTIME [Rollator walker with seat daily use] semaglutide (Ozempic) 0.25 mg (0.368 mL) subcut QWEEK tadalafil 5 mg PO DAILY 90 days walker with wheels HPI Comments Details: Serafin is very pleasant 59 years old gentleman who presents in my office with complains on pain in the back as well as pain in the neck. He is suffering from postlaminectomy syndrome. He had 2 procedures on the neck and 7 surgeries on his back. He does not have hardware in the back. He came to this office with intention to receive spinal cord stimulator to treat the back pain. However the patient went for psychological evaluation and it looks like that he did not pay his co-pay to [facility] and would not have psychological evaluation today. At the same time he continues to complains on pain in the lower back practically without radiation into the bilateral lower extremities. He reports that flexing backwards aggravate his pain and flexing forward makes his pain better. Loading test is also positive. I will schedule him for bilateral L2, L3, L4 medial branch block in the attempt to establish diagnosis of his pain syndrome. Prior: He had posterior fusions L3 through S1 on the back and he also had anterior ACDF on the neck. He had MRI of the lumbar spine 1 year ago however he does not report if he remembers when he had a cervical imaging any time recently. He was involved in multiple modalities in the attempt to alleviate his pain in [facility]. He reports that he had physical therapy there and multiple medications as well as some injections. He had several attempts to perform spinal cord stimulator trial with [facility] however each time he was found to be on Eliquis and the procedure was aborted. He is interested in spinal cord stimulator. His past medical history significant for gout, prostate problems and arthritis. H [facility] Medical History Walker as ambulation aid Polyarticular osteoarthritis Venous insufficiency Retinal hemorrhage Vitamin D deficiency Joint pain in both hands HARITHA (obstructive sleep apnea) Carpal tunnel syndrome Morbid obesity Prostate CA Constipation Elevated alkaline phosphatase level Stenosis of cervical spine Anemia Depression RBBB Erectile dysfunction Lumbar spinal stenosis Atrial fibrillation GERD (gastroesophageal reflux disease) Asthma Arthritis Surgical History Hx of cervical spine surgery History of surgery Hx of neck surgery History of back surgery H/O cardiac radiofrequency ablation (~04/2017) Family History Father Heart attack DVT (deep venous thrombosis) Mother Diabetes COPD (chronic obstructive pulmonary disease) Social History Household Members: Spouse and Family Housing: House Are you a primary healthcare architect to a significant other at home: No Do you presently have visiting nurse or other home services: Yes (FABRIC WORKER FITTER 3 hours daily) Alcohol intake: never Patient Tobacco Use Status: Former Tobacco user Tobacco use type: Cigarette e-Cigarette/Vaping Use: Never Used Second Hand Smoke Exposure: No service: No 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al status: retired 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 Cognitive needs: No Hearing needs: No Vision needs: No Review of Systems Const All systems reviewed & are unremarkable except as noted in HPI and below ENT Reports Normal hearing present Neuro Reports Normal hearing present, Denies Abnormal speech present, Denies confusion and Denies Sensory deficit (Neuro) Psych Denies confusion Physical Exam Vital Signs: Last Vital Signs Pulse 108 H 03/27/25 10:41 BP 137/74 03/27/25 10:41 Pulse Ox 96 03/27/25 10:41 Oxygen Delivery Method Room Air 03/27/25 10:41 BMI result Body Mass Index 45.9 Const General: no acute distress; No confusion Nutritional Appearance: overweight Orientation/consciousness: patient oriented x3 and No confusion Eyes General: appearance normal, both eyes and all related structures Pupils: Equal, round and reactive pupils present EOM: EOMs intact bilaterally Neck Other: There is very well-healed horizontal scar on the right side of his neck the scar is very well-healed. Neck: No full ROM Chest Chest palpation & inspection: normal inspection of the chest Resp Effort & Inspection: normal respiratory effort, able to speak in complete sentences, normal respiratory pattern, no audible wheezes and no cough Cardio Jugular venous distension: no JVD GI Inspection: Yes normal to inspection Back/Spine/Pelvis Other: There is very well-healed scar on the posterior surface of the midline lumbar area with indentation inside probably secondary to removal of the lamina with spinous processes at the area of the manipulation. The scar is very well- healed. Neuro General: patient oriented x3, gait normal and No confusion Cranial nerves: Yes CN's II-XII intact bilaterally, Yes Equal, round and reactive pupils present, Yes Normal hearing present and Yes Ability to bilaterally elevate shoulders present Speech: No Abnormal speech present Gait exam (Neuro): Normal gait present Motor exam (neuro): 5/5 motor strength present throughout Sensory Exam: No Sensory deficit (Neuro) Extrem General: No pedal edema Psych Speech and movement: Normal speech and movement present Affect: normal affect Attitude: cooperative Thought process: Normal thought process present Thought content: Normal thought content present Insight: Good insight present (Psych) Judgement: Good judgement present (Psych) Results Reviewed Results Reviewed: MRI lumbar spine ray us 04/15/2024. Findings: Normal alignment of vertebral lumbar bodies. The vertebral bodies are of normal height. Mild endplate Modic type changes L3-L4 and L4-5. Moderate loss of intervertebral disc space height throughout with marginal osteophyte formation and lumbar facet arthrosis. No finding of fracture or significant listhesis. Postoperative changes apparent laminectomies from level of L5 the patient was unable to complete the examination due to discomfort. No axial examination is available. On the lateral portion of the examination through the level of L1-L2 there is facet arthrosis and a small posterior disc osteophyte. No significant stenosis or foraminal narrowing. At the level of 2 3 there is facet arthrosis in posterior disc osteophyte. This appeared to be moderate central stenosis. Moderate to severe right foraminal narrowing. Moderate left foraminal narrowing. L3-L4 intervertebral level reveals facet arthrosis. Apparently minute STEMI. Posterior disc osteophyte. Severe central stenosis. Severe bilateral foraminal narrowing. Examination L4-5 intervertebral disc reveals facet arthrosis. Apparent laminectomy. Posterior disc osteophyte. [id number] central stenosis. Severe bilateral foraminal narrowing. L5-S1 intervertebral level reveals postoperative changing laminectomy. No significant central stenosis. Severe bilateral foraminal narrowing. Assessment & Plan Assessment & Plan (1) Postlaminectomy syndrome, cervical: Code(s): M96.1 - Postlaminectomy syndrome, not elsewhere classified Category: Medical (2) Postlaminectomy syndrome of lumbar region: Code(s): M96.1 - Postlaminectomy syndrome, not elsewhere classified Category: Medical (3) Chronic pain syndrome: Code(s): G89.4 - Chronic pain syndrome Category: Medical (4) Spondylosis of lumbar region without myelopathy or radiculopathy: Code(s): M47.816 - Spondylosis without myelopathy or radiculopathy, lumbar region Category: Medical Plan This patient is very interested in performance of spinal cord stimulator to alleviate his pain. He went for psychological evaluation however did not pay his co-payment to release his evaluation to us. I recommended him to see repeating his co-payment to the [facility]. Today attention was attracted to the positive loading test and significant changes in the MRI reading from [facility]. That MRI demonstrated L3-L4 and L4-5 Modic type changes. However patient denies pain exacerbation with prolonged sitting. Loading test is also positive. I would consider performing L2, L3, L4 bilateral medial branches in the attempt to diagnose the pain of this patient. This will be diagnostic injection without any steroids. Patient Instructions: I here by testify that I spent 32 minutes in conversation with this patient as well as evaluating his prior records prior diagnostic studies and organizing this note. Coding Level of Care Code Est Pt Level 4 (28963) Diagnoses Postlaminectomy syndrome, cervical M96.1 Postlaminectomy syndrome of lumbar region M96.1 Chronic pain syndrome G89.4 Spondylosis of lumbar region without myelopathy or radiculopathy M47.810
--- OUTSIDE RECORDS SUMMARY | 2025-03-27 12:19 | XMS_ITS ---
Author Organization [facility] Address [address] [place] [address] Care Team Providers Care Board Design Engineer Name Role Phone Prosper Winkler Primary Care Provider Unav ailable Gamaliel Connor Unavailable [phone] REASON FOR VISIT NS Encounters Encounter Location Date Provider Diagnosis [address] [address] 05/09/2024 Gamaliel Connor Plan Of Treatment No Information Progress Notes * Serafin BECKETTDOB:1964 (58 yo M)Acc No.[id number]:05/09/2024 Patient:?Serafin Beckett :1965???Age:58 Y???Sex:Male Address:[address] [place] [address], [address] [facility], [place], [address] * true * Date:? Generated for Printi manisha/Evelyn/eTransmitting on:?03/27/2025 12:19 PM EDT
--- OUTSIDE RECORDS SUMMARY | 2025-03-27 12:19 | XMS_ITS ---
Author Organization [facility] Address [address] [place] [address] Care Team Providers Care Skip Miner Blasting Name Role Phone Prosper Winkler Primary Care Provider Unav ailable Gamaliel Connor Unavailable [phone] REASON FOR VISIT No Show Encounters Encounter Location Date Provider Diagnosis [address] [address] 05/09/2024 Gamaliel Connor Plan Of Treatment No Information Progress Notes * Serafin BECKETTDOB:1964 (58 yo M)Acc No.[id number]:05/09/2024 Patient:?Serafin Beckett :1965???Age:58 Y???Sex:Male Address:[address] [place] [address], [address] [facility], [place], [address] * true * Date:? Generated for Printi manisha/Evelyn/eTransmitting on:?03/27/2025 12:19 PM EDT
--- OUTSIDE RECORDS SUMMARY | 2025-03-27 12:19 | XMS_ITS | Patient Health Record ---
[facility] Address [address] [place] [address] Care Team Providers Care Lab Aid Name Role Phone Prosper Winkler Primary Care Provider Gamaliel Cohen Unavailable [phone] Allergies Allergen (clinical drug ingredient) Drug/Non Drug [...] Polyneuropathy due to type 2 diabetes mellitus ([id number]) Type 2 diabetes mellitus with diabetic polyneuropathy (E11.42) Active confirmed Encounters Encounter Location Date Provider Diagnosis [facility] [address] [place] [address] 04/11/2024 [facility] [address] [place] [address] 05/09/[address] [address] 05/09/2024 Gamaliel Connor Plan Of Treatment Pending Test Test Name Order Date [id number] SKIN LESIONS, 2 TO 4 10/08/20 23 Insurance Providers Payer Name Payer Address Payer Phone Subscriber Number Group Number Insured Name Patient Relationship to Insured Coverage Start Date Coverage End Date [employer] Claims [address] [address] [place] [address] [id number] Serafin Granger Self - patient is the insured Medical (General) History Medical History History ICD Code Arthritis asthma Cancer Depression diabetic Measles Chicken pox Joint implants/screws Surgical History Surgery Date(Month/Year) Back surgery 1 neck
--- OUTSIDE RECORDS SUMMARY | 2025-03-27 12:19 | XMS_ITS ---
Author Organization [facility] Address [address] [place] [address] Care Team Providers Care Curtain Framer Name Role Phone Prosper Winkler Primary Care Provider Unav ailable Gamaliel Connor Unavailable [phone] Medications Medication SIG (Take, Route, Fr equency, Duration) Notes Start Date End Date Status Ammonium Lactate 12 % 1 application to a ffected area Externally Twice a day to dry areas of skin on feet for 30 days Active Encounters Encounter Location Date Provider Diagnosis [address] [address] 05/09/2024 Gamaliel Connor Type 2 diabetes mellitus [...] as necessary. Patient chooses, no pharmaceutical tx (02225) Keratoma Treatment Parring or Cutting o f Benign Hyperkeratotic Lesion(s) 51381 ( 2-4 Lesions ) - The Benign hyperkeratotic lesions, as described above were pared, and/or cut utilizing a sterile 15 blade, tissue nippers, and/or dremel Progress Notes * Serafin BECKETTDOB:1964 (59 yo M)Acc No.[id number]:05/09/2024 Progress Note Patient:?Serafin BECKETT Provider:?Gamaliel Connor DPM :1965???Age:58 Y???Sex:Male René e:05/09/2024 Address:[address] [place] [address], [address], [place] [address] Pcp:FRANCIS Corrales Subjective: * Chief Complaints: * [...] as necessary. Patient chooses, no pharmaceutical tx (78396).?Keratoma Treatment:?Parring or Cutting of Benign Hyperkeratotic Lesion(s)?94269 ( 2-4 Lesions ) - The Benign [...] DPM Date:? 024 Generated for Eric dyer/Evelyn/Boris on:?03/27/2025 12:19 PM EDT History and Physical Notes * [...] no acute distress ORIENTED: person,place, and ti nc Ophthalmology Referral DIABETES EYE EXAM Diabetic Retinopa [...]
== END 2025-03-27 11:02 | disposition home or self-care (01) ==
LOC: HO.PMC 10:30
PROVIDERS: PCP Nurse Practitioner Family; Visit Provider Anesthesiology
DX: M96.1 Postlaminectomy syndrome, not elsewhere classified (principal); G89.4 Chronic pain syndrome; M47.816 Spondylosis without myelopathy or radiculopathy, lumbar region
CPT/HCPCS: 99214

== ENCOUNTER → 2025-03-27 10:29 | Outpatient (BNVA) | payer MEDICARE, MEDICAID, SELFPAY | PROVIDERS: PCP Nurse Practitioner Family; Visit Provider Anesthesiology | DX: M96.1 Postlaminectomy syndrome, not elsewhere classified (principal); G89.4 Chronic pain syndrome; M47.816 Spondylosis without myelopathy or radiculopathy, lumbar region | CPT/HCPCS: 99212 ==

== ENCOUNTER → 2025-03-28 10:07 | Outpatient (BNVA) | payer MEDICARE, MEDICAID, SELFPAY | PROVIDERS: PCP Nurse Practitioner Family; Visit Provider Dietitian, Registered ==

== ENCOUNTER → 2025-04-12 10:02 | Outpatient (BNVA) | payer MEDICARE, MEDICAID, SELFPAY | PROVIDERS: PCP Nurse Practitioner Family; Visit Provider Dietitian, Registered ==

== ENCOUNTER 2025-04-27 07:26 | Outpatient (AMB) | payer MEDICARE, MEDICAID, SELFPAY ==
--- OUTSIDE RECORDS SUMMARY | 2025-04-27 07:27 | XMS_ITS ---
Author Organization [facility] Address [address] [place] [address] Care Team Providers Care Webfocus Developer Name Role Phone Prosper Winkler Primary Care Provider Unav ailable Gamaliel Connor Unavailable [phone] Medications Medication SIG (Take, Route, Fr equency, Duration) Notes Start Date End Date Status Ammonium Lactate 12 % 1 application to a ffected area Externally Twice a day to dry areas of skin on feet for 30 days Active Encounters Encounter Location Date Provider Diagnosis [address] [address] 04/11/2024 Gamaliel Connor Type 2 diabetes mellitus [...] as necessary. Patient chooses, no pharmaceutical tx (00981) Keratoma Treatment Parring or Cutting o f Benign Hyperkeratotic Lesion(s) 74646 ( 2-4 Lesions ) - The Benign hyperkeratotic lesions, as described above were pared, and/or cut utilizing a sterile 15 blade, tissue nippers, and/or dremel Progress Notes * Serafin BECKETTDOB:1964 (59 yo M)Acc No.[id number]:04/11/2024 Progress Note Patient:?Serafin BECKETT Provider:?Gamaliel Connor DPM :1965???Age:58 Y???Sex:Male René e:04/11/2024 Address:[address] [place] [address], [address], [place] [address] Pcp:FRANCIS Corrales Subjective: * Chief Complaints: * [...] as necessary. Patient chooses, no pharmaceutical tx (83022).?Keratoma Treatment:?Parring or Cutting of Benign Hyperkeratotic Lesion(s)?61879 ( 2-4 Lesions ) - The Benign [...] DPM Date:? 024 Generated for Eric dyer/Evelyn/Boris on:?04/27/2025 07:27 AM EDT History and Physical Notes * [...]
--- NOTE | 2025-04-27 08:16 | A.OFFPC_ITS ---
Intake Visit Reasons: DM Follow Up, Weight/Med adjust Allergies Sulfa (Sulfonamide Antibiotics) [SULFA (SULFONAMIDE ANTIBIOTICS)] Allergy (Intermediate, Verified 03/27/25 10:42) RASH, hives Tobacco use date assessed: 03/23/25 Dental Screening Dental Screen Date: 03/23/25 HPI DM Follow Up, Weight/Med adjust HPI Details History of Present Illness The patient is a 59-year-old male presenting with a follow-up for type 2 diabetes mellitus and right knee pain. His diabetes is currently managed with Ozempic, and he is responding well to the treatment, with plans to increase the dosage. The patient reports persistent right knee pain, accompanied by swelling and redness, which affects his ability to use stairs. He denies fever or chills and has an orthopedic consultation scheduled for late May. The patient also experiences episodes of dizziness when seated, with blood glucose levels generally within normal limits, although occasionally reaching 160 mg/dL. He denies any ear pain, discomfort, blurred vision, or headaches associated with these dizzy spells. Review of Systems - Musculoskeletal: Reports right knee pa in with swelling and redness. Denies fever or chills. - Endocrine: Reports generally normal bl ood sugar levels with occasional elevations around 160 mg/dL. - Neurological: Reports dizziness when s eated or as a passenger in a vehicle. Denies blurred vision or headaches. - Ears: Denies ear pain or discomfort. Plan 1. 5 mg to 1 mg per week due to the kingsley ent's positive response. An X-ray of the right knee will be obtained to assess the cause of pain, swelling, and redness. The patient will monitor blood pressure during episodes of dizziness to aid in identifying potential causes. An orthopedic consultation is scheduled for late May, and I will review all findings in follow-up visits.: Patient was informed and verbally consented to the use of an ambient scribe for clinic note documentation during this visit. Discussion Notes During this visit, I discussed with the patient the continuation of Ozempic for diabetes management and the plan to increase the dosage. We reviewed the benefits of maintaining stable blood glucose levels and the potential for enhanced glycemic control with the adjusted dosage. For the right knee pain, I explained the importance of obtaining an X-ray to evaluate the underlying cause, and we discussed the timeline for the orthopedic appointment at the end of May. Regarding the episodes of dizziness, I advised monitoring blood pressure during these events to identify any correlation. We agreed on these plans, and the patient was informed to return for follow-up after the planned evaluations and as needed for any changes in symptoms. Patient Instructions - Continue taking Ozempic, increasing to 1 mg per week. - Get an X-ray of your right knee as isis n as possible. - Monitor your blood pressure during diz ziness episodes. - Attend your orthopedic appointment in late May. - Contact the office if you experience a ny new symptoms or changes in your condition. [facility] Medical History Walker as ambulation aid Polyarticular osteoarthritis Venous insufficiency Retinal hemorrhage Vitamin D deficiency Joint pain in both hands HARITHA (obstructive sleep apnea) Carpal tunnel syndrome Morbid obesity Prostate CA Constipation Elevated alkaline phosphatase level Stenosis of cervical spine Anemia Depression RBBB Erectile dysfunction Lumbar spinal stenosis Atrial fibrillation GERD (gastroesophageal reflux disease) Asthma Arthritis Surgical History Hx of cervical spine surgery History of surgery Hx of neck surgery History of back surgery H/O cardiac radiofrequency ablation (~04/2017) Family History Father Heart attack DVT (deep venous thrombosis) Mother Diabetes COPD (chronic obstructive pulmonary disease) Social History Household Members: Spouse and Family Housing: House Are you a primary healthcare technician to a significant other at home: No Do you presently have visiting nurse or other home services: Yes (MANAGER INTERNAL 3 hours daily) Alcohol intake: never Patient Tobacco Use Status: Former Tobacco user Tobacco use type: Cigarette e-Cigarette/Vaping Use: Never Used Second Hand Smoke Exposure: No service: No 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al status: retired 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 Jacobo Lewis, Clarissa Whitaker, Arcenio Del Valle and colleagues, with an educational gregorio from [employer]. Physical exam (Primary Care) Tobacco/Smoking Status: Tobacco use Status Tobacco use date assessed 03/23/25 03/23/25 09:54 Patient Tobacco Use Status Former Tobacco user 03/23/25 09:53 Tobacco use type Cigarette 03/23/25 09:53 e-Cigarette/Vaping Use Never Used 03/23/25 09:53 Thrive Assessment: Date of Thrive Assessment Date Thrive assessed 03/23/25 04/12/25 10:38 Coding Level of Care Code Tele Est Pt Level 3 (31363) Diagnoses Right knee pain M25.561 Diabetes E11.9 Dizziness R42 Assessment & Plan Assessment & Plan (1) Right knee pain: Code(s): M25.561 - Pain in right knee Category: Medical (2) Diabetes: Code(s): E11.9 - Type 2 diabetes mellitus without complications Category: Medical (3) Dizziness: Code(s): R42 - Dizziness and giddiness Category: Medical Plan . Orders: Orders XR knee RT 2V Today M25.561 - Pain in right knee Medications: Changed From semaglutide (Ozempic) for 4 weeks 0.5 mg (0.736 mL) subcut QWEEK 3 mL 0RF To semaglutide for 4 weeks 1 mg (0.75 mL) subcut QWEEK 3 mL 0RF
== END 2025-04-27 08:49 | disposition home or self-care (01) ==
LOC: HO.HMCC 07:26
PROVIDERS: PCP Nurse Practitioner Family; Visit Provider Nurse Practitioner Family
DX: M25.561 Pain in right knee (principal); E11.9 Type 2 diabetes mellitus without complications; R42 Dizziness and giddiness

== ENCOUNTER → 2025-04-27 07:26 | Outpatient (BNVA) | payer MEDICARE, MEDICAID, SELFPAY | PROVIDERS: PCP Nurse Practitioner Family; Visit Provider Nurse Practitioner Family ==

== ENCOUNTER 2025-05-01 08:13 | Outpatient (REF) | payer MEDICARE, MEDICAID, SELFPAY ==
--- NOTE | ~2025-05-01 | XR_ITS ---
EXAMINATION: XR KNEE 1-2 VIEWS RIGHT HISTORY: M25.561 - Pain in right knee COMPARISON: Comparison is made with the prior examination dated 06/03/2018. FINDINGS: AP and lateral views of the right knee are submitted. Osseous mineralization is normal. There is no fracture or dislocation. The joint spaces are preserved. Again seen is soft tissue calcification adjacent to the medial tibial metaphysis and inferior to the patella which are likely ligamentous in nature.. There is no joint effusion. XR/XR knee RT 2V IMPRESSION: Stable probable calcification of the medial collateral ligament and patellar tendon. No acute abnormality is identified. Electronically signed by: Jacobo Khan MD 05/01/2025 09:52 AM EDT
--- OUTSIDE RECORDS SUMMARY | 2025-05-01 08:19 | XMS_ITS ---
Author Organization [facility] Address [address] [place] [address] Care Team Providers Care Industrial Recruiter Name Role Phone Prosper Winkler Primary Care Provider Unav ailable Gamaliel Connor Unavailable [phone] Medications Medication SIG (Take, Route, Fr equency, Duration) Notes Start Date End Date Status Ammonium Lactate 12 % 1 application to a ffected area Externally Twice a day to dry areas of skin on feet for 30 days Active Encounters Encounter Location Date Provider Diagnosis [address] [address] 04/11/2024 Gamaliel Connor Type 2 diabetes mellitus [...] as necessary. Patient chooses, no pharmaceutical tx (30365) Keratoma Treatment Parring or Cutting o f Benign Hyperkeratotic Lesion(s) 23175 ( 2-4 Lesions ) - The Benign hyperkeratotic lesions, as described above were pared, and/or cut utilizing a sterile 15 blade, tissue nippers, and/or dremel Progress Notes * Serafin BECKETTDOB:1964 (59 yo M)Acc No.[id number]:04/11/2024 Progress Note Patient:?Serafin BECKETT Provider:?Gamaliel Connor DPM :1965???Age:58 Y???Sex:Male René e:04/11/2024 Address:[address] [place] [address], [address], [place] [address] Pcp:FRANCIS Corrales Subjective: * Chief Complaints: * [...] as necessary. Patient chooses, no pharmaceutical tx (31632).?Keratoma Treatment:?Parring or Cutting of Benign Hyperkeratotic Lesion(s)?69042 ( 2-4 Lesions ) - The Benign [...] DPM Date:? 024 Generated for Eric dyer/Evelyn/Boris on:?05/01/2025 08:19 AM EDT History and Physical Notes * [...] no acute distress ORIENTED: person,place, and ti [place] Ophthalmology Referral DIABETES EYE EXAM Diabetic Retinopa [...]
== END 2025-05-01 08:14 | disposition home or self-care (01) ==
LOC: HO.HMGCLDS 08:13
PROVIDERS: PCP Nurse Practitioner Family; Visit Provider Nurse Practitioner Family
DX: M25.561 Pain in right knee (principal)
CPT/HCPCS: 73560

== ENCOUNTER → 2025-05-01 08:33 | Outpatient (BNV) | payer MEDICARE, MEDICAID, SELFPAY | PROVIDERS: PCP Nurse Practitioner Family; Visit Provider Radiology Diagnostic Radiology | DX: M25.561 Pain in right knee (principal) | CPT/HCPCS: 73560 ==

== ENCOUNTER 2025-06-06 06:17 | Outpatient (REF) | payer MEDICARE, MEDICAID, SELFPAY ==
--- OUTSIDE RECORDS SUMMARY | 2024-04-11 05:15 | XMS_ITS ---
Author Organization [facility] Address [address] [place] [address] Care Team Providers Care Corrugator Machine Operator Name Role Phone Prosper Winkler Primary Care Provider Unav ailable Gamaliel Connor Unavailable [phone] Medications Medication SIG (Take, Route, Fr equency, Duration) Notes Start Date End Date Status Ammonium Lactate 12 % 1 application to a ffected area Externally Twice a day to dry areas of skin on feet; Duration: 30 days Active Encounters Encounter Location Date Provider Diagnosis [address] [address] 04/11/2024 Gamaliel Connor Type 2 diabetes mellitus [...] as necessary. Patient chooses, no pharmaceutical tx (20964) Keratoma Treatment Parring or Cutting o f Benign Hyperkeratotic Lesion(s) 45786 ( 2-4 Lesions ) - The Benign hyperkeratotic lesions, as described above were pared, and/or cut utilizing a sterile 15 blade, tissue nippers, and/or dremel Progress Notes * Serafin BECKETTDOB:1964 (59 yo M)Acc No.[id number]:04/11/2024 Progress Note Patient: Serafin WITT Provider: Jo Ann Connor DPM :1965 A ge:58 Y S ex:Male Date:04/11/2024 Address:[address] [place] [address], [address] Floor, [place] [address] Pcp:FRANCIS Corrales Subjective: * Chief Complaints: * [...] C ardiovascular: Pacemaker d enies, denies. M FURNITURE MANAGER d enies, denies.?WPW d enies, denies. C [...] as necessary. Patient chooses, no pharmaceutical tx (33244). K eratoma Treatment: Parring or Cutting of [...] 04/11/2024 Generated for Eric dyer/Evelyn/Boris on: 0 06/06/2025 06:19 AM EDT History and Physical Notes * [...]
--- NOTE | ~2025-06-06 | FL_ITS ---
EXAMINATION: FL GUIDANCE ONLY HISTORY: M47.816 - Spondylosis without myelopathy or radiculopathy, lumbar region COMPARISON: None available. TECHNIQUE: Fluoroscopy time: 1.1 minutes. Cumulative Dose: 39.0 mGy. DAP: 0.678 mGym2 Images: 10. FINDINGS: Fluoroscopic spot films of the lumbar spine in the AP projection demonstrate needles and contrast material in the regions of the bilateral L2-3, L3-4, and L4-5 facet joints. FL/FL guidance in treatment room IMPRESSION: Fluoroscopy during procedure. Please see procedure report for additional information. Electronically signed by: Jacobo Khan MD 06/06/2025 11:28 AM EDT
== END 2025-06-06 06:18 | disposition home or self-care (01) ==
LOC: CF 06:17
PROVIDERS: Visit Provider Anesthesiology
DX: M47.816 Spondylosis without myelopathy or radiculopathy, lumbar region (principal); G56.00 Carpal tunnel syndrome, unspecified upper limb
CPT/HCPCS: 64493; 64494; J2003; J2795; Q9967

== ENCOUNTER 2025-06-06 10:46 | Outpatient (AMB) | payer MEDICARE, MEDICAID, SELFPAY ==
--- NOTE | 2025-06-06 10:52 | MHC.OFFVIS ---
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 Required: No Allergies Sulfa (Sulfonamide Antibiotics) (SULFA (SULFONAMIDE ANTIBIOTICS)) Allergy (Intermediate, Verified 03/27/25 10:42) RASH, hives PFSH Medical History (Updated 05/04/25 @ 12:48 by DAVID WinchesterJENNIFER) Walker as ambulation aid Polyarticular osteoarthritis Venous insufficiency Retinal hemorrhage Vitamin D deficiency Joint pain in both hands HARITHA (obstructive sleep apnea) Carpal tunnel syndrome Morbid obesity Prostate CA Constipation Elevated alkaline phosphatase level Stenosis of cervical spine Anemia Depression RBBB Erectile dysfunction Lumbar spinal stenosis Atrial fibrillation GERD (gastroesophageal reflux disease) Asthma Arthritis Surgical History Hx of cervical spine surgery History of surgery Hx of neck surgery History of back surgery H/O cardiac radiofrequency ablation (~04/2017) Family History Father Heart attack DVT (deep venous thrombosis) Mother Diabetes COPD (chronic obstructive pulmonary disease) Social History Household Members: Spouse and Family Housing: House Are you a primary morning caregiver to a significant other at home: No Do you presently have visiting nurse or other home services: Yes (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 ? ?Informed consent was explained to the patient. All questions were explained and? answered.? The patient was taken inside the operating room where she was positioned prone on the operating table. Time-out was performed delineating correct site, side, the nature of the procedure, patient's allergy, . All operating room staff was participating in OR time-out procedure. ? ? The lower back was prepped with ChloraPrep and draped with sterile towels.? C-arm was brought over the operating field and sq picture of L3, L4-, L5 vertebra were delineated on the screen. Severe anatomic distortion was noted on the screen. Advanced spondylosis and laminotomy L5-S1 were noticed on the screen.? Point of interest were delineated as confluence of superior articular process of L3, L4, and L5 vertebra bilaterally with corresponding transverse processes.The projection of the point of interest to the skin were injected with the small amount of local anesthetic lidocaine 2% mixed with ropivacaine 0.5% 1-1 approcimately 1 cc.? After that 22 gauge 5 inch spinal needle was driven sequentially to the points of interest in tunnel vision fashion. After needles gently contacted the bone at the point of interests the needle was injected with small amount of the contrast.? The injection of the contrast did not demonstrate any intravascular or intrathecal spread of the contrast.? After that injection of the? ropivacaine 0.5%-1cc was performed at each needle location. ?after that the needles were removed and Bandaids were applied. Assessment & Plan Assessment & Plan (1) Carpal tunnel syndrome: Code(s): G56.00 - Carpal tunnel syndrome, unspecified upper limb Category: Medical Plan Diagnostic medial branch block L2, L3, L4 bilateral.? ? ?Informed consent was explained to the patient. All questions were explained and? answered.? The patient was taken inside the operating room where she was positioned prone on the operating table. Time-out was performed delineating correct site, side, the nature of the procedure, patient's allergy, . All operating room staff was participating in OR time-out procedure. ? ? The lower back was prepped with ChloraPrep and draped with sterile towels.? C-arm was brought over the operating field and sq picture of L3, L4-, L5 vertebra were delineated on the screen. Severe anatomic distortion was noted on the screen. Advanced spondylosis and laminotomy L5-S1 were noticed on the screen.? Point of interest were delineated as confluence of superior articular process of L3, L4, and L5 vertebra bilaterally with corresponding transverse processes.The projection of the point of interest to the skin were injected with the small amount of local anesthetic lidocaine 2% mixed with ropivacaine 0.5% 1-1 approcimately 1 cc.? After that 22 gauge 5 inch spinal needle was driven sequentially to the points of interest in tunnel vision fashion. After needles gently contacted the bone at the point of interests the needle was injected with small amount of the contrast.? The injection of the contrast did not demonstrate any intravascular or intrathecal spread of the contrast.? After that injection of the? ropivacaine 0.5%-1cc was performed at each needle location. ?after that the needles were removed and Bandaids were applied. Coding Level of Care Code Procedure Only Diagnoses Carpal tunnel syndrome G56.00
[2025-06-06 10:53] VITALS: BP 145/85; PULSE 88; RESP 18; O2SAT 96
[2025-06-06 11:26] VITALS: BP 159/84; PULSE 84; RESP 18; O2SAT 97
== END 2025-06-06 11:29 | disposition home or self-care (01) ==
LOC: HO.PMCPRC 10:46
PROVIDERS: PCP Nurse Practitioner Family; Visit Provider Anesthesiology
DX: M47.816 Spondylosis without myelopathy or radiculopathy, lumbar region (principal)
CPT/HCPCS: 64493; 64494

== ENCOUNTER 2025-06-08 08:32 | Outpatient (AMB) | payer MEDICARE, MEDICAID, SELFPAY ==
--- OUTSIDE RECORDS SUMMARY | 2024-04-11 05:15 | XMS_ITS ---
Author Organization [facility] Address [address] [place] [address] Care Team Providers Care Document Management Technician Name Role Phone Prosper Winkler Primary Care Provider Unav ailable Gamaliel Connor Unavailable [phone] Medications Medication SIG (Take, Route, Fr equency, Duration) Notes Start Date End Date Status Ammonium Lactate 12 % 1 application to a ffected area Externally Twice a day to dry areas of skin on feet; Duration: 30 days Active Encounters Encounter Location Date Provider Diagnosis [address] [address] 04/11/2024 Gamaliel Connor Type 2 diabetes mellitus [...] as necessary. Patient chooses, no pharmaceutical tx (75274) Keratoma Treatment Parring or Cutting o f Benign Hyperkeratotic Lesion(s) 28171 ( 2-4 Lesions ) - The Benign hyperkeratotic lesions, as described above were pared, and/or cut utilizing a sterile 15 blade, tissue nippers, and/or dremel Progress Notes * Serafin BECKETTDOB:1964 (59 yo M)Acc No.[id number]:04/11/2024 Progress Note Patient: Serafin WITT Provider: Jo Ann Connor DPM :1965 A ge:58 Y S ex:Male Date:04/11/2024 Address:[address] [place] [address], [address], [place] [address] Pcp:FRANCIS Corrales Subjective: * Chief Complaints: * [...] C ardiovascular: Pacemaker d enies, denies. M PIPE FITTINGS MOLDER d enies, denies.?WPW d enies, denies. C [...] as necessary. Patient chooses, no pharmaceutical tx (38688). K eratoma Treatment: Parring or Cutting of [...] 04/11/2024 Generated for Eric dyer/Evelyn/Boris on: 0 06/08/2025 08:41 AM EDT History and Physical Notes * [...]
[2025-06-08 08:43] VITALS: BP 155/89; PULSE 84; RESP 18; TEMP -6.6; TEMP 20; O2SAT 98
--- NOTE | 2025-06-08 08:43 | MHC.OFFVIS ---
Vital Signs 06/08/25 08:43 Weight 362 lb BP 155/89 H Blood Pressure Location Lt brachial Position Sitting Respiration 18 Pulse 84 Pulse Source Pulse Oximeter Temp 20 F L Pulse Oximetry (%) 98 Oxygen Delivery Method Room Air Intake Visit Reasons: S/P BILATERAL DIAGNOSTIC L2, L3, L4 MBB Allergies Sulfa (Sulfonamide Antibiotics) (SULFA (SULFONAMIDE ANTIBIOTICS)) Allergy (Intermediate, Verified 06/08/25 08:44) RASH, hives HPI Comments Details: Serafin is back in my office after diagnostic L2, L3, L4 medial branch block bilateral he reports pain increase after the onset of the procedure before the procedure his pain was 5/10 immediately after the procedure and for the next 4 hours after the procedure his pain increase to 8 and 7/10. 5 hours after the procedure his pain was 4/10. Therefore the facet joints of the mid lumbar spine are not his pain generators. On the CT scan which was performed on the patient in 2023 the was diagnosis of spinal stenosis and the patient was recommended to have CT scan with and without contrast evaluate degree of the stenosis. That was never performed. I am sending this patient for CT scan of lumbar spine with and without contrast. He will call my office and schedule appointment after the images already to be read. With the failure of medial branch blocks to alleviate his pain, failure in the past of spinal cord stimulator to help his pain, the only way to treat his pain is intrathecal drug delivery system pain pump. Unless there are surgical procedures which would be helpful for his pain, intrathecal pain pump is most likely the sole modality which would be possible to help his pain. He needs to go through psychological evaluation. Unfortunately he does not have enough money to pay for [employer] co-pay. I recommended him to get into contact with his own primary care physician and request a referral to a psychologist who will be willing to provide the evaluation of the patient in the preparation of the trials of I DDD. Complains on pain in the back as well as pain in the neck. He is suffering from postlaminectomy syndrome. He had 2 procedures on the neck and 7 surgeries on his back. He does not have hardware in the back. He came to this office with intention to receive spinal cord stimulator to treat the back pain. However the patient went for psychological evaluation and it looks like that he did not pay his co-pay to [employer] and would not have psychological evaluation today. At the same time he continues to complains on pain in the lower back practically without radiation into the bilateral lower extremities. He reports that flexing backwards aggravate his pain and flexing forward makes his pain better. Loading test is also positive. I will schedule him for bilateral L2, L3, L4 medial branch block in the attempt to establish diagnosis of his pain syndrome. Prior: He had posterior fusions L3 through S1 on the back and he also had anterior ACDF on the neck. He had MRI of the lumbar spine 1 year ago however he does not report if he remembers when he had a cervical imaging any time recently. He was involved in multiple modalities in the attempt to alleviate his pain in [facility] [employer]. He reports that he had physical therapy there and multiple medications as well as some injections. He had several attempts to perform spinal cord stimulator trial with [employer] however each time he was found to be on Eliquis and the procedure was aborted. He is interested in spinal cord stimulator. His past medical history significant for gout, prostate problems and arthritis. H [facility] Medical History (Updated 06/08/25 @ 09:25 by J Luis Wallis MD) Walker as ambulation aid Polyarticular osteoarthritis Venous insufficiency Retinal hemorrhage Vitamin D deficiency Joint pain in both hands HARITHA (obstructive sleep apnea) Carpal tunnel syndrome Morbid obesity Prostate CA Constipation Elevated alkaline phosphatase level Stenosis of cervical spine Anemia Depression RBBB Erectile dysfunction Lumbar spinal stenosis Atrial fibrillation GERD (gastroesophageal reflux disease) Asthma Arthritis Surgical History Hx of cervical spine surgery History of surgery Hx of neck surgery History of back surgery H/O cardiac radiofrequency ablation (~04/2017) Family History Father Heart attack DVT (deep venous thrombosis) Mother Diabetes COPD (chronic obstructive pulmonary disease) Social History Household Members: Spouse and Family Housing: House Are you a primary ocular care technologist to a significant other at home: No Do you presently have visiting nurse or other home services: Yes (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) Alcohol intake: never Patient Tobacco Use Status: Former Tobacco user Tobacco use type: Cigarette e-Cigarette/Vaping Use: Never Used Second Hand Smoke Exposure: No service: No 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al status: retired 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 Cognitive needs: No Hearing needs: No Vision needs: No Review of Systems Const All systems reviewed & are unremarkable except as noted in HPI and below ENT Reports Normal hearing present Neuro Reports Normal hearing present, Denies Abnormal speech present, Denies confusion and Denies Sensory deficit (Neuro) Psych Denies confusion Physical Exam Vital Signs: Last Vital Signs Temp 20 F L 06/08/25 08:43 Pulse 84 06/08/25 08:43 Resp 18 06/08/25 08:43 BP 155/89 H 06/08/25 08:43 Pulse Ox 98 06/08/25 08:43 Oxygen Delivery Method Room Air 06/08/25 08:43 Const General: no acute distress; No confusion Nutritional Appearance: overweight Orientation/consciousness: patient oriented x3 and No confusion Eyes General: appearance normal, both eyes and all related structures Pupils: Equal, round and reactive pupils present EOM: EOMs intact bilaterally Neck Other: There is very well-healed horizontal scar on the right side of his neck the scar is very well-healed. Neck: No full ROM Chest Chest palpation & inspection: normal inspection of the chest Resp Effort & Inspection: normal respiratory effort, able to speak in complete sentences, normal respiratory pattern, no audible wheezes and no cough Cardio Jugular venous distension: no JVD GI Inspection: Yes normal to inspection Back/Spine/Pelvis Other: There is very well-healed scar on the posterior surface of the midline lumbar area with indentation inside probably secondary to removal of the lamina with spinous processes at the area of the manipulation. The scar is very well-healed. Neuro General: patient oriented x3, gait normal and No confusion Cranial nerves: Yes CN's II-XII intact bilaterally, Yes Equal, round and reactive pupils present, Yes Normal hearing present and Yes Ability to bilaterally elevate shoulders present Speech: No Abnormal speech present Gait exam (Neuro): Normal gait present Motor exam (neuro): 5/5 motor strength present throughout Sensory Exam: No Sensory deficit (Neuro) Extrem General: No pedal edema Psych Speech and movement: Normal speech and movement present Affect: normal affect Attitude: cooperative Thought process: Normal thought process present Thought content: Normal thought content present Insight: Good insight present (Psych) Judgement: Good judgement present (Psych) Results Reviewed Results Reviewed: CT LUMBAR SPINE WITHOUT CONTRAST CLINICAL INFORMATION: Back pain, spinal stenosis COMPARISON: None available TECHNIQUE: A multidetector CT acquisition of the lumbar spine is obtained without contrast. This CT examination was performed using dose optimization techniques as appropriate, variously including the following: *Automated exposure control *Adjustment of mA and/or kV according to patient size (this includes techniques or standardized protocols for targeted exams where dose is matched to indication/reason for exam; i.e. extremities or head) *Use of iterative reconstruction technique DLP: 1858 mGy-cm FINDINGS: The normal lumbar lordosis is preserved. Trace retrolisthesis of L1-L2 and L2-L3. Lumbar vertebral body heights are maintained. Multilevel degenerative endplate changes are noted. Prominent anterior osteophytes at L3 and L4. Vacuum disc phenomenon at L4-L5 and L5-S1. Please note that canal patency is not well assessed on this examination due to inherent limitations of CT without intrathecal contrast. Within these limitations, multilevel degenerative changes with level by level detail are as follows: T12-L1: Left subarticular disc protrusion/osteophyte formation with mild indentation of the left thecal sac. Facet arthropathy. The central canal is otherwise patent. Left neural foramen is patent. Mild to moderate narrowing of the right neural foramen. L1-L2: Disc bulge and osteophytic ridging with facet arthropathy. Mild narrowing of the thecal sac. Mild narrowing of the neural foramen. L2-L3: Disc bulge and osteophytic ridging. Advanced facet arthropathy with ligamentum flavum redundancy. Likely severe spinal canal stenosis. There is severe bilateral neural foraminal stenosis with exiting nerve root impingement secondary to advanced facet arthropathy. L3-L4: Disc bulge and osteophytic ridging with severe facet arthropathy. There is hyperdensity along the midline dorsal thecal sac which is indeterminate and may be postoperative. Finding appears unchanged compared to 2019. Severe spinal canal stenosis with probable mass effect on the cauda equina nerve roots. Severe left greater than right neural foraminal stenosis with exiting nerve root impingement. L4-L5: Disc bulge and osteophytic ridging with severe facet arthropathy. Prior posterior decompression. The thecal sac is suboptimally assessed, but there is likely at least persistent mild to moderate canal stenosis. Severe left neural foraminal stenosis with exiting nerve root impingement. Moderate to severe right neural foraminal stenosis with impingement of the exiting nerve root. L5-S1: Posterior decompression. Disc bulge and osteophytic ridging indents the ventral thecal sac and narrows the lateral recesses. The central canal is otherwise patent. Severe bilateral neural foraminal stenosis with exiting nerve root compression. Limited intra-abdominal evaluation is within normal limits. IMPRESSION: There is severe spinal canal stenosis at L3-L4 with probable mass effect on the cauda equina nerve roots that is suboptimally evaluated. Hyperdensity along the dorsal aspect of the thecal sac at L3-L4 is indeterminate but remains stable compared to 2019. Severe spinal canal stenosis at L2-L3. Multilevel severe bilateral neural foraminal stenosis with exiting nerve root compression as described above. Assessment & Plan Assessment & Plan (1) Spinal stenosis at L4-L5 level: Code(s): M48.061 - Spinal stenosis, lumbar region without neurogenic claudication Category: Medical (2) Postlaminectomy syndrome, cervical: Code(s): M96.1 - Postlaminectomy syndrome, not elsewhere classified Category: Medical (3) Postlaminectomy syndrome of lumbar region: Code(s): M96.1 - Postlaminectomy syndrome, not elsewhere classified Category: Medical (4) Chronic pain syndrome: Code(s): G89.4 - Chronic pain syndrome Category: Medical (5) Spondylosis of lumbar region without myelopathy or radiculopathy: Code(s): M47.816 - Spondylosis without myelopathy or radiculopathy, lumbar region Category: Medical Plan This patient is very interested in performance of spinal cord stimulator and intrathecal pain pump to alleviate his pain. He went for psychological evaluation however did not pay his co-payment to release his evaluation to us. I recommended him to have his primary care physician to refer him to the psychological evaluation local psychologist who would not require him to pay the co-pay. The diagnostic L2, L3, L4 MBB performed 2 days ago resulted in pain exacerbation. Therefore his pain is not related to facet joints. Very likely his pain is related to spinal stenosis which is 1 year ago demonstrated spinal stenosis at L3-L4. MRI reading from [facility] demonstrated L3-L4 and L4-5 Modic type changes. However patient denies pain exacerbation with prolonged sitting. I am offering this patient to go through psychological evaluation with local psychologist who would not request co-pay for his evaluation. The formulary example and the letter example were given to the patient. We agreed that the patient will go for the CT scan of the lumbar spine with and without contrast to evaluate the stenosis of the spinal canal and he will give us a call immediately after the procedure of the CT scan to schedule appointment with me. Orders: Orders CT lumbar spine wo/w IV con Today M48.061 - Spinal stenosis, lumbar region without neurogenic claudication Patient Instructions: I here by testify that I spent 35 minutes in conversation with this patient as well as evaluating his prior records and prior diagnostic studies as well as planning his care and organizing this note. Coding Level of Care Code Est Pt Level 4 (72429) Diagnoses Spinal stenosis at L4-L5 level M48.061 Postlaminectomy syndrome, cervical M96.1 Postlaminectomy syndrome of lumbar region M96.1 Chronic pain syndrome G89.4 Spondylosis of lumbar region without myelopathy or radiculopathy M47.816
== END 2025-06-08 09:18 | disposition home or self-care (01) ==
LOC: HO.PMC 08:33
PROVIDERS: PCP Nurse Practitioner Family; Visit Provider Anesthesiology
DX: M48.061 Spinal stenosis, lumbar region without neurogenic claudication (principal); M96.1 Postlaminectomy syndrome, not elsewhere classified; G89.4 Chronic pain syndrome; M47.816 Spondylosis without myelopathy or radiculopathy, lumbar region
CPT/HCPCS: 99214

== ENCOUNTER → 2025-06-08 08:32 | Outpatient (BNVA) | payer MEDICARE, MEDICAID, SELFPAY | PROVIDERS: PCP Nurse Practitioner Family; Visit Provider Anesthesiology | DX: M48.061 Spinal stenosis, lumbar region without neurogenic claudication (principal); M96.1 Postlaminectomy syndrome, not elsewhere classified; M47.816 Spondylosis without myelopathy or radiculopathy, lumbar region; G89.4 Chronic pain syndrome | CPT/HCPCS: 99212 ==

== ENCOUNTER 2025-06-19 08:10 | Outpatient (REF) | payer MEDICARE, MEDICAID, SELFPAY ==
--- OUTSIDE RECORDS SUMMARY | 2024-04-11 05:15 | XMS_ITS ---
Author Organization [facility] Address [address] [place] [address] Care Team Providers Care Maritime Engineer Name Role Phone Prosper Winkler Primary Care Provider Unav ailable Gamaliel Connor Unavailable [phone] Medications Medication SIG (Take, Route, Fr equency, Duration) Notes Start Date End Date Status Ammonium Lactate 12 % 1 application to a ffected area Externally Twice a day to dry areas of skin on feet; Duration: 30 days Active Encounters Encounter Location Date Provider Diagnosis [address] [address] 04/11/2024 Gamaliel Connor Type 2 diabetes mellitus [...] as necessary. Patient chooses, no pharmaceutical tx (14891) Keratoma Treatment Parring or Cutting o f Benign Hyperkeratotic Lesion(s) 52618 ( 2-4 Lesions ) - The Benign hyperkeratotic lesions, as described above were pared, and/or cut utilizing a sterile 15 blade, tissue nippers, and/or dremel Progress Notes * Serafin EBCKETTDOB:1964 (60 yo M)Acc No.[id number]:04/11/2024 Progress Note Patient: Serafin WITT Provider: Jo Ann Connor DPM :1965 A ge:58 Y S ex:Male Date:04/11/2024 Address:[address] [place] [address], [address], [place] [address] Pcp:FRANCIS Corrales Subjective: * Chief Complaints: * [...] C ardiovascular: Pacemaker d enies, denies. M ASPHALT PAVING SUPERINTENDENT d enies, denies.?WPW d enies, denies. C [...] as necessary. Patient chooses, no pharmaceutical tx (65267). K eratoma Treatment: Parring or Cutting of [...] 04/11/2024 Generated for Eric dyer/Evelyn/Boris on: 0 06/20/2025 08:14 AM EDT History and Physical Notes * [...]
--- NOTE | ~2025-06-19 | XR_ITS ---
EXAMINATION: XR KNEE, RIGHT CLINICAL INFORMATION: M25.569 - Pain in unspecified knee COMPARISON: 05/01/2025, 06/03/2018. TECHNIQUE: AP view bilateral knees standing, patellofemoral view right knee. FINDINGS: LEFT KNEE: No fracture, dislocation, or suspicious bone lesion. Mild medial and lateral compartment joint space narrowing. Normal soft tissues. RIGHT KNEE: No fracture, dislocation, or suspicious bone lesion. Minimal medial and lateral compartment joint space narrowing. Mild spurring of the tibial spines. Mild lateral facet osteoarthritis in the patellofemoral joint. There is evidence of prior MCL injury with unchanged platelike calcification adjacent to the medial tibial metaphysis. No soft tissue abnormalities. XR/XR knee RT 2V IMPRESSION: 1. Mild tricompartmental osteoarthritis of the right knee. 2. Stable right knee calcification of the inferior insertion of the medial collateral ligament, likely secondary to old injury. Electronically signed by: Dwayne Herrera MD 06/19/2025 01:23 PM EDT
== END 2025-06-19 08:11 | disposition home or self-care (01) ==
LOC: HO.HOSX 08:10
PROVIDERS: Visit Provider Physician Assistant
DX: M25.562 Pain in left knee (principal); M17.11 Unilateral primary osteoarthritis, right knee
CPT/HCPCS: 73560; 99212; J1010; J2003

== ENCOUNTER 2025-06-19 11:38 | Outpatient (AMB) | payer MEDICARE, MEDICAID, SELFPAY ==
--- OUTSIDE RECORDS SUMMARY | 2024-04-11 05:15 | XMS_ITS ---
Author Organization [facility] Address [address] [place] [address] Care Team Providers Care Rvda Master Certified Rv Technician Name Role Phone Prosper Winkler Primary Care Provider Unav ailable Gamaliel Connor Unavailable [phone] Medications Medication SIG (Take, Route, Fr equency, Duration) Notes Start Date End Date Status Ammonium Lactate 12 % 1 application to a ffected area Externally Twice a day to dry areas of skin on feet; Duration: 30 days Active Encounters Encounter Location Date Provider Diagnosis [address] [address] 04/11/2024 Gamaliel Connor Type 2 diabetes mellitus [...] as necessary. Patient chooses, no pharmaceutical tx (70950) Keratoma Treatment Parring or Cutting o f Benign Hyperkeratotic Lesion(s) 53189 ( 2-4 Lesions ) - The Benign hyperkeratotic lesions, as described above were pared, and/or cut utilizing a sterile 15 blade, tissue nippers, and/or dremel Progress Notes * Serafin BECKETTDOB:1964 (60 yo M)Acc No.[id number]:04/11/2024 Progress Note Patient: Serafin WITT Provider: Jo Ann Connor DPM :1965 A ge:58 Y S ex:Male Date:04/11/2024 Address:[address] [place] [address], [address], [place] [address] Pcp:FRANCIS Corrales Subjective: * Chief Complaints: * [...] C ardiovascular: Pacemaker d enies, denies. M DIRECTOR OF STUDENT FINANCIAL AID d enies, denies.?WPW d enies, denies. C [...] as necessary. Patient chooses, no pharmaceutical tx (58435). K eratoma Treatment: Parring or Cutting of [...] 04/11/2024 Generated for Eric Armas/Boris on: 0 06/19/2025 12:43 PM EDT History and Physical Notes * [...]
--- NOTE | 2025-06-19 11:48 | MHC.OFFVIS ---
Vital Signs 06/19/25 11:55 Height 6 ft 3 in Weight 362 lb BMI 45.2 Intake Visit Reasons: New prob-Rt knee pain Intake Note: Serafin is a 59 year old male who presents today as an established patient, new problem to evaluate his right knee pain. Patient was seen by his PCP who ordered x-rays and was referred to orthopedics. Patient reports his pain has been present for a while that is now getting severely worse. His pain is located at the medial and lateral aspect of knee. States his knees lock up and give out. No previous treatment. Denies injury. He uses a cane with ambulation. No at home treatment. Allergies Sulfa (Sulfonamide Antibiotics) (SULFA (SULFONAMIDE ANTIBIOTICS)) Allergy (Intermediate, Verified 06/19/25 11:52) RASH, hives Medication List - Last Reconciled 06/19/25 by Kala Hudson PA-C apixaban 5 mg PO Q12H aripiprazole (Abilify) 5 mg PO DAILY blood sugar diagnostic ([employer] Verio test strips) test blood sugar once a day blood-glucose meter ([employer] Verio Flex Meter) As directed gabapentin 800 mg PO TID lancets ([employer] Delica Plus Lancet) test blood sugar once a day losartan 25 mg PO DAILY meloxicam 15 mg PO DAILY PRN 12 days omeprazole 20 mg PO DAILY pramipexole 0.5 mg PO BID 90 days prazosin 1 mg PO BEDTIME [Rollator walker with seat daily use] semaglutide 2 mg (0.75 mL) subcut QWEEK tadalafil 5 mg PO DAILY 90 days walker with wheels HPI HPI New prob-Rt knee pain: Details: 60-year-old gentleman presents to the office today for right knee pain. He states the pain has been present for several years but is getting worse with activities such as stairs and prolonged walking. He has had injections in the left knee with success he has history of diabetes but states it is well controlled. [facility] Medical History (Updated 06/19/25 @ 11:56 by Kala Hudson PA-C) Walker as ambulation aid Polyarticular osteoarthritis Venous insufficiency Retinal hemorrhage Vitamin D deficiency Joint pain in both hands HARITHA (obstructive sleep apnea) Carpal tunnel syndrome Morbid obesity Prostate CA Constipation Elevated alkaline phosphatase level Stenosis of cervical spine Anemia Depression RBBB Erectile dysfunction Lumbar spinal stenosis Atrial fibrillation GERD (gastroesophageal reflux disease) Asthma Arthritis Surgical History Hx of cervical spine surgery History of surgery Hx of neck surgery History of back surgery H/O cardiac radiofrequency ablation (~04/2017) Family History Father Heart attack DVT (deep venous thrombosis) Mother Diabetes COPD (chronic obstructive pulmonary disease) Social History Household Members: Spouse and Family Housing: House Are you a primary home care manager to a significant other at home: No Do you presently have visiting nurse or other home services: Yes (PR[employer]ESS[employer] 3 hours daily) Alcohol intake: never Patient Tobacco Use Status: Former Tobacco user Tobacco use type: Cigarette e-Cigarette/Vaping Use: Never Used Second Hand Smoke Exposure: No service: No 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al status: retired 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 Tenderness along the medial joint line. ROM full with crepitus. Negative steinmans. No ligamentous laxity. NVI. Office Procedures AMB Joint Injection/Aspiration Joint Injection/Aspiration Primary Site: right knee Prep: site was prepped using aseptic technique, ethochloride spray was applied and injection warnings given Injected: 40 mg of, DepoMedrol, with 8 mL of, 1% plain lidocaine and in the joint Approach Used: anterolateral Procedure: The patient tolerated the procedure well and there was some relief with the local anesthesia Coding 77116 - Glenohumeral/Tronchanteric Bursa/Intraarticular Procedure code (CPT) selection complete Results Reviewed Results Reviewed: Xrays were obtained in the office today and personally reviewed by me of the right knee show PF oa Assessment & Plan Assessment & Plan (1) Patellofemoral arthritis of right knee: Code(s): M17.11 - Unilateral primary osteoarthritis, right knee Category: Medical Plan: We discussed options today, which include steroid injection. The patient did consent to move forward with the right knee injection, which was tolerated well.? I recommended rest, ice and elevation and OTC antiinflammatories prn for discomfort. If symptoms persist over the next 6-8 weeks, they will contact our office, otherwise, prn We also discussed their diabetes and the effect the steroid can have on thier blood glucose levels; therefore, they will continue to monitor these very closely over the next 72 hours Orders: Orders XR knee RT 2V Today M25.569 - Pain in unspecified knee PT Evaluation and Treatment Today M17.11 - Unilateral primary osteoarthritis, right knee Coding Level of Care Code Est Pt Level 3 (12339) Complex EM visit Add On G2211 Diagnoses Patellofemoral arthritis of right knee M17.11 CPT Codes Coding - Joint 7: 68066 - Glenohumeral/Tronchanteric Bursa/Intraarticular ([id number])
[2025-06-19 11:55] VITALS: BMI 45.2
== END 2025-06-19 12:20 | disposition home or self-care (01) ==
LOC: HO.HOS 11:39
PROVIDERS: PCP Nurse Practitioner Family; Visit Provider Physician Assistant
DX: M17.11 Unilateral primary osteoarthritis, right knee (principal)
CPT/HCPCS: 20610; 99213

== ENCOUNTER → 2025-06-19 11:40 | Outpatient (BNV) | payer MEDICARE, MEDICAID, SELFPAY | PROVIDERS: Visit Provider Radiology Diagnostic Radiology | DX: M17.11 Unilateral primary osteoarthritis, right knee (principal) | CPT/HCPCS: 73560 ==

== ENCOUNTER 2025-07-17 08:55 | Outpatient (AMB) | payer MEDICARE, MEDICAID, SELFPAY ==
--- OUTSIDE RECORDS SUMMARY | 2024-04-11 05:15 | XMS_ITS ---
Author Organization [facility] Address [address] [place] [address] Care Team Providers Care Vice President Process Name Role Phone Prosper Winkler Primary Care Provider Unav ailable Gamaliel Connor Unavailable [phone] Medications Medication SIG (Take, Route, Fr equency, Duration) Notes Start Date End Date Status Ammonium Lactate 12 % 1 application to a ffected area Externally Twice a day to dry areas of skin on feet; Duration: 30 days Active Encounters Encounter Location Date Provider Diagnosis [address] [address] 04/11/2024 Gamaliel Connor Type 2 diabetes mellitus [...] as necessary. Patient chooses, no pharmaceutical tx ([id number]) Keratoma Treatment Parring or Cutting o f Benign Hyperkeratotic Lesion(s) 37096 ( 2-4 Lesions ) - The Benign hyperkeratotic lesions, as described above were pared, and/or cut utilizing a sterile 15 blade, tissue nippers, and/or dremel Progress Notes * Serafin BECKETTDOB:1964 (60 yo M)Acc No.[id number]:04/11/2024 Progress Note Patient: Serafin WITT Provider: Jo Ann Connor DPM :1965 A ge:58 Y S ex:Male Date:04/11/2024 Address:[address] [place] [address], [address], [place] [address] Pcp:FRANCIS Corrales Subjective: * Chief Complaints: * [...] C ardiovascular: Pacemaker d enies, denies. M LEAD RUBY ON RAILS DEVELOPER d enies, denies.?WPW d enies, denies. C [...] as necessary. Patient chooses, no pharmaceutical tx (29542). K eratoma Treatment: Parring or Cutting of [...] 04/11/2024 Generated for Eric dyer/Evelyn/Boris on: 0 07/17/2025 09:26 AM EDT History and Physical Notes * [...]
[2025-07-17 09:04] VITALS: BP 134/88; PULSE 88; RESP 18; TEMP 36.7; O2SAT 95; BMI 45.1
--- NOTE | 2025-07-17 09:04 | A.OFFPC_ITS ---
Vital Signs 07/17/25 09:04 Height 6 ft 3 in Weight 361 lb BMI 45.1 BP 134/88 Blood Pressure Location Rt brachial Position Sitting Respiration 18 Pulse 88 Pulse Source Pulse Oximeter Temp 98.0 F Temp Source Oral Pulse Oximetry (%) 95 Oxygen Delivery Method Room Air Intake Visit Reasons: 4m f/u *Confirmed 07/14 DCR Environmental Health Sanitarian Required: No Allergies Sulfa (Sulfonamide Antibiotics) (SULFA (SULFONAMIDE ANTIBIOTICS)) Allergy (Intermediate, Verified 07/17/25 09:42) RASH, hives Medication List - Last Reconciled 07/17/25 by Prosper Ellis, [facility]- apixaban 5 mg PO Q12H aripiprazole (Abilify) 5 mg PO DAILY blood sugar diagnostic ([employer] Verio test strips) test blood sugar once a day blood-glucose meter ([employer] Verio Flex Meter) As directed gabapentin 800 mg PO TID lancets ([employer] Delica Plus Lancet) test blood sugar once a day losartan 25 mg PO DAILY meloxicam 15 mg PO DAILY PRN 12 days omeprazole 20 mg PO DAILY pramipexole 0.5 mg PO BID 90 days prazosin 1 mg PO BEDTIME [Rollator walker with seat daily use] semaglutide 2 mg (0.75 mL) subcut QWEEK tadalafil 5 mg PO DAILY 90 days walker with wheels Tobacco use date assessed: 07/17/25 Dental Screening Dental Screen Date: 07/17/25 Did you have a dental visit in the last 12 months?: Yes Did you have a dental problem in the last 6 months where you did not have access to dental care?: No Was dental information given to patient?: Patient has dentist HPI 4m f/u *Confirmed 07/14 DCR HPI Details Chief Complaint The patient presents for a follow-up regarding diabetes management. History of Present Illness The patient is a 60-year-old male presenting with a follow-up for diabetes management. His diabetes is well-controlled with an A1c of 5.6, achieved through dietary changes and weight loss. He intends to arrange an eye examination independently. The patient suffers from peripheral neuropathy, with reduced sensation in the extremities, more severe on the left. He also experiences swelling and discoloration in these areas and is monitored by a vascular specialist. The patient has dry skin on the right heel and was advised to apply lotion. He has discontinued visits to a public health aides teacher. A healing scab is noted on the left distal calf, with no infection signs. Social History Health Maintenance - Eye examination planned for diabetes m anagement Review of Systems - Neurological: Reports reduced sensatio n in bilateral extremities, worse on the left. Denies other neurological symptoms. - Dermatological: Reports dry, cracking skin on the right heel. Denies other skin issues. Physical Exam General: Cooperative, healthy appearing, comfortable, no acute distress and well developed, morbidly obese Orientation: Patient oriented x3 Limitations: No limitations Head: Normal to inspection Ears: Hearing grossly normal bilaterally Nose: Normal external nose present Face and sinus: Normal facial exam Eyes: Appearance normal, both eyes and all related structures Neck: Normal visual inspection and Yes full ROM Respiratory: Normal respiratory effort and able to speak in complete sentences. Clear to auscultation bilaterally Cardiovascular: Regular rate and rhythm. Normal S1 and S2 GI: Normal to inspection. Soft to palpation and nontender Skin: Dry cracking to the right heel. Scab healing lesion on the left posterior upper ankle, distal calf, small circular about the size of a nickel. No signs of infection noted Neuro: Neuropathy of bilateral extremities, minimal sensation with use of monofilament, worse in the left than the right Extremities: Swelling and discoloration to bilateral extremities. Results - Labs: Hemoglobin A1c at 5.6% Plan The patient is advised to maintain his current diabetes management strategy, focusing on dietary changes and weight loss, as his A1c is well-controlled at 5.6%. He should arrange for an eye examination to check for diabetic retinopathy. For peripheral neuropathy, ongoing follow-up with his vascular specialist is recommended to manage extremity symptoms. He should apply lotion to the right heel to manage xerosis. The healing scab on the left distal calf should be observed for any signs of infection, although it is currently healing well. Discussion Notes I discussed with the patient the importance of continuing his current diabetes management plan, emphasizing the positive impact on his A1c levels. We talked about the need for an eye examination to monitor for potential diabetic complications. I reinforced the importance of managing peripheral neuropathy sy mptoms through regular vascular specialist visits and advised on skin care for his heel. Patient Instructions - Continue with your current diet and we ight loss plan to manage diabetes. - Schedule an eye exam to check for diab etic eye issues. - Follow up with your vascular specialis t for neuropathy management. - Apply lotion to your right heel to pre vent dryness and cracking. - Monitor the healing scab on your left calf for any signs of infection. [facility] History Walker as ambulation aid Polyarticular osteoarthritis Venous insufficiency Retinal hemorrhage Vitamin D deficiency Joint pain in both hands HARITHA (obstructive sleep apnea) Carpal tunnel syndrome Morbid obesity Prostate CA Constipation Elevated alkaline phosphatase level Stenosis of cervical spine Anemia Depression RBBB Erectile dysfunction Lumbar spinal stenosis Atrial fibrillation GERD (gastroesophageal reflux disease) Asthma Arthritis Surgical History Hx of cervical spine surgery History of surgery Hx of neck surgery History of back surgery H/O cardiac radiofrequency ablation (~04/2017) Family History Father Heart attack DVT (deep venous thrombosis) Mother Diabetes COPD (chronic obstructive pulmonary disease) Social History Household Members: Spouse and Family Housing: House Are you a primary child care provider to a significant other at home: No Do you presently have visiting nurse or other home services: Yes (SPECIAL TESTER 3 hours daily) Alcohol intake: never Patient Tobacco Use Status: Former Tobacco user Tobacco use type: Cigarette e-Cigarette/Vaping Use: Never Used Second Hand Smoke Exposure: No service: No 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al status: retired 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 1. Little interest or pleasure in doing things: more than half the days 2. Feeling down, depressed, or hopeless: several days 3. Trouble falling or staying asleep, or sleeping too much: several days 4. Feeling tired or having little energy: nearly every day 5. Poor appetite or overeating: nearly every day 6. Feeling bad about yourself - or that you are a failure or have let yourself or your family down: several days 7. Trouble concentrating on things, such as reading the newspaper or watching television: not at all 8. Moving or speaking so slowly that other people could have noticed. Or the opposite - being so fidgety or restless that you have been moving around a lot more than usual: nearly every day 9. Thoughts that you would be better off or of hurting yourself in some way: not at all Total score: 14 Depression Screening Interpretation: Positive (denies any si or hi) Depression Screening Follow-up: Existing condition Depression Screening Done: Yes 04525 - PHQ-9 Billing: Yes Source: Developed by Drs. Jacobo Lewis, Clarissa Whitaker, Arcenio Del Valle and colleagues, with an educational gregorio from [employer]. Thrive Questionnaire Date Thrive assessed: 03/23/25 I am a: Patient What is your living situation today?: I have a steady place to live Within the past 12 months, did the food you bought not last and you didn't have the money to get more?: Often true Within the past 12 months, did you worry whether your food would run out before you got money to buy more?: Never true Do you have trouble paying for medicines?: No Do you have trouble getting transportation to medical appointments?: Yes Do you have trouble paying your heating and electricity bill?: Yes Do you have trouble taking care of your child, family member or friend?: No Do you have trouble with day-to-day activities such as bathing, preparing meals, shopping, managing finances, etc.?: Yes Are you currently unemployed and looking for a job?: No Are you interested in more education?: No Please select the resources that you would like help with: None Currently or been in a relationship where the following occur: No concerns reported THRIVE Score: 3 AUDIT C Alcohol Use Questionnaire (AUDIT-C) 2. How many drinks containing alcohol do you have on a typical day when you are drinking?: 1 or 2 3. How often do you have six or more drinks on one occasion?: Never Total Score: 0 CLAU-7 AMB Questionnaire CLAU-7 Date CLAU - 7 assessed: 07/17/25 Feeling nervous, anxious, or on edge: 0 = Not at all Not being able to stop or control worryin = Not at all Worrying too much about different things: 0 = Not at all Trouble relaxin = Not at all Being so restless that it is hard to sit still: 0 = Not at all Becoming easily annoyed or irritable: 0 = Not at all Feeling afraid as if something awful might happen: 0 = Not at all Total CLAU-7 score (0-4 normal; 5-9 mild; 10-14 moderate; 15-21 severe): 0 Source: Developed by Drs. Jaocbo Lewis, Clarissa Whitaker, Arcenio Del Valle and colleagues, with an educational gregorio from [employer]. CLAU-7 Assessment Billing CLAU-7 Assessment Tool: CLAU-7 Assessment 61967 Physical exam (Primary Care) Vital Signs: Last Vital Signs Temp 98.0 F 07/17/25 09:04 Pulse 88 07/17/25 09:04 Resp 18 07/17/25 09:04 BP 134/88 07/17/25 09:04 Pulse Ox 95 07/17/25 09:04 Oxygen Delivery Method Room Air 07/17/25 09:04 BMI result Body Mass Index 45.1 Tobacco/Smoking Status: Tobacco use Status Tobacco use date assessed 07/17/25 07/17/25 09:08 Patient Tobacco Use Status Former Tobacco user 07/17/25 09:08 Tobacco use type Cigarette 07/17/25 09:08 e-Cigarette/Vaping Use Never Used 07/17/25 09:08 PHQ-9: PHQ-9 Score PHQ-9: Total score 14 07/17/25 09:12 Depression Screening Interpretation: Positive (denies any si or hi) Depression Screening Follow-up: Existing condition Thrive Assessment: Date of Thrive Assessment Date Thrive assessed 03/23/25 07/17/25 09:08 Currently or been in a relationship where the following occur: No concerns reported Results AMB Hemoglobin A1c AMB Hemoglobin A1c 5.6 % Last Edit by Clari Porter MA on 07/17/25 09:19 Results Reviewed Results Reviewed: Laboratory Last Values Hgb A1c (Clinic) 5.6 % (4.0-6.0) 07/17/25 08:59 Coding Level of Care Code Est Pt Level 3 (12769) Diagnoses Diabetes E11.9 Vitamin D deficiency E55.9 Additional Codes CLAU-7 Assessment Billing - CLAU-7 Assessment Tool: CLAU-7 Assessment 32956 ([id number]) PHQ-9 - 18548 - PHQ-9 Billing: Yes ([id number]) Assessment & Plan Assessment & Plan (1) Diabetes: Code(s): E11.9 - Type 2 diabetes mellitus without complications Category: Medical (2) Vitamin D deficiency: Code(s): E55.9 - Vitamin D deficiency, unspecified Category: Medical Plan . Orders: Orders AMB Hemoglobin A1c Today Z13.9 - Encounter for screening, unspecified Complete Blood Count Auto Diff Today E11.9 - Type 2 diabetes mellitus without complications UA CC w/rflx Micro + Cult Today E11.9 - Type 2 diabetes mellitus without complications Lipid Panel Today E11.9 - Type 2 diabetes mellitus without complications Comprehensive Bradford. Panel Fast Today E11.9 - Type 2 diabetes mellitus without complications TSH reflex Free T4 Today E11.9 - Type 2 diabetes mellitus without complications Microalbumin, Random (w Creat) Today E11.9 - Type 2 diabetes mellitus without complications Vitamin D 25-OH Total Today E55.9 - Vitamin D deficiency, unspecified
== END 2025-07-17 09:37 | disposition home or self-care (01) ==
LOC: HO.HMCC 08:56
PROVIDERS: PCP Nurse Practitioner Family; Visit Provider Nurse Practitioner Family
DX: E11.9 Type 2 diabetes mellitus without complications (principal); E55.9 Vitamin D deficiency, unspecified; Z13.9 Encounter for screening, unspecified

== ENCOUNTER → 2025-07-17 08:55 | Outpatient (BNVA) | payer MEDICARE, MEDICAID, SELFPAY | PROVIDERS: PCP Nurse Practitioner Family; Visit Provider Nurse Practitioner Family | DX: E11.40 Type 2 diabetes mellitus with diabetic neuropathy, unspecified (principal); E55.9 Vitamin D deficiency, unspecified | CPT/HCPCS: 83036; 96127; 99212 ==

== ENCOUNTER 2025-07-27 09:12 | Outpatient (AMB) | payer MEDICARE, MEDICAID, SELFPAY ==
--- OUTSIDE RECORDS SUMMARY | 2024-04-11 05:15 | XMS_ITS ---
Author Organization [facility] Address [address] [place] [address] Care Team Providers Care Well Testing Operator Name Role Phone Prosper Winkler Primary Care Provider Unav ailable Gamaliel Connor Unavailable [phone] Medications Medication SIG (Take, Route, Fr equency, Duration) Notes Start Date End Date Status Ammonium Lactate 12 % 1 application to a ffected area Externally Twice a day to dry areas of skin on feet; Duration: 30 days Active Encounters Encounter Location Date Provider Diagnosis [address] [address] 04/11/2024 Gamaliel Connor Type 2 diabetes mellitus [...] as necessary. Patient chooses, no pharmaceutical tx (62775) Keratoma Treatment Parring or Cutting o f Benign Hyperkeratotic Lesion(s) 36071 ( 2-4 Lesions ) - The Benign hyperkeratotic lesions, as described above were pared, and/or cut utilizing a sterile 15 blade, tissue nippers, and/or dremel Progress Notes * Serafin BECKETTDOB:1964 (60 yo M)Acc No.[id number]:04/11/2024 Progress Note Patient: Serafin WITT Provider: Jo Ann Connor DPM :1965 A ge:58 Y S ex:Male Date:04/11/2024 Address:[address] [place] [address], [address], [place] [address] Pcp:FRANCIS Corrales Subjective: * Chief Complaints: * [...] C ardiovascular: Pacemaker d enies, denies. M PREPARATION DEPARTMENT SUPERVISOR d enies, denies.?WPW d enies, denies. C [...] as necessary. Patient chooses, no pharmaceutical tx (26665). K eratoma Treatment: Parring or Cutting of [...] 04/11/2024 Generated for Eric dyer/Evelyn/Boris on: 0 07/27/2025 10:13 AM EDT History and Physical Notes * [...]
--- OUTSIDE RECORDS SUMMARY | 2024-05-09 09:15 | XMS_ITS ---
Author Organization [facility] Address [address] [place] [address] Care Team Providers Care Building Supplies Salesperson Retail Name Role Phone Prosper Winkler Primary Care Provider Unav ailable Gamaliel Connor Unavailable [phone] Medications Medication SIG (Take, Route, Fr equency, Duration) Notes Start Date End Date Status Ammonium Lactate 12 % 1 application to a ffected area Externally Twice a day to dry areas of skin on feet; Duration: 30 days Active Encounters Encounter Location Date Provider Diagnosis [address] [address] 05/09/2024 Gamaliel Connor Type 2 diabetes mellitus [...] as necessary. Patient chooses, no pharmaceutical tx (41056) Keratoma Treatment Parring or Cutting o f Benign Hyperkeratotic Lesion(s) 96908 ( 2-4 Lesions ) - The Benign hyperkeratotic lesions, as described above were pared, and/or cut utilizing a sterile 15 blade, tissue nippers, and/or dremel Progress Notes * Serafin BECKETTDOB:1964 (60 yo M)Acc No.[id number]:05/09/2024 Progress Note Patient: Serafin WITT Provider: Jo Ann Connor DPM :1965 A ge:58 Y S ex:Male Date:05/09/2024 Address:[address] [place] [address], [address] Floor, [place] [address] Pcp:FRANCIS Corrales Subjective: * Chief Complaints: * [...] C ardiovascular: Pacemaker d enies, denies. M INCIDENT RESPONSE ENGINEER d enies, denies.?WPW d enies, denies. C [...] as necessary. Patient chooses, no pharmaceutical tx (29541). K eratoma Treatment: Parring or Cutting of [...] 05/09/2024 Generated for Eric dyer/Evelyn/Boris on: 0 07/27/2025 [...]
[2025-07-27 09:26] VITALS: BP 140/88; PULSE 82; O2SAT 95; BMI 44.4
--- NOTE | 2025-07-27 09:26 | MHC.OFFVIS ---
Vital Signs 07/27/25 09:26 Height 6 ft 3 in Weight 355 lb 3 oz BMI 44.4 BP 140/88 H Blood Pressure Location Lt brachial Position Sitting Pulse 82 Pulse Source Pulse Oximeter Pulse Oximetry (%) 95 Oxygen Delivery Method Room Air Intake Visit Reasons: 2022 patient - med concerns Intake Note: Patient presents follow up HARITHA(Last seen 09/2023) Compliance in chart(89/90days, >=4hrs-87%, Average Usage-5hr 50min, Pressure-11cm, Med Leaks-10.4, AHI-0.2). Patient states pramipexole is not working. Allergies Sulfa (Sulfonamide Antibiotics) (SULFA (SULFONAMIDE ANTIBIOTICS)) Allergy (Intermediate, Verified 07/27/25 09:31) RASH, hives HPI Comments Details: 60-yr-old male presents for a follow-up visit for HARITHA and RLS. His cpap company is [employer]. 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 Compliance Report 03/2025 - 06/2025 Total use 89/90days, >=4hrs is 87%, Average Usage-5hr 50min Pressure-11cm, Med Leaks-10.4, AHI-0.2. Washes mask, rinses hoses, changes filters and fills reservoir with water He notices he can sleep averaging 4-6 hours night with his cpap. He goes bed at 11pm and wakes up at 4:30am with 2 bathroom breaks. The morning headaches have improved and he denies parasomnias. The RLS symptoms are worse, both feet twitch with an uncomfortable numbness, radiating pain from the ankles to the knees. He gets out of bed and waits a few minutes, stretches the legs, and moves to the couch as he dozes while watching tv. He reports taking Magnesium 400 mg, pramipexole 0.50mg po BID, this helps with the symptoms, but he is still twitchy while sleeping. His will nudge him to leave the bed due to the movements. He takes gabapentin 800 mg TID, and he stopped taking lyrica due to bilateral edema. Memory is poor, stm is getting worse, he has difficulty concentrating, and loses focus easily. Mood is depressed takes abilify 5mg po works well for his symptoms and sees a therapist once a week. He has T2DM and HTN well managed. He can complete all his ADLs with his [employer] M-Thurs 8 hours a day. He needs hygiene support, laundry, cooking, cleaning and help with transferring. Can be dizzy and has near falls when sugars are low. Denies falls, gait can be off balance and uses a walker. He sees weight management and lost 28lbs on ozempic. Would like to change to a more effective dopamine agonist if possible however not right now. [facility] Medical History Walker as ambulation aid Polyarticular osteoarthritis Venous insufficiency Retinal hemorrhage Vitamin D deficiency Joint pain in both hands HARITHA (obstructive sleep apnea) Carpal tunnel syndrome Morbid obesity Prostate CA Constipation Elevated alkaline phosphatase level Stenosis of cervical spine Anemia Depression RBBB Erectile dysfunction Lumbar spinal stenosis Atrial fibrillation GERD (gastroesophageal reflux disease) Asthma Arthritis Surgical History Hx of cervical spine surgery History of surgery Hx of neck surgery History of back surgery H/O cardiac radiofrequency ablation (~04/2017) Family History Father Heart attack DVT (deep venous thrombosis) Mother Diabetes COPD (chronic obstructive pulmonary disease) Social History Household Members: Spouse and Family Housing: House Are you a primary healthcare administrative assistant to a significant other at home: No Do you presently have visiting nurse or other home services: Yes (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) Alcohol intake: never Patient Tobacco Use Status: Former Tobacco user Tobacco use type: Cigarette e-Cigarette/Vaping Use: Never Used Second Hand Smoke Exposure: No service: No 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al status: retired 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 Cognitive needs: No Hearing needs: No Vision needs: No Physical Exam Vital Signs: Last Vital Signs Pulse 82 07/27/25 09:26 BP 140/88 H 07/27/25 09:26 Pulse Ox 95 07/27/25 09:26 Oxygen Delivery Method Room Air 07/27/25 09:26 BMI result Body Mass Index 44.4 Const General: no acute distress Nutritional Appearance: obese Orientation/consciousness: patient oriented x3 Limitations: ambulation with walker HEENT Head: Yes normocephalic Face and sinus: Yes face symmetric Throat: Yes other (mallampti score is 4) Eyes Pupils: Equal, round and reactive pupils present Neck Other: limited rom on flexion / extension - and lateral movement to the r/l Resp Effort & Inspection: normal respiratory effort and able to speak in complete sentences Neuro General: patient oriented x3 Cranial nerves: Yes Facial sensation intact/muscles of mastication intact, Yes Equal, round and reactive pupils present, Yes Normal accommodation reflex present, Yes Nystagmus not present, Yes Normal facial strength present, Yes Midline tongue present, Yes Ability to bilaterally rotate head present (with limited rom) and Yes Ability to bilaterally elevate shoulders present Cognition (Neuro): normal cognition Gait exam (Neuro): Wide-based gait present and Assistive device used Motor exam (neuro): 5/5 motor strength present throughout Psych Mental Status: mental status grossly normal Speech and movement: Clear speech present Attitude: cooperative Results Reviewed Results Reviewed: Compliance Report 03/2025 - 06/2025 Total use 89/90days, >=4hrs is 87%, Average Usage-5hr 50min Pressure-11cm, Med Leaks-10.4, AHI-0.2. Washes mask, rinses hoses, changes filters and fills reservoir with water Assessment & Plan Assessment & Plan (1) HARITHA (obstructive sleep apnea): Comment: PSG (2018)- AHI 13/hr, REM AHI 29/hr, O2 patti 77%. Code(s): G47.33 - Obstructive sleep apnea (adult) (pediatric) Category: Medical (2) Restless leg syndrome: Comment: PSG (2018)- PLMS Code(s): G25.81 - Restless legs syndrome Category: Medical (3) Fatigue: Code(s): R53.83 - Other fatigue Category: Medical Qualifiers: Fatigue type: chronic, unspecified Qualified Code(s): R53.82 - Chronic fatigue, unspecified Plan Continue CPAP 11 cmH2O nightly > 4 hours, as pt is having good clinical effect and good reduction in residual AHI from use. Clean CPAP machine and supplies routinely.Change CPAP supplies routinely. Pt to contact us or respiratory company with any questions or concerns. Continue Pramipexole to 0.25mg q 8:30pm and qHS. Will check ferritin and other labs level for RLS/ fatigue, he declines med changes today. Orders: Orders Vitamin D 25-OH Total 07/27/25 R53.83 - Other fatigue TSH reflex Free T4 07/27/25 R53.83 - Other fatigue Homocysteine 07/27/25 G47.9 - Sleep disorder, unspecified, R53.83 - Other fatigue Ferritin 07/27/25 R53.83 - Other fatigue Vitamin B6 07/27/25 R53.83 - Other fatigue Vitamin B12 and Folate 07/27/25 R53.83 - Other fatigue Methylmalonic Acid 07/27/25 G47.9 - Sleep disorder, unspecified, R53.83 - Other fatigue Patient Instructions: Sleep Hygiene provided: set a scheduled bedtime and wake time to help regulate the circadian rhythm and balance the release of pituitary hormones. Sleep in a dark room, temperatures below 68 degrees, and no devices n bed. Limit caffeinated products 6 hours prior to bed, and limit fluids 2-4 hours prior to bed. Gentle night yoga, diffusing essential oils, and playing soft music can be relaxing. MMSE ? Med changes next visit. Coding Level of Care Code Est Pt Level 4 (78757) Diagnoses HARITHA (obstructive sleep apnea) G47.33 Restless leg syndrome G25.81 Chronic fatigue R53.82 Fatigue type: chronic, unspecified
--- OUTSIDE RECORDS SUMMARY | 2025-07-27 10:13 | XMS_ITS | Patient Health Record ---
[facility] Organization [facility] Address [address] [place] [address] Care Team Providers Care Instruments Sales Representative Name Role Phone Prosper Winkler Primary Care Provider UnaGamaliel Dominguez Unavailable [phone] Allergies Allergen (clinical drug ingredient) Drug/Non Drug [...] DRY AREAS OF SKIN ON FEET 30 DAYS; Duration: 30 Activ e Metoprolol Succinate Active Social History Alcohol Screen Question Answer Notes Did you have a drink containing alcohol in the p ast year? No Points 0 Interpretation Negative Problems Problem Type SNOMED Code ICD Code Onset Dates Problem Status W/U Status Risk Notes Problem Polyneuropathy due to type 2 diabetes mellitus (421770808) Type 2 diabetes mellitus with diabetic polyneuropathy (E11.42) Active confirmed Plan Of Treatment Pending Test Test Name Order Date [id number] SKIN LESIONS, 2 TO 4 10/08/20 23 Insurance Providers Payer Name Payer Address Payer Phone Subscriber Number Group Number Insured Name Patient Relationship to Insured Coverage Start Date Coverage End Date [employer] Claims [address] [address] [place] [address] [phone] [id number] Serafin Granger Self - patient is the insured Medical (General) History Medical History History ICD Code Arthritis asthma Cancer Depression diabetic Measles Chicken pox Joint implants/screws Surgical History Surgery Date(Month/Year) Back surgery 1 neck
== END 2025-07-27 10:14 | disposition home or self-care (01) ==
LOC: HO.HSMS 09:12
PROVIDERS: PCP Nurse Practitioner Family; Visit Provider Physician Assistant Medical
DX: G47.33 Obstructive sleep apnea (adult) (pediatric) (principal); G25.81 Restless legs syndrome; R53.82 Chronic fatigue, unspecified
CPT/HCPCS: 99214

== ENCOUNTER → 2025-07-27 09:12 | Outpatient (BNVA) | payer MEDICARE, MEDICAID, SELFPAY | PROVIDERS: PCP Nurse Practitioner Family; Visit Provider Physician Assistant Medical | DX: G47.33 Obstructive sleep apnea (adult) (pediatric) (principal); Z99.89 Dependence on other enabling machines and devices; G25.81 Restless legs syndrome; R53.83 Other fatigue | CPT/HCPCS: 99212 ==

== ENCOUNTER 2025-08-04 08:10 | Outpatient (REF) | payer MEDICARE, MEDICAID, SELFPAY ==
--- OUTSIDE RECORDS SUMMARY | 2024-04-11 05:15 | XMS_ITS ---
Author Organization [facility] Address [address] [place] [address] Care Team Providers Care Radiographer Technologist Name Role Phone Prosper Winkler Primary Care Provider Unav ailable Gamaliel Connor Unavailable [phone] Medications Medication SIG (Take, Route, Fr equency, Duration) Notes Start Date End Date Status Ammonium Lactate 12 % 1 application to a ffected area Externally Twice a day to dry areas of skin on feet; Duration: 30 days Active Encounters Encounter Location Date Provider Diagnosis [address] [address] 04/11/2024 Gamaliel Connor Type 2 diabetes mellitus [...] as necessary. Patient chooses, no pharmaceutical tx ([id number]) Keratoma Treatment Parring or Cutting o f Benign Hyperkeratotic Lesion(s) 80805 ( 2-4 Lesions ) - The Benign hyperkeratotic lesions, as described above were pared, and/or cut utilizing a sterile 15 blade, tissue nippers, and/or dremel Progress Notes * Serafin BECKETTDOB:1964 (60 yo M)Acc No.[id number]:04/11/2024 Progress Note Patient: Serafin WITT Provider: Jo Ann Connor DPM :1965 A ge:58 Y S ex:Male Date:04/11/2024 Address:[address] [place] [address], [address], [place] [address] Pcp:FRANCIS Corrales Subjective: * Chief Complaints: * [...] C ardiovascular: Pacemaker d enies, denies. M WINDOWS SYSTEM ADMIN d enies, denies.?WPW d enies, denies. C [...] as necessary. Patient chooses, no pharmaceutical tx (30030). K eratoma Treatment: Parring or Cutting of [...] 0 04/11/2024 Generated for Eric dyer/Evelyn/Boris on: 0 08/04/2025 08:29 AM EDT History and Physical Notes * [...]
--- OUTSIDE RECORDS SUMMARY | 2024-05-09 09:15 | XMS_ITS ---
Author Organization [facility] Address [address] [place] [address] Care Team Providers Care Oil Painter Name Role Phone Prosper Winkler Primary Care Provider Unav ailable Gamaliel Connor Unavailable [phone] Medications Medication SIG (Take, Route, Fr equency, Duration) Notes Start Date End Date Status Ammonium Lactate 12 % 1 application to a ffected area Externally Twice a day to dry areas of skin on feet; Duration: 30 days Active Encounters Encounter Location Date Provider Diagnosis [address] [address] 05/09/2024 Gamaliel Connor Type 2 diabetes mellitus with diabetic polyneuropathy E11.42 ; Tinea unguium B35.1 ; Pain in right toe(s) M79.674 ; Pain in left toe(s) M79.675 and Xerosis cutis L85.3 Assessments Encounter Date Diagnosis (ICD Code) Assessment Notes Treatment Notes Treatment Clinical Notes Section Notes 05/09/2024 Type 2 diabetes mellitus with diabetic polyneuropathy (ICD-10 - E11.42) 05/09/2024 Tinea unguium (ICD-10 - B35.1) 05/09/2024 Pain in right toe(s) (ICD-10 - M79.674) 05/09/2024 Pain in left toe(s) (ICD-10 - M79.675) 05/09/2024 Xerosis cutis (ICD-10 - L85.3) Plan Of [...] as necessary. Patient chooses, no pharmaceutical tx (55359) Keratoma Treatment Parring or Cutting o f Benign Hyperkeratotic Lesion(s) 39480 ( 2-4 Lesions ) - The Benign hyperkeratotic lesions, as described above were pared, and/or cut utilizing a sterile 15 blade, tissue nippers, and/or dremel Progress Notes * Serafin BECKETTDOB:1964 (60 yo M)Acc No.[id number]:05/09/2024 Progress Note Patient: Serafin WITT Provider: Jo Ann Connor DPM :1965 A ge:58 Y S ex:Male Date:05/09/2024 Address:[address] [place] [address], [address], [place] [address] Pcp:FRANCIS Corrales Subjective: * Chief Complaints: * [...] C ardiovascular: Pacemaker d enies, denies. M FILM CLEANER d enies, denies.?WPW d enies, denies. C [...] as necessary. Patient chooses, no pharmaceutical tx (09939). K eratoma Treatment: Parring or Cutting of [...] Provider: Jo Ann Connor DPM Date: 0 05/09/2024 Generated for Eric dyer/Evelyn/Boris on: 0 08/04/2025 [...]
--- OUTSIDE RECORDS SUMMARY | 2025-08-04 08:30 | XMS_ITS | Patient Health Record ---
Author Organization [facility] Address [address] [place] [address] Care Team Providers Care Senior Corporate Recruiter Name Role Phone Prosper Winkler Primary Care Provider UnaGamaliel Dominguez Unavailable [phone] Allergies Allergen (clinical drug ingredient) Drug/Non Drug [...] Polyneuropathy due to type 2 diabetes mellitus (564461354) Type 2 diabetes mellitus with diabetic polyneuropathy (E11.42) Active confirmed Plan Of Treatment Pending Test Test Name Order Date [id number] SKIN LESIONS, 2 TO 4 10/08/20 23 Insurance Providers Payer Name Payer Address Payer Phone Subscriber Number Group Number Insured Name Patient Relationship to Insured Coverage Start Date Coverage End Date [employer] Claims [address] [address] [place] [address] [id number] Serafin Granger Self - patient is the insured Medical (General) History Medical History History ICD Code Arthritis asthma Cancer Depression diabetic Measles Chicken pox Joint implants/screws Surgical History Surgery Date(Month/Year) Back surgery 1 neck
[2025-08-04 10:34] LABS: MANUAL DIFF FLAG NO
[2025-08-04 10:50] LABS: Hematocrit 46.9 % (42.0-52.0); Hemoglobin 14.9 g/dl (14.0-18.0); Imm Gran Abs Auto 0.06 X10*3/uL (0.00-0.03); Imm Gran Pct Auto 0.7 % (0.0-0.4); Lymphocytes Absolute Auto 1.2 X10*3/uL (1.2-4.9); Mean Corpuscular HGB Conc 31.8 g/dl (31.0-36.0); Mean Corpuscular Hemoglobin 28.1 pg (27.0-33.0); Mean Corpuscular Volume 88.5 fL (80.0-98.0); NRBC Abs Auto 0.000 X10*3/uL (0.0-0.012); NRBC Pct Auto 0.0 /100WBC (0.0-0.2); Platelet Count 215 X10*3/uL (160-400); Red Blood Count 5.30 X10*6/uL (4.60-5.80); White Blood Count 8.2 X10*3/uL (4.8-10.8)
[2025-08-04 11:28] LABS: Alanine Aminotransferase 27 U/L (0-40); Albumin Level 3.8 g/dL (3.5-5.0); Alkaline Phosphatase 102 U/L (39-117); Anion Gap 12 (12-20); Aspartate Amino Transferase 29 U/L (5-37); Blood Urea Nitrogen 23 mg/dL (9-16); Calcium 9.2 mg/dL (8.4-10.2); Carbon Dioxide 26 mmol/L (22-29); Chloride 107 mmol/L (96-108); Cholesterol 116 mg/dL (<200); Estimated Glomerular Filt Rate > 60; HDL Cholesterol 34 mg/dL (>40); Potassium 4.1 mmol/L (3.3-5.1); Sodium 141 mmol/L (135-145); Total Protein 7.5 g/dL (6.5-8.0); Triglycerides 71 mg/dL (<150)
== END 2025-08-04 08:11 | disposition home or self-care (01) ==
LOC: HO.HMGCLDS 08:10
PROVIDERS: PCP Nurse Practitioner Family; Visit Provider Nurse Practitioner Family
DX: E11.9 Type 2 diabetes mellitus without complications (principal); E55.9 Vitamin D deficiency, unspecified
CPT/HCPCS: 36415; 80053; 80061; 82306; 84443; 85025

== ENCOUNTER 2025-08-09 10:32 | Outpatient (REF) | payer MEDICARE, MEDICAID, SELFPAY ==
--- OUTSIDE RECORDS SUMMARY | 2024-04-11 05:15 | XMS_ITS ---
Author Organization [facility] Address [address] [place] [address] Care Team Providers Care Kitchen Bath Designer Name Role Phone Prosper Winkler Primary Care Provider Unav ailable Gamaliel Connor Unavailable [phone] Medications Medication SIG (Take, Route, Fr equency, Duration) Notes Start Date End Date Status Ammonium Lactate 12 % 1 application to a ffected area Externally Twice a day to dry areas of skin on feet; Duration: 30 days Active Encounters Encounter Location Date Provider Diagnosis [address] [address] 04/11/2024 Gamaliel Connor Type 2 diabetes mellitus with diabetic polyneuropathy E11.42 ; Tinea unguium B35.1 ; Pain in right toe(s) M79.674 ; Pain in left toe(s) M79.675 and Xerosis cutis L85.3 Assessments Encounter Date Diagnosis (ICD Code) Assessment Notes Treatment Notes Treatment Clinical Notes Section Notes 04/11/2024 Type 2 diabetes mellitus with diabetic polyneuropathy (ICD-10 - E11.42) 04/11/2024 Tinea unguium (ICD-10 - B35.1) 04/11/2024 Pain in right toe(s) (ICD-10 - M79.674) 04/11/2024 Pain in left toe(s) (ICD-10 - M79.675) 04/11/2024 Xerosis cutis (ICD-10 - L85.3) Plan Of Treatment Medication Medication Name Sig Start Date Stop Date Notes Ammonium Lactate 12 % 1 application to a ffected area Externally Twice a day to dry areas of skin on feet; Duration: 30 days Next Appt Details Follow Up: 3 Months, Reason: Procedure Notes * Category Sub-Category Detail Notes Debride Nail 6-10 Nail debridement Nail debridem ent performed extensively to reduce/remove overall nail length and girth, subungual debris, and necrotic tissue, by manual and electrical means with use of a nail nipper and/or dremel, to more viable healthy nail plate or bed tissue 6-10. Silver nitrate used for any petechial bleeding as necessary. Patient chooses, no pharmaceutical tx (96873) Keratoma Treatment Parring or Cutting o f Benign Hyperkeratotic Lesion(s) 28892 ( 2-4 Lesions ) - The Benign hyperkeratotic lesions, as described above were pared, and/or cut utilizing a sterile 15 blade, tissue nippers, and/or dremel Progress Notes * Serafin BECKETTDOB:1964 (60 yo M)Acc No.[id number]:04/11/2024 Progress Note Patient: Serafin WITT Provider: Jo Ann Connor DPM :1965 A ge:58 Y S ex:Male Date:04/11/2024 Address:[address] [place] [address], [address], [place] [address] Pcp:FRANCIS Corrales Subjective: * Chief Complaints: * * HPI: F oot Pain: Nature: n umbness , burning. Location B /L , L>R. Duration: s everal years. Onset/Cause: l bp--5 back sx's and dpn; pt is disabled due to spinal stenosis. Treatments: s x tx. Quality/Severity m oderate. A t Risk footcare: Pt States Last PCP Visit: D ate 0 08/02/2023 P ainful Nails: Misc: s on-in-law is present today. S kin problems: Nature: d ryness , tender, cracked skin. Location: H eel/Rearfoot , B/L--rt is worse. Duration: s everal years. Treatments: o tc cream hasn't helped. * ROS: G eneral/Constitutional: Nausea d enies, denies. V omiting d enies, denies.?Hunger Thirst d enies, denies. L oss appetite d enies, denies. C hills d enies, denies. F atigue d enies, denies. F ever d enies, denies. N ight Sweats denies, denies. U nexplained weight loss d enies, denies. U nexplained weight gain?denies. O phthalmologic: Blurred vision d enies. R ed eye d enies. ? H EENTM: Dentures d enies, denies. D izziness d enies, denies. G lasses/contacts a dmits, denies. R etinopathy d enies, denies. B lurred/double vision d enies, denies. T MJ d enies, denies. D ischarge/drainage d enies, denies. I mplants d enies, denies. S ore throat d enies. D ental implants d enies. H leeann of hearing d enies, denies. D ifficulty chewing/swallowing/speaking d enies, denies. N ose bleeds d enies, denies. S ore mouth d enies, denies. S wollen glands d enies. R espiratory: On Oxygen d enies, denies. P neumonia/pleurisy d enies, denies. B ronchitis d enies, denies. E mphysema d enies, denies. C oughing?denies, denies. C ough blood d enies, denies. S hortness of breath d enies, denies. W heezing d enies, denies. C ardiovascular: Pacemaker d enies, denies. M INSTRUMENT WORKER d enies, denies.?WPW d enies, denies. C HF d enies, denies. H eart attack a dmits, denies.?Septal defect d enies, denies. R apid beat d enies, denies. C hest pain d enies, denies. A trial Fib. d enies, denies. M urmur/Palpitations d enies, denies. G astrointestinal: Hemorrhoids d enies, denies. S tomach/Abdominal pain?denies, denies. D ark blood stool d enies, denies. I rritable bowel d enies, denies. C onstipation d enies, denies. D iarrhea d enies, denies. V omiting d enies. H ematology: Swelling d enies, denies. C lots A dmits. V aricose Veins d enies. B ruising d enies, denies. B leeding problem d enies, denies. G enitourinary: Blood urine d enies, denies. F requent/Painfu/urination/bladder control d enies, denies. K idney stones d enies, denies. I nfection (UTI)?denies, denies. N ephropathy d enies, denies. s ex trans dis (STD) d enies. P rostate d enies. M usculoskeletal: Hammertoes d enies, denies. B unions d enies, denies. S coliosis/kyphosis d enies. B ack Pain a dmits. M uscle Cramps/ Resting d enies. M uscle cramps / walking d enies, denies. G eneralized aches and pains d enies, denies. W eakness a dmits, denies. I nteg.: Salgado d enies, denies. S cars a dmits, denies. C orns/calluses d enies, denies. I ngrown nails d enies, denies. P ainful nails d enies, denies. O pen Sores d enies. R ashes d enies, denies. N eurologic: Difficulty sleeping d enies, denies. B ipolar d enies. B rain disorder d enies, denies. N umbness d enies. B alance trouble a dmits, denies. C onfusion d enies, denies. F ainting/blackouts d enies, denies. H eadache d enies. T ingling a dmits. T remors d enies, denies. * Medical History: Objective: * Vitals: * Examination: O phthalmology Referral: DIABETES EYE EXAM D iabetic Retinopathy Screening: N o F indings of Diabetic Eye Exam: n o retinopathy G eneral Examination: GENERAL APPEARANCE: p leasant, alert, well nourished, well developed, well hydrated, with good attention to hygene/body habitus, and in no acute distress. ORIENTED: p erson,place, and time. N eurological: SENSORY: N eurological exam demonstrates , reduced vibration sensation , 5.07 monofilament test performed at plantar aspects of 5 varied sites per foot shows sensation , B/L , Neurological exam demonstrates , reduced sharp/dull pin prick discrimination , reduced proprioception sensation , B/L. TINEL'S COMPRESSION: N egative tarsal tunnel, amaya pedis, and medial calcaneal nerves B/L. BABINSKI REFLEX: a bsent. V ascular: DP PULSES (B): 2 /4, B/L. PT PULSES (B): 0 /4, B/L. CAPILLARY FILL TIME: 3 secs. per digit, B/L. TROPHIC CONDITION-TEXTURE/ELASTICITY/TURGOR/HAIR GROWTH (B):?normal, B/L. TEMPERTURE GRADIENT (C): w arm to cool, proximal to distal, B/L. PIGMENTATION: n ormal, B/L. EDEMA (C): 2 /4 , Left , 1/4 , Right. TELANGECTASIA: a bsent. VARICOSITIES: a bsent. D ermatologic: SKIN FINDINGS: S kin exam reveals Keratotic lesion(s) located at , Plantar , Heel(s) , B/L with cracked fissures right heel noted without infection. O rthopedic: MUSCLE STRENGTH: 5 /5 all groups in a symmetrical fashion , B/L. GAIT ABNORMALITY: p ronated, abducted, B/L. ? N ails: NAILS are: E longated, overgrown, dystrophic, lytic, greater than 3mm thick, discolored and friable with crumbly malodorous subungual debris , with dull to no pain on palpation due to neuropathy , 1-5 B/L. Assessment: * Assessment: 1. T ype 2 diabetes mellitus with diabetic polyneuropathy - E11.42 (Primary) 2 . T inea unguium - B35.1 3 . P ain in right toe(s) - M79.674 ?4. P ain in left toe(s) - M79.675 5 . X erosis cutis - L85.3 ? Plan: * Treatment: * Procedures: D ebride Nail 6-10: Nail debridement N ail debridement performed extensively to reduce/remove overall nail length and girth, subungual debris, and necrotic tissue, by manual and electrical means with use of a nail nipper and/or dremel, to more viable healthy nail plate or bed tissue 6-10. Silver nitrate used for any petechial bleeding as necessary. Patient chooses, no pharmaceutical tx (48912). K eratoma Treatment: Parring or Cutting of Benign Hyperkeratotic Lesion(s) 1 1056 ( 2-4 Lesions ) - The Benign hyperkeratotic lesions, as described above were pared, and/or cut utilizing a sterile 15 blade, tissue nippers, and/or dremel. * Follow Up: 3 Months * Images: * The named appointment provid er may or may not be the originator of this progress note, and it is not deemed complete until electronically signed by the appointment provider. Sign off status: Pending * Provider: Jo Ann Connor DPM Date: 0 04/11/2024 Generated for Eric Armas/Boris on: 0 08/09/2025 12:54 PM EDT History and Physical Notes * HPI (History of Present Illness) Category Sub-Category Detail Notes Category Not es Painful Nails Misc: son-in-law is present today Skin problems Nature: dryness , tender, cracked s kin Location: Heel/Rearfoot , B/L- -rt is worse Duration: several years Treatments: otc cream hasn't hel ped At Risk footcare Pt States Last PCP Visit: Date: 3 Foot Pain Onset/Cause: lbp--5 back sx's and dpn; pt is disabled due to spinal stenosis Duration: several years Nature: numbness , burning Treatments: sx tx Quality/Severity moderate Location B/L , L>R Examination Category Sub-Category Detail Notes Category Not es Neurological SENSORY: Neurological exa m demonstrates , reduced vibration sensation , 5.07 monofilament test performed at plantar aspects of 5 varied sites per foot shows sensation , B/L , Neurological exam demonstrates , reduced sharp/dull pin prick discrimination , reduced proprioception sensation , B/L BABINSKI REFLEX: absent TINEL'S COMPRESSION: Negative tarsal jeannie bao, amaya pedis, and medial calcaneal nerves B/L Dermatologic SKIN FINDINGS: Skin exam reveal s Keratotic lesion(s) located at , Plantar , Heel(s) , B/L with cracked fissures right heel noted without infection Orthopedic GAIT ABNORMALITY: pronated, abducted, B/L MUSCLE STRENGTH: 5/5 all groups in a symmetrical fashion , B/L General Examination GENERAL APPEARANCE: pleasant , alert, well nourished, well developed, well hydrated, with good attention to hygene/body habitus, and in no acute distress ORIENTED: person,place, and ti me Ophthalmology Referral DIABETES EYE EXAM Diabetic Retinopa thy Screening:: No Findings of Diabetic Eye Exam:: no retin opathy Vascular DP PULSES (B): 2/4, B/L PT PULSES (B): 0/4, B/L CAPILLARY FILL TIME: 3 secs. per digit, B/L TEMPERTURE GRADIENT (C): warm to cool, p roximal to distal, B/L TROPHIC CONDITION-TEXTURE/ELASTICITY/TURGOR/HAIR GROWTH (B): normal, B/L EDEMA (C): 2/4 , Left , 1/4 , R ight TELANGECTASIA: absent VARICOSITIES: absent PIGMENTATION: normal, B/L Nails NAILS are: Elongated, overg rown, dystrophic, lytic, greater than 3mm thick, discolored and friable with crumbly malodorous subungual debris , with dull to no pain on palpation due to neuropathy , 1-5 B/L
--- OUTSIDE RECORDS SUMMARY | 2024-05-09 09:15 | XMS_ITS ---
Author Organization [facility] Address [address] [place] [address] Care Team Providers Care Manager Surgery Name Role Phone Prosper Winkler Primary Care Provider Unav ailable Gamaliel Connor Unavailable [phone] Medications Medication SIG (Take, Route, Fr equency, Duration) Notes Start Date End Date Status Ammonium Lactate 12 % 1 application to a ffected area Externally Twice a day to dry areas of skin on feet; Duration: 30 days Active Encounters Encounter Location Date Provider Diagnosis [address] [address] 05/09/2024 Gamaliel Connor Type 2 diabetes mellitus [...] as necessary. Patient chooses, no pharmaceutical tx (59076) Keratoma Treatment Parring or Cutting o f Benign Hyperkeratotic Lesion(s) 07101 ( 2-4 Lesions ) - The Benign hyperkeratotic lesions, as described above were pared, and/or cut utilizing a sterile 15 blade, tissue nippers, and/or dremel Progress Notes * Serafin BECKETTDOB:1964 (60 yo M)Acc No.[id number]:05/09/2024 Progress Note Patient: Serafin WITT Provider: Jo Ann Connor DPM :1965 A ge:58 Y S ex:Male Date:05/09/2024 Address:[address] [place] [address], [address] Floor, [place] [address] Pcp:FRANCIS Corrales Subjective: * Chief Complaints: * [...] C ardiovascular: Pacemaker d enies, denies. M CHIEF HYDROELECTRIC STATION OPERATOR d enies, denies.?WPW d enies, denies. C [...] as necessary. Patient chooses, no pharmaceutical tx (37787). K eratoma Treatment: Parring or Cutting of [...] * Provider: Jo Ann Connor DPM Date: 05/09/2024 Generated for Eric Armas/Boris on: 0 08/09/2025 [...]
[2025-08-09 12:36] LABS: PSA,Total (Free>4and<10) 0.64 ng/mL (0.00-4.00)
[2025-08-09 12:38] LABS: Ferritin 152 ng/mL (20-250)
[2025-08-09 12:50] LABS: Folate 9.1 ng/mL (> or = 4.0); Vitamin B12 280 pg/mL (200-900)
--- OUTSIDE RECORDS SUMMARY | 2025-08-09 12:55 | XMS_ITS | Patient Health Record ---
[facility] Address [address] [place] [address] Care Team Providers Care Rental Clerk Name Role Phone Prosper Winkler Primary Care Provider UnaGamaliel Dominguez Unavailable [phone] Allergies Allergen (clinical drug ingredient) Drug/Non Drug [...] Polyneuropathy due to type 2 diabetes mellitus ([id number]) Type 2 diabetes mellitus with diabetic polyneuropathy (E11.42) Active confirmed Plan Of Treatment Pending Test Test Name Order Date [id number] SKIN LESIONS, 2 TO 4 10/08/20 23 Insurance Providers Payer Name Payer Address Payer Phone Subscriber Number Group Number Insured Name Patient Relationship to Insured Coverage Start Date Coverage End Date [employer] Claims [address] [address] [place] [address] [id number] Serafin Granger Self - patient is the insured Medical (General) History Medical History History ICD Code Arthritis asthma Cancer Depression diabetic Measles Chicken pox Joint implants/screws Surgical History Surgery Date(Month/Year) Back surgery 1 neck
== END 2025-08-09 10:33 | disposition home or self-care (01) ==
LOC: HO.LAB 10:32
PROVIDERS: Urology; PCP Nurse Practitioner Family; Visit Provider Physician Assistant Medical
DX: Z12.5 Encounter for screening for malignant neoplasm of prostate (principal); C61 Malignant neoplasm of prostate; R53.83 Other fatigue; G47.9 Sleep disorder, unspecified; E29.1 Testicular hypofunction
CPT/HCPCS: 36415; 82306; 82607; 82728; 82746; 83090; 83921; 84153; 84207; 84443

== ENCOUNTER 2025-08-16 08:58 | Outpatient (RCR) | payer MEDICARE, MEDICAID, SELFPAY ==
--- NOTE | 2025-08-24 17:08 | MHC.PT.EP ---
[facility] [place] [facility] [place] Office [place] Office [address] [place] [address] [phone] F: [phone] F: [phone] F: [phone] F: [phone] Physical Therapy Plan of Care Date of Evaluation: 08/16/25 Date of Surgery: Diagnosis: Lumbar stenosis, LE weakness. Assessment: Pt is a 60 y/o male with PMHx of walker as ambulation aid, Polyarticular osteoarthritis, Venous insufficiency, LE neuropathy, CTS, Morbid obesity, Hx of Prostate CA, Stenosis of cervical spine with Hx of cervical spine surgery, Anemia, RBBB, Lumbar spinal stenosis with Hx of multiple lumbar surgeries, Atrial fibrillation, GERD, Asthma, Arthritis, H/O cardiac radiofrequency ablation (~04/2017)who arrives using SPC and is accompanied by his SALES REPRESENTATIVE [employer] who is referred to PT for eval and treat of treat of Lumbar Stenosis and LE weakness and his condition is resulting in decreased tolerance for HH chores, performing fitness activities recommended by his MD, standing and walking for even short duration and distance secondary to decreased trunk ROM and strength, decreased LE and UE strength, increased LE tissue tension, gait abnormality, LE neuropathy, complicated lumbar and cervical spine history with stenosis, as well as back and LE pain. Pt is deemed an appropriate candidate to receive skilled PT services to address their physical impairments in order to improve their functional ability. Frequency and Duration: The patient will be seen 2 x/wk x 5 wks. Short Term Goals: Initiate Home Program. Pt will improve baseline pain to < 6/10; initial: 8/10. I with back basics for stenosis. Assisted Goals: I with home program. Pt will be able to stand at least 20 min; initial: < 5 min. Improve Nanci by at least 9 points. improve L knee extension strength by at least 1/2 MMT grade; initial: 4-/5. Improve B hip abd strength by at least 1/2 MMT grade; initial: R 4/5, L 4-/5 and painful. Treatment Plan: Modalities to reduce pain, spasms and effusion. Manual therapy to restore motion and function. Therapeutic exercise to improve strength and flexibility. Neuromuscular re-education for posture and balance. Therapeutic activities to return to functional activities of daily living. Electronically signed by: Kimo Hernandez PT. Please sign and return to therapist. Thank you for your referral.
== END 2025-11-20 10:42 | disposition home or self-care (01) ==
LOC: HO.PT 08:58
PROVIDERS: PCP Nurse Practitioner Family; Visit Provider Nurse Practitioner Family
DX: M48.061 Spinal stenosis, lumbar region without neurogenic claudication (principal); M62.50 Muscle wasting and atrophy, not elsewhere classified, unspecified site
CPT/HCPCS: 97162

== ENCOUNTER 2025-08-24 08:45 | Outpatient (AMB) | payer MEDICARE, MEDICAID, SELFPAY ==
--- OUTSIDE RECORDS SUMMARY | 2024-04-11 05:15 | XMS_ITS ---
Author Organization [facility] Address [address] [place] [address] Care Team Providers Care Assistant City Attorney Name Role Phone Prosper Winkler Primary Care Provider Unav ailable Gamaliel Connor Unavailable [phone] Medications Medication SIG (Take, Route, Fr equency, Duration) Notes Start Date End Date Status Ammonium Lactate 12 % 1 application to a ffected area Externally Twice a day to dry areas of skin on feet; Duration: 30 days Active Encounters Encounter Location Date Provider Diagnosis [address] [address] 04/11/2024 Gamaliel Connor Type 2 diabetes mellitus [...] as necessary. Patient chooses, no pharmaceutical tx (13494) Keratoma Treatment Parring or Cutting o f Benign Hyperkeratotic Lesion(s) 49240 ( 2-4 Lesions ) - The Benign hyperkeratotic lesions, as described above were pared, and/or cut utilizing a sterile 15 blade, tissue nippers, and/or dremel Progress Notes * Serafin BECKETTDOB:1964 (60 yo M)Acc No.[id number]:04/11/2024 Progress Note Patient: Serafin WITT Provider: Jo Ann Connor DPM :1965 A ge:58 Y S ex:Male Date:04/11/2024 Address:[address] [place] [address], [address], [place] [address] Pcp:FRANCIS Corrales Subjective: * Chief Complaints: * [...] C ardiovascular: Pacemaker d enies, denies. M ENROLLMENT SPECIALIST d enies, denies.?WPW d enies, denies. C [...] as necessary. Patient chooses, no pharmaceutical tx (02454). K eratoma Treatment: Parring or Cutting of [...] 04/11/2024 Generated for Eric dyer/Evelyn/Boris on: 0 08/24/2025 09:18 AM EDT History and Physical Notes * [...]
--- OUTSIDE RECORDS SUMMARY | 2024-05-09 09:15 | XMS_ITS ---
Author Organization [facility] Address [address] [place] [address] Care Team Providers Care Automotive Service Consultant Name Role Phone Prosper Winkler Primary Care Provider Unav ailable Gamaliel Connor Unavailable [phone] Medications Medication SIG (Take, Route, Fr equency, Duration) Notes Start Date End Date Status Ammonium Lactate 12 % 1 application to a ffected area Externally Twice a day to dry areas of skin on feet; Duration: 30 days Active Encounters Encounter Location Date Provider Diagnosis [address] [address] 05/09/2024 Gamaliel Connor Type 2 diabetes mellitus [...] as necessary. Patient chooses, no pharmaceutical tx (73143) Keratoma Treatment Parring or Cutting o f Benign Hyperkeratotic Lesion(s) 78261 ( 2-4 Lesions ) - The Benign hyperkeratotic lesions, as described above were pared, and/or cut utilizing a sterile 15 blade, tissue nippers, and/or dremel Progress Notes * Serafin BECKETTDOB:1964 (60 yo M)Acc No.[id number]:05/09/2024 Progress Note Patient: Serafin WITT Provider: Jo Ann Connor DPM :1965 A ge:58 Y S ex:Male Date:05/09/2024 Address:[address] [place] [address], [address], [place] [address] Pcp:FRANCIS Corrales Subjective: * Chief Complaints: * [...] C ardiovascular: Pacemaker d enies, denies. M GAS APPLIANCE MECHANIC d enies, denies.?WPW d enies, denies. C [...] as necessary. Patient chooses, no pharmaceutical tx (88704). K eratoma Treatment: Parring or Cutting of [...] 05/09/2024 Generated for Eric dyer/Evelyn/Boris on: 0 08/24/2025 [...]
--- NOTE | 2025-08-24 09:15 | MHC.PC.OV ---
Intake Visit Reasons: med management/blood sugars Allergies Sulfa (Sulfonamide Antibiotics) (SULFA (SULFONAMIDE ANTIBIOTICS)) Allergy (Intermediate, Verified 07/27/25 09:31) RASH, hives Medication List - Last Reconciled 08/24/25 by Ad King MD apixaban 5 mg PO Q12H aripiprazole (Abilify) 5 mg PO DAILY blood sugar diagnostic (OneTouch Verio test strips) test blood sugar once a day blood-glucose meter ([employer].RUTouch Verio Flex Meter) As directed cholecalciferol (vitamin D3) 50 mcg PO DAILY 4 months MDD 2000 units daily gabapentin 800 mg PO TID lancets (OneTouch Delica Plus Lancet) test blood sugar once a day losartan 25 mg PO DAILY mecobalamin (vitamin B12) 1,000 mcg sublingual BEDTIME 3 months MDD 1000mcg mecobalamin (vitamin B12) 1,000 mcg PO DAILY 3 months MDD 1000 Held on 08/10/25. Instructions: Doctor's Order meloxicam 15 mg PO DAILY PRN 12 days omeprazole 20 mg PO DAILY pramipexole 0.75 mg (1.5 x 0.5 mg) PO TID 1 month MDD 1.5 tabs prazosin 2 mg PO BEDTIME [Rollator walker with seat daily use] semaglutide (Ozempic) 2 mg (0.75 mL) subcut QWEEK tadalafil 5 mg PO DAILY 90 days walker with wheels Tobacco use date assessed: 07/17/25 Dental Screening Dental Screen Date: 07/17/25 HPI med management/blood sugars HPI Details History of Present Illness The patient is a 60-year-old male presenting with hypoglycemia. Hypoglycemia: - The patient reports recurrent episodes of low blood sugar primarily in the mornings between 3:30 AM and 6:00 AM. - The episodes began approximately three weeks ago. - These incidents occur despite the patient maintaining normal dietary habits. - Current glucose readings upon waking range from 59 to 72 mg/dL over the past week. - Hypoglycemia perhaps related to starting semaglutide 2 mg approximately one month ago, coinciding with continued weight loss. - The patient initially tolerated a 1 mg dose of the medication without significant issues and has been diet-controlled for diabetes prior to initiating semaglutide. Medical History: - Diabetes mellitus managed with medication (semaglutide). . Social History: - The patient is actively monitoring weight, currently reports a weight loss of 28 pounds since beginning semaglutide. - Maintains regular dietary habits with normal dinner consumption, assessing weight weekly. Problem List - Hypoglycemia - Diabetes Mellitus Patient Instructions - Reduce semaglutide dose to 1 mg per the syringe adjustment to 0.37 mL. - Monitor blood glucose levels closely; eat if hypoglycemia occurs. - Reach out if experiencing any issues or if advised by physician Prosper. Review of Systems - General: No fever no chills - Neurological: No headaches no dizziness - Ear nose throat: No sore throat no hearing difficulty no ear pain - Cardiovascular: No syncope, no chest pain, no palpitations - Gastrointestinal: No nausea vomiting or diarrhea PFSH Medical History Walker as ambulation aid Polyarticular osteoarthritis Venous insufficiency Retinal hemorrhage Vitamin D deficiency Joint pain in both hands HARITHA (obstructive sleep apnea) Carpal tunnel syndrome Morbid obesity Prostate CA Constipation Elevated alkaline phosphatase level Stenosis of cervical spine Anemia Depression RBBB Erectile dysfunction Lumbar spinal stenosis Atrial fibrillation GERD (gastroesophageal reflux disease) Asthma Arthritis Surgical History Hx of cervical spine surgery History of surgery Hx of neck surgery History of back surgery H/O cardiac radiofrequency ablation (~04/2017) Family History Father Heart attack DVT (deep venous thrombosis) Mother Diabetes COPD (chronic obstructive pulmonary disease) Social History Household Members: Spouse and Family Housing: House Are you a primary director of health care marketing to a significant other at home: No Do you presently have visiting nurse or other home services: Yes (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) Alcohol intake: never Patient Tobacco Use Status: Former Tobacco user Tobacco use type: Cigarette e-Cigarette/Vaping Use: Never Used Second Hand Smoke Exposure: No service: No 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al status: retired 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 Cognitive needs: No Hearing needs: No Vision needs: No Questionnaire Thrive Questionnaire Date Thrive assessed: 03/23/25 I am a: Patient What is your living situation today?: I have a steady place to live Within the past 12 months, did the food you bought not last and you didn't have the money to get more?: Often true Within the past 12 months, did you worry whether your food would run out before you got money to buy more?: Never true Do you have trouble paying for medicines?: No Do you have trouble getting transportation to medical appointments?: Yes Do you have trouble paying your heating and electricity bill?: Yes Do you have trouble taking care of your child, family member or friend?: No Do you have trouble with day-to-day activities such as bathing, preparing meals, shopping, managing finances, etc.?: Yes Are you currently unemployed and looking for a job?: No Are you interested in more education?: No Please select the resources that you would like help with: None Currently or been in a relationship where the following occur: No concerns reported THRIVE Score: 3 CLAU-7 AMB Questionnaire CLAU-7 Date CLAU - 7 assessed: 07/17/25 Source: Developed by Drs. Jacobo Lewis, Clarissa Whitaker, Arcenio Del Valle and colleagues, with an educational gregorio from [employer]. Physical exam (Primary Care) Tobacco/Smoking Status: Tobacco use Status Tobacco use date assessed 07/17/25 08/24/25 09:16 Patient Tobacco Use Status Former Tobacco user 08/24/25 09:16 Tobacco use type Cigarette 08/24/25 09:16 e-Cigarette/Vaping Use Never Used 08/24/25 09:16 Thrive Assessment: Date of Thrive Assessment Date Thrive assessed 03/23/25 08/24/25 09:16 Currently or been in a relationship where the following occur: No concerns reported Telehealth Telehealth Telehealth Platform: [facility] Location of provider rendering services: practice address Location of patient: address on file Patient Identification confirmed using: Name, : Yes Telehealth method: video Patient verbally consented to treatment: Yes Patient verbally consented to billing insurance company: Yes Patient informed of any privacy concerns related to visit: Yes Minutes spent on Phone/Video with Pt.: 14 Coding Level of Care Code Tele Est Pt Level 3 (32450) Diagnoses Type 2 diabetes mellitus with other specified complication, without long-term current use of insulin E11.69 Diabetes mellitus type: type 2 Diabetes mellitus senior care insulin use: without longitudinal float operator use Diabetes mellitus complication status: with other specified complication Hypoglycemia E16.2 Assessment & Plan Assessment & Plan (1) Diabetes: Code(s): E11.9 - Type 2 diabetes mellitus without complications Category: Medical Qualifiers: Diabetes mellitus type: type 2 Diabetes mellitus longitudinal float operator insulin use: without longitudinal float operator use Diabetes mellitus complication status: with other specified complication Qualified Code(s): E11.69 - Type 2 diabetes mellitus with other specified complication (2) Hypoglycemia: Code(s): E16.2 - Hypoglycemia, unspecified Category: Medical Plan History of Present Illness The patient is a 60-year-old male presenting with hypoglycemia. Hypoglycemia: - The patient reports recurrent episodes of low blood sugar primarily in the mornings between 3:30 AM and 6:00 AM. - The episodes began approximately three weeks ago. - These incidents occur despite the patient maintaining normal dietary habits. - Current glucose readings upon waking range from 59 to 72 mg/dL over the past week. - Hypoglycemia perhaps related to starting semaglutide 2 mg approximately one month ago, coinciding with continued weight loss. - The patient initially tolerated a 1 mg dose of the medication without significant issues and has been diet-controlled for diabetes prior to initiating semaglutide. Medical History: - Diabetes mellitus managed with medication (semaglutide). . Social History: - The patient is actively monitoring weight, currently reports a weight loss of 28 pounds since beginning semaglutide. - Maintains regular dietary habits with normal dinner consumption, assessing weight weekly. Problem List - Hypoglycemia - Diabetes Mellitus Patient Instructions - Reduce semaglutide dose to 1 mg per the syringe adjustment to 0.37 mL. - Monitor blood glucose levels closely; eat if hypoglycemia occurs. - Reach out if experiencing any issues or if advised by physician Major
--- OUTSIDE RECORDS SUMMARY | 2025-08-24 09:18 | XMS_ITS | Patient Health Record ---
Author [facility] Address [address] [place] [address] Care Team Providers Care Charter Coordinator Name Role Phone Prosper Winkler Primary Care Provider UnaGamaliel Dominguez Unavailable [phone] Allergies Allergen (clinical drug ingredient) Drug/Non Drug [...] Polyneuropathy due to type 2 diabetes mellitus ([id number]) Type 2 diabetes mellitus with diabetic polyneuropathy (E11.42) Active confirmed Plan Of Treatment Pending Test Test Name Order Date [id number] SKIN LESIONS, 2 TO 4 10/08/20 23 Insurance Providers Payer Name Payer Address Payer Phone Subscriber Number Group Number Insured Name Patient Relationship to Insured Coverage Start Date Coverage End Date [employer] Claims [address] [address] [place] [address] [phone] [id number] Serafin Granger Self - patient is the insured Medical (General) History Medical History History ICD Code Arthritis asthma Cancer Depression diabetic Measles Chicken pox Joint implants/screws Surgical History Surgery Date(Month/Year) Back surgery 1 neck
== END 2025-08-24 09:30 | disposition home or self-care (01) ==
PROVIDERS: PCP Nurse Practitioner Family; Visit Provider Internal Medicine
DX: E11.69 Type 2 diabetes mellitus with other specified complication (principal); E16.2 Hypoglycemia, unspecified

== ENCOUNTER 2025-08-31 08:46 | Outpatient (AMB) | payer MEDICARE, MEDICAID, SELFPAY ==
--- OUTSIDE RECORDS SUMMARY | 2024-04-11 05:15 | XMS_ITS ---
Author Organization [facility] Address [address] [place] [address] Care Team Providers Care Compression Molding Machine Operator Name Role Phone Prosper Winkler Primary Care Provider Unav ailable Gamaliel Connor Unavailable [phone] Medications Medication SIG (Take, Route, Fr equency, Duration) Notes Start Date End Date Status Ammonium Lactate 12 % 1 application to a ffected area Externally Twice a day to dry areas of skin on feet; Duration: 30 days Active Encounters Encounter Location Date Provider Diagnosis [address] [address] 04/11/2024 Gamaliel Connor Type 2 diabetes mellitus [...] as necessary. Patient chooses, no pharmaceutical tx ([id number]) Keratoma Treatment Parring or Cutting o f Benign Hyperkeratotic Lesion(s) 87192 ( 2-4 Lesions ) - The Benign hyperkeratotic lesions, as described above were pared, and/or cut utilizing a sterile 15 blade, tissue nippers, and/or dremel Progress Notes * Serafin BECKETTDOB:1964 (60 yo M)Acc No.[id number]:04/11/2024 Progress Note Patient: Serafin WITT Provider: Jo Ann Connor DPM :1965 A ge:58 Y S ex:Male Date:04/11/2024 Address:[address] [place] [address], [address], [place] [address] Pcp:FRANCIS Corrales Subjective: * Chief Complaints: * [...] C ardiovascular: Pacemaker d enies, denies. M TANK TRUCK MILK RECEIVER d enies, denies.?WPW d enies, denies. C [...] as necessary. Patient chooses, no pharmaceutical tx (26041). K eratoma Treatment: Parring or Cutting of [...] DPM Date: 0 04/11/2024 Generated for Eric dyer/Evelyn/Boris on: 09:14 AM EDT History and Physical Notes * HPI [...]
--- OUTSIDE RECORDS SUMMARY | 2024-05-09 09:15 | XMS_ITS ---
Author Organization [facility] Address [address] [place] [address] Care Team Providers Care Human Resources Clerk Name Role Phone Prosper Winkler Primary Care Provider Unav ailable Gamaliel Connor Unavailable [phone] Medications Medication SIG (Take, Route, Fr equency, Duration) Notes Start Date End Date Status Ammonium Lactate 12 % 1 application to a ffected area Externally Twice a day to dry areas of skin on feet; Duration: 30 days Active Encounters Encounter Location Date Provider Diagnosis [address] [address] 05/09/2024 Gamaliel Connor Type 2 diabetes mellitus [...] as necessary. Patient chooses, no pharmaceutical tx (31107) Keratoma Treatment Parring or Cutting o f Benign Hyperkeratotic Lesion(s) 94329 ( 2-4 Lesions ) - The Benign hyperkeratotic lesions, as described above were pared, and/or cut utilizing a sterile 15 blade, tissue nippers, and/or dremel Progress Notes * Serafin BECKETTDOB:1964 (60 yo M)Acc No.[id number]:05/09/2024 Progress Note Patient: Serafin WITT Provider: Jo Ann Connor DPM :1965 A ge:58 Y S ex:Male Date:05/09/2024 Address:[address] [place] [address], [address] Floor, [place] [address] Pcp:FRANCIS Corrales Subjective: * Chief Complaints: * [...] C ardiovascular: Pacemaker d enies, denies. M COLLEGE BASKETBALL COACH d enies, denies.?WPW d enies, denies. C [...] as necessary. Patient chooses, no pharmaceutical tx (08988). K eratoma Treatment: Parring or Cutting of [...] 0 05/09/2024 Generated for Eric dyer/Evelyn/Boris on: 09:14 AM [...]
--- NOTE | 2025-08-31 08:46 | MHC.OFFVIS ---
Intake Visit Reasons: 6m/PSA Intake Note: Patient is present for 6M/PSA Urology Medication:TADALAFIL Antibiotic Allergy:SULFA Blood Thinner:APIXABAN Labs done 08/09/25 PSA : 0.64 Glaciologist Required: No Accompanied by: Self / Same As Patient Allergies Sulfa (Sulfonamide Antibiotics) (SULFA (SULFONAMIDE ANTIBIOTICS)) Allergy (Intermediate, Verified 08/31/25 08:51) RASH, hives HPI Comments Details: Serafin is a pleasant male. He is a patient of Dr. Guerra. He is seen for the following urologic conditions - prostate cancer - low libido - erectile dysfunction Telemedicine Evaluation 15 min Consultation D[facility] Greg Video Continue good response to medications PSA - 08/22 0.3, 03/24 0.5, 09/23 0.64 Six-month follow-up lab work with testosterone Has had difficult pain management and lost muscle mass Prostate cancer: PSA well controlled. Prostate cancer was diagnosed Dr Haile 06/16. Diagnosis was reached by 06/16 , needle biopsy, for elevated PSA, PSA at diagnosis 12, size at TRUS 40-50 gm. The Erin grade is May 201803/11 cores positive RAL 3+4 40% RML 3+4 60% KIMO 4+3 20% BENNY 4+4 10%. TNM Classification of Malignant Tumours (TNM) T1c. The D'Martin (NCCN) risk category is 06/16 , High Risk (PSA > 20, Gl 8+, T3), group 4 Ranger 4 + 4 Initial therapy included Primary treatment 09/16 External beam radiation with short term hormonal ablation - Dr John Cohen - completed 11/16, 07/14/18 GnRH 6m Recent labs included 02/15 PSA < 0.05 06/17 T 240 PSA < 0.05 - 10/22 PSA 0.07, T 260 Associated conditions erectile dysfunction Yes PFSH Medical History Walker as ambulation aid Polyarticular osteoarthritis Venous insufficiency Retinal hemorrhage Vitamin D deficiency Joint pain in both hands HARITHA (obstructive sleep apnea) Carpal tunnel syndrome Morbid obesity Prostate CA Constipation Elevated alkaline phosphatase level Stenosis of cervical spine Anemia Depression RBBB Erectile dysfunction Lumbar spinal stenosis Atrial fibrillation GERD (gastroesophageal reflux disease) Asthma Arthritis Surgical History Hx of cervical spine surgery History of surgery Hx of neck surgery History of back surgery H/O cardiac radiofrequency ablation (~04/2017) Family History Father Heart attack DVT (deep venous thrombosis) Mother Diabetes COPD (chronic obstructive pulmonary disease) Social History Household Members: Spouse and Family Housing: House Are you a primary intensive care unit nurse to a significant other at home: No Do you presently have visiting nurse or other home services: Yes (PET CARETAKER 3 hours daily) Alcohol intake: never Patient Tobacco Use Status: Former Tobacco user Tobacco use type: Cigarette e-Cigarette/Vaping Use: Never Used Second Hand Smoke Exposure: No service: No 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al status: retired 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 Cognitive needs: No Hearing needs: No Vision needs: No Review of Systems Const All systems reviewed & are unremarkable except as noted in HPI and below Reports no additional complaints Resp Reports no additional complaints GI Reports no additional complaints Reports as per HPI Musc Reports no additional complaints Physical Exam Telemedicine evaluation Appropriate responses Regular breathing rate and rhythm HEENT Head: Yes normal to inspection Ears: hearing grossly normal bilaterally Eyes General: appearance normal, both eyes and all related structures Neck Neck: Yes normal visual inspection Chest Chest palpation & inspection: normal inspection of the chest Resp Effort & Inspection: normal respiratory effort and able to speak in complete sentences Telehealth Telehealth Telehealth Platform: [facility] Location of provider rendering services: practice address Location of patient: address on file Patient Identification confirmed using: Name, : Yes Telehealth method: video Patient verbally consented to treatment: Yes Patient verbally consented to billing insurance company: Yes Patient informed of any privacy concerns related to visit: Yes Minutes spent on Phone/Video with Pt.: 15 Assessment & Plan Assessment & Plan (1) Prostate CA: Code(s): C61 - Malignant neoplasm of prostate Category: Medical (2) Erectile dysfunction due to and not concurrent with radiation therapy: Code(s): N52.35 - Erectile dysfunction following radiation therapy Category: Medical (3) Hypogonadism in male: Code(s): E29.1 - Testicular hypofunction Category: Medical Plan Six-month follow-up lab work Orders: Orders Prostate Specific Antigen 5 Months C61 - Malignant neoplasm of prostate Testosterone, Total 5 Months C61 - Malignant neoplasm of prostate Patient Instructions: This note is constructed using voice recognition software. While every effort has been made to ensure accuracy inserter promotional item errors may have been included. Imaging studies, laboratory and physical exam results were discussed and reviewed in detail. No major barriers to patient understanding were identified. An opportunity to ask questions regarding the treatment plan was provided. All questions were answered. The patient expressed understanding and agreement with the above treatment plan. The patient is aware they should contact our office by phone for worsening of their current condition or the appearance of new urologic symptoms. Compliance is encouraged with any medications and followup testing that is ordered. It is a privilege to participate in the urologic care of your patient. If you have any questions or concerns regarding treatment for the above conditions, or other urologic issues, please do not hesitate to contact me. The office telephone contact is [phone]. Sincerely, Dr Raul Haile MD, [place] [facility] - Urology Compassionate Specialist Care for the Genitourinary System Coding Level of Care Code Tele Est Pt Level 3 (34808) Complex EM visit Add On G2211 Diagnoses Prostate CA C61 Erectile dysfunction due to and not concurrent with radiation therapy N52.35 Hypogonadism in male E29.1
--- OUTSIDE RECORDS SUMMARY | 2025-08-31 09:14 | XMS_ITS | Patient Health Record ---
[facility] Address [address] [place] [address] Care Team Providers Care Field Service Tech Name Role Phone Prosper Winkler Primary Care Provider UnaGamaliel Dominguez Unavailable [phone] Allergies Allergen (clinical drug ingredient) Drug/Non Drug [...] Polyneuropathy due to type 2 diabetes mellitus (009889731) Type 2 diabetes mellitus with diabetic polyneuropathy (E11.42) Active confirmed Plan Of Treatment Pending Test Test Name Order Date 51428-NVPR SKIN LESIONS, 2 TO 4 10/08/20 23 Insurance Providers Payer Name Payer Address Payer Phone Subscriber Number Group Number Insured Name Patient Relationship to Insured Coverage Start Date Coverage End Date [employer] Claims [address] [address] [place] [address] [phone] [id number] Serafin Granger Self - patient is the insured Medical (General) History Medical History History ICD Code Arthritis asthma Cancer Depression diabetic Measles Chicken pox Joint implants/screws Surgical History Surgery Date(Month/Year) Back surgery 1 neck
== END 2025-08-31 09:31 | disposition home or self-care (01) ==
LOC: HO.HUSH 08:46
PROVIDERS: PCP Nurse Practitioner Family; Visit Provider Urology
DX: C61 Malignant neoplasm of prostate (principal); N52.35 Erectile dysfunction following radiation therapy; E29.1 Testicular hypofunction
CPT/HCPCS: 99213; G2211

== ENCOUNTER 2025-11-27 13:50 | Outpatient (AMB) | payer MEDICARE, MEDICAID, SELFPAY ==
--- NOTE | 2025-11-27 13:49 | A.OFFVIS_ITS ---
Vital Signs 11/27/25 13:50 Height 6 ft 3 in Weight 340 lb BMI 42.5 BP 140/84 H Blood Pressure Location Rt brachial Position Sitting Pulse 99 Pulse Source Pulse Oximeter Pulse Oximetry (%) 97 Oxygen Delivery Method Room Air Intake Visit Reasons: 6 mo follow up Intake Note: Patient presents follow up HARITHA. Labs/Compliance in chart(89/90days, >=4hrs-70%, Average Usage-5hr 11min, Pressure-11cm, Med Leaks-16.9, AHI-0.2) Mc Kay Stitcher Required: No Accompanied by: Son in law - TRAFFIC CONTROL OPERATOR Allergies Sulfa (Sulfonamide Antibiotics) (SULFA (SULFONAMIDE ANTIBIOTICS)) Allergy (Intermediate, Verified 11/27/25 13:50) RASH, hives HPI Comments Details: 60-yr-old male presents for a follow-up visit for HARITHA and RLS. His cpap company is [employer]. His TRAFFIC CONTROL OPERATOR and son in lawCharles helps with history today. Compliance Report 07/2025 - 10/2025 reviewed with pt today. Total use 89/90days, >=4hrs is 70%, Average Usage-5hr 11min Pressure-11cm, Med Leaks-16.9, AHI-0.2. Washes mask, rinses hoses, changes filters and fills reservoir with water He notices he can sleep averaging 4-6 hours night with his cpap, the pressures are good and he feels well rested in the morning. He goes bed at 11pm and wakes up at 3:30am. Wakes up due to the twitching in his legs. The morning headaches have improved and he denies parasomnias, he has nightmares as if he is running away from someone denies auditory and visual hallucinations. He says prazosin was ineffective and discontinued use. The RLS symptoms are worse in both feet, with an uncomfortable numbness, radiating pain from the ankles to the knees. He gets out of bed and waits a few minutes, stretches the legs, moves to the couch as he dozes off while watching tv. He takes Magnesium 400 mg, pramipexole 0.50mg po BID, this helps with the symptoms, however he is up at night. His will nudge him to leave the bed due to the movements. He takes gabapentin 800 mg TID, and he stopped taking lyrica due to bilateral edema. Memory is poor, stm is getting worse, he has difficulty concentrating, and loses focus easily. Mood is depressed takes abilify 5mg daily and this works well for his mood, he sees a therapist once every 6 months. He needs help with all his ADLS, M-Thurs TRAFFIC CONTROL OPERATOR is with him 8 hours a day for hygiene support, laundry, cooking, cleaning, transferring. He has T2DM and HTN well managed, he gets dizzy due to hypoglycemia. Denies falls and sees weight management, as he has lost 28lbs on ozempic. [facility] Medical History Walker as ambulation aid Polyarticular osteoarthritis Venous insufficiency Retinal hemorrhage Vitamin D deficiency Joint pain in both hands HARITHA (obstructive sleep apnea) Carpal tunnel syndrome Morbid obesity Prostate CA Constipation Elevated alkaline phosphatase level Stenosis of cervical spine Anemia Depression RBBB Erectile dysfunction Lumbar spinal stenosis Atrial fibrillation GERD (gastroesophageal reflux disease) Asthma Arthritis Surgical History Hx of cervical spine surgery History of surgery Hx of neck surgery History of back surgery H/O cardiac radiofrequency ablation (~04/2017) Family History Father Heart attack DVT (deep venous thrombosis) Mother Diabetes COPD (chronic obstructive pulmonary disease) Social History Household Members: Spouse and Family Housing: House Are you a primary career development manager to a significant other at home: No Do you presently have visiting nurse or other home services: Yes (TRAFFIC CONTROL OPERATOR 3 hours daily) Alcohol intake: never Patient Tobacco Use Status: Former Tobacco user Tobacco use type: Cigarette e-Cigarette/Vaping Use: Never Used Second Hand Smoke Exposure: No service: No 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al status: retired 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 Cognitive needs: No Hearing needs: No Vision needs: No Physical Exam Vital Signs: Last Vital Signs Pulse 99 11/27/25 13:50 BP 140/84 H 11/27/25 13:50 Pulse Ox 97 11/27/25 13:50 Oxygen Delivery Method Room Air 11/27/25 13:50 BMI result Body Mass Index 42.5 Const General: no acute distress Nutritional Appearance: obese Orientation/consciousness: patient oriented x3 Limitations: ambulation with walker HEENT Head: Yes normocephalic Face and sinus: Yes face symmetric Throat: Yes other (mallampti score is 4) Eyes Pupils: Equal, round and reactive pupils present Neck Other: limited rom on flexion / extension - and lateral movement to the r/l Resp Effort & Inspection: normal respiratory effort and able to speak in complete sentences Neuro Other: uses a cane 90% of the time. Gait is off. General: patient oriented x3 Cranial nerves: Yes Facial sensation intact/muscles of mastication intact, Yes Equal, round and reactive pupils present, Yes Normal accommodation reflex present, Yes Nystagmus not present, Yes Normal facial strength present, Yes Midline tongue present, Yes Ability to bilaterally rotate head present (with limited rom) and Yes Ability to bilaterally elevate shoulders present Cognition (Neuro): normal cognition Gait exam (Neuro): Wide-based gait present and Assistive device used Motor exam (neuro): 5/5 motor strength present throughout Coordination: [id number] test normal Psych Mental Status: mental status grossly normal Speech and movement: Clear speech present Attitude: cooperative Thought content: Depressive thoughts present Results Reviewed Results Reviewed: Compliance Report 07/2025 - 10/2025 reviewed with pt today. Total use 89/90days, >=4hrs is 70%, Average Usage-5hr 11min Pressure-11cm, Med Leaks-16.9, AHI-0.2. Washes mask, rinses hoses, changes filters and fills reservoir with water Assessment & Plan Assessment & Plan (1) HARITHA (obstructive sleep apnea): Comment: PSG (2018)- AHI 13/hr, REM AHI 29/hr, O2 patti 77%. Code(s): G47.33 - Obstructive sleep apnea (adult) (pediatric) Category: Medical (2) Restless leg syndrome: Comment: PSG (2018)- PLMS Code(s): G25.81 - Restless legs syndrome Category: Medical (3) Fatigue: Code(s): R53.83 - Other fatigue Category: Medical Qualifiers: Fatigue type: chronic, unspecified Qualified Code(s): R53.82 - Chronic fatigue, unspecified (4) Nightmares: Code(s): F51.5 - Nightmare disorder Category: Medical (5) Excessive daytime sleepiness: Code(s): G47.19 - Other hypersomnia Category: Medical Plan Continue CPAP 11 cmH2O nightly > 4 hours, as pt is having good clinical effect and good reduction in residual AHI from use. Clean CPAP machine and supplies routinely. Change CPAP supplies routinely, weekly or daily as needed. Sleep hygiene reviewed with pt. Continue magnesium 400mg po qpm and melatonin prn sleep difficulties. Discontinued Parzosin for nightmares. RLS symptoms continue Pramipexole to 0.75mg q 8:30pm and qHS, changed to tid today. Will monitor for obsessive compulsive behavior, gambling, binge eating, mood fluctuations. long acting ER 0.375 at bedtime- Pramipexole - drop attacks and - dopamine agonist. Pt would like to decrease gabpentin from 800mg po TID to 600mg po TID as he is concerned about his kidneys. [facility] of Sleep will write him a rx for [facility] Continue to take Vitamin D 1000units daily and B12 1000mcg daily qpm. Will re-check ferritin, and other labs for RLS anemia and excessive fatigue. Orders: Orders Ferritin Today G47.19 - Other hypersomnia Vitamin B12 and Folate Today G47.19 - Other hypersomnia Methylmalonic Acid Today G47.19 - Other hypersomnia, G47.9 - Sleep disorder, unspecified, R53.83 - Other fatigue Vitamin D 25-OH Total Today G47.19 - Other hypersomnia Homocysteine Today G47.19 - Other hypersomnia, G47.9 - Sleep disorder, un specified, R53.83 - Other fatigue Medications: New [nidra motor tonic device] As directed 2 ea 0RF RLS G25.81 - Restless legs syndrome [nidra motor tonic device] As directed 2 ea 0RF RLS G25.81 - Restless legs syndrome [nidra motor tonic device] As directed 2 ea 0RF RLS G25.81 - Restless legs syndrome Refilled cholecalciferol (vitamin D3) 50 mcg PO DAILY 120 caps 2RF low vitamin d 4 months MDD 2000 units daily R79.89 - Other specified abnormal findings of blood chemistry mecobalamin (vitamin B12) place tablet under tongue and allow to dissolve for at least30 secs before swallowing 1,000 mcg sublingual BEDTIME 90 tabs 0RF b12 deficiency 3 months MDD 1000mcg D51.9 - Vitamin B12 deficiency anemia, unspecified, D64.9 - Anemia, unspecified Patient Instructions: Please complete the following fasting labs to rule out deficiencies. CBC/CMP/ B12/ Vit D/ TSH/ Homocysteine and MMA/ Ferritin. Sleep Hygiene provided: set a scheduled bedtime and wake time to help regulate the circadian rhythm and balance the release of pituitary hormones. Sleep in a dark room, temperatures below 68 degrees, and no devices n bed. Limit caffeinated products 6 hours prior to bed, and limit fluids 2-4 hours prior to bed. Gentle night yoga, diffusing essential oils, and playing soft music can be relaxing. Coding Level of Care Code Est Pt Level 4 (40650) Diagnoses HARITHA (obstructive sleep apnea) G47.33 Restless leg syndrome G25.81 Chronic fatigue R53.82 Fatigue type: chronic, unspecified Nightmares F51.5 Excessive daytime sleepiness G47.19
[2025-11-27 13:50] VITALS: BP 140/84; PULSE 99; O2SAT 97; BMI 42.5
--- OUTSIDE RECORDS SUMMARY | 2025-11-27 16:07 | XMS_ITS | Patient Health Record ---
Author Organization [facility] Address [address] [place] [address] Care Team Providers Care Maintenance Supervisor Name Role Phone Prosper Winkler Primary Care Provider Unav ailable Gamaliel Morales Unavailable [phone] Allergies Allergen (clinical drug ingredient) Drug/Non Drug [...] Polyneuropathy due to type 2 diabetes mellitus ([id number]) Type 2 diabetes mellitus with diabetic polyneuropathy (E11.42) Active confirmed Plan Of Treatment Pending Test Test Name Order Date 06669-YHOP SKIN LESIONS, 2 TO 4 10/08/20 23 Insurance Providers Payer Name Payer Address Payer Phone Subscriber Number Group Number Insured Name Patient Relationship to Insured Coverage Start Date Coverage End Date [employer] Claims [address] [place] [address] [id number] Serafin Granger Self - patient is the insured Medical (General) History Medical History History ICD Code Arthritis asthma Cancer Depression diabetic Measles Chicken pox Joint implants/screws Surgical History Surgery Date(Month/Year) Back surgery 1 neck
== END 2025-11-27 14:34 | disposition home or self-care (01) ==
LOC: HO.HSMS 13:51
PROVIDERS: PCP Nurse Practitioner Family; Visit Provider Physician Assistant Medical
DX: G47.33 Obstructive sleep apnea (adult) (pediatric) (principal); G25.81 Restless legs syndrome; R53.82 Chronic fatigue, unspecified; F51.5 Nightmare disorder; G47.19 Other hypersomnia
CPT/HCPCS: 99214

== ENCOUNTER → 2025-11-27 13:50 | Outpatient (BNVA) | payer MEDICARE, MEDICAID, SELFPAY | PROVIDERS: PCP Nurse Practitioner Family; Visit Provider Physician Assistant Medical | DX: G47.33 Obstructive sleep apnea (adult) (pediatric) (principal); G25.81 Restless legs syndrome; G47.19 Other hypersomnia; F51.5 Nightmare disorder; R53.82 Chronic fatigue, unspecified; Z99.89 Dependence on other enabling machines and devices; Z72.821 Inadequate sleep hygiene; Z79.899 Other long term (current) drug therapy | CPT/HCPCS: 99212 ==